=== PATIENT | female | born 1930 | race Caucasian/White ===

== ENCOUNTER 2016-08-12 05:02 | Inpatient (IN) | payer OTHER, MEDICARE ==
[2016-08-12 06:01] LABS: BASOPHIL 0.4 % (0-2.0); EOSINOPHIL 1.3 % (0-4.5); MCH 30.5 pg (25.7-33.7); MCHC 32.9 g/dl (32.0-36.0); MEAN CELL VOLUME 92.7 fl (80-96); MEAN PLT VOLUME 9.7 fl (7.5-11.1); PLATELET COUNT 194 K/MM3 (134-434); RDW 14.4 % (11.6-15.6)
[2016-08-12 06:11] LABS: INR 1.28 (0.82-1.09); PROTHROMBIN TIME (PATIENT) 14.2 SEC (9.98-11.88)
[2016-08-12 06:25] LABS: ALBUMIN 3.8 g/dl (3.4-5.0); ANION GAP 8 (8-16); CALCIUM 9.8 mg/dL (8.5-10.1); CO2 33 mmol/L (21-32); CREATININE 0.9 mg/dL (0.55-1.02); GLUCOSE,RANDOM 155 mg/dL (74-106); SGOT/AST 66 U/L (15-37); SGPT/ALT 36 U/L (12-78)
[2016-08-12 06:29] LABS: ALK PHOS 75 U/L (45-117); BILIRUBIN,TOTAL 0.7 mg/dL (0.2-1.0); TOT PROT 7.1 g/dl (6.4-8.2); TROPONIN I < 0.02 ng/ml (0.00-0.05)
[2016-08-12] MEDS ORDERED: PANTOPRAZOLE SODIUM 100 ML IVPB ONE (07:41)
[2016-08-12] MEDS ORDERED: ONDANSETRON 4 MG/2 ML VIAL ONE (07:44)
[2016-08-12] MEDS ORDERED: PANTOPRAZOLE SODIUM 40 MG in SODIUM CHLORIDE 100 ML IVPB ONE (08:16)
[2016-08-12] MEDS ORDERED: ONDANSETRON 4 MG/2 ML VIAL IVPUSH ONE (08:18)
--- NOTE | 2016-08-12 08:21 | PDOC ---
History of Present Illness <Margarita Davis - Last Filed: 08/12/16 12:17> - General History Source: Patient Exam Limitations: No Limitations - History of Present Illness Initial Comments: 08/12/16 08:27 The patient is a 85 year old female, with a significant past medical history of ASthma, ASHD, CAD, bilateral PE (on Eliquis) Diabetes, Colitis, Diverticulitis, HTN, HLD who presents to the emergency department with epigastric pain radiating to the back and lower abdomen since 8 pm last night. The patient states her epigastric pain is associated with nausea, vomiting, diaphoresis. The patient had cold sweats and 3 episodes of vomiting in the ED (nonbloody, nonbilious). Her last meal was at 8 PM last night. The patient denies any sick contacts or any recent travel. She denies headache or dizziness. She denies fever, chills, diarrhea or constipation. She denies dysuria, frequency, urgency or hematuria. Allergies: Advil Past surgical history: Appendectomy Social history: Former smoker, denies alcohol or drug use PCP: Dr. Dat Mart Sales Research Analyst: Dr. Jimenez <Radha Redding - Last Filed: 08/12/16 12:45> - General Chief Complaint: Chest Pain Stated Complaint: CHEST PAIN Past History - Past Medical History Anemia: No Asthma: Yes Cancer: No Cardiac Disorders: Yes (ASHD, CORONARY ATHEROSCLEROSIS, bilateral PE) CVA: No COPD: No CHF: No Dementia: No Diabetes: Yes GI Disorders: Yes (cololitis,diverticulitis,) Disorders: No HTN: Yes Hypercholesterolemia: Yes Liver Disease: No Seizures: No Thyroid Disease: No - Surgical History Abdominal Surgery: Yes Appendectomy: Yes Cardiac Surgery: No Cholecystectomy: No Lung Surgery: No Neurologic Surgery: No Orthopedic Surgery: Yes (R KNEE MENISCUS REPAIR, CORTISONE INJECTION IN L KNEE JUL 2014) - Reproductive History (#): 2 Para: 2 Cervical CA: No Dysfunctional Uterine Bleeding: No Ectopic : No Endometrial CA: No Endometriosis: No Ovarian CA: No PID: No Polycystic Ovaries: No Therapeutic (s) & number: No Tubal Ligation: No Uterine Fibroids: No Oophorectomy: No - Immunization History Immunization Up to Date: No - Psycho/Social/Smoking Cessation Hx Anxiety: No Suicidal Ideation: No Smoking Status: Yes Smoking History: Never smoked Years of Tobacco Use: 30 Have you smoked in the past 12 months: No Number of Cigarettes Smoked Daily: 0 If you are a former smoker, when did you quit?: 1998 Cigars Per Day: 0 Information on smoking cessation initiated: No Hx Alcohol Use: No Drug/Substance Use Hx: No Substance Use Type: None Hx Substance Use Treatment: No <Margarita Davis - Last Filed: 08/12/16 12:17> <Radha Redding - Last Filed: 08/12/16 12:45> - Past Medical History Allergies/Adverse Reactions: Allergies Allergy/AdvReac Type Severity Reaction Status Date / Time ibuprofen [From Advil] Allergy Mild Hives Verified 08/12/16 05:12 Home Medications: Ambulatory Orders Metoprolol Succinate [Toprol XL -] 25 mg PO DAILY #30 tab.sr.24h 01/26/16 Apixaban [Eliquis -] 5 mg PO Q12H 02/17/16 Ascorbic Acid [Vitamin C -] 1,000 mg PO DAILY 02/17/16 Cholecalciferol (Vitamin D3) [Vitamin D] 1,000 unit PO DAILY 02/17/16 Magnesium Chloride [Slow-Mag -] 64 mg PO DAILY 02/17/16 Multivitamin with Minerals [Icaps Plus] 1 each PO DAILY 02/17/16 Review of Systems - Review of Systems Able to Perform ROS?: Yes Comments:: 08/12/16 08:27 Constitutional: Pt denies Fever, Chills, weakness, HEENT: Denies vision changes, sore throat RESPIRATORY: Denies cough, sob, hemoptysis CARDIAC: + chest pain. Denies palpitations, light headedness, leg swelling ABD/GI: + abd pain, nausea, vomiting. Denies blood per rectum, melena, diarrhea : Denies dysuria, frequency, discharge MUSCULOSKELETAL - Denies back pain, joint swelling SKIN - Denies bruising, erythema, rash NEUROLOGICAL: Denies headache, numbness, focal weakness, tingling, ataxia, weakness HEMATOLOGIC: Denies anemia, easy bruising, easy bleeding <Radha Redding - Last Filed: 08/12/16 12:45> *Physical Exam - Vital Signs Last Vital Signs Temp Pulse Resp BP Pulse Ox 97.9 F 70 18 157/69 98 08/12/16 05:05 08/12/16 05:05 08/12/16 05:05 08/12/16 05:05 08/12/16 05:05 <Margarita Davis - Last Filed: 08/12/16 12:17> - Vital Signs Last Vital Signs Temp Pulse Resp BP Pulse Ox 97.9 F 70 18 157/69 98 08/12/16 05:05 08/12/16 05:05 08/12/16 05:05 08/12/16 05:05 08/12/16 05:05 - Physical Exam Comments: 08/12/16 08:27 GENERAL: The patient is awake, alert, and fully oriented, Nontoxic - in mild distress. HEAD: Normocephalic, atraumatic. EYES: Extraocular movements intact, sclera anicteric, conjunctiva clear. ENT: Normal voice, + dry mucous membranes. NECK: Normal range of motion, supple without lymphadenopathy, JVD, or masses. LUNGS: Breath sounds equal, clear to auscultation bilaterally. No wheezes, no crackles, no rales. HEART: Regular rate and rhythm, normal S1 and S2 without murmur, rub or gallop. ABDOMEN: +Distended + hyperactive bowel sounds. No guarding, no rebound. No masses. EXTREMITIES: Normal range of motion, no edema. No clubbing or cyanosis. No cords , erythema, or tenderness. NEUROLOGICAL: Fully Oriented, Alert, Normal Mood/Affect, Motor Strength 5/5. No facial asymmetry, Normal speech. SKIN: Warm, Dry, normal turgor, no rashes or lesions noted. <Radha Redding - Last Filed: 08/12/16 12:45> Heart Score/ECG Review - [place] Comment: 08/12/16 12:[address] Ryan Brink. rate 62 bpm RI Interval 184 ms QRS Duration 96 ms QT/QTc 422/428 ms P-R-T axes 13 -48 40 NSR L axis deviation Inferior infarct Abnormal ECG <Radha Redding - Last Filed: 08/12/16 12:45> ED Treatment Course - LABORATORY CBC & Chemistry Diagram: 08/12/16 05:27 08/12/16 05:27 - ADDITIONAL ORDERS Additional order review: Laboratory Results 08/12/16 08/12/16 05:27 05:27 INR 1.28 H Sodium 142 Potassium 3.9 D Chloride 101 Carbon Dioxide 33 H Anion Gap 8 BUN 22 H D Creatinine 0.9 D Creat Clearance w eGFR 59.65 Random Glucose 155 H Calcium 9.8 Total Bilirubin 0.7 D AST 66 H D ALT 36 D Alkaline Phosphatase 75 D Creatine Kinase 39 Troponin I < 0.02 Total Protein 7.1 Albumin 3.8 08/12/16 05:27 RBC 4.62 MCV 92.7 MCHC 32.9 RDW 14.4 MPV 9.7 Neutrophils % 55.0 Lymphocytes % 35.1 D Monocytes % 8.2 Eosinophils % 1.3 Basophils % 0.4 - RADIOLOGY Radiology Studies Ordered: Category Date Time Status ABDOMEN [id number] [RAD] Stat Radiology 08/12/16 08:15 Ordered ABDOMEN US [US] Stat Ultrasound 08/12/16 08:14 Ordered - Medications Given in the ED: ED Medications Discontinued Medications Generic Name Dose Route Start Last Admin Trade Name Freq PRN Reason Stop Dose Admin Ondansetron HCl 4 mg 08/12/16 08:18 08/12/16 08:21 Zofran Injection IVPUSH 08/12/16 08:19 4 mg ONCE ONE Administration <Margarita Davis - Last Filed: 08/12/16 12:17> - LABORATORY CBC & Chemistry Diagram: 08/12/16 05:27 08/12/16 05:27 - ADDITIONAL ORDERS Additional order review: Laboratory Results 08/12/16 08/12/16 05:27 05:27 INR 1.28 H Sodium 142 Potassium 3.9 D Chloride 101 Carbon Dioxide 33 H Anion Gap 8 BUN 22 H D Creatinine 0.9 D Creat Clearance w eGFR 59.65 Random Glucose 155 H Calcium 9.8 Total Bilirubin 0.7 D AST 66 H D ALT 36 D Alkaline Phosphatase 75 D Creatine Kinase 39 Troponin I < 0.02 Total Protein 7.1 Albumin 3.8 08/12/16 05:27 RBC 4.62 MCV 92.7 MCHC 32.9 RDW 14.4 MPV 9.7 Neutrophils % 55.0 Lymphocytes % 35.1 D Monocytes % 8.2 Eosinophils % 1.3 Basophils % 0.4 - Medications Given in the ED: ED Medications Discontinued Medications Generic Name Dose Route Start Last Admin Trade Name Freq PRN Reason Stop Dose Admin Ondansetron HCl 4 mg 08/12/16 08:18 08/12/16 08:21 Zofran Injection IVPUSH 08/12/16 08:19 4 mg ONCE ONE Administration <Radha Redding - Last Filed: 08/12/16 12:45> Medical Decision Making - Medical Decision Making 08/12/16 12:18 I, Dr. Margarita Davis, attest that the scribes documentation that appears above has been prepared under my direction and personally reviewed by me. I confirmed that the note above accurately reflects all work, treatment, procedures, and medical decision-making performed by me. Pt seen and examined at bedside with epigastric discomfort and pain radiating to her back, pt with 3 episodes of vomiting, sonogram done showing acute cholecystitis and thickened gall bladder wall. Pt with elevated lipase, pt with pancreatitis due to gall stones. Case discussed with Pt's PCP Dr Mart and covering physician will admit to hospital. Pt agrees with the admission to hospital. <Margarita Davis - Last Filed: 08/12/16 12:17> *DC/Admit/Observation/Transfer - Discharge Dispostion Admit: Yes <Margarita Davis - Last Filed: 08/12/16 12:17> - Attestations Scribe Attestion: 08/12/16 08:28 Documentation prepared by Radha Redding, acting as medical technologist for Margarita Davis MD <Radha Redding - Last Filed: 08/12/16 12:45> Diagnosis at time of Disposition: Acute gallstone pancreatitis - Discharge Dispostion Condition at time of disposition: Stable - Referrals
[2016-08-12 09:03] LABS: URINE APPEARANCE CLEAR; URINE BILIRUBIN NEGATIVE (NEGATIVE); URINE BLOOD NEGATIVE (NEGATIVE); URINE COLOR LTYELLOW; URINE GLUCOSE (UA) NEGATIVE (NEGATIVE); URINE KETONE NEGATIVE (NEGATIVE); URINE NITRITE NEGATIVE (NEGATIVE); URINE PROTEIN NEGATIVE (NEGATIVE); URINE UROBILINOGEN NEGATIVE E.U./dl (0.2-1.0)
[2016-08-12 09:06] LABS: AMYLASE 1159 U/L (25-115)
[2016-08-12 09:07] LABS: URINE LEUK ESTERASE TRACE (NEGATIVE)
[2016-08-12 09:10] LABS: URINE BACTERIA FEW /hpf (NONE SEEN); URINE MUCUS RARE; URINE RBC 1 /hpf (0-3); URINE WBC 4 /hpf (3-5)
[2016-08-12] MEDS ORDERED: LEVOFLOXACIN 500 MG IVPB 100 ML IVPB ONE ×2 (09:51→10:35)
[2016-08-12] MEDS ORDERED: SODIUM CHLORIDE 0.45% 1,000 ML IV SCH ×2 (11:15→17:39)
--- NOTE | 2016-08-12 11:25 | HP ---
Admitting History and Physical - Primary Care Physician PCP: Durga Mart - Admission Chief Complaint: Abdominal Pain History of Present Illness: 85 year old female noted severe mid-epigastric discomfort early this AM and came to ER where she had several episodes of vomiting. Work-up revealed an elevated serum Lipase level of 22,758 and ultrasound revealed finding c/w acute calculous cholecystitis. Denies new chest discomfort of ROBERTS. Admitted for evaluation and Rx of gallstone related pancreatitis. Patient has been on NOAC ( Eliquis) therapy for recent pulmonary embolism. 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 No: GI Bleed Hepatobiliary: Yes: Cholecystitis (see above) Musculoskeletal: Yes: Chronic low back pain, Osteoarthritis Endocrine: Yes: Diabetes Mellitus - Past Surgical History Past Surgical History: Yes: Appendectomy, Breast Biopsy (right benign) Additional Past Surgical History: Knee arthroscopy - Smoking History Smoking history: Never smoked Have you smoked in the past 12 months: No Aproximately how many cigarettes per day: 0 If you are a former smoker, when did you quit?: 1998 - Alcohol/Substance Use Hx Alcohol Use: No History of Substance Use: reports: None - Social History Usual Living Arrangement: Yes: Alone ADL: Independent History of Recent Travel: No Home Medications - Allergies Allergies/Adverse Reactions: Allergies Allergy/AdvReac Type Severity Reaction Status Date / Time ibuprofen [From Advil] Allergy Mild Hives Verified 08/12/16 05:12 - Home Medications Home Medications: Ambulatory Orders Metoprolol Succinate [Toprol XL -] 25 mg PO DAILY #30 tab.sr.24h 01/26/16 Apixaban [Eliquis -] 5 mg PO Q12H 02/17/16 Ascorbic Acid [Vitamin C -] 1,000 mg PO DAILY 02/17/16 Cholecalciferol (Vitamin D3) [Vitamin D] 1,000 unit PO DAILY 02/17/16 Magnesium Chloride [Slow-Mag -] 64 mg PO DAILY 02/17/16 Multivitamin with Minerals [Icaps Plus] 1 each PO DAILY 02/17/16 Family Disease History - Family Disease History Family Disease History: Diabetes: Mother, Heart Disease: Father Review of Systems - Review of Systems Constitutional: denies: Chills, Diaphoresis Eyes: reports: No Symptoms Neck: reports: No Symptoms Cardiovascular: reports: No Symptoms Respiratory: reports: Other (h/o PE) Gastrointestinal: reports: Abdominal Pain, Vomiting Genitourinary: reports: No Symptoms Breasts: reports: No Symptoms Reported Musculoskeletal: reports: Back Pain (chronic stable) Neurological: reports: No Symptoms Physical Examination Vital Signs: Vital Signs Temperature 97.9 F 08/12/16 05:05 Pulse Rate 64 08/12/16 08:36 Respiratory Rate 20 08/12/16 08:36 Blood Pressure 157/69 08/12/16 05:05 O2 Sat by Pulse Oximetry (%) 100 08/12/16 08:36 Constitutional: Yes: Anxious, Moderate Distress Eyes: Yes: Conjunctiva Clear. No: Sclera Icterus HENT: Yes: WNL Neck: Yes: Supple Cardiovascular: Yes: Regular Rate and Rhythm Respiratory: Yes: CTA Bilaterally. No: Rhonchi, Wheezes Gastrointestinal: Yes: Normal Bowel Sounds, Soft, Tenderness (mild tenderness left sided of abdomen) ...Rectal Exam: Yes: Deferred Edema: No Neurological: Yes: Alert, Oriented Imaging - Results Chest X-ray: Report Reviewed Ultrasound: Report Reviewed Problem List - Problems (1) Acute gallstone pancreatitis Assessment/Plan: Keep npo for now until seen by GI and Surgeon Empiric antibiotics given Invasive procedures (ERCP and Cholecystectomy) to be deferred and delayed due to NOAC use Discuss iv order with GI Code(s): K85.1 - BILIARY ACUTE PANCREATITIS * DO NOT USE * (2) Diabetes Assessment/Plan: Keep npo Cover BGMs Code(s): E11.9 - TYPE 2 DIABETES MELLITUS WITHOUT COMPLICATIONS (3) HTN (hypertension) Assessment/Plan: Stable Metoprolol discontinued as outpatient Code(s): I10 - ESSENTIAL (PRIMARY) HYPERTENSION (4) Pulmonary embolism, bilateral Assessment/Plan: Stable NOAC therapy to be held pending GI and Surgical opinions Code(s): I26.99 - OTHER PULMONARY EMBOLISM WITHOUT ACUTE COR PULMONALE (5) Colitis Assessment/Plan: Chronic stable Code(s): K52.9 - NONINFECTIVE GASTROENTERITIS AND COLITIS, UNSPECIFIED (6) Osteoarthritis Assessment/Plan: Chronic low back pain Currently stable Code(s): M19.90 - UNSPECIFIED OSTEOARTHRITIS, UNSPECIFIED SITE (7) S/P IVC filter Assessment/Plan: Will this interfere with possible MRCP? Assessment/Plan Plan as outlined above Will ask Shingle Weaver to see patient regarding timing of interventions while on NOAC therapy, which will be held. ?Role of bridging therapy
--- NOTE | 2016-08-12 11:54 | CONSULT ---
- Consultation REQUESTING PROVIDER: Dayana Mart MD CONSULT REQUEST: I have been asked to evaluate and manage this patient for c/ o epigastric pain found to be due to gallstone pancreatitis. PCP:Durga Mart HISTORY OF PRESENT ILLNESS:# hours of epigastric sharp abdominal pain w/ radiation to the back w/nausea and then vomiting; she came to the ER for evaluation; she never had this before. PMHx: reviewed PSHx: reviewed Home Medications Medication Instructions Recorded Metoprolol Succinate [Toprol XL -] 25 mg PO DAILY #30 tab.sr.24h 01/26/16 Apixaban [Eliquis -] 5 mg PO Q12H 02/17/16 Ascorbic Acid [Vitamin C -] 1,000 mg PO DAILY 02/17/16 Cholecalciferol (Vitamin D3) 1,000 unit PO DAILY 02/17/16 [Vitamin D] Magnesium Chloride [Slow-Mag -] 64 mg PO DAILY 02/17/16 Multivitamin with Minerals [Icaps 1 each PO DAILY 02/17/16 Plus] Allergies Allergy/AdvReac Type Severity Reaction Status Date / Time ibuprofen [From Advil] Allergy Mild Hives Verified 08/12/16 05:12 REVIEW OF SYSTEMS: as above only; she had a PE 12/31 PHYSICAL EXAM: GENERAL: Awake, alert, and fully oriented, in no acute distress. HEAD: Normal with no signs of trauma. EYES: PERRL, sclera anicteric, conjunctiva clear. NECK: Normal ROM, supple without lymphadenopathy, JVD, or masses. ABDOMEN: Soft, nontender, not distended, normoactive bowel sounds, slight epigastric guarding, no rebound, no masses. No organomegaly. MUSCULOSKELETAL: Normal ROM at all joints. No bony deformities or tenderness. No CVA tenderness. UPPER EXTREMITIES: 2+ pulses, warm, well-perfused. No cyanosis. Cap refill <2 seconds. No peripheral edema. LOWER EXTREMITIES: 2+ pulses, warm, well-perfused. No calf tenderness. No peripheral edema. NEUROLOGICAL: Normal speech, gait not observed. PSYCH: Cooperative. Good eye contact. Appropriate mood and affect. SKIN: Warm, dry, normal turgor, no rashes or lesions noted. Vital Signs Temperature 97.9 F 08/12/16 05:05 Pulse Rate 64 08/12/16 08:36 Respiratory Rate 20 08/12/16 08:36 Blood Pressure 157/69 08/12/16 05:05 O2 Sat by Pulse Oximetry (%) 100 08/12/16 08:36 Lab Results WBC 9.0 K/mm3 (4.0-10.0) D 08/12/16 05:27 RBC 4.62 M/mm3 (3.60-5.2) 08/12/16 05:27 Hgb 14.1 GM/dL (10.7-15.3) 08/12/16 05:27 Hct 42.9 % (32.4-45.2) 08/12/16 05:27 MCV 92.7 fl (80-96) 08/12/16 05:27 MCHC 32.9 g/dl (32.0-36.0) 08/12/16 05:27 RDW 14.4 % (11.6-15.6) 08/12/16 05:27 Plt Count 194 K/MM3 (134-434) 08/12/16 05:27 Sodium 142 mmol/L (136-145) 08/12/16 05:27 Potassium 3.9 mmol/L (3.5-5.1) D 08/12/16 05:27 Chloride 101 mmol/L (98-107) 08/12/16 05:27 Carbon Dioxide 33 mmol/L (21-32) H 08/12/16 05:27 Anion Gap 8 (8-16) 08/12/16 05:27 BUN 22 mg/dL (7-18) H D 08/12/16 05:27 Creatinine 0.9 mg/dL (0.55-1.02) D 08/12/16 05:27 Random Glucose 155 mg/dL (74-106) H 08/12/16 05:27 Calcium 9.8 mg/dL (8.5-10.1) 08/12/16 05:27 INR 1.28 (0.82-1.09) H 08/12/16 05:27 US reviewed; LFT's wnl; amylase/lipase elevated IMP: gallstone pancreatitis; cholelithiasis PLAN: Suggest NPO/IVF/trend amylase/lipase; will f/u; will advise lap christelle once amylase/lipase normalize; will need to address anticoagulation status if surgery id done. Finesse Holguin MD FACS Visit type - Case Type Case Type: ED Admission - Emergency Emergency Visit: Yes ED Registration Date: 08/12/16 Care time: The patient presented to the Emergency Department on the above date and was hospitalized for further evaluation of their emergent condition. - New patient This patient is new to me today: Yes Date on this admission: 08/12/16 - Critical Care Critical Care patient: No
[2016-08-12 12:57] VITALS: BMI 32.5
[2016-08-12] MEDS ORDERED: morphine CARPU-JECT 2 MG/1 ML DISP.SYRIN IVPUSH PRN (15:19)
[2016-08-12] MEDS: INSULIN SLIDING SCALE (NOVOLOG) 1 VIAL SQ SCH (16:29)
[2016-08-12] MEDS ORDERED: INSULIN SLIDING SCALE (NOVOLOG) 1 VIAL SQ SCH (16:30)
[2016-08-12] MEDS ORDERED: ACETAMINOPHEN 325 MG TABLET (FP) PO PRN (16:40)
--- NOTE | 2016-08-12 17:32 | CON.GI ---
Consult Consult Specialty:: GASTROENTEROLOGY Reason for Consultation:: GALLSTONE PANCREATITIS - History of Present Illness Chief Complaint: ABDOMINAL PAIN History of Present Illness: 86 YEAR OLD FEMALE WITH ASHD, CAD ON ELIQUIS FOR BILATERAL DVT PRESENT TO THE ED WITH INCREASED UPPER ABDOMINAL PAIN ASSOCIATED WITH NAUSEA AND VOMITING. HER LFT'S WERE FOUND TO BE OK EXCEPT FOR A SLIGHTLY ELEVATED AST BUT A LIPASE OVER 20, 000. SHE HAS NOT KNOWN TO HAVE GALLSTONES, SHE DOES NOT DRINK ALCOHOL, SHE HAS NEVER HAD THIS TYPE OF PAIN BEFORE. 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 No: GI Bleed Hepatobiliary: Yes: Cholecystitis (see above) ...: No Musculoskeletal: Yes: Chronic low back pain, Osteoarthritis Endocrine: Yes: Diabetes Mellitus - Past Surgical History Past Surgical History: Yes: Appendectomy, Breast Biopsy (right benign) - Alcohol/Substance Use Hx Alcohol Use: No History of Substance Use: reports: None - Smoking History Smoking history: Never smoked Have you smoked in the past 12 months: No Aproximately how many cigarettes per day: 0 If you are a former smoker, when did you quit?: 1998 - Social History ADL: Independent History of Recent Travel: No Home Medications - Allergies Allergies/Adverse Reactions: Allergies Allergy/AdvReac Type Severity Reaction Status Date / Time ibuprofen [From Advil] Allergy Mild Hives Verified 08/12/16 05:12 - Home Medications Home Medications: Ambulatory Orders Metoprolol Succinate [Toprol XL -] 25 mg PO DAILY #30 tab.sr.24h 01/26/16 Apixaban [Eliquis -] 5 mg PO Q12H 02/17/16 Ascorbic Acid [Vitamin C -] 1,000 mg PO DAILY 02/17/16 Cholecalciferol (Vitamin D3) [Vitamin D] 1,000 unit PO DAILY 02/17/16 Magnesium Chloride [Slow-Mag -] 64 mg PO DAILY 02/17/16 Multivitamin with Minerals [Icaps Plus] 1 each PO DAILY 02/17/16 Family Disease History - Family Disease History Family Disease History: Diabetes: Mother, Heart Disease: Father Review of Systems - Review of Systems Constitutional: reports: Chills Eyes: reports: No Symptoms HENT: reports: No Symptoms Neck: reports: No Symptoms Cardiovascular: reports: No Symptoms Respiratory: reports: No Symptoms Gastrointestinal: reports: Abdominal Pain, Nausea, Vomiting Genitourinary: reports: No Symptoms Breasts: reports: No Symptoms Reported Musculoskeletal: reports: No Symptoms Integumentary: reports: No Symptoms Neurological: reports: No Symptoms Endocrine: reports: No Symptoms Hematology/Lymphatic: reports: No Symptoms Psychiatric: reports: No Symptoms Physical Exam-GI Vital Signs: Vital Signs Temperature 98.9 F 08/12/16 17:10 Pulse Rate 72 08/12/16 17:10 Respiratory Rate 18 08/12/16 17:10 Blood Pressure 96/50 08/12/16 17:10 O2 Sat by Pulse Oximetry (%) 95 08/12/16 12:39 Constitutional: Yes: Well Nourished, Mild Distress Eyes: Yes: Conjunctiva Clear HENT: Yes: Normocephalic Neck: Yes: Supple, Trachea Midline Respiratory: Yes: Regular Gastrointestinal Inspection: Yes: WNL ...Auscultate: Yes: Normoactive Bowel Sounds ...Palpate: Yes: Tenderness, Epigastium Genitourinary: Yes: WNL Musculoskeletal: Yes: WNL Extremities: Yes: WNL Neurological: Yes: WNL Labs: INR, PTT INR 1.28 (0.82-1.09) H 08/12/16 05:27 Laboratory Tests 08/12/16 08/12/16 08/12/16 05:27 05:27 05:27 WBC 9.0 D RBC 4.62 Hgb 14.1 Hct 42.9 MCV 92.7 MCHC 32.9 RDW 14.4 Plt Count 194 MPV 9.7 Neutrophils % 55.0 Lymphocytes % 35.1 D Monocytes % 8.2 Eosinophils % 1.3 Basophils % 0.4 INR 1.28 H Sodium 142 Potassium 3.9 D Chloride 101 Carbon Dioxide 33 H Anion Gap 8 BUN 22 H D Creatinine 0.9 D Creat Clearance w eGFR 59.65 POC Glucometer Random Glucose 155 H Calcium 9.8 Total Bilirubin 0.7 D ALT 36 D Alkaline Phosphatase 75 D Creatine Kinase 39 Troponin I < 0.02 Total Protein 7.1 Albumin 3.8 Total Amylase 1159 H Lipase 20215 H 08/12/16 16:27 WBC RBC Hgb Hct MCV MCHC RDW Plt Count MPV Neutrophils % Lymphocytes % Monocytes % Eosinophils % Basophils % INR Sodium Potassium Chloride Carbon Dioxide Anion Gap BUN Creatinine Creat Clearance w eGFR POC Glucometer 124 Random Glucose Calcium Total Bilirubin ALT Alkaline Phosphatase Creatine Kinase Troponin I Total Protein Albumin Total Amylase Lipase Imaging - Results Ultrasound: Report Reviewed Assessment/Plan GALLSTONE PANCREATITIS INCREASE IV FLUID CT SCAN OF ABDOMEN IN AM PO CONTRAST ONLY FOLLOW LFT'S, LIPASE, ANALGESIA EVENTUAL SURGERY SURGICAL CONSULT
[2016-08-12] MEDS: SODIUM CHLORIDE 0.45% 1,000 ML IV SCH (18:00)
--- NOTE | 2016-08-12 20:03 | CONSULT ---
Consult - text type - Consultation Consultation Note: 85 year old female noted severe mid-epigastric discomfort early this AM and came to ER where she had several episodes of vomiting. Work-up revealed an elevated serum Lipase level of 22,758 and ultrasound revealed finding c/w acute calculous cholecystitis. Denies new chest discomfort of ROBERTS. Admitted for evaluation and Rx of gallstone related pancreatitis. Patient has been on NOAC ( Eliquis) therapy for recent pulmonary embolism. - Past Medical History Cardiovascular: Yes: CAD (Risk factors had cath 2003), Deep Vein Thrombosis (h/o ), HTN, Hyperlipdemia Pulmonary: Yes: COPD, Other (former smoker) Gastrointestinal: Yes: Other (colitis abdominal pain as above). No: GI Bleed Hepatobiliary: Yes: Cholecystitis (see above) Musculoskeletal: Yes: Chronic low back pain, Osteoarthritis Endocrine: Yes: Diabetes Mellitus - Past Surgical History Past Surgical History: Yes: Appendectomy, Breast Biopsy (right benign) - Smoking History Smoking history: Never smoked - Social History ADL: Independent Home Medications - Allergies Allergies/Adverse Reactions: Allergies Allergy/AdvReac Type Severity Reaction Status Date / Time ibuprofen [From Advil] Allergy Mild Hives Verified 08/12/16 05:12 - Home Medications Home Medications: Ambulatory Orders Metoprolol Succinate [Toprol XL -] 25 mg PO DAILY #30 tab.sr.24h 01/26/16 Apixaban [Eliquis -] 5 mg PO Q12H 02/17/16 Ascorbic Acid [Vitamin C -] 1,000 mg PO DAILY 02/17/16 Cholecalciferol (Vitamin D3) [Vitamin D] 1,000 unit PO DAILY 02/17/16 Magnesium Chloride [Slow-Mag -] 64 mg PO DAILY 02/17/16 Multivitamin with Minerals [Icaps Plus] 1 each PO DAILY 02/17/16 Current Medications Sodium Chloride (1/2 Normal Saline) 1,000 mls @ 85 mls/hr IV ASDIR SHAYNA Last Admin: 08/12/16 18:00 Dose: 85 mls/hr Insulin Aspart (Novolog Vial Sliding Scale -) 1 vial SQ BIDAC SHAYNA PRN Reason: Protocol Stop: 08/15/16 11:18 Last Admin: 08/12/16 16:29 Dose: Not Given Morphine Sulfate (Morphine Injection -) 1 mg IVPUSH Q4H PRN PRN Reason: PAIN Family Disease History - Family Disease History Family Disease History: Diabetes: Mother, Heart Disease: Father Physical Examination Vital Signs: Vital Signs Temperature 97.9 F 08/12/16 05:05 Pulse Rate 64 08/12/16 08:36 Respiratory Rate 20 08/12/16 08:36 Blood Pressure 157/69 08/12/16 05:05 O2 Sat by Pulse Oximetry (%) 100 08/12/16 08:36 Constitutional: Yes: Anxious, Moderate Distress Eyes: Yes: Conjunctiva Clear. No: Sclera Icterus HENT: Yes: WNL Neck: Yes: Supple Cardiovascular: Yes: Regular Rate and Rhythm Respiratory: Yes: CTA Bilaterally. No: Rhonchi, Wheezes Gastrointestinal: Yes: Normal Bowel Sounds, Soft, Tenderness (mild tenderness left sided of abdomen) Neurological: Yes: Alert, Oriented Problem List (1) Acute gallstone pancreatitis (2) Diabetes (3) HTN (hypertension) (4) Pulmonary embolism, bilateral (5) Colitis (6) Osteoarthritis (7) S/P IVC filter 85 y/o female with htn, hld, DM, IBS, COPD , RLE DVT/ extensive b/l PE -- comes in with abdominal pain- ? gall stone pancreatitis Unprovoked DVT/PE-6 months ago --s/p thrombolysis/ ivc filter placement On eliquis 5mg bid last dose of eliquis 08/11 9pm Eliquis generally held 48hrs. prior to procedures with moderate/severe risk of bleeding No h/o use of any other NSAIDS will consider heparin drip without bolus as bridging if held for > 48hrs,
[2016-08-12] MEDS ORDERED: INSULIN (NOVOLOG) ASPART 100 UNITS/ML 10ML VIAL ONE (20:24)
--- NOTE | 2016-08-12 21:03 | EKG ---
Test Reason : Blood Pressure : / mmHG Vent. 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
[2016-08-13] MEDS: INSULIN SLIDING SCALE (NOVOLOG) 1 VIAL SQ SCH ×2 (06:17→16:29)
[2016-08-13] MEDS ORDERED: PT OWN MED DRAWER 7, Y5N ONE (06:52)
[2016-08-13 08:54] LABS: BASOPHIL 0.3 % (0-2.0); EOSINOPHIL 0.1 % (0-4.5); MCH 31.3 pg (25.7-33.7); MCHC 33.6 g/dl (32.0-36.0); MEAN PLT VOLUME 9.2 fl (7.5-11.1); NEUTROPHILS 65.1 % (42.8-82.8); PLATELET COUNT 191 K/MM3 (134-434); RDW 14.8 % (11.6-15.6); WHITE BLOOD COUNT 5.7 K/mm3 (4.0-10.0)
[2016-08-13 09:08] LABS: INR 1.51 (0.82-1.09); PROTHROMBIN TIME (PATIENT) 16.7 SEC (9.98-11.88)
[2016-08-13 09:10] LABS: ALK PHOS 59 U/L (45-117); AMYLASE 378 U/L (25-115); ANION GAP 8 (8-16); CALCIUM 8.5 mg/dL (8.5-10.1); CO2 30 mmol/L (21-32); CREATININE 0.6 mg/dL (0.55-1.02); GLUCOSE,RANDOM 108 mg/dL (74-106); MAGNESIUM 1.9 mg/dL (1.8-2.4); SGOT/AST 26 U/L (15-37); SGPT/ALT 28 U/L (12-78); TOT PROT 5.8 g/dl (6.4-8.2)
--- NOTE | 2016-08-13 09:48 | PN ---
[id number] see admission note. Awakened with severe epigastric pain and vomiting early yesterday morning. In ER, lipase level >20K, with Ultrasound findings of calculous cholecystitis without evidence of biliary ductile dilatation, and only minimal transaminitis. Seen by GI and Surgery as well as Photoengraving Etcher Apprentice (due to issue of Eliquis therapy for previous Pulmonary emboli and unprovoked DVT.) Currently, supine in bed, awake alert and appropriate, with persistence of abdominal soreness, but without severe pain or vomiting. Elevation of INR noted Vitamin K ordered. Marked decline in Lipase noted - Current Medication List Current Medications: Active Medications Sodium Chloride (1/2 Normal Saline) 1,000 mls @ 85 mls/hr IV ASDIR SHAYNA Last Admin: 08/12/16 18:00 Dose: 85 mls/hr Insulin Aspart (Novolog Vial Sliding Scale -) 1 vial SQ BIDAC SHAYNA PRN Reason: Protocol Stop: 08/15/16 11:18 Last Admin: 08/13/16 06:17 Dose: Not Given Morphine Sulfate (Morphine Injection -) 1 mg IVPUSH Q4H PRN PRN Reason: PAIN - Objective Vital Signs: Vital Signs Temperature 98.2 F 08/13/16 05:00 Pulse Rate 73 08/13/16 05:00 Respiratory Rate 18 08/13/16 05:00 Blood Pressure 131/70 08/13/16 05:00 O2 Sat by Pulse Oximetry (%) 90 L 08/12/16 21:00 Constitutional: Yes: Mild Distress Eyes: No: Sclera Icterus HENT: Yes: Other (dry mucous membranes) Neck: Yes: Supple Cardiovascular: Yes: Regular Rate and Rhythm Respiratory: Yes: CTA Bilaterally Gastrointestinal: Yes: Normal Bowel Sounds, Soft, Tenderness (mild diffuse w/o guarding or rebound) ...Rectal Exam: Yes: Deferred Edema: No Neurological: Yes: Alert, Oriented Labs: CBC, BMP 08/13/16 07:15 08/13/16 07:15 INR, PTT INR 1.51 (0.82-1.09) H 08/13/16 07:15 Fibrinogen 480.0 mg/dL (238-498) 08/13/16 07:15 Problem List - Problems (1) Acute gallstone pancreatitis Assessment/Plan: Keep npo for now. Has been seen by GI and Surgeon. Add ice chips for comfort if OK with GI and Surgeon. Empiric antibiotics ordered. Invasive procedures ( ERCP and Cholecystectomy) to be deferred and delayed due to NOAC use. Continue iv fluids. Recheck labs Code(s): K85.1 - BILIARY ACUTE PANCREATITIS * DO NOT USE * (2) Diabetes Assessment/Plan: Keep npo Cover BGMs Previously on metformin bid Code(s): E11.9 - TYPE 2 DIABETES MELLITUS WITHOUT COMPLICATIONS (3) HTN (hypertension) Assessment/Plan: Stable Metoprolol discontinued as outpatient Code(s): I10 - ESSENTIAL (PRIMARY) HYPERTENSION (4) Pulmonary embolism, bilateral Assessment/Plan: Stable NOAC therapy to be held pending GI and Surgical opinions To start iv Heparin as per discussion with Hematology Code(s): I26.99 - OTHER PULMONARY EMBOLISM WITHOUT ACUTE COR PULMONALE (5) Colitis Assessment/Plan: Chronic stable Code(s): K52.9 - NONINFECTIVE GASTROENTERITIS AND COLITIS, UNSPECIFIED (6) Osteoarthritis Assessment/Plan: Chronic low back pain Currently stable Code(s): M19.90 - UNSPECIFIED OSTEOARTHRITIS, UNSPECIFIED SITE (7) S/P IVC filter Assessment/Plan: Will this interfere with possible MRCP? Assessment/Plan Plan as outlined above Appreciate data power consultant input Await results of further testing Role of bridging therapy with iv Heparin discussed this AM with Dr Man She will order this later today based on further findings
[2016-08-13] MEDS ORDERED: METOPROLOL SUCCINATE 25 MG TAB.SR.24H (FP) PO SCH (10:00)
[2016-08-13] MEDS: LEVOFLOXACIN 500 MG IVPB 100 ML IVPB SCH (11:40)
[2016-08-13] MEDS: PHYTONADIONE 10 MG/1 ML AMP SQ SCH (11:40)
--- NOTE | 2016-08-13 11:53 | PN ---
Progress Note (short form) - Note Progress Note: Atending Surgeon Seen in f/u; pain is resolved ; only some soreness VSS AF Abdomen-soft/flat/nontender Amylase/lipase decreased IMP: Resolving gallstone pancreatitis PLAN: Advise lap christelle once coagulation management status resolved Finesse Holguin MD FACS
--- NOTE | 2016-08-13 16:45 | PN ---
GI Progress Note Subjective: GASTROENTEROLOGY PAIN MUCH BETTER LIPASE IMPROVING CT SCAN JUST DONE - Objective Vital Signs: Vital Signs Temperature 98.6 F 08/13/16 16:03 Pulse Rate 80 08/13/16 16:03 Respiratory Rate 18 08/13/16 16:03 Blood Pressure 116/54 08/13/16 16:03 O2 Sat by Pulse Oximetry (%) 93 L 08/13/16 11:14 Constitutional: No Distress Eyes: Yes: Conjunctiva Clear HENT: Yes: Normocephalic Cardiovascular: Yes: WNL Respiratory: Yes: WNL Gastrointestinal Inspection: Yes: Distention ...Auscultate: Yes: Normoactive Bowel Sounds ...Palpate: Yes: Soft Extremities: Yes: WNL Labs: CBC, BMP 08/13/16 07:15 08/13/16 07:15 INR, PTT INR 1.51 (0.82-1.09) H 08/13/16 07:15 Fibrinogen 480.0 mg/dL (238-498) 08/13/16 07:15 Laboratory Tests 08/12/16 08/13/16 08/13/16 05:27 07:15 07:15 WBC 5.7 D RBC 5.06 Hgb 15.8 H D Hct 47.1 H MCV 93.0 MCHC 33.6 RDW 14.8 Plt Count 191 MPV 9.2 Neutrophils % 65.1 Lymphocytes % 23.8 D Monocytes % 10.7 H Eosinophils % 0.1 D Basophils % 0.3 INR Sodium 142 Potassium 4.0 Chloride 104 Carbon Dioxide 30 Anion Gap 8 BUN 24 H Creatinine 0.6 D Creat Clearance w eGFR > 60 Random Glucose 108 H D Calcium 8.5 Magnesium 1.9 Total Bilirubin 1.0 D AST 26 D ALT 28 D Alkaline Phosphatase 59 D Total Protein 5.8 L Albumin 3.0 L D Total Amylase 1159 H 378 H D Lipase 60970 H 1437 H 08/13/16 07:15 WBC RBC Hgb Hct MCV MCHC RDW Plt Count MPV Neutrophils % Lymphocytes % Monocytes % Eosinophils % Basophils % INR 1.51 H Sodium Potassium Chloride Carbon Dioxide Anion Gap BUN Creatinine Creat Clearance w eGFR Random Glucose Calcium Magnesium Total Bilirubin AST ALT Alkaline Phosphatase Total Protein Albumin Total Amylase Lipase Assessment/Plan GALLSTONE PANCREATITIS IMPROVING AWAIT RESULTS OF CT SCAN FOLLOW LIPASE
[2016-08-13] MEDS ORDERED: HEPARIN NA (PORCINE) 5,000 UNITS/ML 1ML VIAL IVPUSH PRN ×2 (17:07)
--- NOTE | 2016-08-13 17:11 | PN ---
Progress Note (short form) - Note Progress Note: PAtient seen and examined No shortness of breath. No leg pain/swelling still with abdominal pain Last Vital Signs Temp Pulse Resp BP Pulse Ox 98.6 F 80 18 116/54 93 L 08/13/16 16:03 08/13/16 16:03 08/13/16 16:03 08/13/16 16:03 08/13/16 11:14 HEENT: JUN, EOM Intact Cor: RSR, No murmurs, No gallops Lungs: Clear to P&A Abd: Soft, Normal bowel sounds, mild tenderness RUQ Ext:No significant edema Abnormal Lab Results 08/13/16 08/13/16 08/13/16 07:15 07:15 07:15 Hgb 15.8 H D Hct 47.1 H Monocytes % 10.7 H INR 1.51 H BUN 24 H Random Glucose 108 H D Total Protein 5.8 L Albumin 3.0 L D Total Amylase 378 H D Lipase 1437 H Current Medications Acetaminophen (Tylenol -) 650 mg PO Q4H PRN PRN Reason: FEVER OR PAIN Heparin Sodium (Porcine) (Heparin -) 1,000 unit IVPUSH PRN PRN PRN Reason: Heparin Heparin Sodium (Porcine) (Heparin -) 5,000 unit IVPUSH PRN PRN PRN Reason: Heparin Sodium Chloride (1/2 Normal Saline) 1,000 mls @ 85 mls/hr IV ASDIR [facility] Last Admin: 08/12/16 18:00 Dose: 85 mls/hr Levofloxacin (Levaquin 500 Mg Premixed Ivpb -) 100 mls @ 100 mls/hr IVPB DAILY [facility] Last Admin: 08/13/16 11:40 Dose: 100 mls/hr Heparin Sodium/Dextrose (Heparin Infusion -) 500 mls @ 20 mls/hr IVPB TITR SHAYNA ; 1,000 UNITS/HR PRN Reason: Protocol Insulin Aspart (Novolog Vial Sliding Scale -) 1 vial SQ BIDAC [facility] PRN Reason: Protocol Stop: 08/15/16 11:18 Last Admin: 08/13/16 16:29 Dose: Not Given Morphine Sulfate (Morphine Injection -) 1 mg IVPUSH Q4H PRN PRN Reason: PAIN Phytonadione (Aqua Mephyton Injection -) 5 mg SQ DAILY [facility] Stop: 08/15/16 10:01 Last Admin: 08/13/16 11:40 Dose: 5 mg A/P 85 y/o female with htn, hld, DM, IBS, COPD , RLE DVT/ extensive b/l PE -- comes in with abdominal pain- ? gall stone pancreatitis Unprovoked DVT/PE-6 months ago --s/p thrombolysis/ ivc filter placement On eliquis 5mg bid last dose of eliquis 08/11 9pm Eliquis generally held 48hrs. prior to procedures with moderate/severe risk of bleeding No h/o use of any other NSAIDS will consider heparin drip without bolus as bridging , once CT results available. r/o hemorrhagic pancreatitis discussed with GI team/primary team Left message with surgery team
[2016-08-13] MEDS ORDERED: HEPARIN INFUSION - 500 ML IVPB SCH (17:15)
[2016-08-13] MEDS ORDERED: INSULIN (NOVOLOG) ASPART 100 UNITS/ML 10ML VIAL ONE (20:42)
[2016-08-13] MEDS ORDERED: ENOXAPARIN NA (PORCINE) 40 MG/0.4 ML DISP.SYRIN SQ SCH (21:30)
[2016-08-13] MEDS: SODIUM CHLORIDE 0.45% 1,000 ML IV SCH (22:22)
[2016-08-13] MEDS: HEPARIN NA (PORCINE) 5,000 UNITS/ML 1ML VIAL SQ SCH (22:23)
[2016-08-14] MEDS: INSULIN SLIDING SCALE (NOVOLOG) 1 VIAL SQ SCH ×2 (06:00→16:57)
[2016-08-14 09:09] LABS: BASOPHIL 0.3 % (0-2.0); MCHC 33.4 g/dl (32.0-36.0); MEAN CELL VOLUME 92.7 fl (80-96); MEAN PLT VOLUME 9.2 fl (7.5-11.1); NEUTROPHILS 71.4 % (42.8-82.8); PLATELET COUNT 169 K/MM3 (134-434); RDW 14.4 % (11.6-15.6)
--- NOTE | 2016-08-14 09:15 | PN ---
Progress Note, Physician Chief Complaint: Abdominal Pain Vomiting History of Present Illness: Please see admission note. 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 In ER, lipase level >20K, with Ultrasound findings of calculous cholecystitis without evidence of biliary ductile dilatation, and only minimal transaminitis. Seen by GI and Surgery as well as Inter Com Installer (due to issue of Eliquis therapy for previous Pulmonary emboli and unprovoked DVT.) Currently, supine in bed, awake alert and appropriate, with persistence of abdominal soreness, but without severe pain or vomiting. Elevation of INR noted Vitamin K ordered. Marked decline in Lipase noted yesterday. Labs and Abdominal CT report pending. Still feels weak. - Current Medication List Current Medications: Active Medications Acetaminophen (Tylenol -) 650 mg PO Q4H PRN PRN Reason: FEVER OR PAIN Heparin Sodium (Porcine) (Heparin -) 5,000 unit SQ BID [facility] Last Admin: 08/13/16 22:23 Dose: 5,000 unit Sodium Chloride (1/2 Normal Saline) 1,000 mls @ 85 mls/hr IV ASDIR [facility] Last Admin: 08/13/16 22:22 Dose: 85 mls/hr Levofloxacin (Levaquin 500 Mg Premixed Ivpb -) 100 mls @ 100 mls/hr IVPB DAILY [facility] Last Admin: 08/13/16 11:40 Dose: 100 mls/hr Insulin Aspart (Novolog Vial Sliding Scale -) 1 vial SQ BIDAC [facility] PRN Reason: Protocol Stop: 08/15/16 11:18 Last Admin: 08/14/16 06:00 Dose: Not Given Morphine Sulfate (Morphine Injection -) 1 mg IVPUSH Q4H PRN PRN Reason: PAIN Phytonadione (Aqua Mephyton Injection -) 5 mg SQ DAILY [facility] Stop: 08/15/16 10:01 Last Admin: 08/13/16 11:40 Dose: 5 mg - Objective Vital Signs: Vital Signs Temperature 97.9 F 08/13/16 21:00 Pulse Rate 80 08/13/16 21:00 Respiratory Rate 18 08/13/16 21:00 Blood Pressure 103/53 08/13/16 21:00 O2 Sat by Pulse Oximetry (%) 90 L 08/13/16 21:00 Constitutional: Yes: Moderate Distress Eyes: No: Sclera Icterus Cardiovascular: Yes: Regular Rate and Rhythm Respiratory: Yes: CTA Bilaterally, On Nasal O2 Gastrointestinal: Yes: Soft, Hypoactive Bowel Sounds, Tenderness (mild w/o guarding or rebound) Edema: No Neurological: Yes: Alert, Oriented Labs: INR, PTT INR 1.51 (0.82-1.09) H 08/13/16 07:15 Fibrinogen 480.0 mg/dL (238-498) 08/13/16 07:15 - ....Imaging Cat Scan: Pending Problem List - Problems (1) Acute gallstone pancreatitis Assessment/Plan: Keep npo for now. Has been seen by GI and Surgeon. Add ice chips for comfort if OK with GI and Surgeon. Empiric antibiotics ordered. Invasive procedures ( ERCP and Cholecystectomy) to be deferred and delayed due to NOAC use. Continue iv fluids. Recheck labs Await CT report Code(s): K85.1 - BILIARY ACUTE PANCREATITIS * DO NOT USE * (2) Diabetes Assessment/Plan: Keep npo Cover BGMs Previously on metformin bid Code(s): E11.9 - TYPE 2 DIABETES MELLITUS WITHOUT COMPLICATIONS (3) HTN (hypertension) Assessment/Plan: Stable Metoprolol discontinued as outpatient Code(s): I10 - ESSENTIAL (PRIMARY) HYPERTENSION (4) Pulmonary embolism, bilateral Assessment/Plan: Stable NOAC therapy to be held pending GI and Surgical opinions To start iv Heparin as per discussion with Hematology Code(s): I26.99 - OTHER PULMONARY EMBOLISM WITHOUT ACUTE COR PULMONALE (5) Colitis Assessment/Plan: Chronic stable Code(s): K52.9 - NONINFECTIVE GASTROENTERITIS AND COLITIS, UNSPECIFIED (6) Osteoarthritis Assessment/Plan: Chronic low back pain Currently stable Code(s): M19.90 - UNSPECIFIED OSTEOARTHRITIS, UNSPECIFIED SITE (7) S/P IVC filter Assessment/Plan: Will this interfere with possible MRCP? Assessment/Plan Plan as outlined above Appreciate webmethods consultant input Await results of further testing Role of bridging therapy with iv Heparin discussed t with Dr Man Await further GI and surgical input Await CT report
[2016-08-14 09:30] LABS: INR 1.62 (0.82-1.09)
[2016-08-14 09:31] LABS: AMYLASE 191 U/L (25-115)
[2016-08-14 09:36] LABS: ALBUMIN 2.6 g/dl (3.4-5.0); BILIRUBIN,DIRECT 0.4 mg/dL (0.0-0.2); BILIRUBIN,TOTAL 1.1 mg/dL (0.2-1.0); CALCIUM 8.5 mg/dL (8.5-10.1); CREATININE 0.6 mg/dL (0.55-1.02); TOT PROT 5.4 g/dl (6.4-8.2)
[2016-08-14] MEDS: SODIUM CHLORIDE 0.45% 1,000 ML IV SCH ×2 (09:42→22:37)
[2016-08-14] MEDS: HEPARIN NA (PORCINE) 5,000 UNITS/ML 1ML VIAL SQ SCH (09:43)
[2016-08-14] MEDS: PHYTONADIONE 10 MG/1 ML AMP SQ SCH (09:43)
[2016-08-14] MEDS: LEVOFLOXACIN 500 MG IVPB 100 ML IVPB SCH (09:43)
--- NOTE | 2016-08-14 14:04 | PN ---
Progress Note (short form) - Note Progress Note: Attending Surgeon Staes her legs are burning and stomach bothers her; had BM and passing flatus VSS AF abdomen-soft/flat nontender amyklase and lipase continue to decline; CT scan a/p reviewed showing acute pancreatitis w/fluid IMP: resolving gallstone pancreatitis PLAN: Continue present tx.; consider lap christelle once amylse/lipase mormalize and ? CT improves; findings are significant even though labs are improved. Finesse Holguin MD FACS
[2016-08-14] MEDS ORDERED: ENOXAPARIN NA (PORCINE) 40 MG/0.4 ML DISP.SYRIN SQ ONE (15:30)
[2016-08-14] MEDS: ACETAMINOPHEN 325 MG TABLET (FP) PO PRN ×2 (15:48→22:34)
--- NOTE | 2016-08-14 18:29 | PN ---
GI Progress Note Subjective: Sitting up in chair, no acute events abdominal pain improved - Objective Vital Signs: Vital Signs Temperature 98.1 F 08/14/16 14:17 Pulse Rate 73 08/14/16 14:17 Respiratory Rate 18 08/14/16 09:00 Blood Pressure 119/49 08/14/16 14:17 O2 Sat by Pulse Oximetry (%) 94 L 08/14/16 09:00 Constitutional: Calm Cardiovascular: Yes: Regular Rate and Rhythm Respiratory: Yes: CTA Bilaterally Gastrointestinal Inspection: No: Distention ...Auscultate: Yes: Normoactive Bowel Sounds ...Palpate: No: Tenderness Edema: Yes (trace LE edema) Neurological: Yes: Alert, Oriented Labs: CBC, BMP 08/14/16 08:47 08/14/16 08:47 INR, PTT INR 1.62 (0.82-1.09) H 08/14/16 08:47 Fibrinogen 480.0 mg/dL (238-498) 08/13/16 07:15 Laboratory Tests 08/13/16 08/14/16 07:15 08:47 Total Amylase 378 H D 191 H D Lipase 1437 H 500 H Hepatic Panel Total Bilirubin 1.1 mg/dL (0.2-1.0) H 08/14/16 08:47 Direct Bilirubin 0.4 mg/dL (0.0-0.2) H 08/14/16 08:47 AST 23 U/L (15-37) 08/14/16 08:47 ALT 18 U/L (12-78) D 08/14/16 08:47 Alkaline Phosphatase 55 U/L (45-117) 08/14/16 08:47 Albumin 2.6 g/dl (3.4-5.0) L 08/14/16 08:47 Assessment/Plan Gallstone pancreatitis with ? concomitant cholecystitis: Clinically much improved from initial presentation with normalized LFTs Amylase.lipase trending down For lap christelle. Timing per surgery
--- NOTE | 2016-08-14 22:24 | PN ---
Progress Note (short form) - Note Progress Note: PAtient seen and examined No shortness of breath. No leg pain/swelling abdominal pain improved AFVSS HEENT: JUN, EOM Intact Cor: RSR, No murmurs, No gallops Lungs: Clear to P&A Abd: Soft, Normal bowel sounds, mild tenderness RUQ Ext:No significant edema labs/meds reviewed A/P 85 y/o female with htn, hld, DM, IBS, COPD , RLE DVT/ extensive b/l PE -- comes in with abdominal pain- ? gall stone pancreatitis Unprovoked DVT/PE-6 months ago --s/p thrombolysis/ ivc filter placement On eliquis 5mg bid last dose of eliquis 08/11 9pm Eliquis generally held 48hrs. prior to procedures with moderate/severe risk of bleeding No h/o use of any other NSAIDS discussed with Dr. schwartz ----given significant inflammatory findings on CT, will hold off on therapeutic a/c until cleared by gi on lovenox for dvt prophylaxis check duplex lower ext.
[2016-08-15] MEDS: INSULIN SLIDING SCALE (NOVOLOG) 1 VIAL SQ SCH (06:06)
[2016-08-15 07:56] LABS: BASOPHIL 0.3 % (0-2.0); EOSINOPHIL 0.3 % (0-4.5); MCHC 33.6 g/dl (32.0-36.0); MEAN CELL VOLUME 92.2 fl (80-96); MEAN PLT VOLUME 9.2 fl (7.5-11.1); NEUTROPHILS 69.4 % (42.8-82.8); PLATELET COUNT 167 K/MM3 (134-434); WHITE BLOOD COUNT 7.6 K/mm3 (4.0-10.0)
[2016-08-15 08:17] LABS: ALBUMIN 2.3 g/dl (3.4-5.0); BILIRUBIN,DIRECT 0.4 mg/dL (0.0-0.2); BILIRUBIN,TOTAL 0.9 mg/dL (0.2-1.0); CALCIUM 8.4 mg/dL (8.5-10.1); CREATININE 0.5 mg/dL (0.55-1.02)
--- NOTE | 2016-08-15 09:08 | PN ---
Progress Note, Physician Chief Complaint: Abdominal Pain Vomiting History of Present Illness: Please see admission note. 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 In ER, lipase level >20K, with Ultrasound findings of calculous cholecystitis without evidence of biliary ductile dilatation, and only minimal transaminitis. Seen by GI and Surgery as well as Sheetmetal Trades Worker (due to issue of Eliquis therapy for previous Pulmonary emboli and unprovoked DVT.) CT report confirmed severe pancreatic inflammation. Currently, supine in bed, awake, alert and appropriate, with persistence of abdominal soreness, but without severe pain or vomiting. Elevation of INR persists, despite Vitamin K supplementation. Marked decline in Lipase (22,758>>1437>>500>>153) and Amylase (1159>>378>>191>>89) noted. Still feels weak. Diffuse arm discomfort persists c/w previous chronic complaint. - Current Medication List Current Medications: Active Medications Acetaminophen (Tylenol -) 650 mg PO Q4H PRN PRN Reason: FEVER OR PAIN Last Admin: 08/14/16 15:48 Dose: 650 mg Sodium Chloride (1/2 Normal Saline) 1,000 mls @ 85 mls/hr IV ASDIR [facility] Last Admin: 08/14/16 22:37 Dose: 85 mls/hr Levofloxacin (Levaquin 500 Mg Premixed Ivpb -) 100 mls @ 100 mls/hr IVPB DAILY [facility] Last Admin: 08/14/16 09:43 Dose: 100 mls/hr Insulin Aspart (Novolog Vial Sliding Scale -) 1 vial SQ BIDAC [facility] PRN Reason: Protocol Stop: 08/15/16 11:18 Last Admin: 08/15/16 06:06 Dose: Not Given Morphine Sulfate (Morphine Injection -) 1 mg IVPUSH Q4H PRN PRN Reason: PAIN Phytonadione (Aqua Mephyton Injection -) 5 mg SQ DAILY [facility] Stop: 08/15/16 10:01 Last Admin: 08/14/16 09:43 Dose: 5 mg - Objective Vital Signs: Vital Signs Temperature 97.5 F L 08/15/16 06:12 Pulse Rate 76 08/15/16 06:12 Respiratory Rate 20 08/15/16 06:12 Blood Pressure 100/66 08/15/16 06:12 O2 Sat by Pulse Oximetry (%) 94 L 08/14/16 21:00 Constitutional: Yes: Anxious, Mild Distress Eyes: No: Sclera Icterus Cardiovascular: Yes: Regular Rate and Rhythm Respiratory: Yes: CTA Bilaterally, On Nasal O2 Gastrointestinal: Yes: Normal Bowel Sounds, Soft, Tenderness (mild no guarding or rebound) Edema: No Neurological: Yes: Alert, Oriented Labs: CBC, BMP 08/15/16 07:00 08/15/16 07:00 INR, PTT INR 1.62 (0.82-1.09) H 08/14/16 08:47 Fibrinogen 480.0 mg/dL (238-498) 08/13/16 07:15 Problem List - Problems (1) Acute gallstone pancreatitis Assessment/Plan: Keep npo for now. Has been seen by GI and Surgeon. Add ice chips for comfort if OK with GI and Surgeon. Empiric antibiotics ordered. Invasive procedures ( ERCP and Cholecystectomy) to be deferred and delayed due to NOAC use. Continue iv fluids. Recheck labs Marked decline in Lipase and Amylase noted as above To discuss elective laparoscopic cholecystectomy with Surgeon, GI, Sheetmetal Trades Worker and Cardiologic consultants Code(s): K85.1 - BILIARY ACUTE PANCREATITIS * DO NOT USE * (2) Diabetes Assessment/Plan: Keep npo Cover BGMs Previously on metformin bid Code(s): E11.9 - TYPE 2 DIABETES MELLITUS WITHOUT COMPLICATIONS (3) HTN (hypertension) Assessment/Plan: Stable Metoprolol discontinued as outpatient Code(s): I10 - ESSENTIAL (PRIMARY) HYPERTENSION (4) Pulmonary embolism, bilateral Assessment/Plan: Stable NOAC therapy to be held pending GI and Surgical opinions To start iv Heparin as per discussion with Hematology Code(s): I26.99 - OTHER PULMONARY EMBOLISM WITHOUT ACUTE COR PULMONALE (5) Colitis Assessment/Plan: Chronic stable Code(s): K52.9 - NONINFECTIVE GASTROENTERITIS AND COLITIS, UNSPECIFIED (6) Osteoarthritis Assessment/Plan: Chronic low back pain Currently stable Chronic bilateral arm pain persists Has been evaluated in the past for Polymyalgia Rheumatica but has not had elevated ESRs Code(s): M19.90 - UNSPECIFIED OSTEOARTHRITIS, UNSPECIFIED SITE (7) S/P IVC filter Assessment/Plan: Will this interfere with possible MRCP?
[2016-08-15] MEDS: SODIUM CHLORIDE 0.45% 1,000 ML IV SCH (10:21)
[2016-08-15] MEDS ORDERED: ENOXAPARIN NA (PORCINE) 40 MG/0.4 ML DISP.SYRIN SQ SCH (10:30)
[2016-08-15] MEDS: LEVOFLOXACIN 500 MG IVPB 100 ML IVPB SCH (10:51)
[2016-08-15] MEDS: PHYTONADIONE 10 MG/1 ML AMP SQ SCH (10:51)
--- NOTE | 2016-08-15 13:49 | CON.CARD ---
Cardiology Consult (text) - Consultation Consultation Note: CC: pre-op clearance 85 year old female with htn, niddm, COPD, ibs, chronic lbp, PE's here with gallstone pancreatitis with plan for lap christelle. No h/o CVA/TIA, no CAD, DM, CKD, chf can't walk up a flight of stairs. Mild stable farah. Abdominal discomfort controlled. NPO. no orthopnea, pnd, LE edema, cp, sob, palps, dizziness, bleeding, transient neurologic symptoms. No f/c/s, h/a, rashes, weight change, visual changes. Past Medical History: per hpi Social hx: Former smoker, no significant alcohol use, no illicits. fam hx: father with CAD. No h/o clots/PE, autoimmune disease, miscarriages ROS: Per hpi Ambulatory Orders Metoprolol Succinate [Toprol XL -] 25 mg PO DAILY #30 tab.sr.24h 01/26/16 Apixaban [Eliquis -] 5 mg PO Q12H 02/17/16 Ascorbic Acid [Vitamin C -] 1,000 mg PO DAILY 02/17/16 Cholecalciferol (Vitamin D3) [Vitamin D] 1,000 unit PO DAILY 02/17/16 Magnesium Chloride [Slow-Mag -] 64 mg PO DAILY 02/17/16 Multivitamin with Minerals [Icaps Plus] 1 each PO DAILY 02/17/16 Current Medications Acetaminophen (Tylenol -) 650 mg PO Q4H PRN PRN Reason: FEVER OR PAIN Last Admin: 08/14/16 15:48 Dose: 650 mg Enoxaparin Sodium (Lovenox -) 40 mg SQ DAILY [facility] Last Admin: 08/15/16 11:52 Dose: 40 mg Sodium Chloride (1/2 Normal Saline) 1,000 mls @ 85 mls/hr IV ASDIR [facility] Last Admin: 08/15/16 10:21 Dose: 85 mls/hr Levofloxacin (Levaquin 500 Mg Premixed Ivpb -) 100 mls @ 100 mls/hr IVPB DAILY [facility] Last Admin: 08/15/16 10:51 Dose: 100 mls/hr Morphine Sulfate (Morphine Injection -) 1 mg IVPUSH Q4H PRN PRN Reason: PAIN Vital Signs - 24 hr 08/14/16 08/14/16 08/14/16 14:17 21:00 22:55 Temperature 98.1 F 98.5 F Pulse Rate 73 71 Respiratory 20 20 Rate Blood Pressure 119/49 116/54 O2 Sat by Pulse 94 L Oximetry (%) 08/15/16 08/15/16 08/15/16 06:12 09:00 09:37 Temperature 97.5 F L Pulse Rate 76 70 Respiratory 20 18 Rate Blood Pressure 100/66 121/65 O2 Sat by Pulse 92 L Oximetry (%) 08/15/16 10:00 Temperature 97.9 F Pulse Rate 67 Respiratory 18 Rate Blood Pressure 126/55 O2 Sat by Pulse Oximetry (%) Intake & Output 08/13/16 08/14/16 08/15/16 08/16/16 07:59 07:59 07:59 07:59 Intake Total 850 2670 2170 1000 Balance 850 2670 2170 1000 Weight 175 lb 3.2 oz 176 lb 5 oz NAD, calm JVD flat neck supple crackles at left base RRR nl s1 s2. 2/6 murmur at lsb and apex. non-displaced pmi + bs soft nt nd ext without trace edema. no cyanosis or clubbing + dp/pt aaox3 no jaundice, diaphoresis CBC, BMP 08/15/16 07:00 08/15/16 07:00 Laboratory Tests 08/12/16 08/15/16 05:27 07:00 Total Bilirubin 0.9 Direct Bilirubin 0.4 H AST 26 ALT 18 Alkaline Phosphatase 49 Troponin I < 0.02 Albumin 2.3 L EKG: NSR, LAD. possible inferior q waves. no acute ischemic changes. Lung portion of abd CT shows bibasilar atelectasis and small effusions. stress test 04/2016: occ pvc's, no ischemic ekg changes. artifact. no ischemia , EF 71%. 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 Echo 03/03 (): nl LVEF; mod-sev RV dilation and hypokinesis; valves unremarkable; RVSP 40-50. 85 year old female with htn, niddm, COPD, ibs, chronic lbp, PE's here with gallstone pancreatitis with plan for lap christelle. Pre-operative clearance - recent negative stress test. Recent echo shows normalization of RV function. Patient with RCRI of 0 but with advanced age and poor functional status. Has low-intermediate risk of adonis-operative CV complications. Patient counseled on risk. No active cardiac issues at this time, no need for further cardiac imaging prior to surgery. However, since patient on IVF and O2 sat slowly trending down, would reduce IVF rate and repeat PA/LAT cxr in am to make sure she is not developing pulmonary edema. If that is the case, estimated adonis- operative CV risk is more likely intermediate. Limit IVF adonis-operatively when possible. Incentive spirometry. - I/o, daily standing weights to monitor volume status adonis-operatively. Extensive PEs, dvt with resulting RV strain/systolic dysfunction s/p IVC filter placment. : - On eliquis as outpatient, lovenox here. - RV function normalized. COPD - per pmd/pulm HTN - controlled off meds
--- NOTE | 2016-08-15 16:41 | PN ---
Progress Note (short form) - Note Progress Note: Attending Surgeon Seen in f/u Minimal if any abdominal c/o. VSS AF abdomen soft/flat/nontender amylase/lipase wnl IMP: resolving gallstone pancreatitis PLAN: Lap christelle Sunday pending recommendations of Cardiology and Hematology Trial of clear liquids. Finesse Holguin MD FACS
--- NOTE | 2016-08-15 18:18 | PN ---
GI Progress Note Subjective: No acute events No abdominal pain - Objective Vital Signs: Vital Signs Temperature 98.9 F 08/15/16 14:22 Pulse Rate 75 08/15/16 14:22 Respiratory Rate 18 08/15/16 10:00 Blood Pressure 128/72 08/15/16 14:22 O2 Sat by Pulse Oximetry (%) 92 L 08/15/16 09:00 Constitutional: Calm Eyes: No: Sclera Icterus Cardiovascular: Yes: Regular Rate and Rhythm Respiratory: Yes: Diminished (at bases b/l) Gastrointestinal Inspection: No: Distention ...Auscultate: Yes: Normoactive Bowel Sounds ...Palpate: No: Tenderness Neurological: Yes: Alert, Oriented Labs: CBC, BMP 08/15/16 07:00 08/15/16 07:00 INR, PTT INR 1.62 (0.82-1.09) H 08/14/16 08:47 Fibrinogen 480.0 mg/dL (238-498) 08/13/16 07:15 Hepatic Panel Total Bilirubin 0.9 mg/dL (0.2-1.0) 08/15/16 07:00 Direct Bilirubin 0.4 mg/dL (0.0-0.2) H 08/15/16 07:00 AST 26 U/L (15-37) 08/15/16 07:00 ALT 18 U/L (12-78) 08/15/16 07:00 Alkaline Phosphatase 49 U/L (45-117) 08/15/16 07:00 Albumin 2.3 g/dl (3.4-5.0) L 08/15/16 07:00 Laboratory Tests 08/15/16 07:00 Total Amylase 89 D Lipase 153 Assessment/Plan Gallstone pancreatitis with concomitant calculous cholecystitis: Clinically much improved. ALP / Bili remains normal - Advancing to clear liquids - Hematology expressed concern re: Full A/C in setting of acute pancreatitis. Ms. Farr had extensive b/l PE in the past and will need continued A/C. Continue Lovenox for now and can reimage pancreas to assess for sequela such as fluid collections. Clinically not acting as if she has necrosis. If improvement and she needs A/C then would resume full A/C
[2016-08-16 07:47] LABS: BASOPHIL 0.2 % (0-2.0); EOSINOPHIL 0.6 % (0-4.5); MCH 30.4 pg (25.7-33.7); MCHC 32.7 g/dl (32.0-36.0); MEAN CELL VOLUME 93.1 fl (80-96); MEAN PLT VOLUME 9.1 fl (7.5-11.1); NEUTROPHILS 66.9 % (42.8-82.8); PLATELET COUNT 191 K/MM3 (134-434); RDW 13.9 % (11.6-15.6); WHITE BLOOD COUNT 8.9 K/mm3 (4.0-10.0)
[2016-08-16 08:04] LABS: INR 1.26 (0.82-1.09); PROTHROMBIN TIME (PATIENT) 13.9 SEC (9.98-11.88)
[2016-08-16 08:31] LABS: ALBUMIN 2.4 g/dl (3.4-5.0); BILIRUBIN,DIRECT 0.5 mg/dL (0.0-0.2); BILIRUBIN,TOTAL 1.2 mg/dL (0.2-1.0); CALCIUM 8.7 mg/dL (8.5-10.1); CREATININE 0.4 mg/dL (0.55-1.02); TOT PROT 5.4 g/dl (6.4-8.2)
--- NOTE | 2016-08-16 08:50 | PN ---
Progress Note, Physician Chief Complaint: Abdominal Pain Vomiting History of Present Illness: Please see admission note. 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 In ER, lipase level >20K, with Ultrasound findings of calculous cholecystitis without evidence of biliary ductile dilatation, and only minimal transaminitis. Seen by GI and Surgery as well as Target Developer (due to issue of Eliquis therapy for previous Pulmonary emboli and unprovoked DVT.) CT report confirmed severe pancreatic inflammation. Currently, sitting up in bed, awake, alert and appropriate, with persistence of abdominal discomfort and diarrhea post oral contrast for today's CT. Elevation of INR improved. Marked decline in Lipase (22,758>>1437>>500>> 153>>107) and Amylase (1159>>378>>191>>89>>59) noted. Still feels weak. Diffuse arm discomfort persists c/w previous chronic complaint. For CT and CXR today. For elective laparoscopic cholecystectomy Sunday08/18/16 - Current Medication List Current Medications: Active Medications Acetaminophen (Tylenol -) 650 mg PO Q4H PRN PRN Reason: FEVER OR PAIN Last Admin: 08/14/16 15:48 Dose: 650 mg Enoxaparin Sodium (Lovenox -) 40 mg SQ DAILY [facility] Last Admin: 08/15/16 11:52 Dose: 40 mg Levofloxacin (Levaquin 500 Mg Premixed Ivpb -) 100 mls @ 100 mls/hr IVPB DAILY [facility] Last Admin: 08/15/16 10:51 Dose: 100 mls/hr Sodium Chloride (1/2 Normal Saline) 1,000 mls @ 50 mls/hr IV ASDIR [facility] - Objective Vital Signs: Vital Signs Temperature 99.0 F 08/16/16 05:58 Pulse Rate 78 08/16/16 05:58 Respiratory Rate 21 08/16/16 05:58 Blood Pressure 125/64 08/16/16 05:58 O2 Sat by Pulse Oximetry (%) 92 L 08/15/16 21:16 Constitutional: Yes: Anxious, Mild Distress Eyes: No: Sclera Icterus Neck: Yes: Supple Cardiovascular: Yes: Regular Rate and Rhythm Respiratory: Yes: CTA Bilaterally Gastrointestinal: Yes: Hyperactive Bowel Sounds. No: Palpable Mass, Tenderness Edema: No Neurological: Yes: Alert, Oriented Labs: CBC, BMP 08/16/16 06:50 08/16/16 06:50 INR, PTT INR 1.26 (0.82-1.09) H 08/16/16 06:50 Fibrinogen 480.0 mg/dL (238-498) 08/13/16 07:15 Problem List - Problems (1) Acute gallstone pancreatitis Assessment/Plan: For repeat CT of abdomen. Scheduled for Lap Cholecystectomy for Sunday08/18/16 Labs show marked improvement in Amylase and Lipase Code(s): K85.1 - BILIARY ACUTE PANCREATITIS * DO NOT USE * (2) Diabetes Assessment/Plan: On clear liqids Cover BGMs as needed Previously on metformin bid Code(s): E11.9 - TYPE 2 DIABETES MELLITUS WITHOUT COMPLICATIONS (3) HTN (hypertension) Assessment/Plan: Stable Metoprolol discontinued as outpatient Code(s): I10 - ESSENTIAL (PRIMARY) HYPERTENSION (4) Pulmonary embolism, bilateral Assessment/Plan: Stable NOAC and Lovenox therapy to be held prior to Surgery Continue discussion with Hematology Code(s): I26.99 - OTHER PULMONARY EMBOLISM WITHOUT ACUTE COR PULMONALE (5) Colitis Assessment/Plan: Chronic stable Code(s): K52.9 - NONINFECTIVE GASTROENTERITIS AND COLITIS, UNSPECIFIED (6) Osteoarthritis Assessment/Plan: Chronic low back pain Currently stable Chronic bilateral arm pain persists Has been evaluated in the past for Polymyalgia Rheumatica but has not had elevated ESRs Code(s): M19.90 - UNSPECIFIED OSTEOARTHRITIS, UNSPECIFIED SITE (7) S/P IVC filter Assessment/Plan: Stable
[2016-08-16] MEDS ORDERED: ENOXAPARIN NA (PORCINE) 40 MG/0.4 ML DISP.SYRIN SQ SCH (10:00)
[2016-08-16] MEDS: LEVOFLOXACIN 500 MG IVPB 100 ML IVPB SCH (11:29)
--- NOTE | 2016-08-16 13:32 | PN ---
Progress Note (short form) - Note Progress Note: Evaluated patient after IV infiltrated during contrast administration. LUE shows edema but no erythema. Not painful. Warm compress, continue to monitor.
[2016-08-16] MEDS ORDERED: MAG HYDROX/AL HYDROX/SIMETH 355 ML ORAL.SUSP PO ONE (14:29)
[2016-08-16] MEDS ORDERED: MAG HYDROX/AL HYDROX/SIMETH 30 ML UNIT-DOSE CUP PO ONE (14:29)
--- NOTE | 2016-08-16 16:52 | PN ---
Progress Note (short form) - Note Progress Note: CC: pre-op clearance S: no cp, palps, dizziness, mild sob. no orthopnea. No abdominal pain. had a half a cup of tea and some jello. Current Medications Acetaminophen (Tylenol -) 650 mg PO Q4H PRN PRN Reason: FEVER OR PAIN Last Admin: 08/14/16 15:48 Dose: 650 mg Enoxaparin Sodium (Lovenox -) 40 mg SQ DAILY [facility] Last Admin: 08/16/16 11:28 Dose: 40 mg Levofloxacin (Levaquin 500 Mg Premixed Ivpb -) 100 mls @ 100 mls/hr IVPB DAILY [facility] Last Admin: 08/16/16 11:29 Dose: 100 mls/hr Sodium Chloride (1/2 Normal Saline) 1,000 mls @ 50 mls/hr IV ASDIR [facility] Ranitidine HCl (Zantac -) 150 mg PO DAILY [facility] Vital Signs - 24 hr 08/15/16 08/15/16 08/15/16 19:47 20:38 21:16 Temperature 97.6 F 98.6 F Pulse Rate 86 76 Respiratory 20 18 Rate Blood Pressure 130/80 137/67 O2 Sat by Pulse 92 L Oximetry (%) 08/16/16 08/16/16 08/16/16 05:58 09:00 10:00 Temperature 99.0 F 100.6 F H Pulse Rate 78 73 Respiratory 21 20 Rate Blood Pressure 125/64 125/65 O2 Sat by Pulse 95 Oximetry (%) 08/16/16 14:39 Temperature 99.4 F Pulse Rate 72 Respiratory Rate Blood Pressure 133/66 O2 Sat by Pulse Oximetry (%) Intake & Output 08/14/16 08/15/16 08/16/16 08/17/16 07:59 07:59 07:59 07:59 Intake Total 2670 2170 3020 700 Output Total 2 Balance 2670 2170 3020 698 Weight 176 lb 5 oz 173 lb 6 oz NAD, calm JVD flat neck supple bibasilar dullness, nl effort RRR nl s1 s2. 2/6 murmur at lsb and apex. non-displaced pmi + bs soft nt nd ext with trace edema. No cyanosis or clubbing + dp/pt aaox3 no jaundice, diaphoresis CBC, BMP 08/16/16 06:50 08/16/16 06:50 Laboratory Tests 08/16/16 08/16/16 06:50 06:50 INR 1.26 H Total Bilirubin 1.2 H D Direct Bilirubin 0.5 H D AST 37 D ALT 23 D Alkaline Phosphatase 54 Albumin 2.4 L EKG: NSR, LAD. possible inferior q waves. no acute ischemic changes. images and report reviewed Lung portion of abd CT shows bibasilar atelectasis and small effusions. Repeat abdominal CT 08/16: images and report reviewed. Shows mild increase in pleural effusions, atelectasis and ascites. cxr 08/16 images and report reviewed: pulmonary vascular congestion. stress test 04/2016: occ pvc's, no ischemic ekg changes. artifact. no ischemia , EF 71%. 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 Echo 03/03 (): nl LVEF; mod-sev RV dilation and hypokinesis; valves unremarkable; RVSP 40-50. 85 year old female with htn, niddm, COPD, ibs, chronic lbp, PE's here with gallstone pancreatitis with plan for lap christelle. Pre-operative clearance - recent negative stress test. Recent echo shows normalization of RV function. Abdominal CT here shows worsening of pleural effusions and CXR c/w increased pulmonary congestion. Would adjust risk --> RCRI of 1 as well as advanced age and poor functional status. Has intermediate risk of adonis-operative CV complications. Patient counseled on risk. No further cardiac imaging prior to surgery. Pulmonary edema likely with contribution from pancretitis, low albumin and ongoing IVF. Given minimal po intake and underlying clinical status would not diurese. IVF rate decreased yesterday. Limit IVF when possible. - I/o, daily standing weights to monitor volume status adonis-operatively. Close monitoring of oxygen saturation. History of extensive PEs, dvt with resulting RV strain/systolic dysfunction s/p IVC filter placment. : - On eliquis as outpatient, lovenox here (not therapeutic dose per hematology/GI ). - RV function normalized on most recent echo. COPD - per pmd/pulm HTN - controlled off meds
[2016-08-16] MEDS: SODIUM CHLORIDE 0.45% 1,000 ML IV SCH (17:37)
--- NOTE | 2016-08-16 19:59 | PN ---
GI Progress Note Subjective: No abdominal pain - Objective Vital Signs: Vital Signs Temperature 99.4 F 08/16/16 14:39 Pulse Rate 72 08/16/16 14:39 Respiratory Rate 20 08/16/16 09:00 Blood Pressure 133/66 08/16/16 14:39 O2 Sat by Pulse Oximetry (%) 95 08/16/16 10:00 Constitutional: Calm Eyes: No: Sclera Icterus Cardiovascular: Yes: Regular Rate and Rhythm Respiratory: Yes: Diminished (at bases), Rhonchi (at bases) Gastrointestinal Inspection: No: Distention ...Auscultate: Yes: Normoactive Bowel Sounds ...Palpate: No: Tenderness Neurological: Yes: Alert, Oriented Labs: CBC, BMP 08/16/16 06:50 08/16/16 06:50 INR, PTT INR 1.26 (0.82-1.09) H 08/16/16 06:50 Fibrinogen 480.0 mg/dL (238-498) 08/13/16 07:15 - ....Imaging Cat Scan: Report Reviewed (atelectasis, pleural effusions, ? early pseudocyst in lesser sac), Image Reviewed Assessment/Plan Acute pancreatitis: Clinically much improved without abdominal pain and while gallstone pancreatitis still likely, LFT's never really amado. Will check fasting triglycerides Tolerating clear liquids Surgery following
--- NOTE | 2016-08-16 22:23 | PN ---
Progress Note (short form) - Note Progress Note: PAtient seen and examined No shortness of breath. No leg pain/swelling abdominal pain improved chilly/weak AFVSS HEENT: JUN, EOM Intact Cor: RSR, No murmurs, No gallops Lungs: Clear to P&A Abd: Soft, Normal bowel sounds, mild tenderness RUQ Ext:No significant edema labs/meds reviewed A/P 85 y/o female with htn, hld, DM, IBS, COPD , RLE DVT/ extensive b/l PE -- comes in with abdominal pain- ? gall stone pancreatitis Unprovoked DVT/PE-6 months ago --s/p thrombolysis/ ivc filter placement On eliquis 5mg bid last dose of eliquis 08/11 9pm Eliquis generally held 48hrs. prior to procedures with moderate/severe risk of bleeding No h/o use of any other NSAIDS h/o ivc filter duplex negative discussed with gi team difficult situation, patient high risk for bleeding/clotting complications. will monitor on intermediate dose lovenox
[2016-08-17 08:01] LABS: BASOPHIL 0.3 % (0-2.0); EOSINOPHIL 0.8 % (0-4.5); MCH 30.7 pg (25.7-33.7); MCHC 33.4 g/dl (32.0-36.0); MEAN CELL VOLUME 91.9 fl (80-96); MEAN PLT VOLUME 9.2 fl (7.5-11.1); NEUTROPHILS 70.1 % (42.8-82.8); PLATELET COUNT 203 K/MM3 (134-434); RDW 13.9 % (11.6-15.6); WHITE BLOOD COUNT 9.4 K/mm3 (4.0-10.0)
[2016-08-17 08:31] LABS: ALBUMIN 2.3 g/dl (3.4-5.0); BILIRUBIN,DIRECT 0.3 mg/dL (0.0-0.2); CALCIUM 8.1 mg/dL (8.5-10.1); CREATININE 0.4 mg/dL (0.55-1.02)
[2016-08-17 08:34] LABS: BILIRUBIN,TOTAL 0.7 mg/dL (0.2-1.0); TOT PROT 5.2 g/dl (6.4-8.2)
--- NOTE | 2016-08-17 09:04 | PN ---
Progress Note, Physician Chief Complaint: Abdominal Pain Vomiting History of Present Illness: Please see admission note. 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 In ER, lipase level >20K, with Ultrasound findings of calculous cholecystitis without evidence of biliary ductile dilatation, and only minimal transaminitis. 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 Currently, sitting up in bed, awake, alert and appropriate, with less overall abdominal discomfort. CT report of 08/16/16 describes persistence of adonis-pancreatic inflammation and ascitic fluid with B/L pleural effusions. CXR reveals findings c/w pulmonary vascular congestion. Patient is using nasal O2 but describes no increased dyspnea, cough or orthopnea. Cardiology note appreciated in regard to fluid volume management and surgical risk. Marked decline in Lipase (22,758>>1437>>500>>153>>107) and Amylase (1159>>378>>191>>89> >59) documented. Still feels weak. Episode of 08/16/16 dye extravasation LUE noted. Currently no evidence of local induration and no residual pain. Diffuse arm discomfort persists c/w previous chronic complaint. For elective laparoscopic cholecystectomy Sunday08/18/16 if deemed appropriate by Dr Holguin. - Current Medication List Current Medications: Active Medications Acetaminophen (Tylenol -) 650 mg PO Q4H PRN PRN Reason: FEVER OR PAIN Last Admin: 08/14/16 15:48 Dose: 650 mg Enoxaparin Sodium (Lovenox -) 80 mg SQ DAILY [facility] Levofloxacin (Levaquin 500 Mg Premixed Ivpb -) 100 mls @ 100 mls/hr IVPB DAILY [facility] Last Admin: 08/16/16 11:29 Dose: 100 mls/hr Sodium Chloride (1/2 Normal Saline) 1,000 mls @ 50 mls/hr IV ASDIR [facility] Last Admin: 08/16/16 17:37 Dose: 50 mls/hr Ranitidine HCl (Zantac -) 150 mg PO DAILY [facility] - Objective Vital Signs: Vital Signs Temperature 99.8 F H 08/17/16 05:51 Pulse Rate 70 08/17/16 05:51 Respiratory Rate 20 08/17/16 05:51 Blood Pressure 103/56 08/17/16 05:51 O2 Sat by Pulse Oximetry (%) 95 08/16/16 21:00 Constitutional: Yes: Anxious, Mild Distress Eyes: No: Sclera Icterus Neck: Yes: Supple Cardiovascular: Yes: Regular Rate and Rhythm Respiratory: Yes: CTA Bilaterally. No: Rhonchi, Wheezes Gastrointestinal: Yes: Normal Bowel Sounds, Soft. No: Tenderness, Rebound Edema: No Neurological: Yes: Alert, Oriented Labs: CBC, BMP 08/17/16 06:30 08/17/16 06:30 INR, PTT INR 1.26 (0.82-1.09) H 08/16/16 06:50 Fibrinogen 480.0 mg/dL (238-498) 08/13/16 07:15 - ....Imaging Chest X-ray: Image Reviewed Cat Scan: Report Reviewed Problem List - Problems (1) Acute gallstone pancreatitis Assessment/Plan: Repeat CT of abdomen report reviewed.. Scheduled for Lap Cholecystectomy Sunday08/18/16. Labs show marked improvement in Amylase and Lipase Code(s): K85.1 - BILIARY ACUTE PANCREATITIS * DO NOT USE * (2) Diabetes Assessment/Plan: On clear liqids Cover BGMs as needed Previously on metformin bid Code(s): E11.9 - TYPE 2 DIABETES MELLITUS WITHOUT COMPLICATIONS (3) HTN (hypertension) Assessment/Plan: Stable Metoprolol discontinued as outpatient Code(s): I10 - ESSENTIAL (PRIMARY) HYPERTENSION (4) Pulmonary embolism, bilateral Assessment/Plan: Stable NOAC and Lovenox therapy to be held prior to Surgery Continue discussion with Hematology Code(s): I26.99 - OTHER PULMONARY EMBOLISM WITHOUT ACUTE COR PULMONALE (5) Colitis Assessment/Plan: Chronic stable Code(s): K52.9 - NONINFECTIVE GASTROENTERITIS AND COLITIS, UNSPECIFIED (6) Osteoarthritis Assessment/Plan: Chronic low back pain Currently stable Chronic bilateral arm pain persists Has been evaluated in the past for Polymyalgia Rheumatica but has not had elevated ESRs Code(s): M19.90 - UNSPECIFIED OSTEOARTHRITIS, UNSPECIFIED SITE (7) S/P IVC filter Assessment/Plan: Stable Assessment/Plan Plan as outlined above Appreciate commercial sales consultant input Possible surgical procedure in AM 08/18/16
[2016-08-17] MEDS: RANITIDINE HCL 150 MG TABLET (FP) PO SCH (09:48)
[2016-08-17] MEDS: LEVOFLOXACIN 500 MG IVPB 100 ML IVPB SCH (09:49)
[2016-08-17] MEDS: ENOXAPARIN NA (PORCINE) 80 MG/0.8 ML DISP.SYRIN SQ SCH (10:21)
--- NOTE | 2016-08-17 11:26 | PN ---
Progress Note (short form) - Note Progress Note: Surgery-Dr. Holguin Patient seen and examined. Patient states her pain is improved and controlled. She has been tolerating a clear liquid diet without nausea or vomiting, although she states she has not had much of the liquids because they are not appetizing. Denies fever/chills. Last Vital Signs Temp Pulse Resp BP Pulse Ox 98 F 67 20 124/62 95 08/17/16 09:00 08/17/16 09:00 08/17/16 09:00 08/17/16 09:00 08/16/16 21:00 CBC, BMP 08/17/16 06:30 08/17/16 06:30 Hepatic Panel Total Bilirubin 0.7 mg/dL (0.2-1.0) D 08/17/16 06:30 Direct Bilirubin 0.3 mg/dL (0.0-0.2) H D 08/17/16 06:30 AST 36 U/L (15-37) 08/17/16 06:30 ALT 27 U/L (12-78) 08/17/16 06:30 Alkaline Phosphatase 61 U/L (45-117) 08/17/16 06:30 Albumin 2.3 g/dl (3.4-5.0) L 08/17/16 06:30 Lipase-87 Total amylase-42 Exam: Gen: NAD, sitting in chair Abd: soft, nondistended, nontender Repeat abd CT 08/16/16- slightly increased peripancreatic inflammatory changes and fluid with possible developing pseudocyst Problem List - Problems (1) Acute gallstone pancreatitis Assessment/Plan: Repeat abd CT showing possible developing pseudocyst Discussed with Dr. Holguin Will hold off on lap christelle Will consider repeat CT Sunday Code(s): K85.1 - BILIARY ACUTE PANCREATITIS * DO NOT USE *
[2016-08-17] MEDS: SODIUM CHLORIDE 0.45% 1,000 ML IV SCH (14:55)
--- NOTE | 2016-08-17 15:26 | PN ---
Progress Note (short form) - Note Progress Note: S: no cp, palps, dizziness, sob. no orthopnea. No abdominal pain. o: Vital Signs Period Temp Pulse Resp BP Sys/[place] Pulse Ox Last 24 Hr 97.4 F-99.8 F 67-77 20-20 103-132/56-81 94-95 NAD, calm JVD flat neck supple bibasilar dullness, nl effort RRR nl s1 s2. 2/6 murmur at lsb and apex. + bs soft nt nd ext with trace edema. No cyanosis or clubbing aaox3 no jaundice, diaphoresis Current Medications Generic Name Dose Route Start Last Admin Trade Name Freq PRN Reason Stop Dose Admin Acetaminophen 650 mg 08/13/16 10:19 08/14/16 15:48 Tylenol - PO 650 mg Q4H PRN Administration FEVER OR PAIN Enoxaparin Sodium 80 mg 08/17/16 10:00 08/17/16 10:21 Lovenox - SQ 80 mg DAILY SH[facility] Administration Levofloxacin 100 mls @ 100 mls/hr 08/13/16 10:00 08/17/16 09:49 Levaquin 500 Mg Premixed Ivpb - IVPB 100 mls/hr DAILY [facility] Administration Sodium Chloride 1,000 mls @ 50 mls/hr 08/15/16 20:18 08/17/16 14:55 1/2 Normal Saline IV 50 mls/hr ASDIR [facility] Administration Ranitidine HCl 150 mg 08/17/16 10:00 08/17/16 09:48 Zantac - PO 150 mg DAILY [facility] Administration CBC, BMP 08/17/16 06:30 08/17/16 06:30 EKG: NSR, LAD. possible inferior q waves. no acute ischemic changes. images and report reviewed Lung portion of abd CT shows bibasilar atelectasis and small effusions. Repeat abdominal CT 08/16: images and report reviewed. Shows mild increase in pleural effusions, atelectasis and ascites. cxr 08/16 images and report reviewed: pulmonary vascular congestion. stress test 04/2016: occ pvc's, no ischemic ekg changes. artifact. no ischemia , EF 71%. 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 Echo 03/03 (): nl LVEF; mod-sev RV dilation and hypokinesis; valves unremarkable; RVSP 40-50. a/p: 85 year old female with htn, niddm, COPD, ibs, chronic lbp, PE's here with gallstone pancreatitis with plan for lap christelle. Pre-operative clearance - Pt has no unstable cardiac issues at present. Recent negative stress test. Recent echo shows normal lv/rv. No further cardiac testing needed at this time. Pt has intermediate risk of adonis-operative CV complications. - I/o, daily standing weights to monitor volume status adonis-operatively. Close monitoring of oxygen saturation. History of extensive PEs, dvt with resulting RV strain/systolic dysfunction s/p IVC filter placment. : - On eliquis as outpatient, lovenox here (not therapeutic dose per hematology/GI ). - RV function normalized on most recent echo. COPD - per pmd/pulm HTN - controlled off meds
[2016-08-17] MEDS: ACETAMINOPHEN 325 MG TABLET (FP) PO PRN ×2 (18:10→23:45)
--- NOTE | 2016-08-17 19:15 | PN ---
Progress Note (short form) - Note Progress Note: PAtient seen and examined No shortness of breath. No leg pain/swelling abdominal pain improved chilly/weak Last Vital Signs Temp Pulse Resp BP Pulse Ox 98.9 F 71 18 127/65 94 L 08/17/16 17:00 08/17/16 17:00 08/17/16 17:00 08/17/16 17:00 08/17/16 09:00 HEENT: JUN, EOM Intact Cor: RSR, No murmurs, No gallops Lungs: Clear to P&A Abd: Soft, Normal bowel sounds, mild tenderness RUQ Ext:No significant edema Abnormal Lab Results 08/17/16 08/17/16 06:30 06:30 Monocytes % 15.5 H Creatinine 0.4 L Calcium 8.1 L Direct Bilirubin 0.3 H D Total Protein 5.2 L Albumin 2.3 L \ A/P 85 y/o female with htn, hld, DM, IBS, COPD , RLE DVT/ extensive b/l PE -- comes in with abdominal pain- ? gall stone pancreatitis Unprovoked DVT/PE-6 months ago --s/p thrombolysis/ ivc filter placement On eliquis 5mg bid last dose of eliquis 08/11 9pm Eliquis generally held 48hrs. prior to procedures with moderate/severe risk of bleeding No h/o use of any other NSAIDS h/o ivc filter duplex negative discussed with gi team difficult situation, patient high risk for bleeding/clotting complications. will monitor on intermediate dose lovenox-- 80mg SC daily will need to hold 24 hr. prior to surgery
[2016-08-18 07:55] LABS: MCHC 33.7 g/dl (32.0-36.0); MEAN CELL VOLUME 91.7 fl (80-96); MEAN PLT VOLUME 8.4 fl (7.5-11.1); PLATELET COUNT 223 K/MM3 (134-434)
--- NOTE | 2016-08-18 09:01 | PN ---
Progress Note, Physician Chief Complaint: Abdominal Pain Vomiting History of Present Illness: Please see admission note. 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 In ER, lipase level >20K, with Ultrasound findings of calculous cholecystitis without evidence of biliary ductile dilatation, and only minimal transaminitis. Seen by GI and Surgery as well as Infrastructure Tech (due to issue of Eliquis therapy for previous Pulmonary emboli and unprovoked DVT.) Initial CT report confirmed severe pancreatic inflammation. Currently, sitting up in bed, awake, alert and appropriate, with less overall abdominal discomfort. CT report of 08/16/16 describes persistence of adonis-pancreatic inflammation, with possible developing pseudocyst, and ascitic fluid with B/L pleural effusions. CXR reveals findings c/w pulmonary vascular congestion. Patient is using nasal O2 but describes no increased dyspnea, cough or orthopnea. Cardiology note appreciated in regard to fluid volume management and surgical risk. Marked decline in Lipase (22,[id number]>> 500>>153>>107>>87) and Amylase (1159>>378>>191>>89>>59>>42) documented. Still feels weak. Episode of 08/16/16 dye extravasation LUE noted. Currently no evidence of local induration and no residual pain. Diffuse arm discomfort persists c/w previous chronic complaint. Low back pain has recurred as well. Elective laparoscopic cholecystectomy has been postponed due to persistence of CT changes as described above To repeat CT early next week and decide on surgery after reviewing the data. Continue current anticoagulation as per Dr Man. Advance diet as per GI and Surgery. - Current Medication List Current Medications: Active Medications Acetaminophen (Tylenol -) 650 mg PO Q4H PRN PRN Reason: FEVER OR PAIN Last Admin: 08/17/16 23:45 Dose: 650 mg Enoxaparin Sodium (Lovenox -) 80 mg SQ DAILY [facility] Last Admin: 08/17/16 10:21 Dose: 80 mg Levofloxacin (Levaquin 500 Mg Premixed Ivpb -) 100 mls @ 100 mls/hr IVPB DAILY [facility] Last Admin: 08/17/16 09:49 Dose: 100 mls/hr Sodium Chloride (1/2 Normal Saline) 1,000 mls @ 50 mls/hr IV ASDIR [facility] Last Admin: 08/17/16 14:55 Dose: 50 mls/hr Ranitidine HCl (Zantac -) 150 mg PO DAILY [facility] Last Admin: 08/17/16 09:48 Dose: 150 mg - Objective Vital Signs: Vital Signs Temperature 98.2 F 08/18/16 06:00 Pulse Rate 66 08/18/16 06:00 Respiratory Rate 18 08/18/16 06:00 Blood Pressure 111/75 08/18/16 06:00 O2 Sat by Pulse Oximetry (%) 94 L 08/17/16 21:00 Constitutional: Yes: Anxious, Mild Distress Eyes: No: Sclera Icterus Cardiovascular: Yes: Regular Rate and Rhythm Respiratory: Yes: CTA Bilaterally. No: Rales, Rhonchi, Wheezes Gastrointestinal: Yes: Normal Bowel Sounds, Soft, Other (no guarding or rebound tenderness) Edema: No Neurological: Yes: Alert, Oriented Labs: CBC, BMP 08/18/16 06:30 08/17/16 06:30 INR, PTT INR 1.26 (0.82-1.09) H 08/16/16 06:50 Fibrinogen 480.0 mg/dL (238-498) 08/13/16 07:15 Problem List - Problems (1) Acute gallstone pancreatitis Assessment/Plan: Repeat CT of abdomen report reviewed. Lap Cholecystectomy postponed based on CT findings. Possible developing pseudocyst formation. To reassess next week with repeat CT. Clinically improved. Labs show marked improvement in Amylase and Lipase Code(s): K85.1 - BILIARY ACUTE PANCREATITIS * DO NOT USE * (2) Diabetes Assessment/Plan: On clear liqids Cover BGMs as needed Previously on metformin bid Code(s): E11.9 - TYPE 2 DIABETES MELLITUS WITHOUT COMPLICATIONS (3) HTN (hypertension) Assessment/Plan: Stable Metoprolol discontinued as outpatient Code(s): I10 - ESSENTIAL (PRIMARY) HYPERTENSION (4) Pulmonary embolism, bilateral Assessment/Plan: Stable Off NOAC Currently on Lovenox as per Dr Man to be held prior to Surgery Continue discussion with Hematology Code(s): I26.99 - OTHER PULMONARY EMBOLISM WITHOUT ACUTE COR PULMONALE (5) Osteoarthritis Assessment/Plan: Chronic low back pain Currently stable Chronic bilateral arm pain persists Has been evaluated in the past for Polymyalgia Rheumatica but has not had elevated ESRs Code(s): M19.90 - UNSPECIFIED OSTEOARTHRITIS, UNSPECIFIED SITE (6) COPD (chronic obstructive pulmonary disease) Assessment/Plan: Chronic stable On O2 Code(s): J44.9 - CHRONIC OBSTRUCTIVE PULMONARY DISEASE, UNSPECIFIED (7) Volume overload Assessment/Plan: Some ascites on CT and evidence of pulmonary vascular congestion on CXR c/w mild total body Na overload. Cardiology note appreciated, in regard to holding diuretic therapy at present. Follow carefully. Patient appears clinically stable. Low serum albumen of note, likely a contributing factor to "third- spacing" of fluid Code(s): E87.70 - FLUID OVERLOAD, UNSPECIFIED (8) S/P IVC filter Assessment/Plan: Stable (9) Colitis Assessment/Plan: Chronic stable Code(s): K52.9 - NONINFECTIVE GASTROENTERITIS AND COLITIS, UNSPECIFIED Assessment/Plan Plan as outlined above. Repeat CT of abdomen 08/21/16 and decide on timing of surgical intervention based on those findings
[2016-08-18] MEDS ORDERED: PT OWN MED DRAWER 7, Y5N ONE (10:03)
[2016-08-18] MEDS: RANITIDINE HCL 150 MG TABLET (FP) PO SCH (10:06)
[2016-08-18] MEDS: ENOXAPARIN NA (PORCINE) 80 MG/0.8 ML DISP.SYRIN SQ SCH (10:06)
[2016-08-18] MEDS: LEVOFLOXACIN 500 MG IVPB 100 ML IVPB SCH (10:06)
[2016-08-18] MEDS: SODIUM CHLORIDE 0.45% 1,000 ML IV SCH (10:51)
--- NOTE | 2016-08-18 14:49 | PN ---
Progress Note (short form) - Note Progress Note: Patient seen and examined Minimal diarrhea Still with abdominal distension Abdominal pain improved No chest pains or SOB Last Vital Signs Temp Pulse Resp BP Pulse Ox 98.2 F 66 18 111/75 94 L 08/18/16 06:00 08/18/16 06:00 08/18/16 06:00 08/18/16 06:00 08/17/16 21:00 HEENT: JUN, EOM Intact Oropharynx: No thrush, No mucositis Cor: RSR, No murmurs, No gallops Lungs:diminished breath sounds bilaterally Abd: Soft, Normal bowel sounds, distended Ext:No significant edema Skin: No rashes, Integument intact Impression Cholecystitis Pancreatitis- improving enzymes Unprovoked DVT in past s/p IVC filter and Eliquis --changed to Lovenox. Difficult problem of bleeding vs clotting in this setting such that modified dose of a/c with lovenox prescribed. Would maintain until planned surgical procedure and discontinue after AM dose 24 hours prior. CBC, BMP 08/18/16 06:30 08/17/16 06:30
--- NOTE | 2016-08-18 16:17 | PN ---
GI Progress Note Subjective: GI NOte: CT suggests a pseudocyst and significant residual inflammation that precludes a cholecystectomy at this time. She is pain free but not hungry. NO vomiting recently. - Objective Vital Signs: Vital Signs Temperature 97.5 F L 08/18/16 14:00 Pulse Rate 59 L 08/18/16 14:00 Respiratory Rate 20 08/18/16 09:00 Blood Pressure 117/42 08/18/16 14:00 O2 Sat by Pulse Oximetry (%) 94 L 08/17/16 21:00 Constitutional: Calm Gastrointestinal Inspection: Yes: Distention ...Auscultate: Yes: Normoactive Bowel Sounds ...Palpate: Yes: Soft, Other (nontender) ...Percussion: Yes: Tympanitic Labs: CBC, BMP 08/18/16 06:30 08/17/16 06:30 INR, PTT INR 1.26 (0.82-1.09) H 08/16/16 06:50 Fibrinogen 480.0 mg/dL (238-498) 08/13/16 07:15 Laboratory Tests 08/17/16 08/18/16 06:30 06:30 Hgb 12.4 Total Bilirubin 0.7 D Direct Bilirubin 0.3 H D AST 36 ALT 27 Alkaline Phosphatase 61 Total Amylase 42 D Lipase 87 Assessment/Plan Persistent pancreatitis with possible pseudocyst but LFTs have normalized. Will start trial of soft diet. Agree with deferring surgery
[2016-08-18] MEDS: ACETAMINOPHEN 325 MG TABLET (FP) PO PRN (20:39)
[2016-08-19] MEDS: ACETAMINOPHEN 325 MG TABLET (FP) PO PRN ×3 (06:25→22:20)
[2016-08-19] MEDS: SODIUM CHLORIDE 0.45% 1,000 ML IV SCH (06:30)
[2016-08-19 09:30] LABS: BASOPHIL 0.4 % (0-2.0); EOSINOPHIL 1.2 % (0-4.5); MCH 30.7 pg (25.7-33.7); MCHC 33.5 g/dl (32.0-36.0); MEAN CELL VOLUME 91.7 fl (80-96); MEAN PLT VOLUME 8.8 fl (7.5-11.1); NEUTROPHILS 68.1 % (42.8-82.8); PLATELET COUNT 249 K/MM3 (134-434); RDW 13.9 % (11.6-15.6); WHITE BLOOD COUNT 8.9 K/mm3 (4.0-10.0)
[2016-08-19] MEDS ORDERED: PT OWN MED DRAWER 7, Y5N ONE (09:32)
[2016-08-19] MEDS: ENOXAPARIN NA (PORCINE) 80 MG/0.8 ML DISP.SYRIN SQ SCH (09:33)
[2016-08-19] MEDS: RANITIDINE HCL 150 MG TABLET (FP) PO SCH (09:33)
[2016-08-19 09:44] LABS: ALBUMIN 2.2 g/dl (3.4-5.0); BILIRUBIN,DIRECT 0.2 mg/dL (0.0-0.2); BILIRUBIN,TOTAL 0.3 mg/dL (0.2-1.0); CALCIUM 8.4 mg/dL (8.5-10.1); CREATININE 0.4 mg/dL (0.55-1.02)
--- NOTE | 2016-08-19 11:33 | PN ---
Progress Note (short form) - Note Progress Note: HEMATOLOGY PROGRESS NOTE : Progress Note (short form) - Note Progress Note: Patient seen and examined Doing well Her only complaint is a bloated abdomen Vital Signs Period Temp Pulse Resp BP Sys/Dorado Pulse Ox Last 24 Hr 97.3 F-98.0 F 59-68 20-20 117-134/42-68 95 HEENT: JUN, EOM Intact Cor: RSR, No murmurs, No gallops Lungs: Clear to P&A Abd: Soft, distended, Normal bowel sounds, no tenderness Ext:No significant edema CBC, BMP 08/19/16 07:50 08/19/16 07:50 A/P 85 y/o female with htn, hld, DM, IBS, COPD , RLE DVT/ extensive b/l PE -- comes in with abdominal pain- gall stone pancreatitis Unprovoked DVT/PE-6 months ago --s/p thrombolysis/ ivc filter placement She was on eliquis 5mg bid which has now been stopped during this admission h/o ivc filter duplex negative continue on intermediate dose lovenox-- 80mg SC daily will need to hold 24 hr. prior to surgery
--- NOTE | 2016-08-19 12:52 | PN ---
Progress Note (short form) - Note Progress Note: No abd pain Was able to eat today No fever No loose stools O/E Heart regular Lungs clear Abd soft non tender Ext no edema Laboratory Last Values WBC 8.9 K/mm3 (4.0-10.0) 08/19/16 07:50 RBC 3.87 M/mm3 (3.60-5.2) 08/19/16 07:50 Hgb 11.9 GM/dL (10.7-15.3) 08/19/16 07:50 Hct 35.5 % (32.4-45.2) 08/19/16 07:50 MCV 91.7 fl (80-96) 08/19/16 07:50 MCHC 33.5 g/dl (32.0-36.0) 08/19/16 07:50 RDW 13.9 % (11.6-15.6) 08/19/16 07:50 Plt Count 249 K/MM3 (134-434) 08/19/16 07:50 MPV 8.8 fl (7.5-11.1) 08/19/16 07:50 Neutrophils % 68.1 % (42.8-82.8) 08/19/16 07:50 Lymphocytes % 15.3 % (8-40) 08/19/16 07:50 Monocytes % 15.0 % (3.8-10.2) H 08/19/16 07:50 Eosinophils % 1.2 % (0-4.5) 08/19/16 07:50 Basophils % 0.4 % (0-2.0) 08/19/16 07:50 INR 1.26 (0.82-1.09) H 08/16/16 06:50 PTT (Actin FS) 31.0 SECONDS (26.9-34.4) 08/19/16 07:50 Fibrinogen 480.0 mg/dL (238-498) 08/13/16 07:15 D-Dimer 223 ng/ml (<200-235) 08/12/16 05:26 Sodium 143 mmol/L (136-145) 08/19/16 07:50 Potassium 3.6 mmol/L (3.5-5.1) 08/19/16 07:50 Chloride 102 mmol/L (98-107) 08/19/16 07:50 Carbon Dioxide 33 mmol/L (21-32) H 08/19/16 07:50 Anion Gap 8 (8-16) 08/19/16 07:50 BUN 6 mg/dL (7-18) L 08/19/16 07:50 Creatinine 0.4 mg/dL (0.55-1.02) L 08/19/16 07:50 Creat Clearance w eGFR > 60 (>60) 08/13/16 07:15 POC Glucometer 116 UNITS (()) 08/19/16 05:20 Random Glucose 126 mg/dL (74-106) H D 08/19/16 07:50 Calcium 8.4 mg/dL (8.5-10.1) L 08/19/16 07:50 Magnesium 1.9 mg/dL (1.8-2.4) 08/13/16 07:15 Total Bilirubin 0.3 mg/dL (0.2-1.0) D 08/19/16 07:50 Direct Bilirubin 0.2 mg/dL (0.0-0.2) D 08/19/16 07:50 AST 17 U/L (15-37) D 08/19/16 07:50 ALT 19 U/L (12-78) D 08/19/16 07:50 Alkaline Phosphatase 59 U/L (45-117) 08/19/16 07:50 Creatine Kinase 39 IU/L (26-192) 08/12/16 05:27 Troponin I < 0.02 ng/ml (0.00-0.05) 08/12/16 05:27 Total Protein 5.0 g/dl (6.4-8.2) L 08/19/16 07:50 Albumin 2.2 g/dl (3.4-5.0) L 08/19/16 07:50 Triglycerides 87 mg/dL (35-160) 08/17/16 06:30 Total Amylase 37 U/L (25-115) 08/19/16 07:50 Lipase 106 U/L (73-393) 08/19/16 07:50 Urine Color Ltyellow 08/12/16 08:26 Urine Appearance Clear 08/12/16 08:26 Urine pH 6.0 (5.0-8.0) 08/12/16 08:26 Ur Specific [place] 1.012 (1.001-1.035) 08/12/16 08:26 Urine Protein Negative (NEGATIVE) 08/12/16 08:26 Urine Glucose (UA) Negative (NEGATIVE) 08/12/16 08:26 Urine Ketones Negative (NEGATIVE) 08/12/16 08:26 Urine Blood Negative (NEGATIVE) 08/12/16 08:26 Urine Nitrite Negative (NEGATIVE) 08/12/16 08:26 Urine Bilirubin Negative (NEGATIVE) 08/12/16 08:26 Urine Urobilinogen Negative E.U./dl (0.2-1.0) 08/12/16 08:26 Ur Leukocyte Esterase Trace (NEGATIVE) H 08/12/16 08:26 Urine RBC 1 /hpf (0-3) 08/12/16 08:26 Urine WBC 4 /hpf (3-5) 08/12/16 08:26 Ur Epithelial Cells Rare /hpf (FEW) 08/12/16 08:26 Urine Bacteria Few /hpf (NONE SEEN) 08/12/16 08:26 Urine Mucus Rare 08/12/16 08:26 Stool Occult Blood Negative (NEGATIVE) 08/15/16 11:35 Vital Signs Period Temp Pulse Resp BP Sys/Dorado Pulse Ox Last 24 Hr 97.3 F-98.0 F 59-68 20-20 117-134/42-68 95 Current Medications Acetaminophen (Tylenol -) 650 mg PO Q4H PRN PRN Reason: FEVER OR PAIN Last Admin: 08/19/16 06:25 Dose: 650 mg Enoxaparin Sodium (Lovenox -) 80 mg SQ DAILY [facility] Last Admin: 08/19/16 09:33 Dose: 80 mg Sodium Chloride (1/2 Normal Saline) 1,000 mls @ 50 mls/hr IV ASDIR [facility] Last Admin: 08/19/16 06:30 Dose: 50 mls/hr Ranitidine HCl (Zantac -) 150 mg PO DAILY [facility] Last Admin: 08/19/16 09:33 Dose: 150 mg - Problems (1) Acute gallstone pancreatitis Assessment/Plan: repeat CT pending Awaiting cholecystectomy Code(s): K85.1 - BILIARY ACUTE PANCREATITIS * DO NOT USE * (2) Diabetes Assessment/Plan: Diet kylie been resumed and will f/u Code(s): E11.9 - TYPE 2 DIABETES MELLITUS WITHOUT COMPLICATIONS (3) HTN (hypertension) Assessment/Plan: controlled Code(s): I10 - ESSENTIAL (PRIMARY) HYPERTENSION (4) Pulmonary embolism, bilateral Assessment/Plan: on Levonox Code(s): I26.99 - OTHER PULMONARY EMBOLISM WITHOUT ACUTE COR PULMONALE (5) Osteoarthritis Assessment/Plan: cont present cares Code(s): M19.90 - UNSPECIFIED OSTEOARTHRITIS, UNSPECIFIED SITE (6) COPD (chronic obstructive pulmonary disease) Assessment/Plan: Chronic stable On O2 Code(s): J44.9 - CHRONIC OBSTRUCTIVE PULMONARY DISEASE, UNSPECIF
--- NOTE | 2016-08-19 13:54 | PN ---
GI Progress Note Subjective: GI NOte: Tolerating low fat diet. No vomiting. Had BM today. - Objective Vital Signs: Vital Signs Temperature 98.0 F 08/19/16 06:40 Pulse Rate 65 08/19/16 06:40 Respiratory Rate 20 08/19/16 06:40 Blood Pressure 134/67 08/19/16 06:40 O2 Sat by Pulse Oximetry (%) 95 08/18/16 21:00 Constitutional: Calm Gastrointestinal Inspection: Yes: Distention ...Auscultate: Yes: Normoactive Bowel Sounds ...Palpate: Yes: Soft, Other (nontender) ...Percussion: Yes: Tympanitic Labs: CBC, BMP 08/19/16 07:50 08/19/16 07:50 INR, PTT INR 1.26 (0.82-1.09) H 08/16/16 06:50 Fibrinogen 480.0 mg/dL (238-498) 08/13/16 07:15 Assessment/Plan Persistent pancreatitis with possible pseudocyst. Continue soft diet.
[2016-08-20] MEDS: ACETAMINOPHEN 325 MG TABLET (FP) PO PRN ×3 (06:36→22:32)
[2016-08-20] MEDS: RANITIDINE HCL 150 MG TABLET (FP) PO SCH (09:09)
[2016-08-20] MEDS: ENOXAPARIN NA (PORCINE) 80 MG/0.8 ML DISP.SYRIN SQ SCH (09:09)
--- NOTE | 2016-08-20 11:53 | PN ---
Progress Note (short form) - Note Progress Note: No pain and is able to tolerate food No fever or abd pain O/E Heart regular Lungs c;era Abd soft Ext samuel cabrera Laboratory Results - last 24 hr 08/20/16 05:40 POC Glucometer 123 Current Medications Acetaminophen (Tylenol -) 650 mg PO Q4H PRN PRN Reason: FEVER OR PAIN Last Admin: 08/20/16 06:36 Dose: 650 mg Enoxaparin Sodium (Lovenox -) 80 mg SQ DAILY [facility] Last Admin: 08/20/16 09:09 Dose: 80 mg Sodium Chloride (1/2 Normal Saline) 1,000 mls @ 50 mls/hr IV ASDIR [facility] Last Admin: 08/19/16 06:30 Dose: 50 mls/hr Ranitidine HCl (Zantac -) 150 mg PO DAILY [facility] Last Admin: 08/20/16 09:09 Dose: 150 mg Vital Signs Period Temp Pulse Resp BP Sys/Dorado Pulse Ox Last 24 Hr 97.6 F-98.2 F 59-63 20-20 121-150/50-75 96 - Problems (1) Acute gallstone pancreatitis Assessment/Plan: repeat CT pending Awaiting cholecystectomy. The Psuedo cyst may take months to develop and most of them are self limiting We should proceed with lap choley instead of repeating more CT scans and I discussed the same with the surgeon He would like to see one more CT to see the progression of the cyst which is to be done tomorrow. Code(s): K85.1 - BILIARY ACUTE PANCREATITIS * DO NOT USE * (2) Diabetes Assessment/Plan: Diet kylie been resumed and will f/u Code(s): E11.9 - TYPE 2 DIABETES MELLITUS WITHOUT COMPLICATIONS (3) HTN (hypertension) Assessment/Plan: controlled Code(s): I10 - ESSENTIAL (PRIMARY) HYPERTENSION (4) Pulmonary embolism, bilateral Assessment/Plan: on Levonox Code(s): I26.99 - OTHER PULMONARY EMBOLISM WITHOUT ACUTE COR PULMONALE (5) Osteoarthritis Assessment/Plan: cont present cares Code(s): M19.90 - UNSPECIFIED OSTEOARTHRITIS, UNSPECIFIED SITE (6) COPD (chronic obstructive pulmonary disease) Assessment/Plan: Chronic stable On O2 Code(s): J44.9 - CHRONIC OBSTRUCTIVE PULMONARY DISEASE, UNSPECIF
--- NOTE | 2016-08-20 12:59 | PN ---
Progress Note (short form) - Note Progress Note: HEMATOLOGY PROGRESS NOTE : Progress Note (short form) - Note Progress Note: Patient seen and examined Doing well Her only complaint is a bloated abdomen Vital Signs Period Temp Pulse Resp BP Sys/Dorado Pulse Ox Last 24 Hr 97.6 F-98.2 F 59-63 20-20 121-150/50-75 96 HEENT: JUN, EOM Intact Cor: RSR, No murmurs, No gallops Lungs: Clear to P&A Abd: Soft, distended, Normal bowel sounds, no tenderness Ext:No significant edema CBC, BMP 08/19/16 07:50 08/19/16 07:50 A/P 85 y/o female with htn, hld, DM, IBS, COPD , RLE DVT/ extensive b/l PE -- comes in with abdominal pain- gall stone pancreatitis Unprovoked DVT/PE-6 months ago --s/p thrombolysis/ ivc filter placement She was on eliquis 5mg bid which has now been stopped during this admission h/o ivc filter duplex negative continue on intermediate dose lovenox-- 80mg SC daily will need to hold 24 hr. prior to surgery (cholecystectomy)
--- NOTE | 2016-08-20 13:38 | PN ---
GI Progress Note Subjective: GI: Tolerating low fat diet. No pain or vomiting. - Objective Vital Signs: Vital Signs Temperature 98.2 F 08/20/16 10:00 Pulse Rate 61 08/20/16 10:00 Respiratory Rate 20 08/20/16 10:00 Blood Pressure 150/75 08/20/16 10:00 O2 Sat by Pulse Oximetry (%) 96 08/20/16 09:00 CBC,CMP WBC 8.9 K/mm3 (4.0-10.0) 08/19/16 07:50 RBC 3.87 M/mm3 (3.60-5.2) 08/19/16 07:50 Hgb 11.9 GM/dL (10.7-15.3) 08/19/16 07:50 Hct 35.5 % (32.4-45.2) 08/19/16 07:50 MCV 91.7 fl (80-96) 08/19/16 07:50 MCHC 33.5 g/dl (32.0-36.0) 08/19/16 07:50 RDW 13.9 % (11.6-15.6) 08/19/16 07:50 Plt Count 249 K/MM3 (134-434) 08/19/16 07:50 MPV 8.8 fl (7.5-11.1) 08/19/16 07:50 Neutrophils % 68.1 % (42.8-82.8) 08/19/16 07:50 Lymphocytes % 15.3 % (8-40) 08/19/16 07:50 Monocytes % 15.0 % (3.8-10.2) H 08/19/16 07:50 Eosinophils % 1.2 % (0-4.5) 08/19/16 07:50 Basophils % 0.4 % (0-2.0) 08/19/16 07:50 Sodium 143 mmol/L (136-145) 08/19/16 07:50 Potassium 3.6 mmol/L (3.5-5.1) 08/19/16 07:50 Chloride 102 mmol/L (98-107) 08/19/16 07:50 Carbon Dioxide 33 mmol/L (21-32) H 08/19/16 07:50 Anion Gap 8 (8-16) 08/19/16 07:50 BUN 6 mg/dL (7-18) L 08/19/16 07:50 Creatinine 0.4 mg/dL (0.55-1.02) L 08/19/16 07:50 Creat Clearance w eGFR > 60 (>60) 08/13/16 07:15 POC Glucometer 123 UNITS (()) 08/20/16 05:40 Random Glucose 126 mg/dL (74-106) H D 08/19/16 07:50 Calcium 8.4 mg/dL (8.5-10.1) L 08/19/16 07:50 Magnesium 1.9 mg/dL (1.8-2.4) 08/13/16 07:15 Total Bilirubin 0.3 mg/dL (0.2-1.0) D 08/19/16 07:50 Direct Bilirubin 0.2 mg/dL (0.0-0.2) D 08/19/16 07:50 AST 17 U/L (15-37) D 08/19/16 07:50 ALT 19 U/L (12-78) D 08/19/16 07:50 Alkaline Phosphatase 59 U/L (45-117) 08/19/16 07:50 Creatine Kinase 39 IU/L (26-192) 08/12/16 05:27 Troponin I < 0.02 ng/ml (0.00-0.05) 08/12/16 05:27 Total Protein 5.0 g/dl (6.4-8.2) L 08/19/16 07:50 Albumin 2.2 g/dl (3.4-5.0) L 08/19/16 07:50 Triglycerides 87 mg/dL (35-160) 08/17/16 06:30 Total Amylase 37 U/L (25-115) 08/19/16 07:50 Lipase 106 U/L (73-393) 08/19/16 07:50 Constitutional: Calm ...Auscultate: Yes: Normoactive Bowel Sounds ...Palpate: Yes: Soft, Other (nontender) Labs: CBC, BMP 08/19/16 07:50 08/19/16 07:50 INR, PTT INR 1.26 (0.82-1.09) H 08/16/16 06:50 Fibrinogen 480.0 mg/dL (238-498) 08/13/16 07:15 Assessment/Plan Resolving pancreatitis. Anticipating cholecystectomy
[2016-08-20] MEDS ORDERED: LEVOFLOXACIN 500 MG IVPB 100 ML IVPB ONE (13:42)
[2016-08-20] MEDS ORDERED: FUROSEMIDE 40 MG/4 ML INJECTABLE VIAL IVPUSH ONE (16:02)
--- NOTE | 2016-08-20 16:07 | PN ---
Progress Note (short form) - Note Progress Note: CC: pre-op clearance S: no cp, palps, dizziness, sob. no orthopnea. No abdominal pain. + le edema. eating normal amount. o: Current Medications Acetaminophen (Tylenol -) 650 mg PO Q4H PRN PRN Reason: FEVER OR PAIN Last Admin: 08/20/16 13:51 Dose: 650 mg Enoxaparin Sodium (Lovenox -) 80 mg SQ DAILY [facility] Last Admin: 08/20/16 09:09 Dose: 80 mg Vital Signs - 24 hr 08/19/16 08/19/16 08/20/16 20:52 21:00 06:00 Temperature 97.9 F 97.9 F Pulse Rate 63 59 L Respiratory 20 20 20 Rate Blood Pressure 140/68 123/50 O2 Sat by Pulse Oximetry (%) 08/20/16 08/20/16 08/20/16 09:00 10:00 14:08 Temperature 98.2 F 98.7 F Pulse Rate 61 63 Respiratory 20 Rate Blood Pressure 150/75 130/68 O2 Sat by Pulse 96 Oximetry (%) Intake & Output 08/18/16 08/19/16 08/20/16 08/21/16 07:59 07:59 07:59 07:59 Intake Total 2400 1200 1250 900 Balance 2400 1200 1250 900 Weight 176 lb 11.2 oz 176 lb 4.8 oz 181 lb 6.4 oz NAD, calm JVD flat neck supple bibasilar dullness, diffuse crackles, nl effort RRR nl s1 s2. 2/6 murmur at lsb and apex. + bs soft nt nd ext with trace edema. No cyanosis or clubbing aaox3 no jaundice, diaphoresis no CBC, BMP today 08/19/16 07:50 08/19/16 07:50 EKG: NSR, LAD. possible inferior q waves. no acute ischemic changes. images and report reviewed Lung portion of abd CT shows bibasilar atelectasis and small effusions. Repeat abdominal CT 08/16: images and report reviewed. Shows mild increase in pleural effusions, atelectasis and ascites. cxr 08/16 images and report reviewed: pulmonary vascular congestion. stress test 04/2016: occ pvc's, no ischemic ekg changes. artifact. no ischemia , EF 71%. 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 Echo 03/03 (): nl LVEF; mod-sev RV dilation and hypokinesis; valves unremarkable; RVSP 40-50. a/p: 85 year old female with htn, niddm, COPD, ibs, chronic lbp, PE's here with gallstone pancreatitis with plan for lap christelle. Pre-operative clearance - Pt has no unstable cardiac issues at present. Recent negative stress test. Recent echo shows normal lv/rv. No further cardiac testing needed at this time. Pt has intermediate risk of adonis-operative CV complications. - I/o, daily standing weights to monitor volume status adonis-operatively. Close monitoring of oxygen saturation. - 08/20, now off IVF and taking in normal PO. Would give lasix 40 mg IV x 1 and repeat CXR in am to assess for pulmonary congestion. History of extensive PEs, dvt with resulting RV strain/systolic dysfunction s/p IVC filter placment. : - On eliquis as outpatient, lovenox here (not therapeutic dose per hematology/GI ). - RV function normalized on most recent echo. COPD - per pmd/pulm HTN - Overall reasonable control for age off meds, con't to monitor.
[2016-08-21] MEDS: ACETAMINOPHEN 325 MG TABLET (FP) PO PRN ×2 (07:28→18:02)
[2016-08-21 08:06] LABS: CALCIUM 8.7 mg/dL (8.5-10.1); CREATININE 0.4 mg/dL (0.55-1.02)
[2016-08-21] MEDS ORDERED: PT OWN MED DRAWER 7, Y5N ONE (09:29)
[2016-08-21] MEDS: ENOXAPARIN NA (PORCINE) 80 MG/0.8 ML DISP.SYRIN SQ SCH (09:30)
--- NOTE | 2016-08-21 09:32 | PN ---
Progress Note, Physician Chief Complaint: Abdominal Pain Vomiting History of Present Illness: Please see admission note. Awakened with severe epigastric pain and vomiting medical psychotherapist on the day of admission. In ER, lipase level >20K, with Ultrasound findings of calculous cholecystitis without evidence of biliary ductile dilatation, and only minimal transaminitis. Seen by GI and Surgery as well as [employer] (due to issue of Eliquis therapy for previous Pulmonary emboli and unprovoked DVT.) Initial CT report confirmed severe pancreatic inflammation. Currently, sitting up in chair OOB, awake, alert and appropriate , with less overall abdominal discomfort, despite some persistence of bloating. CT report of 08/16/16 describes persistence of adonis-pancreatic inflammation, with possible developing pseudocyst, and ascitic fluid with B/L pleural effusions. CXR revealed findings c/w pulmonary vascular congestion. Patient is using nasal O2 but describes no increased dyspnea, cough or orthopnea. Cardiology note appreciated in regard to fluid volume management and surgical risk. Was given a singlr dose of iv furosemide 08/20/16 and a CXR has just been performed. Images and results pending. Marked decline in Lipase ([id number]> >500>>153>>107>>87) and Amylase (1159>>378>>191>>89>>59>>42) documented. Still feels weak. Low back pain has stablilized. Elective laparoscopic cholecystectomy has been postponed due to persistence of CT changes as described above To repeat CT as per surgical supervisor and decide on surgery after reviewing the data. Continue current anticoagulation as per Dr Man. Advance diet as per GI and Surgery. - Current Medication List Current Medications: Active Medications Acetaminophen (Tylenol -) 650 mg PO Q4H PRN PRN Reason: FEVER OR PAIN Last Admin: 08/21/16 07:28 Dose: 650 mg Enoxaparin Sodium (Lovenox -) 80 mg SQ DAILY SHAYNA Last Admin: 08/20/16 09:09 Dose: 80 mg - Objective Vital Signs: Vital Signs Temperature 98.4 F 08/21/16 06:00 Pulse Rate 61 08/21/16 06:00 Respiratory Rate 20 08/21/16 06:00 Blood Pressure 144/67 08/21/16 06:00 O2 Sat by Pulse Oximetry (%) 93 L 08/21/16 09:00 Constitutional: Yes: Anxious, Mild Distress Eyes: No: Sclera Icterus Cardiovascular: Yes: Regular Rate and Rhythm Respiratory: Yes: CTA Bilaterally. No: Rhonchi, Wheezes Gastrointestinal: Yes: Normal Bowel Sounds, Soft, Distention (mild). No: Palpable Mass, Tenderness, Rebound Edema: Yes (mild non-pitting edema ) Neurological: Yes: Alert, Oriented Labs: CBC, BMP 08/19/16 07:50 08/21/16 06:05 INR, PTT INR 1.26 (0.82-1.09) H 08/16/16 06:50 Fibrinogen 480.0 mg/dL (238-498) 08/13/16 07:15 - ....Imaging Chest X-ray: Pending Problem List - Problems (1) Acute gallstone pancreatitis Assessment/Plan: Repeat CT of abdomen report reviewed. Lap Cholecystectomy postponed based on CT findings. Possible developing pseudocyst formation. To repeat CT. Clinically improved. Labs show marked improvement in Amylase and Lipase Code(s): K85.1 - BILIARY ACUTE PANCREATITIS * DO NOT USE * (2) Diabetes Assessment/Plan: Follow BGMs Previously on Metformin 500 mg po BID Code(s): E11.9 - TYPE 2 DIABETES MELLITUS WITHOUT COMPLICATIONS (3) HTN (hypertension) Assessment/Plan: Stable Metoprolol discontinued as outpatient Code(s): I10 - ESSENTIAL (PRIMARY) HYPERTENSION (4) Pulmonary embolism, bilateral Assessment/Plan: Stable Off NOAC Currently on Lovenox as per Dr Man to be held prior to Surgery Continue discussion with Hematology Code(s): I26.99 - OTHER PULMONARY EMBOLISM WITHOUT ACUTE COR PULMONALE (5) Osteoarthritis Assessment/Plan: Chronic low back pain Currently stable Chronic bilateral arm pain persists Has been evaluated in the past for Polymyalgia Rheumatica but has not had elevated ESRs Code(s): M19.90 - UNSPECIFIED OSTEOARTHRITIS, UNSPECIFIED SITE (6) COPD (chronic obstructive pulmonary disease) Assessment/Plan: Chronic stable On O2 Code(s): J44.9 - CHRONIC OBSTRUCTIVE PULMONARY DISEASE, UNSPECIFIED (7) Volume overload Assessment/Plan: Some ascites on CT and evidence of pulmonary vascular congestion on CXR c/w mild total body Na overload. Cardiology note appreciated, in regard to holding diuretic therapy initially and dosing with furosemide 08/20/16. Check CXR from today. Follow carefully. Patient appears clinically stable. Low serum albumen of note, likely a contributing factor to "third-spacing" of fluid Code(s): E87.70 - FLUID OVERLOAD, UNSPECIFIED (8) S/P IVC filter Assessment/Plan: Stable (9) Colitis Assessment/Plan: Chronic stable Code(s): K52.9 - NONINFECTIVE GASTROENTERITIS AND COLITIS, UNSPECIFIED Assessment/Plan Plan as outlined above. Repeat CT of abdomen and decide on timing of surgical intervention based on those findings. Check CXR
--- NOTE | 2016-08-21 11:58 | PN ---
Progress Note, Physician - Current Medication List Current Medications: Active Medications Acetaminophen (Tylenol -) 650 mg PO Q4H PRN PRN Reason: FEVER OR PAIN Last Admin: 08/21/16 07:28 Dose: 650 mg Enoxaparin Sodium (Lovenox -) 80 mg SQ DAILY SHAYNA Last Admin: 08/21/16 09:30 Dose: 80 mg - Objective Vital Signs: Vital Signs Temperature 97.9 F 08/21/16 10:00 Pulse Rate 64 08/21/16 10:00 Respiratory Rate 18 08/21/16 10:00 Blood Pressure 136/67 08/21/16 10:00 O2 Sat by Pulse Oximetry (%) 93 L 08/21/16 09:00 Labs: CBC, BMP 08/19/16 07:50 08/21/16 06:05 INR, PTT INR 1.26 (0.82-1.09) H 08/16/16 06:50 Fibrinogen 480.0 mg/dL (238-498) 08/13/16 07:15 Assessment/Plan images and report reviewed Lung portion of abd CT shows bibasilar atelectasis and small effusions. Repeat abdominal CT 08/16: images and report reviewed. Shows mild increase in pleural effusions, atelectasis and ascites. cxr 08/16 images and report reviewed: pulmonary vascular congestion. stress test 04/2016: occ pvc's, no ischemic ekg changes. artifact. no ischemia , EF 71%. 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 Echo 03/03 (): nl LVEF; mod-sev RV dilation and hypokinesis; valves unremarkable; RVSP 40-50. a/p: 85 year old female with htn, niddm, COPD, ibs, chronic lbp, PE's here with gallstone pancreatitis with plan for lap christelle. Pre-operative clearance - Pt has no unstable cardiac issues at present. Recent negative stress test. Recent echo shows normal lv/rv. No further cardiac testing needed at this time. - small effusions, with no ongoing vascular congestion on today's CXR and no sob --well-compensated - Reviced CV Risk Index = 0, decr'd functional status?--overall low- intermediate risk of adonis-operative CV complications, may proceed without further testing pleural effusions/vascular congestion: - ? sec to IVF here, ? component of "sympathetic effusions" from subdiaphragmatic process - given lasix 40 mg IV x 1 on 08/20 - cxr today repeated, reviewed by me: no signs vascular congestion or effusion today, improved vs prior History of extensive PEs, dvt with resulting RV strain/systolic dysfunction s/p IVC filter placment. : - On eliquis as outpatient, lovenox here (not therapeutic dose per hematology/GI ). - RV function normalized on most recent echo. COPD - per pmd/pulm HTN - Overall reasonable control for age off meds, con't to monitor.
--- NOTE | 2016-08-21 15:03 | PN ---
Progress Note (short form) - Note Progress Note: Attending Surgeon Seen in f/u; no c/o; tolerating diet VSS AF abdomen-benign CT scan a/p from today reviewed; findings noted. IMP:gallstone pancreatitis w/complication of formation of pancreatic pseudocyst( s) PLAN:Suggest deferral of lap christelle at this time given worsening peripancreatic collections/evolving pseudocysts; would wait for resolution of CT findings or if they persist beyond 6 weeks time endoscopic drainage could be done followed by lap christelle.
--- NOTE | 2016-08-21 20:20 | PN ---
Progress Note (short form) - Note Progress Note: PAtient seen and examined No shortness of breath. No leg pain/swelling abdominal pain improved feels better AFVSS HEENT: JUN, EOM Intact Cor: RSR, No murmurs, No gallops Lungs: Clear to P&A Abd: Soft, Normal bowel sounds, mild tenderness RUQ Ext:No significant edema Labs reviewed \ A/P 85 y/o female with htn, hld, DM, IBS, COPD , RLE DVT/ extensive b/l PE -- comes in with abdominal pain- ? gall stone pancreatitis Unprovoked DVT/PE-6 months ago --s/p thrombolysis/ ivc filter placement On eliquis 5mg bid last dose of eliquis 08/11 9pm Eliquis generally held 48hrs. prior to procedures with moderate/severe risk of bleeding No h/o use of any other NSAIDS h/o ivc filter duplex negative discussed with gi team difficult situation, patient high risk for bleeding/clotting complications. will monitor on lovenox-- 120mg SC daily--1.5mg/kg/day ? switch to eliquis at d/c --2.5mg bid as patient had DVT/PE > 6months ago surgery in 6 weeks per surgical team
[2016-08-22] MEDS: ACETAMINOPHEN 325 MG TABLET (FP) PO PRN ×2 (01:40→06:11)
[2016-08-22 07:23] LABS: BASOPHIL 0.5 % (0-2.0); EOSINOPHIL 2.8 % (0-4.5); MCH 30.3 pg (25.7-33.7); MCHC 33.1 g/dl (32.0-36.0); MEAN CELL VOLUME 91.5 fl (80-96); MEAN PLT VOLUME 8.2 fl (7.5-11.1); NEUTROPHILS 67.5 % (42.8-82.8); PLATELET COUNT 311 K/MM3 (134-434); RDW 13.8 % (11.6-15.6); WHITE BLOOD COUNT 9.2 K/mm3 (4.0-10.0)
[2016-08-22 08:01] LABS: ALBUMIN 2.4 g/dl (3.4-5.0); BILIRUBIN,DIRECT 0.1 mg/dL (0.0-0.2); BILIRUBIN,TOTAL 0.2 mg/dL (0.2-1.0); CREATININE 0.4 mg/dL (0.55-1.02); TOT PROT 5.3 g/dl (6.4-8.2)
--- NOTE | 2016-08-22 09:02 | DS ---
Physical Examination Vital Signs: Vital Signs Temperature 97.6 F 08/22/16 06:00 Pulse Rate 63 08/22/16 06:00 Respiratory Rate 20 08/22/16 06:00 Blood Pressure 146/72 08/22/16 06:00 O2 Sat by Pulse Oximetry (%) 95 08/21/16 21:00 Constitutional: Yes: Calm Eyes: No: Sclera Icterus Cardiovascular: Yes: Regular Rate and Rhythm Respiratory: Yes: CTA Bilaterally Gastrointestinal: Yes: Normal Bowel Sounds, Soft. No: Tenderness, Rebound Edema: No Neurological: Yes: Alert, Oriented Labs: CBC, BMP 08/22/16 06:35 08/22/16 06:35 Discharge Summary Reason For Visit: ACUTE GALLSTONE PANCREATITIS Current Active Problems COPD (chronic obstructive pulmonary disease) (Chronic) S/P IVC filter (Chronic) Hospital Course: Please refer to daily notes Likely calculous cholecystitis with pancreatitis. Lipase initiallly >22,000 returning to normal Clinically improved, but CT scans reviewed persistence of adonis-pancreatic inflammation and possible pseudocyst formation. CT scan dose 08/21/16 revealed persistence of findings c/w pseudocyst formation and therefore the surgery is to be put on hold for several weeks. Will resume Eliquis at discharge Meds reviewed. Surgical follow-up as described. Condition: Stable - Instructions Diet, Activity, Other Instructions: Resume low fat, diabetic diet Watch Na+ Referrals: Durga Mart MD [Primary Care Provider] - Disposition: HOME - Home Medications Comprehensive Discharge Medication List: Ambulatory Orders Apixaban [Eliquis -] 5 mg PO Q12H 02/17/16 Ascorbic Acid [Vitamin C -] 1,000 mg PO DAILY 02/17/16 Cholecalciferol (Vitamin D3) [Vitamin D3] 1,000 unit PO DAILY 02/17/16 Magnesium Chloride [Slow-Mag -] 64 mg PO DAILY 02/17/16 Multivitamin with Minerals [Icaps Plus] 1 each PO DAILY 02/17/16 Acetaminophen [Tylenol .Regular Strength -] 650 mg PO Q4H PRN #0 tablet Metformin HCl 500 mg PO DAILY #30 tablet 08/22/16
[2016-08-22 09:17] VITALS: BP 112/58; PULSE 66; TEMP 98.2
[2016-08-22] MEDS ORDERED: ENOXAPARIN NA (PORCINE) 120 MG/0.8 ML DISP.SYRIN SQ SCH (10:00)
[2016-08-22] MEDS ORDERED: PT OWN MED DRAWER 7, Y5N ONE (10:23)
== END 2016-08-22 11:31 | disposition home or self-care (01) | DRG 439 ==
LOC: JER 05:02 → JERBED 09:59 → J5S 13:16 → J6S 08-14 06:13
PROVIDERS: ADMIT Specialist; ATTEND Specialist
DX: K85.10 Biliary acute pancreatitis without necrosis or infection (principal); K57.92 Diverticulitis of intestine, part unspecified, without perforation or abscess without bleeding; J98.11 Atelectasis; R18.8 Other ascites; K86.3 Pseudocyst of pancreas; I25.10 Atherosclerotic heart disease of native coronary artery without angina pectoris; E11.9 Type 2 diabetes mellitus without complications; J45.909 Unspecified asthma, uncomplicated; J44.9 Chronic obstructive pulmonary disease, unspecified; I10 Essential (primary) hypertension; M19.90 Unspecified osteoarthritis, unspecified site; K52.9 Noninfective gastroenteritis and colitis, unspecified; M54.5 Low back pain; E78.5 Hyperlipidemia, unspecified; Z86.711 Personal history of pulmonary embolism; Z87.891 Personal history of nicotine dependence; Z86.718 Personal history of other venous thrombosis and embolism
CPT/HCPCS: 36415; 71010-TC; 71020-TC; 74020-TC; 74150-TC; 74170-TC; 74178-TC; 76705-TC; 80048; 80053; 80076; 81003; 81015; 82150; 82272; 82550; 83690; 83735; 84478; 84484; 85025; 85027; 85379; 85384; 85610; 85730; 93005; 93010; 93970-TC; 94010; 99283-25; J1644; Q9967

== ENCOUNTER 2016-10-12 01:42 | Inpatient (IN) | payer OTHER, MEDICARE ==
[2016-10-12] MEDS ORDERED: ONDANSETRON 4 MG/2 ML VIAL ONE ×2 (02:07→02:22)
--- NOTE | 2016-10-12 02:13 | PDOC ---
History of Present Illness - General History Source: Patient Exam Limitations: No Limitations - History of Present Illness Initial Comments: 10/12/16 02:27 The patient is a 86 year old female with significant past medical history of CAD , bilateral PE (on Eliquis), hypertension, hyperlipidemia, diabetes, asthma/COPD , colitis, chronic low back pain and osteoarthritis who presents to the ED BIBA for epigastric pain, nausea and vomiting prior to arrival. Patient was recently admitted for acute pancreatitis and discharged on 08/22. States she was supposed to have a lap christelle done, however during her admission, patient had a repeat abdominal CT showing possible developing pseudocyst. Patient returns today after developed mid epigastric pain with discomfort, nausea, vomiting and diaphoresis. Denies diarrhea. The patient denies fever, chills, cough, SOB, chest pain, and palpitations. Allergies: ibuprofen Social History: No alcohol, tobacco, or drug use reported. Past Surgical History: Appendectomy, breast biopsy (right benign), knee arthroscopy PCP: Dr. Dat Mart Critical Care Nurse Specialist: Dr. Kaz Jimenez <Miriam Madrigal - Last Filed: 10/12/16 02:41> - General History Source: Patient, EMS <Ben Noble - Last Filed: 10/12/16 19:47> - General Chief Complaint: Chest Pain Stated Complaint: CHEST PRESSURE/VOMITING Time Seen by Provider: 10/12/16 02:13 Past History <Miriam Madrigal - Last Filed: 10/12/16 02:41> - Past Medical History Anemia: No Asthma: Yes Cancer: No Cardiac Disorders: Yes (ASHD, CORONARY ATHEROSCLEROSIS, bilateral PE) CVA: No COPD: No CHF: No Dementia: No Diabetes: Yes GI Disorders: Yes (cololitis,diverticulitis,) Disorders: No HTN: Yes Hypercholesterolemia: Yes Liver Disease: No Seizures: No Thyroid Disease: No - Surgical History Abdominal Surgery: Yes Appendectomy: Yes Cardiac Surgery: No Cholecystectomy: No Lung Surgery: No Neurologic Surgery: No Orthopedic Surgery: Yes (R KNEE MENISCUS REPAIR, CORTISONE INJECTION IN L KNEE JUL 2014) - Reproductive History (#): 2 Para: 2 Cervical CA: No Dysfunctional Uterine Bleeding: No Ectopic : No Endometrial CA: No Endometriosis: No Ovarian CA: No PID: No Polycystic Ovaries: No Therapeutic (s) & number: No Tubal Ligation: No Uterine Fibroids: No Oophorectomy: No - Immunization History Immunization Up to Date: No - Psycho/Social/Smoking Cessation Hx Anxiety: No Suicidal Ideation: No Smoking Status: Yes Smoking History: Never smoked Years of Tobacco Use: 30 Have you smoked in the past 12 months: No Number of Cigarettes Smoked Daily: 0 If you are a former smoker, when did you quit?: 1998 Cigars Per Day: 0 Information on smoking cessation initiated: No Hx Alcohol Use: No Drug/Substance Use Hx: No Substance Use Type: None Hx Substance Use Treatment: No <Ben oNble - Last Filed: 10/12/16 19:47> - Past Medical History Allergies/Adverse Reactions: Allergies Allergy/AdvReac Type Severity Reaction Status Date / Time ibuprofen [From Advil] Allergy Mild Hives Verified 10/12/16 01:57 Home Medications: Ambulatory Orders Apixaban [Eliquis -] 5 mg PO Q12H 02/17/16 Ascorbic Acid [Vitamin C -] 1,000 mg PO DAILY 02/17/16 Cholecalciferol (Vitamin D3) [Vitamin D3] 1,000 unit PO DAILY 02/17/16 Magnesium Chloride [Slow-Mag -] 64 mg PO DAILY 02/17/16 Multivitamin with Minerals [Icaps Plus] 1 each PO DAILY 02/17/16 Acetaminophen [Tylenol .Regular Strength -] 650 mg PO Q4H PRN #0 tablet Metformin HCl 500 mg PO DAILY #30 tablet 08/22/16 Review of Systems - Review of Systems Able to Perform ROS?: Yes Comments:: 10/12/16 02:27 CONSTITUTIONAL: +diaphoresis Absent: fever, chills, generalized weakness, malaise, loss of appetite HEENT: Absent: rhinorrhea, nasal congestion, throat pain, throat swelling, difficulty swallowing, mouth swelling, ear pain, eye pain, visual Changes CARDIOVASCULAR: Absent: chest pain, syncope, palpitations, irregular heart rate, lightheadedness , peripheral edema RESPIRATORY: Absent: cough, shortness of breath, dyspnea with exertion, orthopnea, wheezing, stridor, hemoptysis GASTROINTESTINAL: +epigastric pain, nausea, vomiting Absent: abdominal distension, diarrhea, constipation, melena, hematochezia GENITOURINARY: Absent: dysuria, frequency, urgency, hesitancy, hematuria, flank pain, genital pain MUSCULOSKELETAL: Absent: myalgia, arthralgia, joint swelling SKIN: Absent: rash, itching, pallor NEUROLOGIC: Absent: headache, focal weakness or paresthesias, dizziness, unsteady gait, seizure, mental status changes, bladder or bowel incontinence <Miriam Madrigal - Last Filed: 10/12/16 02:41> *Physical Exam - Vital Signs Last Vital Signs Temp Pulse Resp BP Pulse Ox 98.9 F 54 L 18 145/72 89 L 10/12/16 01:58 10/12/16 01:58 10/12/16 01:58 10/12/16 01:58 10/12/16 01:58 - Physical Exam Comments: 10/12/16 02:27 GENERAL: Well developed, well nourished. Awake and alert. Mild distress. HEENT: Normocephalic, atraumatic. PERRLA, EOMI. No conjunctival pallor. Sclera are non- icteric. Moist mucous membranes. Oropharynx is clear. NECK: Supple. Full ROM. No JVD. Carotid pulses 2+ and symmetric, without bruits. No thyromegaly. No lymphadenopathy. CARDIOVASCULAR: Bradycardia. Regular rhythm. Holosystolic murmur 3/6 at the left sternal border. No rubs or gallops. Distal pulses are 2+ and symmetric. PULMONARY: No evidence of respiratory distress. Decreased breath sounds. No conversational dyspnea. No retractions. Lungs clear to auscultation bilaterally. No wheezing, rales or rhonchi. ABDOMINAL: Soft. Epigastric tenderness. Non-distended. No rebound or guarding. No organomegaly. Normoactive bowel sounds. MUSCULOSKELETAL Normal range of motion at all joints. No bony deformities or tenderness. No CVA tenderness. EXTREMITIES: No cyanosis. No clubbing. No edema. No calf tenderness. SKIN: Warm and dry. Normal capillary refill. No rashes. No jaundice. NEUROLOGICAL: Alert, awake, appropriate. Cranial nerves 2-12 intact. Moving all extremities. No gross focal neurological deficits. <Miriam Madrigal - Last Filed: 10/12/16 02:41> - Vital Signs Last Vital Signs Temp Pulse Resp BP Pulse Ox 98.9 F 54 L 18 145/72 89 L 10/12/16 01:58 10/12/16 01:58 10/12/16 01:58 10/12/16 01:58 10/12/16 01:58 <Ben Noble - Last Filed: 10/12/16 19:47> Heart Score/ECG Review - ECG Impressions Comment:: 10/12/16 02:41 Sinus bradycardia @54bpm L axis deviation Anterior infarct, age undetermined Abnormal ECG <Mirima Madrigal - Last Filed: 10/12/16 02:41> ED Treatment Course - LABORATORY CBC & Chemistry Diagram: 10/12/16 02:35 <Miriam Madrigal - Last Filed: 10/12/16 02:41> - LABORATORY CBC & Chemistry Diagram: 10/12/16 05:40 10/12/16 05:40 <Ben Noble - Last Filed: 10/12/16 19:47> Medical Decision Making - Medical Decision Making 10/12/16 19:47 Dr. Noble: The scribe's documentation has been prepared under my direction and personally reviewed by me in its entirery. I confirm that the note above accurately reflects all work, treatment, procedures, and medical decision making performed by me. <Ben Noble - Last Filed: 10/12/16 19:47> *DC/Admit/Observation/Transfer - Attestations Scribe Attestion: 10/12/16 02:27 Documentation prepared by Miriam Madrigal, acting as electromedical service engineer for Ben Noble MD <Miriam Madrigal - Last Filed: 10/12/16 02:41> <Ben Noble - Last Filed: 10/12/16 19:47> Diagnosis at time of Disposition: Pancreatitis Qualifiers: Chronicity: acute Pancreatitis type: biliary Acute pancreatitis complication: no infection or necrosis Qualified Code(s): K85.10 - Biliary acute pancreatitis without necrosis or infection - Discharge Dispostion Condition at time of disposition: Stable
[2016-10-12] MEDS ORDERED: ONDANSETRON 4 MG/2 ML VIAL IVPUSH STA (02:19)
[2016-10-12] MEDS ORDERED: morphine CARPU-JECT 2 MG/1 ML DISP.SYRIN IVPUSH ONE (02:19)
[2016-10-12] MEDS ORDERED: morphine CARPU-JECT 2 MG/1 ML DISP.SYRIN ONE (03:01)
[2016-10-12] MEDS ORDERED: SODIUM CHLORIDE 1,000 ML IV SCH (03:15)
[2016-10-12 03:24] LABS: INR 1.13 (0.82-1.09); PROTHROMBIN TIME (PATIENT) 12.5 SEC (9.98-11.88)
[2016-10-12] MEDS ORDERED: SODIUM CHLORIDE 1,000 ML IV STA ×2 (03:54→06:05)
[2016-10-12 06:23] LABS: BASOPHIL 0.2 % (0-2.0); EOSINOPHIL 0.3 % (0-4.5); MCH 30.1 pg (25.7-33.7); MEAN PLT VOLUME 9.5 fl (7.5-11.1); NEUTROPHILS 78.8 % (42.8-82.8); PLATELET COUNT 188 K/MM3 (134-434); RDW 16.4 % (11.6-15.6)
[2016-10-12 07:04] LABS: ALBUMIN 3.7 g/dl (3.4-5.0); ANION GAP 14 (8-16); BILIRUBIN,TOTAL 0.5 mg/dL (0.2-1.0); CALCIUM 9.3 mg/dL (8.5-10.1); CO2 31 mmol/L (21-32); COCKROFT - GAULT 69.4195; CREATININE 0.7 mg/dL (0.55-1.02); GLUCOSE,RANDOM 173 mg/dL (74-106); MAGNESIUM 2.1 mg/dL (1.8-2.4); SGOT/AST 98 U/L (15-37); SGPT/ALT 77 U/L (12-78); TOT PROT 6.9 g/dl (6.4-8.2)
[2016-10-12 07:06] LABS: ALK PHOS 95 U/L (45-117); AMYLASE 671 U/L (25-115); TROPONIN I < 0.02 ng/ml (0.00-0.05)
[2016-10-12 07:10] LABS: INR 1.3 (0.82-1.09); PROTHROMBIN TIME (PATIENT) 14.4 SEC (9.98-11.88)
--- NOTE | 2016-10-12 07:39 | PDOC ---
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 Patient was recently admitted for acute pancreatitis and discharged on 08/22. States she was supposed to have a lap christelle done, however during her admission, patient had a repeat abdominal CT showing possible developing pseudocyst. Patient returns today after developed mid epigastric pain with discomfort, nausea, vomiting and diaphoresis. Denies diarrhea. Labwork reviewed Laboratory Results - last 24 hr 10/12/16 10/12/16 10/12/16 02:35 02:55 02:55 WBC Cancelled Corrected WBC (auto) Cancelled RBC Cancelled Hgb Cancelled Hct Cancelled MCV Cancelled MCHC Cancelled RDW Cancelled Plt Count Cancelled MPV Cancelled Add Manual Diff Cancelled Neutrophils % Cancelled Lymphocytes % Cancelled Monocytes % Cancelled Eosinophils % Cancelled Basophils % Cancelled Differential Comment Cancelled Smudge Cells Cancelled Platelet Estimate Cancelled Platelet Comment Cancelled Normal RBC Morphology Cancelled RBC Morphology Cancelled INR D-Dimer Cancelled Sodium Cancelled Potassium Cancelled Chloride Cancelled Carbon Dioxide Cancelled Anion Gap Cancelled BUN Cancelled Creatinine Cancelled Creat Clearance w eGFR Cancelled Random Glucose Cancelled Lactic Acid Calcium Cancelled Magnesium Total Bilirubin Cancelled AST Cancelled ALT Cancelled Alkaline Phosphatase Cancelled Creatine Kinase Cancelled Troponin I Cancelled B-Natriuretic Peptide Total Protein Cancelled Albumin Cancelled Total Amylase Lipase Cancelled 10/12/16 10/12/16 10/12/16 02:55 02:55 02:55 WBC Corrected WBC (auto) RBC Hgb Hct MCV MCHC RDW Plt Count MPV Add Manual Diff Neutrophils % Lymphocytes % Monocytes % Eosinophils % Basophils % Differential Comment Smudge Cells Platelet Estimate Platelet Comment Normal RBC Morphology RBC Morphology INR 1.13 D-Dimer Sodium Potassium Chloride Carbon Dioxide Anion Gap BUN Creatinine Creat Clearance w eGFR Random Glucose Lactic Acid 3.490 H* Calcium Magnesium Cancelled Total Bilirubin AST ALT Alkaline Phosphatase Creatine Kinase Troponin I B-Natriuretic Peptide Cancelled Total Protein Albumin Total Amylase Lipase 10/12/16 10/12/16 10/12/16 05:40 05:40 06:20 WBC 9.0 Corrected WBC (auto) RBC 4.92 D Hgb 14.8 D Hct 46.3 H D MCV 94.0 MCHC 32.0 RDW 16.4 H D Plt Count 188 D MPV 9.5 D Add Manual Diff Neutrophils % 78.8 Lymphocytes % 10.2 D Monocytes % 10.5 H Eosinophils % 0.3 D Basophils % 0.2 Differential Comment Smudge Cells Platelet Estimate Platelet Comment Normal RBC Morphology RBC Morphology INR 1.30 H D-Dimer Sodium 147 H Potassium 3.9 Chloride 102 Carbon Dioxide 31 Anion Gap 14 BUN 17 D Creatinine 0.7 D Creat Clearance w eGFR > 60 Random Glucose 173 H D Lactic Acid Calcium 9.3 Magnesium 2.1 Total Bilirubin 0.5 D AST 98 H D ALT 77 D Alkaline Phosphatase 95 D Creatine Kinase 36 Troponin I < 0.02 B-Natriuretic Peptide 147.56 Total Protein 6.9 D Albumin 3.7 D Total Amylase 671 H D Lipase 7630 H Lipase 7630, amylase 671, lactic acid 3.4, patient was hydrated will need to repeat lactic acid Ultrasound pending 10/12/16 08:55 Repeat lactic acid and LDH pending ultrasound pending Dr. Mart here to see patient-patient in ultrasound He asked that we page Dr. Gama for admission 10/12/16 09:54 Abdominal ultrasound Cholelithiasis with slightly prominent extrahepatic biliary tree There is no evidence of intrahepatic biliary duct dilatation No obvious obstruction is suggested The pancreas is normal in size There is a 6 mm cyst within the body of the pancreas Heterogeneous liver with multiple cysts 10/12/16 09:55 Lactic acid decreased to 3.2 with some hydration LDH 210 Can calculate José Manuel score Dr. Gama to see patient ED Treatment Course - LABORATORY CBC & Chemistry Diagram: 10/12/16 05:40 10/12/16 05:40 - ADDITIONAL ORDERS Additional order review: Laboratory Results 10/12/16 10/12/16 10/12/16 06:20 05:40 02:55 INR 1.30 H D-Dimer Sodium 147 H Potassium 3.9 Chloride 102 Carbon Dioxide 31 Anion Gap 14 BUN 17 D Creatinine 0.7 D Creat Clearance w eGFR > 60 Random Glucose 173 H D Lactic Acid 3.490 H* Calcium 9.3 Magnesium 2.1 Total Bilirubin 0.5 D AST 98 H D ALT 77 D Alkaline Phosphatase 95 D Creatine Kinase 36 Troponin I < 0.02 B-Natriuretic Peptide 147.56 Total Protein 6.9 D Albumin 3.7 D Total Amylase 671 H D Lipase 7630 H 10/12/16 10/12/16 10/12/16 02:55 02:55 02:55 INR 1.13 D-Dimer Sodium Cancelled Potassium Cancelled Chloride Cancelled Carbon Dioxide Cancelled Anion Gap Cancelled BUN Cancelled Creatinine Cancelled Creat Clearance w eGFR Cancelled Random Glucose Cancelled Lactic Acid Calcium Cancelled Magnesium Cancelled Total Bilirubin Cancelled AST Cancelled ALT Cancelled Alkaline Phosphatase Cancelled Creatine Kinase Cancelled Troponin I Cancelled B-Natriuretic Peptide Cancelled Total Protein Cancelled Albumin Cancelled Total Amylase Lipase Cancelled 10/12/16 02:55 INR D-Dimer Cancelled Sodium Potassium Chloride Carbon Dioxide Anion Gap BUN Creatinine Creat Clearance w eGFR Random Glucose Lactic Acid Calcium Magnesium Total Bilirubin AST ALT Alkaline Phosphatase Creatine Kinase Troponin I B-Natriuretic Peptide Total Protein Albumin Total Amylase Lipase 10/12/16 10/12/16 05:40 02:35 RBC 4.92 D Cancelled MCV 94.0 Cancelled MCHC 32.0 Cancelled RDW 16.4 H D Cancelled MPV 9.5 D Cancelled Neutrophils % 78.8 Cancelled Lymphocytes % 10.2 D Cancelled Monocytes % 10.5 H Cancelled Eosinophils % 0.3 D Cancelled Basophils % 0.2 Cancelled - RADIOLOGY Radiology Studies Ordered: Category Date Time Status ABDOMEN US -LIMITED [US] Stat Ultrasound 10/12/16 07:38 Ordered - Medications Given in the ED: ED Medications Discontinued Medications Generic Name Dose Route Start Last Admin Trade Name Freq PRN Reason Stop Dose Admin Sodium Chloride 1,000 mls @ 1,000 mls/hr 10/12/16 03:54 10/12/16 04:19 Normal Saline - IV 10/12/16 04:53 1,000 mls/hr ASDIR STA Administration Sodium Chloride 1,000 mls @ 1,000 mls/hr 10/12/16 06:05 10/12/16 06:26 Normal Saline - IV 10/12/16 07:04 1,000 mls/hr ASDIR STA Administration Morphine Sulfate 6 mg 10/12/16 02:19 10/12/16 02:59 Morphine Injection - IVPUSH 10/12/16 02:20 6 mg ONCE ONE Administration Ondansetron HCl 4 mg 10/12/16 02:19 10/12/16 02:59 Zofran Injection IVPUSH 10/12/16 02:20 4 mg ONCE STA Administration *DC/Admit/Observation/Transfer Diagnosis at time of Disposition: Pancreatitis Qualifiers: Chronicity: acute Pancreatitis type: biliary Acute pancreatitis complication: no infection or necrosis Qualified Code(s): K85.10 - Biliary acute pancreatitis without necrosis or infection - Discharge Dispostion Condition at time of disposition: Stable Admit: Yes - Referrals
[2016-10-12 07:55] LABS: URINE APPEARANCE CLEAR; URINE BILIRUBIN NEGATIVE (NEGATIVE); URINE BLOOD NEGATIVE (NEGATIVE); URINE COLOR LTYELLOW; URINE GLUCOSE (UA) NEGATIVE (NEGATIVE); URINE KETONE NEGATIVE (NEGATIVE); URINE NITRITE NEGATIVE (NEGATIVE); URINE PROTEIN NEGATIVE (NEGATIVE); URINE UROBILINOGEN NEGATIVE E.U./dl (0.2-1.0)
[2016-10-12 08:00] LABS: URINE LEUK ESTERASE 1+ (NEGATIVE)
[2016-10-12 08:01] LABS: URINE BACTERIA RARE /hpf (NONE SEEN); URINE MUCUS RARE; URINE WBC 3 /hpf (3-5)
[2016-10-12 12:04] VITALS: BMI 30.9
[2016-10-12] MEDS ORDERED: ONDANSETRON 4 MG/2 ML VIAL IVPB PRN (12:07)
[2016-10-12] MEDS ORDERED: morphine CARPU-JECT 2 MG/1 ML DISP.SYRIN IVPUSH PRN ×3 (12:07→23:42)
--- NOTE | 2016-10-12 12:17 | HP ---
Admitting History and Physical - Primary Care Physician PCP: Durga Mart - Admission Chief Complaint: I was having pain History of Present Illness: Ms Farr is a very pleasant 86 year old female who comes in after having acute onset abdominal pain. She says she has been doing well since she was discharged and has adhered to a low fat diet. Before going to bed she was feeling fine, however she woke up around 3 am with severe epigastric pain. She said it was sharp and 10/10. She was diaphoretic with it. She had nausea and vomiting, the vomit was bilious in nature without blood. She had an episode of lightheadedness with the pain but did not pass out. The pain did not radiate. She immediately called EMS and was brought in. She denies fevers, chills, chest pressure, shortness of breath, diarrhea, constipation, difficulty or pain on urination, or swelling. Currently her pain is better controlled. History Source: Patient Limitations to Obtaining History: No Limitations - Past Medical History Cardiovascular: Yes: CAD (Risk factors had cath 2003), Deep Vein Thrombosis (h/o ), HTN, Hyperlipdemia Pulmonary: Yes: COPD, Other (former smoker) Gastrointestinal: Yes: Other (colitis abdominal pain as above). No: GI Bleed Hepatobiliary: Yes: Cholecystitis (see above) Musculoskeletal: Yes: Chronic low back pain, Osteoarthritis Endocrine: Yes: Diabetes Mellitus - Past Surgical History Past Surgical History: Yes: Appendectomy, Breast Biopsy (right benign) - Advance Directives Advance Directives: Yes: Health Care Proxy - Smoking History Smoking history: Never smoked Have you smoked in the past 12 months: No Aproximately how many cigarettes per day: 0 If you are a former smoker, when did you quit?: 1998 - Alcohol/Substance Use Hx Alcohol Use: No History of Substance Use: reports: None - Social History ADL: Independent History of Recent Travel: No Home Medications - Allergies Allergies/Adverse Reactions: Allergies Allergy/AdvReac Type Severity Reaction Status Date / Time ibuprofen [From Advil] Allergy Mild Hives Verified 10/12/16 01:57 - Home Medications Home Medications: Ambulatory Orders Apixaban [Eliquis -] 5 mg PO Q12H 02/17/16 Ascorbic Acid [Vitamin C -] 1,000 mg PO DAILY 02/17/16 Cholecalciferol (Vitamin D3) [Vitamin D3] 1,000 unit PO DAILY 02/17/16 Magnesium Chloride [Slow-Mag -] 64 mg PO DAILY 02/17/16 Multivitamin with Minerals [Icaps Plus] 1 each PO DAILY 02/17/16 Acetaminophen [Tylenol .Regular Strength -] 650 mg PO Q4H PRN #0 tablet Metformin HCl 500 mg PO DAILY #30 tablet 08/22/16 Family Disease History - Family Disease History Family Disease History: Diabetes: Mother, Heart Disease: Father Review of Systems Findings/Remarks: Full review of systems obtained, as per HPI and otherwise negative. Physical Examination Vital Signs: Vital Signs Temperature 96.9 F L 10/12/16 11:47 Pulse Rate 62 10/12/16 11:47 Respiratory Rate 18 10/12/16 11:47 Blood Pressure 143/77 10/12/16 11:47 O2 Sat by Pulse Oximetry (%) 94 L 10/12/16 11:47 Constitutional: Yes: Well Nourished, No Distress, Calm Eyes: Yes: Conjunctiva Clear, EOM Intact HENT: Yes: Atraumatic, Normocephalic Cardiovascular: Yes: Regular Rate and Rhythm. No: Gallop, Murmur, Rub Respiratory: Yes: Regular, CTA Bilaterally. No: Rales, Rhonchi, Wheezes Gastrointestinal: Yes: Soft, Hypoactive Bowel Sounds, Tenderness (diffuse) Extremities: Yes: WNL Edema: No Labs: Laboratory Results - last 24 hr 10/12/16 10/12/16 10/12/16 02:35 02:55 02:55 WBC Cancelled Corrected WBC (auto) Cancelled RBC Cancelled Hgb Cancelled Hct Cancelled MCV Cancelled MCHC Cancelled RDW Cancelled Plt Count Cancelled MPV Cancelled Add Manual Diff Cancelled Neutrophils % Cancelled Lymphocytes % Cancelled Monocytes % Cancelled Eosinophils % Cancelled Basophils % Cancelled Differential Comment Cancelled Smudge Cells Cancelled Platelet Estimate Cancelled Platelet Comment Cancelled Normal RBC Morphology Cancelled RBC Morphology Cancelled INR D-Dimer Cancelled Sodium Cancelled Potassium Cancelled Chloride Cancelled Carbon Dioxide Cancelled Anion Gap Cancelled BUN Cancelled Creatinine Cancelled Creat Clearance w eGFR Cancelled Random Glucose Cancelled Lactic Acid Calcium Cancelled Magnesium Total Bilirubin Cancelled AST Cancelled ALT Cancelled Alkaline Phosphatase Cancelled LD Total Creatine Kinase Cancelled Troponin I Cancelled B-Natriuretic Peptide Total Protein Cancelled Albumin Cancelled Total Amylase Lipase Cancelled Urine Color Urine Appearance Urine pH Ur Specific [place] Urine Protein Urine Glucose (UA) Urine Ketones Urine Blood Urine Nitrite Urine Bilirubin Urine Urobilinogen Ur Leukocyte Esterase Urine RBC Urine WBC Ur Epithelial Cells Urine Bacteria Urine Mucus Blood Type Antibody Screen 10/12/16 10/12/16 10/12/16 02:55 02:55 02:55 WBC Corrected WBC (auto) RBC Hgb Hct MCV MCHC RDW Plt Count MPV Add Manual Diff Neutrophils % Lymphocytes % Monocytes % Eosinophils % Basophils % Differential Comment Smudge Cells Platelet Estimate Platelet Comment Normal RBC Morphology RBC Morphology INR 1.13 D-Dimer Sodium Potassium Chloride Carbon Dioxide Anion Gap BUN Creatinine Creat Clearance w eGFR Random Glucose Lactic Acid 3.490 H* Calcium Magnesium Cancelled Total Bilirubin AST ALT Alkaline Phosphatase LD Total Creatine Kinase Troponin I B-Natriuretic Peptide Cancelled Total Protein Albumin Total Amylase Lipase Urine Color Urine Appearance Urine pH Ur Specific [place] Urine Protein Urine Glucose (UA) Urine Ketones Urine Blood Urine Nitrite Urine Bilirubin Urine Urobilinogen Ur Leukocyte Esterase Urine RBC Urine WBC Ur Epithelial Cells Urine Bacteria Urine Mucus Blood Type Antibody Screen 10/12/16 10/12/16 10/12/16 05:40 05:40 06:20 WBC 9.0 Corrected WBC (auto) RBC 4.92 D Hgb 14.8 D Hct 46.3 H D MCV 94.0 MCHC 32.0 RDW 16.4 H D Plt Count 188 D MPV 9.5 D Add Manual Diff Neutrophils % 78.8 Lymphocytes % 10.2 D Monocytes % 10.5 H Eosinophils % 0.3 D Basophils % 0.2 Differential Comment Smudge Cells Platelet Estimate Platelet Comment Normal RBC Morphology RBC Morphology INR 1.30 H D-Dimer Sodium 147 H Potassium 3.9 Chloride 102 Carbon Dioxide 31 Anion Gap 14 BUN 17 D Creatinine 0.7 D Creat Clearance w eGFR > 60 Random Glucose 173 H D Lactic Acid Calcium 9.3 Magnesium 2.1 Total Bilirubin 0.5 D AST 98 H D ALT 77 D Alkaline Phosphatase 95 D LD Total Creatine Kinase 36 Troponin I < 0.02 B-Natriuretic Peptide 147.56 Total Protein 6.9 D Albumin 3.7 D Total Amylase 671 H D Lipase 7630 H Urine Color Urine Appearance Urine pH Ur Specific [place] Urine Protein Urine Glucose (UA) Urine Ketones Urine Blood Urine Nitrite Urine Bilirubin Urine Urobilinogen Ur Leukocyte Esterase Urine RBC Urine WBC Ur Epithelial Cells Urine Bacteria Urine Mucus Blood Type Antibody Screen 10/12/16 10/12/16 10/12/16 06:20 07:36 07:43 WBC Corrected WBC (auto) RBC Hgb Hct MCV MCHC RDW Plt Count MPV Add Manual Diff Neutrophils % Lymphocytes % Monocytes % Eosinophils % Basophils % Differential Comment Smudge Cells Platelet Estimate Platelet Comment Normal RBC Morphology RBC Morphology INR D-Dimer Sodium Potassium Chloride Carbon Dioxide Anion Gap BUN Creatinine Creat Clearance w eGFR Random Glucose Lactic Acid 3.221 H* Calcium Magnesium Total Bilirubin AST ALT Alkaline Phosphatase LD Total Creatine Kinase Troponin I B-Natriuretic Peptide Total Protein Albumin Total Amylase Lipase Urine Color Ltyellow Urine Appearance Clear Urine pH 7.0 Ur Specific [place] 1.016 Urine Protein Negative Urine Glucose (UA) Negative Urine Ketones Negative Urine Blood Negative Urine Nitrite Negative Urine Bilirubin Negative Urine Urobilinogen Negative Ur Leukocyte Esterase 1+ H Urine RBC None Urine WBC 3 Ur Epithelial Cells Rare Urine Bacteria Rare Urine Mucus Rare Blood Type A POSITIVE Antibody Screen Negative 10/12/16 07:44 WBC Corrected WBC (auto) RBC Hgb Hct MCV MCHC RDW Plt Count MPV Add Manual Diff Neutrophils % Lymphocytes % Monocytes % Eosinophils % Basophils % Differential Comment Smudge Cells Platelet Estimate Platelet Comment Normal RBC Morphology RBC Morphology INR D-Dimer Sodium Potassium Chloride Carbon Dioxide Anion Gap BUN Creatinine Creat Clearance w eGFR Random Glucose Lactic Acid Calcium Magnesium Total Bilirubin AST ALT Alkaline Phosphatase LD Total 210 Creatine Kinase Troponin I B-Natriuretic Peptide Total Protein Albumin Total Amylase Lipase Urine Color Urine Appearance Urine pH Ur Specific [place] Urine Protein Urine Glucose (UA) Urine Ketones Urine Blood Urine Nitrite Urine Bilirubin Urine Urobilinogen Ur Leukocyte Esterase Urine RBC Urine WBC Ur Epithelial Cells Urine Bacteria Urine Mucus Blood Type Antibody Screen Imaging - Results Cat Scan: Report Reviewed Ultrasound: Report Reviewed Problem List - Problems (1) Pancreatitis Assessment/Plan: -patient presents with second episode of pancreatitis -most likely biliary in nature -npo -LR for IVF -GI and general surgery consult -morphine for pain control Code(s): K85.90 - ACUTE PANCREATITIS WITHOUT NECROSIS OR INFECTION, UNSP Qualifiers: Chronicity: acute Pancreatitis type: biliary Acute pancreatitis complication: no infection or necrosis Qualified Code(s): K85.10 - Biliary acute pancreatitis without necrosis or infection (2) Cholelithiasis Assessment/Plan: -without evidence of infection or obstruction -? if cause of pancreatitis -npo and surgery consult Code(s): K80.20 - CALCULUS OF GALLBLADDER W/O CHOLECYSTITIS W/O OBSTRUCTION Qualifiers: Cholelithiasis location: gallbladder Cholecystitis presence: without cholecystitis Biliary obstruction: without biliary obstruction Qualified Code(s): K80.20 - Calculus of gallbladder without cholecystitis without obstruction (3) Diabetes Assessment/Plan: -hold metformin since npo -FSBS q6h while npo -SSI Code(s): E11.9 - TYPE 2 DIABETES MELLITUS WITHOUT COMPLICATIONS Qualifiers: Diabetes mellitus type: type 2 Diabetes mellitus complication status: without complication Diabetes mellitus senior living insulin use: without senior living use Qualified Code(s): E11.9 - Type 2 diabetes mellitus without complications (4) History of pulmonary embolus (PE) Assessment/Plan: -continue eliquis Code(s): Z86.711 - PERSONAL HISTORY OF PULMONARY EMBOLISM
--- NOTE | 2016-10-12 13:27 | EKG ---
Test Reason : Blood Pressure : / mmHG Vent. Rate : 054 BPM Atrial Rate : 054 BPM P-R Int : 146 ms QRS Dur : 090 ms QT Int : 462 ms P-R-T Axes : 008 -52 015 degrees QTc Int : 438 ms SINUS BRADYCARDIA LEFT AXIS DEVIATION ANTERIOR INFARCT , AGE UNDETERMINED ABNORMAL ECG WHEN COMPARED WITH ECG OF 12-AUG-2016 05:15, NO SIGNIFICANT CHANGE WAS FOUND Confirmed by NANCY CARDOZA MD ([id number]) on 10/12/2016 1:26:59 PM Referred By: Confirmed By:NANCY CARDOZA MD
--- NOTE | 2016-10-12 13:41 | CONSULT ---
<Yunior Escalera P - Last Filed: 10/12/16 13:59> - Consultation REQUESTING PROVIDER: Finesse Holguin MD CONSULT REQUEST: We have been asked to surgically evaluate this patient for abd pain, cholelithiasis, gs pancreatitis. PCP: Simone Gama MD History Source: Patient (no limitations to obtaining info) Advance Directives: Health Care Proxy HPI: Called to evaluate 86 yo female w/ PMHx noted below. Pt is well know to our service as we were consulted on her during her last visit to this hospital for the same problem. Her working diagnosis at that time was acute pancreatitis. States she has been doing well since she was discharged and has adhered to a low fat diet. However, around 3AM she was aoken with sever abd pain (points to epigastric region/same as last time). Rates the pain about 10/ 10. Had 1 episode of bilious vomiting. Became very diaphoretic. Denies any radiating pain to jaw, upper extremity or back. She thought she may have been having a heart attack so she called 911 --> BIBA to [facility] ED for further emergent evaluation. An abd U/S was performed while patient was in the ED --> cholelithiasis without evidence of an acute process. No cbd dilation. Mild extrahepatic billiary dilation is noted. Since admit to hospital, she states she is feeling much better. Currently, denies n/v/f/c, cough, CP, SOB PMHx: CAD (cath '04), DVT, HTN, Hyperlipdemia, Colitis, Pancreatitis, Cholecystitis, Chronic low back pain, OA, DM PSHx: Appendectomy, Breast Biopsy (right benign) Home Medications Apixaban [Eliquis -] 5 mg PO Q12H Ascorbic Acid [Vitamin C -] 1,000 mg PO DAILY Cholecalciferol (Vitamin D3) [Vitamin D3] 1,000 unit PO DAILY Magnesium Chloride [Slow-Mag -] 64 mg PO DAILY Multivitamin with Minerals [Icaps Plus] 1 each PO DAILY Acetaminophen [Tylenol .Regular Strength -] 650 mg PO Q4H PRN Metformin HCl 500 mg PO DAILY #30 tablet Allergies: Ibuprofen (mild hives) ROS: Unremarkable except for what's contained in the HPI. PE: GENERAL: Awake, alert, oriented, nad HEAD: NC. AT. EYES: PERRL, sclera anicteric, conjunctiva clear. NECK: Normal ROM, supple without lymphadenopathy, JVD, or masses. LUNGS: CTA b/l anteriorly HEART: RRR ABDOMEN: Softly distended (same as previous admission). Minimal epigastric tenderness. Normoactive bowel sounds. No guarding/rebound. Neg Hand sign MUSCULOSKELETAL: Neg. CVAT UE: 2+ pulses, warm, well-perfused. No cyanosis. Cap refill <2 seconds. No peripheral edema. LE: 2+ pulses, warm, well-perfused. No calf tenderness. No peripheral edema. NEUROLOGICAL: Normal speech, gait not observed. PSYCH: Cooperative. Good eye contact. Appropriate mood and affect. SKIN: Warm, dry, normal turgor, no rashes or lesions noted. Last Vital Signs Temp Pulse Resp BP Pulse Ox 96.9 F L 62 18 143/77 94 L 10/12/16 11:47 10/12/16 11:47 10/12/16 11:47 10/12/16 11:47 10/12/16 11:47 Blood Type Blood Type A POSITIVE 10/12/16 06:20 CBC, BMP 10/12/16 05:40 10/12/16 05:40 Hepatic Panel Total Bilirubin 0.5 mg/dL (0.2-1.0) D 10/12/16 05:40 AST 98 U/L (15-37) H D 10/12/16 05:40 ALT 77 U/L (12-78) D 10/12/16 05:40 Alkaline Phosphatase 95 U/L (45-117) D 10/12/16 05:40 Albumin 3.7 g/dl (3.4-5.0) D 10/12/16 05:40 Amylase / Lipase 10/12/16 05:40 Amylase 671 H D Lipase 7630 H INR, PTT INR 1.30 (0.82-1.09) H 10/12/16 06:20 Problem List - Problems (1) Pancreatitis Assessment/Plan: Readmitted with recurrent episode of pancreatitis (most likely related to small calculi ejected from gallbladder) NPO IVF GI/DVT ppx Trend Amylase/Lipase Tight glycemic control Pain management Recommend laparoscopic cholecystectomy on the hospital admission once her labs improve Medical optimization Cardio consult for impending surgical clearance Code(s): K85.90 - ACUTE PANCREATITIS WITHOUT NECROSIS OR INFECTION, UNSP Qualifiers: Chronicity: acute Pancreatitis type: biliary Acute pancreatitis complication: no infection or necrosis Qualified Code(s): K85.10 - Biliary acute pancreatitis without necrosis or infection Visit type - Case Type Case Type: ED Admission - Emergency Emergency Visit: Yes ED Registration Date: 10/12/16 Care time: The patient presented to the Emergency Department on the above date and was hospitalized for further evaluation of their emergent condition. - New patient This patient is new to me today: Yes Date on this admission: 10/12/16 <Finesse Holguin N - Last Filed: 10/12/16 18:06> - Consultation REQUESTING PROVIDER: CONSULT REQUEST: We have been asked to surgically evaluate this patient for ( specify). PCP:Simone Gama MD HISTORY OF PRESENT ILLNESS: PMHx: PSHx: Home Medications Medication Instructions Recorded Apixaban [Eliquis -] 5 mg PO Q12H 02/17/16 Ascorbic Acid [Vitamin C -] 1,000 mg PO DAILY 02/17/16 Cholecalciferol (Vitamin D3) 1,000 unit PO DAILY 02/17/16 [Vitamin D3] Magnesium Chloride [Slow-Mag -] 64 mg PO DAILY 02/17/16 Multivitamin with Minerals [Icaps 1 each PO DAILY 02/17/16 Plus] Acetaminophen [Tylenol .Regular 650 mg PO Q4H PRN #0 tablet 08/22/16 Strength -] Metformin HCl 500 mg PO DAILY #30 tablet 08/22/16 Allergies Allergy/AdvReac Type Severity Reaction Status Date / Time ibuprofen [From Advil] Allergy Mild Hives Verified 10/12/16 01:57 REVIEW OF SYSTEMS: CONSTITUTIONAL: Absent: fever, chills, diaphoresis, generalized weakness, malaise, loss of appetite, weight change CARDIOVASCULAR: Absent: chest pain, syncope, palpitations, irregular heart rate, lightheadedness , peripheral edema RESPIRATORY: Absent: cough, shortness of breath, dyspnea with exertion, wheezing, stridor, hemoptysis GASTROINTESTINAL: Absent: abdominal pain, abdominal distension, nausea, vomiting, diarrhea, constipation, melena, hematochezia GENITOURINARY: Absent: dysuria, frequency, urgency, hesitancy, hematuria, flank pain, genital pain MUSCULOSKELETAL: Absent: myalgia, arthralgia, joint swelling, back pain, neck pain SKIN: Absent: rash, itching, pallor HEMATOLOGIC/IMMUNOLOGIC: Absent: easy bleeding, easy bruising, lymphadenopathy NEUROLOGIC: Absent: headache, focal weakness, paresthesias, dizziness, unsteady gait, seizure, mental status changes, bladder or bowel incontinence PSYCHIATRIC: Absent: anxiety, depression, suicidal or homicidal ideation, hallucinations. PHYSICAL EXAM: GENERAL: Awake, alert, and fully oriented, in no acute distress. HEAD: Normal with no signs of trauma. EYES: PERRL, sclera anicteric, conjunctiva clear. NECK: Normal ROM, supple without lymphadenopathy, JVD, or masses. LUNGS: Clear to auscultation bilat anteriorly. No wheezes, and no crackles. No accessory muscle use. HEART: Regular rate and rhythm. No murmurs ABDOMEN: Soft, nontender, not distended, normoactive bowel sounds, no guarding, no rebound, no masses. No organomegaly. MUSCULOSKELETAL: Normal ROM at all joints. No bony deformities or tenderness. No CVA tenderness. UPPER EXTREMITIES: 2+ pulses, warm, well-perfused. No cyanosis. Cap refill <2 seconds. No peripheral edema. LOWER EXTREMITIES: 2+ pulses, warm, well-perfused. No calf tenderness. No peripheral edema. NEUROLOGICAL: Normal speech, gait not observed. PSYCH: Cooperative. Good eye contact. Appropriate mood and affect. SKIN: Warm, dry, normal turgor, no rashes or lesions noted. Vital Signs Temperature 97.9 F 10/12/16 15:33 Pulse Rate 60 10/12/16 15:33 Respiratory Rate 18 10/12/16 15:33 Blood Pressure 151/59 10/12/16 15:33 O2 Sat by Pulse Oximetry (%) 94 L 10/12/16 11:47 Lab Results WBC 9.0 K/mm3 (4.0-10.0) 10/12/16 05:40 RBC 4.92 M/mm3 (3.60-5.2) D 10/12/16 05:40 Hgb 14.8 GM/dL (10.7-15.3) D 10/12/16 05:40 Hct 46.3 % (32.4-45.2) H D 10/12/16 05:40 MCV 94.0 fl (80-96) 10/12/16 05:40 MCHC 32.0 g/dl (32.0-36.0) 10/12/16 05:40 RDW 16.4 % (11.6-15.6) H D 10/12/16 05:40 Plt Count 188 K/MM3 (134-434) D 10/12/16 05:40 Sodium 147 mmol/L (136-145) H 10/12/16 05:40 Potassium 3.9 mmol/L (3.5-5.1) 10/12/16 05:40 Chloride 102 mmol/L (98-107) 10/12/16 05:40 Carbon Dioxide 31 mmol/L (21-32) 10/12/16 05:40 Anion Gap 14 (8-16) 10/12/16 05:40 BUN 17 mg/dL (7-18) D 10/12/16 05:40 Creatinine 0.7 mg/dL (0.55-1.02) D 10/12/16 05:40 Random Glucose 173 mg/dL (74-106) H D 10/12/16 05:40 Calcium 9.3 mg/dL (8.5-10.1) 10/12/16 05:40 Blood Type A POSITIVE 10/12/16 06:20 Antibody Screen Negative 10/12/16 06:20 INR 1.30 (0.82-1.09) H 10/12/16 06:20 Attending Surgeon Patient seen and evaluated; concur w/ a/p as outlined above. Finesse Holguin MD FACS
[2016-10-12] MEDS: APIXABAN 5 MG TABLET PO SCH (14:40)
[2016-10-12] MEDS: LACTATED RINGERS SOLUTION 1,000 ML IV SCH (14:43)
--- NOTE | 2016-10-12 16:45 | CON.GI ---
Consult Consult Specialty:: GI Referred by:: Dr. Simone Gama Reason for Consultation:: Pancreatitis - History of Present Illness Chief Complaint: I had abdominal pain History of Present Illness: 86F admitted for evaluation of epigastric abdominal pain, nausea, vomiting that started around midnight last night. She had a recent history of pancreatitis, suspected gallstone in origin, was treated conservatively, developed peripancretic fluid collections was followed by surgery and improved clinically. She had a follow-up CT scan 09/22/16 that revealed improvement of the pancreatitis and revealed the fluid collections to be present but smaller. Prior to last night she felt well. On this admission she was noted to have elevated amylase/lipase and US that revealed a mildly dilated biliary tract with CBD of 7mm. She was given 1 L of NS in the ER and is being maintained on 100cc NS/hr. - History Source History Provided By: Patient, Medical Record - Past Medical History Cardio/Vascular: Yes: CAD (Risk factors had cath 2003), Deep Vein Thrombosis (h/ o), HTN, Hyperlipdemia Pulmonary: Yes: COPD, Other (former smoker) Gastrointestinal: Yes: Other (colitis abdominal pain as above). No: GI Bleed Hepatobiliary: Yes: Cholecystitis (see above) Musculoskeletal: Yes: Chronic low back pain, Osteoarthritis Endocrine: Yes: Diabetes Mellitus - Past Surgical History Past Surgical History: Yes: Appendectomy, Breast Biopsy (right benign), C- Section (x2), Tonsillectomy Additional Surgical History: carpal tunnel syndrome - Alcohol/Substance Use Hx Alcohol Use: No History of Substance Use: reports: None - Smoking History Smoking history: Former smoker Have you smoked in the past 12 months: No Aproximately how many cigarettes per day: 0 If you are a former smoker, when did you quit?: 1998 - Social History ADL: Independent 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 Place of : [facility] History of Recent Travel: No Home Medications - Allergies Allergies/Adverse Reactions: Allergies Allergy/AdvReac Type Severity Reaction Status Date / Time ibuprofen [From Advil] Allergy Mild Hives Verified 10/12/16 01:57 - Home Medications Home Medications: Ambulatory Orders Apixaban [Eliquis -] 5 mg PO Q12H 02/17/16 Ascorbic Acid [Vitamin C -] 1,000 mg PO DAILY 02/17/16 Cholecalciferol (Vitamin D3) [Vitamin D3] 1,000 unit PO DAILY 02/17/16 Magnesium Chloride [Slow-Mag -] 64 mg PO DAILY 02/17/16 Multivitamin with Minerals [Icaps Plus] 1 each PO DAILY 02/17/16 Acetaminophen [Tylenol .Regular Strength -] 650 mg PO Q4H PRN #0 tablet Metformin HCl 500 mg PO DAILY #30 tablet 08/22/16 Family Disease History - Family Disease History Family Disease History: Diabetes: Mother ( 84: CVA), Heart Disease: Father ( 75: CAD), Other: Father, Mother, Brother (2 brothers: , unclear causes of ) Other Family History: 4 healthy children. No history of colorectal cancer or other GI malignancy Review of Systems - Review of Systems Constitutional: denies: Diaphoresis Physical Exam-GI Vital Signs: Vital Signs Temperature 97.9 F 10/12/16 15:33 Pulse Rate 60 10/12/16 15:33 Respiratory Rate 18 10/12/16 15:33 Blood Pressure 151/59 10/12/16 15:33 O2 Sat by Pulse Oximetry (%) 94 L 10/12/16 11:47 Constitutional: Yes: Calm Eyes: No: Sclera Icterus Cardiovascular: Yes: Regular Rate and Rhythm Respiratory: Yes: CTA Bilaterally, Other (some fine inspiratory crackles at bases b/l) Gastrointestinal Inspection: No: Distention ...Auscultate: Yes: Normoactive Bowel Sounds ...Palpate: Yes: Tenderness (epigastrium) ...Percussion: No: Tympanitic Edema: No Neurological: Yes: Alert, Oriented Labs: INR, PTT INR 1.30 (0.82-1.09) H 10/12/16 06:20 Hepatic Panel Total Bilirubin 0.5 mg/dL (0.2-1.0) D 10/12/16 05:40 AST 98 U/L (15-37) H D 10/12/16 05:40 ALT 77 U/L (12-78) D 10/12/16 05:40 Alkaline Phosphatase 95 U/L (45-117) D 10/12/16 05:40 Albumin 3.7 g/dl (3.4-5.0) D 10/12/16 05:40 CBC, BMP 10/12/16 05:40 10/12/16 05:40 Problem List - Problems (1) Pancreatitis Assessment/Plan: Recurrent pancreatitis, suspected to be secondry to gallstones Was complicated by early pancreatic fluid collections Advise the following: - IV hydration. Increased fluids to 150cc/hr - NPO - Ordered MRI of abdomen with contrast / with MRCP - Daily labs - Monitor clinically - Surgery following Code(s): K85.90 - ACUTE PANCREATITIS WITHOUT NECROSIS OR INFECTION, UNSP Qualifiers: Chronicity: acute Pancreatitis type: biliary Acute pancreatitis complication: no infection or necrosis Qualified Code(s): K85.10 - Biliary acute pancreatitis without necrosis or infection
[2016-10-12] MEDS: INSULIN SLIDING SCALE (NOVOLOG) 1 VIAL SQ SCH (18:29)
[2016-10-13] MEDS: INSULIN SLIDING SCALE (NOVOLOG) 1 VIAL SQ SCH ×5 (00:08→21:34)
[2016-10-13] MEDS: APIXABAN 5 MG TABLET PO SCH ×3 (00:14→21:27)
--- NOTE | 2016-10-13 02:02 | HOSP ---
Subjective - Review of Symptoms General: No: Fatigue HEENT: No: Head Aches, Sinus Congestion Pulmonary: No: Dyspnea, Cough, Pleuritic Chest Pain Cardiovascular: No: Chest Pain, Palpitations, Edema Gastrointestinal: No: Vomiting Musculoskeletal: Yes: No Symptoms Neurological: No: Weakness Physical Examination Vital Signs: Vital Signs Temperature 98.8 F 10/12/16 17:00 Pulse Rate 73 10/12/16 17:00 Respiratory Rate 18 10/12/16 17:00 Blood Pressure 115/50 10/12/16 17:00 O2 Sat by Pulse Oximetry (%) 94 L 10/12/16 11:47 Constitutional: Yes: No Distress, Calm Eyes: Yes: Conjunctiva Clear, EOM Intact Neck: Yes: Supple, Trachea Midline Cardiovascular: Yes: Regular Rate and Rhythm Respiratory: Yes: Regular, CTA Bilaterally, Other (100% nonrebreather) Gastrointestinal: Yes: Soft Edema: No Peripheral Pulses WNL: Yes Neurological: Yes: Alert, Oriented ...Motor Strength: WNL Psychiatric: Yes: Alert, Oriented Hospitalist Encounter Assessment: Patient was found to have low pulse ox on room air, primary called - patient placed on non-rebreather, hospitalist called for further evaluation. Patient examined sitting up comfortably in bed. Denies chest pain, palpitations, shortness of breath, cough, lightheadedness, dizziness, hx of asthma/copd, home oxygen, fever, inhaler use. Lung exam: clear to auscultation in b/l lungs, no wheezing or crackles appreciated. Ext: no warm, clubbing Skin: warm, wnl capillar refill. vitals: 96/51, HR 74 96% on 100% nonrebreather on room air pulse ox decreased to 88%, on 50%venti mask pulse ox at 90%, non- rebreather placed back on and saturation improved to 96%. Respiratory rate did not increase, no cyanosis around lips or extremities noted when pulse ox showed desaturaiton. Patient did not complain, said she "felt fine " Outcome: ABG ordered for further assessment. Patient maintained on venti-mask overnight, sleeping comfortably. Recommendations/Interventions: Primary team to re-assess in the morning. Visit type - Emergency Visit Emergency Visit: No - New Patient This patient is new to me today: Yes Date on this admission: 10/13/16 - Critical Care Critical Care patient: No
[2016-10-13 03:12] LABS: ARTERIAL BLD GAS O2 SATURATION 99.2 % (90-98.9); ARTERIAL BLOOD GAS BASE EXCESS 4.7 meq/l (-2-2); ARTERIAL BLOOD GAS HCO3 30.1 meq/L (22-26)
[2016-10-13] MEDS: LACTATED RINGERS SOLUTION 1,000 ML IV SCH ×2 (03:13→17:17)
[2016-10-13 03:15] LABS: ALLENS TEST POSITIVE; ART PUNCT SITE RIGHT RADIAL; LPM/O2% 100%; PT. ON O2? YES
[2016-10-13 03:16] LABS: TYPE OF O2 NRB MASK
[2016-10-13 08:00] LABS: BASOPHIL 0.7 % (0-2.0); EOSINOPHIL 1.7 % (0-4.5); MCH 31.2 pg (25.7-33.7); MEAN CELL VOLUME 94.5 fl (80-96); NEUTROPHILS 54.1 % (42.8-82.8); PLATELET COUNT 144 K/MM3 (134-434); RDW 16.8 % (11.6-15.6); WHITE BLOOD COUNT 6.9 K/mm3 (4.0-10.0)
[2016-10-13 08:30] LABS: ANION GAP 8 (8-16); CO2 33 mmol/L (21-32)
[2016-10-13 08:38] LABS: ALK PHOS 68 U/L (45-117); AMYLASE 290 U/L (25-115); BILIRUBIN,TOTAL 0.8 mg/dL (0.2-1.0); CALCIUM 8.8 mg/dL (8.5-10.1); CREATININE 0.6 mg/dL (0.55-1.02); GLUCOSE,RANDOM 99 mg/dL (74-106); PHOSPHOROUS 3.7 mg/dL (2.5-4.9); SGOT/AST 33 U/L (15-37); SGPT/ALT 43 U/L (12-78); TOT PROT 5.6 g/dl (6.4-8.2)
--- NOTE | 2016-10-13 10:14 | PN ---
Progress Note (short form) - Note Progress Note: Attending Surgeon Feels better; minimal abdominal pain VSS AF abdo-soft/non tender amylase/lipase downtrending MRCP results pending IMP: resolving recurrent GS pancreatitis PLAN: Continue present tx; will plan for lap christelle next week. Finesse Holguin MD FACS
[2016-10-13] MEDS ORDERED: PT OWN MED DRAWER 7, Y5N ONE ×2 (11:16→11:55)
--- NOTE | 2016-10-13 12:59 | PN ---
Progress Note, Physician Chief Complaint: Ms Farr says she is doing well. Is not short of breath. No chest pain or nausea/vomiting. Currently without abdominal pain. - Current Medication List Current Medications: Active Medications Apixaban (Eliquis -) 5 mg PO BID [facility] Last Admin: 10/13/16 11:28 Dose: 5 mg Lactated Ringer's (Lactated Ringers Solution) 1,000 mls @ 100 mls/hr IV ASDIR [facility] Last Admin: 10/13/16 03:13 Dose: 100 mls/hr Insulin Aspart (Novolog Vial Sliding Scale -) 0 vial SQ ACHS [facility] PRN Reason: Protocol Last Admin: 10/13/16 11:30 Dose: Not Given Morphine Sulfate (Morphine Injection -) 2 mg IVPUSH Q4H PRN PRN Reason: SEVERE PAIN Morphine Sulfate (Morphine Injection -) 1 mg IVPUSH Q4H PRN PRN Reason: MODERATE PAIN Ondansetron HCl (Zofran Injection) 4 mg IVPB Q6H PRN PRN Reason: NAUSEA - Objective Vital Signs: Vital Signs Temperature 98.6 F 10/13/16 10:00 Pulse Rate 57 L 10/13/16 10:00 Respiratory Rate 20 10/13/16 10:00 Blood Pressure 100/46 10/13/16 10:00 O2 Sat by Pulse Oximetry (%) 95 10/13/16 10:00 Constitutional: Yes: Well Nourished, No Distress, Calm Cardiovascular: Yes: Regular Rate and Rhythm. No: Gallop, Murmur, Rub Respiratory: Yes: Regular, On Nasal O2, Rhonchi. No: Rales, Wheezes Gastrointestinal: Yes: Normal Bowel Sounds, Soft. No: Distention, Tenderness Extremities: Yes: WNL Edema: Yes Edema: LUE: 1+ Labs: CBC, BMP 10/13/16 06:15 10/13/16 06:15 INR, PTT INR 1.30 (0.82-1.09) H 10/12/16 06:20 Problem List - Problems (1) Pancreatitis Code(s): K85.90 - ACUTE PANCREATITIS WITHOUT NECROSIS OR INFECTION, UNSP Qualifiers: Chronicity: acute Pancreatitis type: biliary Acute pancreatitis complication: no infection or necrosis Qualified Code(s): K85.10 - Biliary acute pancreatitis without necrosis or infection (2) Cholelithiasis Code(s): K80.20 - CALCULUS OF GALLBLADDER W/O CHOLECYSTITIS W/O OBSTRUCTION Qualifiers: Cholelithiasis location: gallbladder Cholecystitis presence: without cholecystitis Biliary obstruction: without biliary obstruction Qualified Code(s): K80.20 - Calculus of gallbladder without cholecystitis without obstruction (3) Diabetes Code(s): E11.9 - TYPE 2 DIABETES MELLITUS WITHOUT COMPLICATIONS Qualifiers: Diabetes mellitus type: type 2 Diabetes mellitus complication status: without complication Diabetes mellitus correction insulin use: without correction use Qualified Code(s): E11.9 - Type 2 diabetes mellitus without complications (4) History of pulmonary embolus (PE) Code(s): Z86.711 - PERSONAL HISTORY OF PULMONARY EMBOLISM (5) Acute respiratory failure with hypoxia Code(s): J96.01 - ACUTE RESPIRATORY FAILURE WITH HYPOXIA (6) COPD (chronic obstructive pulmonary disease) Code(s): J44.9 - CHRONIC OBSTRUCTIVE PULMONARY DISEASE, UNSPECIFIED (7) CHF exacerbation Code(s): I50.9 - HEART FAILURE, UNSPECIFIED Qualifiers: Congestive heart failure type: systolic Qualified Code(s): I50.23 - Acute on chronic systolic (congestive) heart failure Assessment/Plan (1) Pancreatitis Assessment/Plan: -patient appears improved today -lipase much improved -appreciate GI and surgery assistance -will hold IVF at this time until seen by cardiology, concern for fluid overload Code(s): K85.90 - ACUTE PANCREATITIS WITHOUT NECROSIS OR INFECTION, UNSP Qualifiers: Chronicity: acute Pancreatitis type: biliary Acute pancreatitis complication: no infection or necrosis Qualified Code(s): K85.10 - Biliary acute pancreatitis without necrosis or infection (2) Cholelithiasis Assessment/Plan: -continue npo -plan for surgery next week Code(s): K80.20 - CALCULUS OF GALLBLADDER W/O CHOLECYSTITIS W/O OBSTRUCTION Qualifiers: Cholelithiasis location: gallbladder Cholecystitis presence: without cholecystitis Biliary obstruction: without biliary obstruction Qualified Code(s): K80.20 - Calculus of gallbladder without cholecystitis without obstruction (3) Diabetes Assessment/Plan: -hold metformin since npo -FSBS q6h while npo -SSI Code(s): E11.9 - TYPE 2 DIABETES MELLITUS WITHOUT COMPLICATIONS Qualifiers: Diabetes mellitus type: type 2 Diabetes mellitus complication status: without complication 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 insulin use: without doughnut machine operator helper use Qualified Code(s): E11.9 - Type 2 diabetes mellitus without complications (4) History of pulmonary embolus (PE) Assessment/Plan: -continue eliquis Code(s): Z86.711 - PERSONAL HISTORY OF PULMONARY EMBOLISM (5) Acute respiratory failure with hypoxia -concern secondary to fluid overload -chest x-ray shows congestion -however do not want to give lasix considering with pancreatitis -continue oxygen support -cardiology and pulmonary consultation (6) CHF exacerbation -chest x-ray concerning for CHF exacerbation -cardiology consult (7) COPD -lower suspicion that hypoxia secondary to COPD exacerbation -however planning for surgery next week -consult pulmonary for evaluation and optimization
[2016-10-13 15:57] LABS: TROPONIN I 0.33 ng/ml (0.00-0.05)
--- NOTE | 2016-10-13 17:01 | CON.CARD ---
Cardiology Consult (text) - Consultation Consultation Note: CC: pre-op clearance 86 year old female with htn, niddm, COPD, ibs, chronic lbp, prior PE here with pancreatitis with plan for lap christelle. Patient with episode of desaturation this am. basilar view of lungs on today's abdominal CT show atelectasis but no significant effusion or pulmonary edema. Patient with underlying pulmonary disease/copd. Patient then with an episode of CP this afternoon. In patient's words, it was an episode of epigastric discomfort radiating to the back which was the same as she has been experiencing from her pancreatitis, no different just milder in intensity. Associated with nausea. occurred after drinking po contrast. Patient ambulating well at home. No stairs but walks around grocery store and can carry groceries from cart to her car. IVF now stopped. patient remains npo. + vomiting yesterday. No h/o CVA/TIA, no CAD, DM, CKD, chf no orthopnea, pnd, LE edema, cp, sob, palps, dizziness, bleeding, transient neurologic symptoms. No f/c/s, h/a, rashes, weight change, visual changes. Past Medical History: per hpi Social hx: Former smoker, no significant alcohol use, no illicits. fam hx: father with CAD. No h/o clots/PE, autoimmune disease, miscarriages ROS: Per hpi Ambulatory Orders Apixaban [Eliquis -] 5 mg PO Q12H 02/17/16 Ascorbic Acid [Vitamin C -] 1,000 mg PO DAILY 02/17/16 Cholecalciferol (Vitamin D3) [Vitamin D3] 1,000 unit PO DAILY 02/17/16 Magnesium Chloride [Slow-Mag -] 64 mg PO DAILY 02/17/16 Multivitamin with Minerals [Icaps Plus] 1 each PO DAILY 02/17/16 Acetaminophen [Tylenol .Regular Strength -] 650 mg PO Q4H PRN #0 tablet Metformin HCl 500 mg PO DAILY #30 tablet 08/22/16 Current Medications Apixaban (Eliquis -) 5 mg PO BID [facility] Last Admin: 10/13/16 11:28 Dose: 5 mg Insulin Aspart (Novolog Vial Sliding Scale -) 0 vial SQ ACHS SHAYNA PRN Reason: Protocol Last Admin: 10/13/16 11:30 Dose: Not Given Morphine Sulfate (Morphine Injection -) 2 mg IVPUSH Q4H PRN PRN Reason: SEVERE PAIN Morphine Sulfate (Morphine Injection -) 1 mg IVPUSH Q4H PRN PRN Reason: MODERATE PAIN Ondansetron HCl (Zofran Injection) 4 mg IVPB Q6H PRN PRN Reason: NAUSEA Vital Signs - 24 hr 10/12/16 10/12/16 10/13/16 17:00 22:00 06:00 Temperature 98.8 F 98.9 F 98.8 F Pulse Rate 73 82 61 Respiratory 18 18 20 Rate Blood Pressure 115/50 124/55 100/51 O2 Sat by Pulse 96 Oximetry (%) 10/13/16 10/13/16 10:00 14:53 Temperature 98.6 F 99.2 F Pulse Rate 57 L 60 Respiratory 20 20 Rate Blood Pressure 100/46 148/76 O2 Sat by Pulse 95 Oximetry (%) Intake & Output 10/11/16 10/12/16 10/13/16 10/14/16 07:59 07:59 07:59 07:59 Intake Total 1250 Balance 1250 Weight 165 lb 169 lb 4.8 oz NAD, calm JVD flat neck supple crackles at left base RRR nl s1 s2. 2/6 murmur at lsb and apex. non-displaced pmi + bs soft nt nd ext without trace edema. no cyanosis or clubbing + dp/pt aaox3 no jaundice, diaphoresis CBC, BMP 10/13/16 06:15 10/13/16 06:15 Laboratory Tests 10/12/16 10/12/16 10/13/16 05:40 06:20 00:23 INR 1.30 H ABG pH ABG pCO2 at Pt Temp ABG pO2 at Pt Temp Oxygen Flow Rate Lactic Acid 0.948 Magnesium Total Bilirubin AST ALT Alkaline Phosphatase Creatine Kinase Troponin I < 0.02 B-Natriuretic Peptide 147.56 Albumin Total Amylase 671 H D Lipase 7630 H 10/13/16 10/13/16 10/13/16 03:01 06:15 14:40 INR ABG pH 7.40 ABG pCO2 at Pt Temp 49.8 H D ABG pO2 at Pt Temp 127.0 H D Oxygen Flow Rate 100% Lactic Acid Magnesium 2.0 Total Bilirubin 0.8 D AST 33 D ALT 43 D Alkaline Phosphatase 68 D Creatine Kinase 32 Troponin I 0.33 H B-Natriuretic Peptide Albumin 3.0 L Total Amylase 290 H D Lipase 1277 H EKG 10/13: sr with pvc, lad. poor r wave progression. inferior q waves. no acute ischemic changes. similar to priors. EKG 10/12: sb, otherwise same as above. stress test 04/2016: occ pvc's, no ischemic ekg changes. artifact. no ischemia , EF 71%. 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 Echo 03/03 (): nl LVEF; mod-sev RV dilation and hypokinesis; valves unremarkable; RVSP 40-50. abd CT 10/13: patchy consolidation at bilateral bases, minimal effusion (by my review, likely atelectasis) 86 year old female with htn, niddm, COPD, ibs, chronic lbp, prior PE here with pancreatitis with plan for lap christelle. Pre-operative clearance - recent negative stress test 04/2016. Echo 04/2016 shows normalization of RV function. Patient with RCRI of 1-2 with advanced age and poor functional status. Has estimated intermediate risk of adonis-operative CV complications. Patient counseled on risk. - Patient currently appears euvolemic. Does not require further diuresis or further CV imaging prior to surgery. - Patient with intermediate troponin elevation this afternoon. Do not feel that epigastric discomfort today was cp/angina based on history. Identical sx' s to ongoing pancreatitis/abdominal discomfort. EKG without ischemic changes. CK wnl and MB not detected. Con't deneen, but will expect a flat trend. If flat trend, no further ischemic cardiac work up needed prior to surgery. Outpatient CAD evaluation at discretion of her outpatient field contact person. No need for statin (on AC), would not give empiric statin given current GI complaints. - Limit IVF adonis-operatively when possible. I/o, daily standing weights to monitor volume status adonis-operatively. Incentive spirometry. - patient will need eliquis held for 48 hrs prior to surgery. lovenox or heparin bridge per hematology. diastolic chf - unclear diagnosis. Patient with h/o development of small pleural effusions on last hospitalization for pancreatitis. Not on standing diuretics as outpatient - currently appears euvolemic. episode of hypoxia today 10/13 likely 2/2 atelectasis and underlying pulmonary disease no evidence of pulmonary edema on ct scan today. - can resume gentle IVF as needed with close monitoring of respiratory status and volume status. Extensive PEs, dvt with resulting RV strain/systolic dysfunction s/p IVC filter placment. : - On eliquis as outpatient - RV function normalized. - adonis-operative AC as above COPD - per pmd/pulm HTN - controlled off meds
--- NOTE | 2016-10-13 18:13 | PN ---
GI Progress Note Subjective: Desaturated last night, placed on NRB, hoever improved today Sitting up in chair Abdominal pain improved although she states having had an episode of "indigestion" earlier today - Objective Vital Signs: Vital Signs Temperature 99.2 F 10/13/16 14:53 Pulse Rate 60 10/13/16 14:53 Respiratory Rate 20 10/13/16 14:53 Blood Pressure 148/76 10/13/16 14:53 O2 Sat by Pulse Oximetry (%) 95 10/13/16 10:00 Constitutional: Calm Eyes: No: Sclera Icterus Cardiovascular: Yes: Regular Rate and Rhythm Gastrointestinal Inspection: Yes: Other (fine crackles at bases b/l) ...Auscultate: Yes: Normoactive Bowel Sounds ...Palpate: No: Tenderness Edema: Yes Edema: LLE: 1+, RLE: 1+ Neurological: Yes: Alert, Oriented Labs: CBC, BMP 10/13/16 06:15 10/13/16 06:15 INR, PTT INR 1.30 (0.82-1.09) H 10/12/16 06:20 Hepatic Panel Total Bilirubin 0.8 mg/dL (0.2-1.0) D 10/13/16 06:15 AST 33 U/L (15-37) D 10/13/16 06:15 ALT 43 U/L (12-78) D 10/13/16 06:15 Alkaline Phosphatase 68 U/L (45-117) D 10/13/16 06:15 Albumin 3.0 g/dl (3.4-5.0) L 10/13/16 06:15 - ....Imaging MRI: Report Reviewed (no dilated ducts, + hepatic cysts, distended GB w/ hyperemia and mild wall thickening, 2.7cm hypoenhancing area @ TOP. ? pseudocyst vs. area of necrosis) Problem List - Problems (1) Pancreatitis Assessment/Plan: MRI findings noted. Ms. Farr iproved clinically. The finding in the pancreatic tail needs observation. Looks well for a necrotizing pancreatitis picture. ? if the GB findings reflecting secondary inflammatory changes from pancreatitis. Will advance to clears for now Code(s): K85.90 - ACUTE PANCREATITIS WITHOUT NECROSIS OR INFECTION, UNSP Qualifiers: Chronicity: acute Pancreatitis type: biliary Acute pancreatitis complication: no infection or necrosis Qualified Code(s): K85.10 - Biliary acute pancreatitis without necrosis or infection
[2016-10-13 22:36] LABS: TROPONIN I 0.25 ng/ml (0.00-0.05)
[2016-10-14] MEDS: ACETAMINOPHEN 325 MG TABLET (FP) PO PRN (01:58)
[2016-10-14] MEDS: INSULIN SLIDING SCALE (NOVOLOG) 1 VIAL SQ SCH ×4 (06:01→23:38)
[2016-10-14 08:32] LABS: BASOPHIL 0.6 % (0-2.0); EOSINOPHIL 6.8 % (0-4.5); MCH 30.5 pg (25.7-33.7); MCHC 32.6 g/dl (32.0-36.0); MEAN CELL VOLUME 93.4 fl (80-96); MEAN PLT VOLUME 9.3 fl (7.5-11.1); NEUTROPHILS 49.6 % (42.8-82.8); PLATELET COUNT 128 K/MM3 (134-434); RDW 15.9 % (11.6-15.6); WHITE BLOOD COUNT 5.2 K/mm3 (4.0-10.0)
[2016-10-14 09:02] LABS: TROPONIN I 0.18 ng/ml (0.00-0.05)
[2016-10-14 09:03] LABS: CALCIUM 8.7 mg/dL (8.5-10.1)
[2016-10-14 09:05] LABS: COCKROFT - GAULT 99.722; CREATININE 0.5 mg/dL (0.55-1.02); PHOSPHOROUS 3.4 mg/dL (2.5-4.9)
[2016-10-14] MEDS ORDERED: PT OWN MED DRAWER 7, Y5N ONE (09:51)
[2016-10-14] MEDS: APIXABAN 5 MG TABLET PO SCH (09:59)
--- NOTE | 2016-10-14 10:27 | PN ---
Progress Note (short form) - Note Progress Note: s: no cp sob palps dizzy o: Vital Signs Period Temp Pulse Resp BP Sys/[place] Pulse Ox Last 24 Hr 98.3 F-99.2 F 48-60 16-20 97-148/47-76 92-94 NAD, calm JVD flat neck supple cta bl nl eff RRR nl s1 s2. 2/6 murmur at lsb and apex. + bs soft nt nd no le edema, no cyanosis or clubbing aaox3 no jaundice, diaphoresis Current Medications Generic Name Dose Route Start Last Admin Trade Name Freq PRN Reason Stop Dose Admin Acetaminophen 650 mg 10/14/16 00:40 10/14/16 01:58 Tylenol - PO 650 mg Q6H PRN Administration FEVER OR PAIN Enoxaparin Sodium 80 mg 10/14/16 10:45 Lovenox - SQ Q12H [facility] Insulin Aspart 0 vial 10/12/16 16:30 10/14/16 06:01 Novolog Vial Sliding Scale - SQ Not Given ACHS [facility] Protocol Morphine Sulfate 2 mg 10/12/16 23:41 Morphine Injection - IVPUSH Q4H PRN SEVERE PAIN Morphine Sulfate 1 mg 10/12/16 23:42 Morphine Injection - IVPUSH Q4H PRN MODERATE PAIN Ondansetron HCl 4 mg 10/12/16 12:07 Zofran Injection IVPB Q6H PRN NAUSEA CBC, BMP 10/14/16 06:48 10/14/16 06:48 EKG 10/13: sr with pvc, lad. poor r wave progression. inferior q waves. no acute ischemic changes. similar to priors. EKG 10/12: sb, otherwise same as above. stress test 04/2016: occ pvc's, no ischemic ekg changes. artifact. no ischemia , EF 71%. 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 Echo 03/03 (): nl LVEF; mod-sev RV dilation and hypokinesis; valves unremarkable; RVSP 40-50. abd CT 10/13: patchy consolidation at bilateral bases, minimal effusion (by my review, likely atelectasis) a/p: 86 year old female with htn, niddm, COPD, ibs, chronic lbp, prior PE here with pancreatitis with plan for lap christelle. Pre-operative clearance - recent negative stress test 04/2016. Echo 04/2016 shows normalization of RV function. Patient with RCRI of 1-2 with advanced age and poor functional status. Has estimated intermediate risk of adonis-operative CV complications. Patient counseled on risk. - Patient currently appears euvolemic. Does not require further diuresis or further CV imaging prior to surgery. - Patient with intermediate troponin elevation, flat trend, nl ckmb, not consistent with acs. - Limit IVF adonis-operatively when possible. I/o, daily standing weights to monitor volume status adonis-operatively. Incentive spirometry. - patient will need eliquis held for 48 hrs prior to surgery which is possibly early this week so will dc eliquis now and start lovenox. diastolic chf - unclear diagnosis. Patient with h/o development of small pleural effusions on last hospitalization for pancreatitis. Not on standing diuretics as outpatient - currently appears euvolemic. episode of hypoxia today 10/13 likely 2/2 atelectasis and underlying pulmonary disease no evidence of pulmonary edema on ct scan today. - can resume gentle IVF as needed with close monitoring of respiratory status and volume status. Extensive PEs, dvt with resulting RV strain/systolic dysfunction s/p IVC filter placment: - On eliquis as outpatient - RV function normalized. - adonis-operative AC as above COPD - per pmd/pulm HTN - controlled off meds
[2016-10-14] MEDS: ENOXAPARIN NA (PORCINE) 80 MG/0.8 ML DISP.SYRIN SQ SCH ×2 (11:15→23:37)
--- NOTE | 2016-10-14 11:21 | EKG ---
Test Reason : Blood Pressure : / mmHG Vent. Rate : 064 BPM Atrial Rate : 064 BPM P-R Int : 180 ms QRS Dur : 090 ms QT Int : 426 ms P-R-T Axes : 031 -45 -28 degrees QTc Int : 439 ms SINUS RHYTHM WITH OCCASIONAL PREMATURE VENTRICULAR COMPLEXES LEFT AXIS DEVIATION INFERIOR INFARCT , AGE UNDETERMINED ANTERIOR INFARCT (CITED ON OR BEFORE 30-NOV-2011) ABNORMAL ECG WHEN COMPARED WITH ECG OF 12-OCT-2016 01:53, PREMATURE VENTRICULAR COMPLEXES ARE NOW PRESENT T WAVE INVERSION MORE EVIDENT IN INFERIOR LEADS Confirmed by SONY SUTTON, NANCY ([id number]) on 10/14/2016 11:20:50 AM Referred By: Dottie DHALIWAL Confirmed By:NANCY CARDOZA MD
--- NOTE | 2016-10-14 11:43 | PN ---
Progress Note (short form) - Note Progress Note: Attending Surgeon No c/o; tolerating clear liquids VSS AF abdo-soft; non tender lipase/amylase nl MRCP reviewed IMP:recurrent resolving gallstone pancreatitis PLAN: Continue present tx.; plan on lap christelle early next week. Finesse Holguin MD FACS
--- NOTE | 2016-10-14 11:50 | CON.PULM ---
Consult Consult Specialty:: PULM/CCM Referred by:: ANICETO Reason for Consultation:: PE/DVT history - History of Present Illness Chief Complaint: abdominal pain History of Present Illness: 86 F, with listed medical history. Previous history of DVT and extensive bilateral PE diagnosed 12/2015 now maintained on Eliquis. Admitted due to acute onset of abdominal pain. She was previously admitted and was discharged on a low fat diet. Developed severe epigastric pain with nausea and bilious vomiting. She denies fevers, chills, chest pressure, or shortness of breath, diarrhea. - History Source History Provided By: Patient Limitations to Obtaining History: No Limitations - Past Medical History Cardio/Vascular: Yes: CAD (Risk factors had cath 2003), Deep Vein Thrombosis (h/ o), HTN, Hyperlipdemia Pulmonary: Yes: COPD, Pulmonary Embolus, Other (former smoker) Gastrointestinal: Yes: Other (colitis abdominal pain as above). No: GI Bleed Hepatobiliary: Yes: Cholecystitis (see above) Musculoskeletal: Yes: Chronic low back pain, Osteoarthritis Endocrine: Yes: Diabetes Mellitus - Past Surgical History Past Surgical History: Yes: Appendectomy, Breast Biopsy (right benign), C- Section (x2), Tonsillectomy Additional Surgical History: carpal tunnel syndrome - Alcohol/Substance Use Hx Alcohol Use: No History of Substance Use: reports: None - Smoking History Smoking history: Never smoked Have you smoked in the past 12 months: No Aproximately how many cigarettes per day: 0 If you are a former smoker, when did you quit?: 1998 - Social History ADL: Independent 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 History of Recent Travel: No Home Medications - Allergies Allergies/Adverse Reactions: Allergies Allergy/AdvReac Type Severity Reaction Status Date / Time ibuprofen [From Advil] Allergy Mild Hives Verified 10/12/16 01:57 - Home Medications Home Medications: Ambulatory Orders Apixaban [Eliquis -] 5 mg PO Q12H 02/17/16 Ascorbic Acid [Vitamin C -] 1,000 mg PO DAILY 02/17/16 Cholecalciferol (Vitamin D3) [Vitamin D3] 1,000 unit PO DAILY 02/17/16 Magnesium Chloride [Slow-Mag -] 64 mg PO DAILY 02/17/16 Multivitamin with Minerals [Icaps Plus] 1 each PO DAILY 02/17/16 Acetaminophen [Tylenol .Regular Strength -] 650 mg PO Q4H PRN #0 tablet Metformin HCl 500 mg PO DAILY #30 tablet 08/22/16 Family Disease History - Family Disease History Family Disease History: Diabetes: Mother ( 84: CVA), Heart Disease: Father ( 75: CAD), Other: Father, Mother, Brother (2 brothers: , unclear causes of ) Other Family History: 4 healthy children. No history of colorectal cancer or other GI malignancy Review of Systems - Review of Systems Constitutional: reports: Fever, Loss of Appetite. denies: Chills, Malaise, Night Sweats, Unintentional Wgt. Loss, Weakness Eyes: reports: No Symptoms HENT: reports: No Symptoms Neck: reports: No Symptoms Cardiovascular: denies: Chest Pain, Edema, Palpitations, Shortness of Breath Respiratory: denies: Cough, Hemoptysis, SOB, SOB on Exertion, Wheezing Gastrointestinal: reports: Abdominal Pain, Bloating, Nausea, Vomiting. denies: Constipation, Diarrhea, Melena, Rectal Bleeding, Vomiting Blood Genitourinary: reports: No Symptoms Breasts: reports: No Symptoms Reported Musculoskeletal: reports: No Symptoms Integumentary: reports: No Symptoms Neurological: reports: No Symptoms Endocrine: reports: No Symptoms Hematology/Lymphatic: reports: No Symptoms Psychiatric: reports: No Symptoms Physical Exam Vital Sings: Vital Signs Temperature 99.0 F 10/14/16 09:22 Pulse Rate 82 10/14/16 10:09 Respiratory Rate 18 10/14/16 09:22 Blood Pressure 97/49 10/14/16 09:22 O2 Sat by Pulse Oximetry (%) 94 L 10/14/16 10:09 Constitutional: Yes: No Distress, Calm Eyes: Yes: Conjunctiva Clear, EOM Intact HENT: Yes: Atraumatic, Normocephalic Neck: Yes: Supple, Trachea Midline Cardiovascular: Yes: Regular Rate and Rhythm Respiratory: Yes: Diminished, On Nasal O2. No: Accessory Muscle Use, Rales, Rhonchi, Stridor, Tachypnea, Wheezes ...Inspection: Yes: WNL ...Clubbing: No Gastrointestinal: Yes: WNL, Normal Bowel Sounds, Soft, Abdomen, Obese, Tenderness. No: Palpable Mass, Pulsatile Mass Musculoskeletal: Yes: WNL Extremities: Yes: WNL Edema: No Peripheral Pulses WNL: Yes Integumentary: Yes: WNL Neurological: Yes: WNL, Alert, Oriented ...Motor Strength: WNL Psychiatric: Yes: WNL, Alert, Oriented Labs: CBC, BMP 10/14/16 06:48 10/14/16 06:48 ABG Results ABG pH 7.40 (7.35-7.45) 10/13/16 03:01 ABG pCO2 at Pt Temp 49.8 mmHg (35-45) H D 10/13/16 03:01 ABG pO2 at Pt Temp 127.0 mmHg (68-100) H D 10/13/16 03:01 ABG HCO3 30.1 meq/L (22-26) H 10/13/16 03:01 ABG O2 Sat (Measured) 99.2 % (90-98.9) H 10/13/16 03:01 ABG O2 Content 18.1 % vol (15-22) 10/13/16 03:01 ABG Base Excess 4.7 meq/l (-2-2) H 10/13/16 03:01 Imaging - Results Chest X-ray: Report Reviewed, Image Reviewed Problem List - Problems (1) Cholelithiasis Code(s): K80.20 - CALCULUS OF GALLBLADDER W/O CHOLECYSTITIS W/O OBSTRUCTION Qualifiers: Cholelithiasis location: gallbladder Cholecystitis presence: without cholecystitis Biliary obstruction: without biliary obstruction Qualified Code(s): K80.20 - Calculus of gallbladder without cholecystitis without obstruction (2) History of pulmonary embolus (PE) Code(s): Z86.711 - PERSONAL HISTORY OF PULMONARY EMBOLISM (3) Pancreatitis Code(s): K85.90 - ACUTE PANCREATITIS WITHOUT NECROSIS OR INFECTION, UNSP Qualifiers: Chronicity: acute Pancreatitis type: biliary Acute pancreatitis complication: no infection or necrosis Qualified Code(s): K85.10 - Biliary acute pancreatitis without necrosis or infection (4) COPD (chronic obstructive pulmonary disease) Code(s): J44.9 - CHRONIC OBSTRUCTIVE PULMONARY DISEASE, UNSPECIFIED (5) Diabetes Code(s): E11.9 - TYPE 2 DIABETES MELLITUS WITHOUT COMPLICATIONS Qualifiers: Diabetes mellitus type: type 2 Diabetes mellitus complication status: without complication Diabetes mellitus longterm insulin use: without longterm 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 Assessment/Plan PLAN: Agree with bridge with Lovenox for 48 hours prior to surgery O2 as needed Patient may be at risk for sleep apnea -> should have formal evaluation after D/ C Pain control There is no Pulmonary contraindication for OR Will follow. Thank you. Dr Prado
--- NOTE | 2016-10-14 12:39 | PN ---
Progress Note, Physician Chief Complaint: No complaints History of Present Illness: 86 year old female who comes in after having acute onset abdominal pain, CAD ( Risk factors had cath 2003), Deep Vein Thrombosis , HTN, Hyperlipdemia, COPD, GI Bleed, Cholycystitis , Chronic low back pain, Osteoarthritis, Diabetes Mellitus, recently discahrge on 08/12 after treated for Gall stone Pancreatitis, now schedule for elective Cholycystetomy - Current Medication List Current Medications: Active Medications Acetaminophen (Tylenol -) 650 mg PO Q6H PRN PRN Reason: FEVER OR PAIN Last Admin: 10/14/16 01:58 Dose: 650 mg Enoxaparin Sodium (Lovenox -) 80 mg SQ Q12H SHAYNA Last Admin: 10/14/16 11:15 Dose: Not Given Insulin Aspart (Novolog Vial Sliding Scale -) 0 vial SQ ACHS SHAYNA PRN Reason: Protocol Last Admin: 10/14/16 12:10 Dose: Not Given Morphine Sulfate (Morphine Injection -) 2 mg IVPUSH Q4H PRN PRN Reason: SEVERE PAIN Morphine Sulfate (Morphine Injection -) 1 mg IVPUSH Q4H PRN PRN Reason: MODERATE PAIN Ondansetron HCl (Zofran Injection) 4 mg IVPB Q6H PRN PRN Reason: NAUSEA - Objective Vital Signs: Vital Signs Temperature 99.0 F 10/14/16 09:22 Pulse Rate 82 10/14/16 10:09 Respiratory Rate 18 10/14/16 09:22 Blood Pressure 97/49 10/14/16 09:22 O2 Sat by Pulse Oximetry (%) 94 L 10/14/16 10:09 Constitutional: Yes: Well Nourished, No Distress, Calm Eyes: Yes: WNL, Conjunctiva Clear, EOM Intact HENT: Yes: WNL, Atraumatic, Normocephalic Neck: Yes: WNL, Supple, Trachea Midline Cardiovascular: Yes: WNL, Regular Rate and Rhythm Respiratory: Yes: WNL, Regular, CTA Bilaterally Gastrointestinal: Yes: WNL, Normal Bowel Sounds, Soft ...Rectal Exam: Yes: Deferred Genitourinary: Yes: WNL, Anuria, Bladder Distention Breast(s): Yes: WNL Musculoskeletal: Yes: WNL. No: Back Pain, Joint Stiffness Extremities: Yes: WNL. No: Calf Tenderness Edema: No Peripheral Pulses WNL: Yes Integumentary: Yes: WNL Neurological: Yes: WNL, Alert, Oriented ...Motor Strength: WNL Psychiatric: Yes: WNL Labs: CBC, BMP 10/14/16 06:48 10/14/16 06:48 INR, PTT INR 1.30 (0.82-1.09) H 10/12/16 06:20 - ....Imaging Cat Scan: Report Reviewed (Ct chest no acute changes) Problem List - Problems (1) Pancreatitis Assessment/Plan: Recovering tolerating PO Code(s): K85.90 - ACUTE PANCREATITIS WITHOUT NECROSIS OR INFECTION, UNSP Qualifiers: Chronicity: acute Pancreatitis type: biliary Acute pancreatitis complication: no infection or necrosis Qualified Code(s): K85.10 - Biliary acute pancreatitis without necrosis or infection (2) Cholelithiasis Assessment/Plan: denies any pain will planned for elective Cholycystectomy during this hospitalization. Code(s): K80.20 - CALCULUS OF GALLBLADDER W/O CHOLECYSTITIS W/O OBSTRUCTION Qualifiers: Cholelithiasis location: gallbladder Cholecystitis presence: without cholecystitis Biliary obstruction: without biliary obstruction Qualified Code(s): K80.20 - Calculus of gallbladder without cholecystitis without obstruction (3) History of pulmonary embolus (PE) Assessment/Plan: On Life long AC recent CT chest -ve for PE OFF Coumadin on therapeutic Lovenox Code(s): Z86.711 - PERSONAL HISTORY OF PULMONARY EMBOLISM (4) T2DM (type 2 diabetes mellitus) Assessment/Plan: Off PO meds on correction dose insulin. Code(s): E11.9 - TYPE 2 DIABETES MELLITUS WITHOUT COMPLICATIONS (5) COPD (chronic obstructive pulmonary disease) Assessment/Plan: Stable no actibve issue Code(s): J44.9 - CHRONIC OBSTRUCTIVE PULMONARY DISEASE, UNSPECIFIED (6) Elevated troponin I level Assessment/Plan: Mild elevation trop I denies any chest pain can be due to demand ischemia will F /U cardiology input. Code(s): R74.8 - ABNORMAL LEVELS OF OTHER SERUM ENZYMES
--- NOTE | 2016-10-14 14:25 | PN ---
GI Progress Note Subjective: GI NOte: Tolerated liquids. Pain free and hungry for more. - Objective Vital Signs: Vital Signs Temperature 99.0 F 10/14/16 09:22 Pulse Rate 82 10/14/16 10:09 Respiratory Rate 18 10/14/16 09:22 Blood Pressure 97/49 10/14/16 09:22 O2 Sat by Pulse Oximetry (%) 94 L 10/14/16 10:09 Laboratory Tests 10/14/16 10/14/16 06:48 06:48 WBC 5.2 Total Amylase 188 H D Lipase 286 Constitutional: Calm Cardiovascular: Yes: Regular Rate and Rhythm Respiratory: Yes: CTA Bilaterally ...Auscultate: Yes: Normoactive Bowel Sounds ...Palpate: Yes: Soft, Other (nontender) Labs: CBC, BMP 10/14/16 06:48 10/14/16 06:48 INR, PTT INR 1.30 (0.82-1.09) H 10/12/16 06:20 Assessment/Plan Resolving biliary pancreatitis. Will advance diet. Anticipate lap choly next week.
[2016-10-14] MEDS ORDERED: INSULIN (NOVOLOG) ASPART 100 UNITS/ML 10ML VIAL ONE (22:50)
[2016-10-15] MEDS: ACETAMINOPHEN 325 MG TABLET (FP) PO PRN (06:19)
[2016-10-15] MEDS: INSULIN SLIDING SCALE (NOVOLOG) 1 VIAL SQ SCH ×4 (06:22→22:49)
[2016-10-15] MEDS ORDERED: PT OWN MED DRAWER 7, Y5N ONE (09:59)
[2016-10-15] MEDS: ENOXAPARIN NA (PORCINE) 80 MG/0.8 ML DISP.SYRIN SQ SCH ×2 (10:01→22:46)
--- NOTE | 2016-10-15 11:14 | PN ---
Progress Note (short form) - Note Progress Note: s: no cp sob palps dizzy o: Vital Signs Period Temp Pulse Resp BP Sys/[place] Pulse Ox Last 24 Hr 97.6 F-98.3 F 52-56 18-20 131-154/53-96 94 NAD, calm JVD flat neck supple cta bl nl eff RRR nl s1 s2. 2/6 murmur at lsb and apex. + bs soft nt nd no le edema, no cyanosis or clubbing aaox3 no jaundice, diaphoresis Current Medications Generic Name Dose Route Start Last Admin Trade Name Freq PRN Reason Stop Dose Admin Acetaminophen 650 mg 10/14/16 00:40 10/15/16 06:19 Tylenol - PO 650 mg Q6H PRN Administration FEVER OR PAIN Enoxaparin Sodium 80 mg 10/14/16 10:45 10/15/16 10:01 Lovenox - SQ 80 mg Q12H SHAYNA Administration Insulin Aspart 0 vial 10/12/16 16:30 10/15/16 06:22 Novolog Vial Sliding Scale - SQ Not Given ACHS SHAYNA Protocol Morphine Sulfate 2 mg 10/12/16 23:41 Morphine Injection - IVPUSH Q4H PRN SEVERE PAIN Morphine Sulfate 1 mg 10/12/16 23:42 Morphine Injection - IVPUSH Q4H PRN MODERATE PAIN Ondansetron HCl 4 mg 10/12/16 12:07 Zofran Injection IVPB Q6H PRN NAUSEA CBC, BMP 10/14/16 06:48 10/14/16 06:48 EKG 10/13: sr with pvc, lad. poor r wave progression. inferior q waves. no acute ischemic changes. similar to priors. EKG 10/12: sb, otherwise same as above. stress test 04/2016: occ pvc's, no ischemic ekg changes. artifact. no ischemia , EF 71%. 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 Echo 03/03 (): nl LVEF; mod-sev RV dilation and hypokinesis; valves unremarkable; RVSP 40-50. abd CT 10/13: patchy consolidation at bilateral bases, minimal effusion (by my review, likely atelectasis) a/p: 86 year old female with htn, niddm, COPD, ibs, chronic lbp, prior PE here with pancreatitis with plan for lap christelle. Pre-operative clearance - recent negative stress test 04/2016. Echo 04/2016 shows normalization of RV function. Patient with RCRI of 1-2 with advanced age and poor functional status. Has estimated intermediate risk of adonis-operative CV complications. Patient counseled on risk. - Patient currently appears euvolemic. Does not require further diuresis or further CV imaging prior to surgery. - Patient with intermediate troponin elevation, flat trend, nl ckmb, not consistent with acs. - Limit IVF adonis-operatively when possible. I/o, daily standing weights to monitor volume status adonis-operatively. Incentive spirometry. - cont lovenox for now, resume eliquis post op diastolic chf - unclear diagnosis. Patient with h/o development of small pleural effusions on last hospitalization for pancreatitis. Not on standing diuretics as outpatient - currently appears euvolemic. episode of hypoxia today 10/13 likely 2/2 atelectasis and underlying pulmonary disease no evidence of pulmonary edema on ct scan. Extensive PEs, dvt with resulting RV strain/systolic dysfunction s/p IVC filter placement: - On eliquis as outpatient - RV function normalized. - adonis-operative AC as above COPD - per pmd/pulm HTN - controlled off meds
--- NOTE | 2016-10-15 11:53 | PN ---
Progress Note, Physician Chief Complaint: No complaints History of Present Illness: 86 year old female who comes in after having acute onset abdominal pain, CAD ( Risk factors had cath 2003), Deep Vein Thrombosis , HTN, Hyperlipdemia, COPD, GI Bleed, Cholycystitis , Chronic low back pain, Osteoarthritis, Diabetes Mellitus, recently discahrge on 08/12 after treated for Gall stone Pancreatitis, now schedule for elective Cholycystetomy - Current Medication List Current Medications: Active Medications Acetaminophen (Tylenol -) 650 mg PO Q6H PRN PRN Reason: FEVER OR PAIN Last Admin: 10/15/16 06:19 Dose: 650 mg Enoxaparin Sodium (Lovenox -) 80 mg SQ Q12H SHAYNA Last Admin: 10/15/16 10:01 Dose: 80 mg Insulin Aspart (Novolog Vial Sliding Scale -) 0 vial SQ ACHS SHAYNA PRN Reason: Protocol Last Admin: 10/15/16 11:17 Dose: Not Given Morphine Sulfate (Morphine Injection -) 2 mg IVPUSH Q4H PRN PRN Reason: SEVERE PAIN Morphine Sulfate (Morphine Injection -) 1 mg IVPUSH Q4H PRN PRN Reason: MODERATE PAIN Ondansetron HCl (Zofran Injection) 4 mg IVPB Q6H PRN PRN Reason: NAUSEA - Objective Vital Signs: Vital Signs Temperature 97.6 F 10/15/16 02:00 Pulse Rate 56 L 10/15/16 02:00 Respiratory Rate 18 10/15/16 02:00 Blood Pressure 154/96 10/15/16 04:08 O2 Sat by Pulse Oximetry (%) 94 L 10/14/16 21:00 Labs: CBC, BMP 10/14/16 06:48 10/14/16 06:48 INR, PTT INR 1.30 (0.82-1.09) H 10/12/16 06:20 Problem List - Problems (1) Pancreatitis Assessment/Plan: Recovering tolerating PO Code(s): K85.90 - ACUTE PANCREATITIS WITHOUT NECROSIS OR INFECTION, UNSP Qualifiers: Chronicity: acute Pancreatitis type: biliary Acute pancreatitis complication: no infection or necrosis Qualified Code(s): K85.10 - Biliary acute pancreatitis without necrosis or infection (2) Cholelithiasis Assessment/Plan: denies any pain will planned for elective Cholycystectomy during this hospitalization. Code(s): K80.20 - CALCULUS OF GALLBLADDER W/O CHOLECYSTITIS W/O OBSTRUCTION Qualifiers: Cholelithiasis location: gallbladder Cholecystitis presence: without cholecystitis Biliary obstruction: without biliary obstruction Qualified Code(s): K80.20 - Calculus of gallbladder without cholecystitis without obstruction (3) History of pulmonary embolus (PE) Assessment/Plan: On Life long AC recent CT chest -ve for PE OFF Coumadin on therapeutic Lovenox Code(s): Z86.711 - PERSONAL HISTORY OF PULMONARY EMBOLISM (4) T2DM (type 2 diabetes mellitus) Assessment/Plan: Off PO meds on correction dose insulin. Code(s): E11.9 - TYPE 2 DIABETES MELLITUS WITHOUT COMPLICATIONS (5) COPD (chronic obstructive pulmonary disease) Assessment/Plan: Stable no actibve issue Code(s): J44.9 - CHRONIC OBSTRUCTIVE PULMONARY DISEASE, UNSPECIFIED
--- NOTE | 2016-10-15 12:49 | PN ---
Progress Note (short form) - Note Progress Note: OOB to chair. NAD on RA. Transition made from Eliquis to Lovenox (patient took her AM Eliquis yesterday) . She denies fevers, chills, chest pressure, shortness of breath, or diarrhea. Intake & Output 10/12/16 10/13/16 10/14/16 10/15/16 23:59 23:59 23:59 23:59 Intake Total 50 1200 930 Balance 50 1200 930 Weight 169 lb 4.8 oz Last Vital Signs Temp Pulse Resp BP Pulse Ox 98.3 F 56 L 18 110/52 94 L 10/15/16 09:00 10/15/16 09:00 10/15/16 09:00 10/15/16 09:00 10/14/16 21:00 Active Medications Acetaminophen (Tylenol -) 650 mg PO Q6H PRN PRN Reason: FEVER OR PAIN Last Admin: 10/15/16 06:19 Dose: 650 mg Enoxaparin Sodium (Lovenox -) 80 mg SQ Q12H SHAYNA Last Admin: 10/15/16 10:01 Dose: 80 mg Insulin Aspart (Novolog Vial Sliding Scale -) 0 vial SQ ACHS SHAYNA PRN Reason: Protocol Last Admin: 10/15/16 11:17 Dose: Not Given Morphine Sulfate (Morphine Injection -) 2 mg IVPUSH Q4H PRN PRN Reason: SEVERE PAIN Morphine Sulfate (Morphine Injection -) 1 mg IVPUSH Q4H PRN PRN Reason: MODERATE PAIN Ondansetron HCl (Zofran Injection) 4 mg IVPB Q6H PRN PRN Reason: NAUSEA Constitutional: Yes: No Distress, Calm Eyes: Yes: Conjunctiva Clear, EOM Intact HENT: Yes: Atraumatic, Normocephalic Neck: Yes: Supple, Trachea Midline Cardiovascular: Yes: Regular Rate and Rhythm Respiratory: Yes: Diminished, On Nasal O2. No: Accessory Muscle Use, Rales, Rhonchi, Stridor, Tachypnea, Wheezes ...Inspection: Yes: WNL ...Clubbing: No Gastrointestinal: Yes: WNL, Normal Bowel Sounds, Soft, Abdomen, Obese, Tenderness. No: Palpable Mass, Pulsatile Mass Musculoskeletal: Yes: WNL Extremities: Yes: WNL Edema: No Peripheral Pulses WNL: Yes Integumentary: Yes: WNL Neurological: Yes: WNL, Alert, Oriented ...Motor Strength: WNL Psychiatric: Yes: WNL, Alert, Oriented Labs: Laboratory Results - last 24 hr 10/14/16 10/14/16 10/15/16 17:03 23:35 06:20 POC Glucometer 93 103 111 10/15/16 11:16 POC Glucometer 172 Problem List - Problems (1) Cholelithiasis Code(s): K80.20 - CALCULUS OF GALLBLADDER W/O CHOLECYSTITIS W/O OBSTRUCTION Qualifiers: Cholelithiasis location: gallbladder Cholecystitis presence: without cholecystitis Biliary obstruction: without biliary obstruction Qualified Code(s): K80.20 - Calculus of gallbladder without cholecystitis without obstruction (2) History of pulmonary embolus (PE) Code(s): Z86.711 - PERSONAL HISTORY OF PULMONARY EMBOLISM (3) Pancreatitis Code(s): K85.90 - ACUTE PANCREATITIS WITHOUT NECROSIS OR INFECTION, UNSP Qualifiers: Chronicity: acute Pancreatitis type: biliary Acute pancreatitis complication: no infection or necrosis Qualified Code(s): K85.10 - Biliary acute pancreatitis without necrosis or infection (4) COPD (chronic obstructive pulmonary disease) Code(s): J44.9 - CHRONIC OBSTRUCTIVE PULMONARY DISEASE, UNSPECIFIED (5) Diabetes Code(s): E11.9 - TYPE 2 DIABETES MELLITUS WITHOUT COMPLICATIONS Qualifiers: Diabetes mellitus type: type 2 Diabetes mellitus complication status: without complication 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 Assessment/Plan Agree with bridge with Lovenox for 48 hours prior to surgery O2 as needed Patient may be at risk for sleep apnea -> should have formal evaluation after D/ C Pain control PO as tolerated There is no Pulmonary contraindication for [facility] Problem List - Problems (1) Cholelithiasis Code(s): K80.20 - CALCULUS OF GALLBLADDER W/O CHOLECYSTITIS W/O OBSTRUCTION Qualifiers: Cholelithiasis location: gallbladder Cholecystitis presence: without cholecystitis Biliary obstruction: without biliary obstruction Qualified Code(s): K80.20 - Calculus of gallbladder without cholecystitis without obstruction (2) History of pulmonary embolus (PE) Code(s): Z86.711 - PERSONAL HISTORY OF PULMONARY EMBOLISM (3) Pancreatitis Code(s): K85.90 - ACUTE PANCREATITIS WITHOUT NECROSIS OR INFECTION, UNSP Qualifiers: Chronicity: acute Pancreatitis type: biliary Acute pancreatitis complication: no infection or necrosis Qualified Code(s): K85.10 - Biliary acute pancreatitis without necrosis or infection (4) COPD (chronic obstructive pulmonary disease) Code(s): J44.9 - CHRONIC OBSTRUCTIVE PULMONARY DISEASE, UNSPECIFIED (5) Diabetes Code(s): E11.9 - TYPE 2 DIABETES MELLITUS WITHOUT COMPLICATIONS Qualifiers: Diabetes mellitus type: type 2 Diabetes mellitus complication status: without complication 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
--- NOTE | 2016-10-15 14:41 | PN ---
GI Progress Note Subjective: GI NOte: Tolerating low fat solid diet - Objective Vital Signs: Vital Signs Temperature 98.3 F 10/15/16 09:00 Pulse Rate 56 L 10/15/16 09:00 Respiratory Rate 18 10/15/16 09:00 Blood Pressure 110/52 10/15/16 09:00 O2 Sat by Pulse Oximetry (%) 92 L 10/15/16 09:00 Constitutional: Calm ...Auscultate: Yes: Normoactive Bowel Sounds ...Palpate: Yes: Soft, Other (nontender) Labs: CBC, BMP 10/14/16 06:48 10/14/16 06:48 INR, PTT INR 1.30 (0.82-1.09) H 10/12/16 06:20 Assessment/Plan Resolving biliary pancreatitis. Anticipate lap choly. Will repeat WBC and CRP tomorrow
[2016-10-16] MEDS: ACETAMINOPHEN 325 MG TABLET (FP) PO PRN ×2 (00:41→11:23)
[2016-10-16] MEDS: INSULIN SLIDING SCALE (NOVOLOG) 1 VIAL SQ SCH ×4 (06:20→22:49)
[2016-10-16 07:25] LABS: BASOPHIL 0.9 % (0-2.0); EOSINOPHIL 8.1 % (0-4.5); MCH 30.5 pg (25.7-33.7); MCHC 32.7 g/dl (32.0-36.0); MEAN CELL VOLUME 93.3 fl (80-96); MEAN PLT VOLUME 9.7 fl (7.5-11.1); NEUTROPHILS 38.8 % (42.8-82.8); PLATELET COUNT 157 K/MM3 (134-434); RDW 16.1 % (11.6-15.6); WHITE BLOOD COUNT 4.1 K/mm3 (4.0-10.0)
[2016-10-16 08:10] LABS: ALBUMIN 2.9 g/dl (3.4-5.0); ALK PHOS 57 U/L (45-117); ANION GAP 9 (8-16); BILIRUBIN,TOTAL 0.6 mg/dL (0.2-1.0); C-REACTIVE PROTEIN 5.1 MG/DL (0.00-0.3); CALCIUM 9.4 mg/dL (8.5-10.1); CO2 33 mmol/L (21-32); CREATININE 0.5 mg/dL (0.55-1.02); GLUCOSE,RANDOM 107 mg/dL (74-106); SGOT/AST 21 U/L (15-37); SGPT/ALT 30 U/L (12-78); TOT PROT 5.6 g/dl (6.4-8.2)
--- NOTE | 2016-10-16 09:00 | PN ---
Progress Note (short form) - Note Progress Note: Surgery- Dr. Holguin Patient seen and examined. Patient is feeling well, denies pain. She is tolerating her diet, voiding without issue and ambulating. Denies fever, chills , nausea, vomiting. Last Vital Signs Temp Pulse Resp BP Pulse Ox 98.3 F 51 L 18 118/68 94 L 10/16/16 06:00 10/16/16 06:00 10/16/16 06:00 10/16/16 06:00 10/15/16 21:00 CBC, BMP 10/16/16 06:15 10/16/16 06:15 Hepatic Panel Total Bilirubin 0.6 mg/dL (0.2-1.0) D 10/16/16 06:15 AST 21 U/L (15-37) D 10/16/16 06:15 ALT 30 U/L (12-78) D 10/16/16 06:15 Alkaline Phosphatase 57 U/L (45-117) 10/16/16 06:15 Albumin 2.9 g/dl (3.4-5.0) L 10/16/16 06:15 Lipase 210 Amylase 83 Exam: NAD abd nontender Problem List - Problems (1) Pancreatitis Assessment/Plan: Recurrent resolving gallstone pancreatitis Plan on lap christelle on Sunday10/18/16 Continue diet, npo after midnight tomorrow DVT prophylaxis Discussed with Dr. Holguin Code(s): K85.90 - ACUTE PANCREATITIS WITHOUT NECROSIS OR INFECTION, UNSP Qualifiers: Chronicity: acute Pancreatitis type: biliary Acute pancreatitis complication: no infection or necrosis Qualified Code(s): K85.10 - Biliary acute pancreatitis without necrosis or infection
[2016-10-16] MEDS: ENOXAPARIN NA (PORCINE) 80 MG/0.8 ML DISP.SYRIN SQ SCH ×2 (09:57→23:18)
--- NOTE | 2016-10-16 10:41 | PN ---
Progress Note, Physician Chief Complaint: biliary pancreatitis History of Present Illness: no cp no sob no leg swelling no palpitations - Current Medication List Current Medications: Active Medications Acetaminophen (Tylenol -) 650 mg PO Q6H PRN PRN Reason: FEVER OR PAIN Last Admin: 10/16/16 00:41 Dose: 650 mg Enoxaparin Sodium (Lovenox -) 80 mg SQ Q12H SHAYNA Last Admin: 10/16/16 09:57 Dose: 80 mg Insulin Aspart (Novolog Vial Sliding Scale -) 0 vial SQ ACHS SHAYNA PRN Reason: Protocol Last Admin: 10/16/16 06:20 Dose: Not Given Ondansetron HCl (Zofran Injection) 4 mg IVPB Q6H PRN PRN Reason: NAUSEA - Objective Vital Signs: Vital Signs Temperature 98.3 F 10/16/16 06:00 Pulse Rate 51 L 10/16/16 06:00 Respiratory Rate 18 10/16/16 06:00 Blood Pressure 118/68 10/16/16 06:00 O2 Sat by Pulse Oximetry (%) 94 L 10/15/16 21:00 Constitutional: Yes: Well Nourished, No Distress, Calm Cardiovascular: Yes: Regular Rate and Rhythm, S1, S2. No: Gallop, Murmur Respiratory: Yes: Regular, CTA Bilaterally. No: Accessory Muscle Use, Rales, Wheezes Extremities: No: Cold Edema: No Neurological: Yes: Alert, Oriented Psychiatric: No: Agitated Labs: CBC, BMP 10/16/16 06:15 10/16/16 06:15 INR, PTT INR 1.30 (0.82-1.09) H 10/12/16 06:20 Assessment/Plan MPI 04/2016: occ pvc's, no ischemic ekg changes. artifact. no ischemia, EF 71% . 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 Echo 03/03 (): nl LVEF; mod-sev RV dilation and hypokinesis; valves unremarkable; RVSP 40-50. abd CT 10/13: patchy consolidation at bilateral bases, minimal effusion (by my review, likely atelectasis) a/p: 86 year old female with htn, niddm, COPD, ibs, chronic lbp, prior PE here with pancreatitis with plan for lap christelle. recurrent biliary pancreatitis: -GI and surgery following, for lap christelle / Pre-operative clearance - recent negative stress test 04/2016. Echo 04/2016 shows normalization of RV function. Patient with RCRI of 1-2 with advanced age and poor functional status. Has estimated intermediate risk of adonis-operative CV complications. Patient counseled on risk. - Patient currently appears euvolemic. Does not require further diuresis or further CV imaging prior to surgery. - Patient with intermediate troponin elevation, flat trend, nl ckmb, not consistent with acs. - Limit IVF adonis-operatively when possible. I/o, daily standing weights to monitor volume status adonis-operatively. Incentive spirometry. - cont lovenox for now (bridging), resume eliquis post op as soon as safe per surgeon diastolic chf - unclear diagnosis. Patient with h/o development of small pleural effusions on last hospitalization for pancreatitis. Not on standing diuretics as outpatient - currently appears euvolemic. episode of hypoxia today 10/13 likely 2/2 atelectasis and underlying pulmonary disease no evidence of pulmonary edema on ct scan. Extensive PEs, dvt with resulting RV strain/systolic dysfunction s/p IVC filter placement: - On eliquis as outpatient - RV function normalized. - adonis-operative AC as above COPD - per pmd/pulm HTN - controlled off meds
--- NOTE | 2016-10-16 12:34 | PN ---
Progress Note, Physician Chief Complaint: Ms Farr states she is feeling well. No cp, sob, n/v, abdominal pain. - Current Medication List Current Medications: Active Medications Acetaminophen (Tylenol -) 650 mg PO Q6H PRN PRN Reason: FEVER OR PAIN Last Admin: 10/16/16 11:23 Dose: 650 mg Enoxaparin Sodium (Lovenox -) 80 mg SQ Q12H SHAYNA Last Admin: 10/16/16 09:57 Dose: 80 mg Insulin Aspart (Novolog Vial Sliding Scale -) 0 vial SQ ACHS SHAYNA PRN Reason: Protocol Last Admin: 10/16/16 11:21 Dose: Not Given Ondansetron HCl (Zofran Injection) 4 mg IVPB Q6H PRN PRN Reason: NAUSEA - Objective Vital Signs: Vital Signs Temperature 98.2 F 10/16/16 10:00 Pulse Rate 59 L 10/16/16 10:00 Respiratory Rate 18 10/16/16 10:00 Blood Pressure 124/66 10/16/16 10:00 O2 Sat by Pulse Oximetry (%) 94 L 10/15/16 21:00 Constitutional: Yes: Well Nourished, No Distress, Calm Cardiovascular: Yes: Regular Rate and Rhythm. No: Gallop, Murmur, Rub Respiratory: Yes: Regular, CTA Bilaterally, SOB on Exertion. No: Rales, Rhonchi , Wheezes Gastrointestinal: Yes: Normal Bowel Sounds, Soft. No: Distention, Tenderness Extremities: Yes: WNL Edema: No Labs: CBC, BMP 10/16/16 06:15 10/16/16 06:15 INR, PTT INR 1.30 (0.82-1.09) H 10/12/16 06:20 Problem List - Problems (1) Pancreatitis Code(s): K85.90 - ACUTE PANCREATITIS WITHOUT NECROSIS OR INFECTION, UNSP Qualifiers: Chronicity: acute Pancreatitis type: biliary Acute pancreatitis complication: no infection or necrosis Qualified Code(s): K85.10 - Biliary acute pancreatitis without necrosis or infection (2) Cholelithiasis Code(s): K80.20 - CALCULUS OF GALLBLADDER W/O CHOLECYSTITIS W/O OBSTRUCTION Qualifiers: Cholelithiasis location: gallbladder Cholecystitis presence: without cholecystitis Biliary obstruction: without biliary obstruction Qualified Code(s): K80.20 - Calculus of gallbladder without cholecystitis without obstruction (3) Diabetes Code(s): E11.9 - TYPE 2 DIABETES MELLITUS WITHOUT COMPLICATIONS Qualifiers: Diabetes mellitus type: type 2 Diabetes mellitus complication status: without complication Diabetes mellitus longterm insulin use: without longterm use Qualified Code(s): E11.9 - Type 2 diabetes mellitus without complications (4) History of pulmonary embolus (PE) Code(s): Z86.711 - PERSONAL HISTORY OF PULMONARY EMBOLISM (5) Acute respiratory failure with hypoxia Code(s): J96.01 - ACUTE RESPIRATORY FAILURE WITH HYPOXIA (6) COPD (chronic obstructive pulmonary disease) Code(s): J44.9 - CHRONIC OBSTRUCTIVE PULMONARY DISEASE, UNSPECIFIED (7) CHF exacerbation Code(s): I50.9 - HEART FAILURE, UNSPECIFIED Qualifiers: Congestive heart failure type: systolic Qualified Code(s): I50.23 - Acute on chronic systolic (congestive) heart failure Assessment/Plan (1) Pancreatitis Assessment/Plan: -appreciate GI and surgery assistance -pancreatitis resolved -planning for surgery on Sunday Code(s): K85.90 - ACUTE PANCREATITIS WITHOUT NECROSIS OR INFECTION, UNSP Qualifiers: Chronicity: acute Pancreatitis type: biliary Acute pancreatitis complication: no infection or necrosis Qualified Code(s): K85.10 - Biliary acute pancreatitis without necrosis or infection (2) Cholelithiasis Assessment/Plan: -surgery following -cleared by cardiology and pulmonary -plan for lap christelle Code(s): K80.20 - CALCULUS OF GALLBLADDER W/O CHOLECYSTITIS W/O OBSTRUCTION Qualifiers: Cholelithiasis location: gallbladder Cholecystitis presence: without cholecystitis Biliary obstruction: without biliary obstruction Qualified Code(s): K80.20 - Calculus of gallbladder without cholecystitis without obstruction (3) Diabetes Assessment/Plan: -continue SSI Code(s): E11.9 - TYPE 2 DIABETES MELLITUS WITHOUT COMPLICATIONS Qualifiers: Diabetes mellitus type: type 2 Diabetes mellitus complication status: without complication 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
--- NOTE | 2016-10-16 15:28 | PN ---
Progress Note, Physician History of Present Illness: PULMONARY ALERT,NAD,-SOB,-ABD PAIN - Current Medication List Current Medications: Active Medications Acetaminophen (Tylenol -) 650 mg PO Q6H PRN PRN Reason: FEVER OR PAIN Last Admin: 10/16/16 11:23 Dose: 650 mg Enoxaparin Sodium (Lovenox -) 80 mg SQ Q12H SHAYNA Last Admin: 10/16/16 09:57 Dose: 80 mg Insulin Aspart (Novolog Vial Sliding Scale -) 0 vial SQ ACHS SHAYNA PRN Reason: Protocol Last Admin: 10/16/16 11:21 Dose: Not Given Ondansetron HCl (Zofran Injection) 4 mg IVPB Q6H PRN PRN Reason: NAUSEA - Objective Vital Signs: Vital Signs Temperature 98.6 F 10/16/16 14:41 Pulse Rate 61 10/16/16 14:41 Respiratory Rate 18 10/16/16 14:41 Blood Pressure 133/67 10/16/16 14:41 O2 Sat by Pulse Oximetry (%) 94 L 10/15/16 21:00 Constitutional: Yes: Well Nourished, Calm Eyes: Yes: WNL HENT: Yes: WNL Neck: Yes: WNL Cardiovascular: Yes: Regular Rate and Rhythm, S1, S2 Respiratory: Yes: CTA Bilaterally Gastrointestinal: Yes: Normal Bowel Sounds, Soft Extremities: Yes: WNL Edema: No Labs: CBC, BMP 10/16/16 06:15 10/16/16 06:15 INR, PTT INR 1.30 (0.82-1.09) H 10/12/16 06:20 Assessment/Plan Problem List - Problems (1) Cholelithiasis Code(s): K80.20 - CALCULUS OF GALLBLADDER W/O CHOLECYSTITIS W/O OBSTRUCTION Qualifiers: Cholelithiasis location: gallbladder Cholecystitis presence: without cholecystitis Biliary obstruction: without biliary obstruction Qualified Code(s): K80.20 - Calculus of gallbladder without cholecystitis without obstruction (2) History of pulmonary embolus (PE) Code(s): Z86.711 - PERSONAL HISTORY OF PULMONARY EMBOLISM (3) Pancreatitis Code(s): K85.90 - ACUTE PANCREATITIS WITHOUT NECROSIS OR INFECTION, UNSP Qualifiers: Chronicity: acute Pancreatitis type: biliary Acute pancreatitis complication: no infection or necrosis Qualified Code(s): K85.10 - Biliary acute pancreatitis without necrosis or infection (4) COPD (chronic obstructive pulmonary disease) Code(s): J44.9 - CHRONIC OBSTRUCTIVE PULMONARY DISEASE, UNSPECIFIED (5) Diabetes Code(s): E11.9 - TYPE 2 DIABETES MELLITUS WITHOUT COMPLICATIONS Qualifiers: Diabetes mellitus type: type 2 Diabetes mellitus complication status: without complication Diabetes mellitus half-way insulin use: without half-way 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 Assessment/Plan bridge with Lovenox for 48 hours prior to surgery O2 as needed Pain control PO as tolerated Sleep studies outpatient Lap christelle om Sunday There is no Pulmonary contraindication for OR Dr Chou Problem List - Problems (1) Cholelithiasis Code(s): K80.20 - CALCULUS OF GALLBLADDER W/O CHOLECYSTITIS W/O OBSTRUCTION Qualifiers: Cholelithiasis location: gallbladder Cholecystitis presence: without cholecystitis Biliary obstruction: without biliary obstruction Qualified Code(s): K80.20 - Calculus of gallbladder without cholecystitis without obstruction (2) History of pulmonary embolus (PE) Code(s): Z86.711 - PERSONAL HISTORY OF PULMONARY EMBOLISM (3) Pancreatitis Code(s): K85.90 - ACUTE PANCREATITIS WITHOUT NECROSIS OR INFECTION, UNSP Qualifiers: Chronicity: acute Pancreatitis type: biliary Acute pancreatitis complication: no infection or necrosis Qualified Code(s): K85.10 - Biliary acute pancreatitis without necrosis or infection (4) COPD (chronic obstructive pulmonary disease) Code(s): J44.9 - CHRONIC OBSTRUCTIVE PULMONARY DISEASE, UNSPECIFIED (5) Diabetes Code(s): E11.9 - TYPE 2 DIABETES MELLITUS WITHOUT COMPLICATIONS Qualifiers: Diabetes mellitus type: type 2 Diabetes mellitus complication status: without complication Diabetes mellitus intermodal customer service insulin use: without intermodal customer service 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
[2016-10-17] MEDS: ACETAMINOPHEN 325 MG TABLET (FP) PO PRN ×3 (00:37→22:46)
[2016-10-17] MEDS: INSULIN SLIDING SCALE (NOVOLOG) 1 VIAL SQ SCH ×4 (06:09→21:36)
[2016-10-17 07:37] LABS: BASOPHIL 0.9 % (0-2.0); EOSINOPHIL 8.1 % (0-4.5); MCH 31.3 pg (25.7-33.7); MCHC 33.5 g/dl (32.0-36.0); MEAN CELL VOLUME 93.4 fl (80-96); MEAN PLT VOLUME 9.5 fl (7.5-11.1); NEUTROPHILS 38.1 % (42.8-82.8); PLATELET COUNT 176 K/MM3 (134-434); RDW 16.1 % (11.6-15.6); WHITE BLOOD COUNT 4.3 K/mm3 (4.0-10.0)
[2016-10-17] MEDS: ENOXAPARIN NA (PORCINE) 80 MG/0.8 ML DISP.SYRIN SQ SCH ×3 (08:00→21:36)
[2016-10-17 08:02] LABS: CALCIUM 9.7 mg/dL (8.5-10.1); COCKROFT - GAULT 83.096; CREATININE 0.6 mg/dL (0.55-1.02); MAGNESIUM 2.2 mg/dL (1.8-2.4); PHOSPHOROUS 3.6 mg/dL (2.5-4.9)
--- NOTE | 2016-10-17 11:51 | SPA.PREOP ---
- PRE-OP NOTE Dx: Gallstone pancreatitis (resolved) Planned Procedure: Lap cholecystectomy, possible open Surgeon: Finesse Holguin Consent: To be obtained by surgeon after risks, benefits and alternatives explained to patient. Last Vital Signs Temp Pulse Resp BP Pulse Ox 98.4 F 56 L 20 142/69 93 L 10/17/16 06:00 10/17/16 06:00 10/17/16 06:00 10/17/16 06:00 10/16/16 21:00 CBC, BMP 10/17/16 06:30 10/17/16 06:30 INR, PTT INR 1.30 (0.82-1.09) H 10/12/16 06:20 Hepatic Panel Total Bilirubin 0.6 mg/dL (0.2-1.0) D 10/16/16 06:15 AST 21 U/L (15-37) D 10/16/16 06:15 ALT 30 U/L (12-78) D 10/16/16 06:15 Alkaline Phosphatase 57 U/L (45-117) 10/16/16 06:15 Albumin 2.9 g/dl (3.4-5.0) L 10/16/16 06:15 Blood Type Blood Type A POSITIVE 10/12/16 06:20 - IMAGING Chest X-ray: Report Reviewed Cat Scan: Report Reviewed MRI: Report Reviewed (MRCP) Other: Report Reviewed (Ultrasound) <Yunior Escalera P - Last Filed: 10/17/16 11:51> - PRE-OP NOTE Dx: Planned Procedure: Surgeon: Consent: Obtained after surgeon explained all risks, benefits and alternatives. Opportunity for questions. Patient had none. Understood and signed without reservation. Last Vital Signs Temp Pulse Resp BP Pulse Ox 98.5 F 66 20 157/99 92 L 10/18/16 06:00 10/18/16 06:00 10/18/16 06:00 10/18/16 06:00 10/17/16 21:00 Lab Results WBC 4.3 K/mm3 (4.0-10.0) 10/17/16 06:30 RBC 4.18 M/mm3 (3.60-5.2) 10/17/16 06:30 Hgb 13.1 GM/dL (10.7-15.3) 10/17/16 06:30 Hct 39.1 % (32.4-45.2) 10/17/16 06:30 MCV 93.4 fl (80-96) 10/17/16 06:30 MCHC 33.5 g/dl (32.0-36.0) 10/17/16 06:30 RDW 16.1 % (11.6-15.6) H 10/17/16 06:30 Plt Count 176 K/MM3 (134-434) 10/17/16 06:30 Sodium 142 mmol/L (136-145) 10/17/16 06:30 Potassium 3.7 mmol/L (3.5-5.1) 10/17/16 06:30 Chloride 101 mmol/L (98-107) 10/17/16 06:30 Carbon Dioxide 32 mmol/L (21-32) 10/17/16 06:30 Anion Gap 9 (8-16) 10/17/16 06:30 BUN 15 mg/dL (7-18) D 10/17/16 06:30 Creatinine 0.6 mg/dL (0.55-1.02) 10/17/16 06:30 Random Glucose 118 mg/dL (74-106) H 10/17/16 06:30 Calcium 9.7 mg/dL (8.5-10.1) 10/17/16 06:30 Blood Type A POSITIVE 10/12/16 06:20 Antibody Screen Negative 10/12/16 06:20 INR 1.20 (0.82-1.09) H 10/18/16 06:15 Attending Surgeon Pre-Op For lap christelle possible open;r/b/t/a's d/w the patient; informed consent obtained. Finesse Holguin MD FACS - ASSESSMENT/PLAN 1. Make NPO after midnight except po meds 2. GI/DVT PPX 3. Medical optimization / clearance <Finesse Holguin N - Last Filed: 10/18/16 07:45> Problem List - Problems (1) Gallstone pancreatitis Assessment/Plan: 1. Make NPO after midnight except po meds 2. GI/DVT PPX 3. Medical optimization / clearance Code(s): K85.10 - BILIARY ACUTE PANCREATITIS WITHOUT NECROSIS OR INFECTION <Yunior Escalera P - Last Filed: 10/17/16 11:51> Visit type - Case Type Case Type: ED Admission <Yunior Escalera P - Last Filed: 10/17/16 11:51>
--- NOTE | 2016-10-17 12:31 | PN ---
Progress Note, Physician Chief Complaint: Ms Farr states she is feeling well. No cp, sob, n/v, abdominal pain. Tolerating diet well. - Current Medication List Current Medications: Active Medications Acetaminophen (Tylenol -) 650 mg PO Q6H PRN PRN Reason: FEVER OR PAIN Last Admin: 10/17/16 10:31 Dose: 650 mg Enoxaparin Sodium (Lovenox -) 80 mg SQ BID SHAYNA Last Admin: 10/17/16 10:31 Dose: 80 mg Insulin Aspart (Novolog Vial Sliding Scale -) 0 vial SQ ACHS SHAYNA PRN Reason: Protocol Last Admin: 10/17/16 12:05 Dose: Not Given Ondansetron HCl (Zofran Injection) 4 mg IVPB Q6H PRN PRN Reason: NAUSEA - Objective Vital Signs: Vital Signs Temperature 98.4 F 10/17/16 06:00 Pulse Rate 56 L 10/17/16 06:00 Respiratory Rate 20 10/17/16 06:00 Blood Pressure 142/69 10/17/16 06:00 O2 Sat by Pulse Oximetry (%) 93 L 10/16/16 21:00 Constitutional: Yes: Well Nourished, No Distress, Calm Cardiovascular: Yes: Regular Rate and Rhythm. No: Gallop, Murmur, Rub Respiratory: Yes: Regular, CTA Bilaterally. No: Rales, Rhonchi, Wheezes Gastrointestinal: Yes: Normal Bowel Sounds, Soft. No: Distention, Tenderness Extremities: Yes: WNL Edema: No Labs: CBC, BMP 10/17/16 06:30 10/17/16 06:30 INR, PTT INR 1.30 (0.82-1.09) H 10/12/16 06:20 Problem List - Problems (1) Pancreatitis Code(s): K85.90 - ACUTE PANCREATITIS WITHOUT NECROSIS OR INFECTION, UNSP Qualifiers: Chronicity: acute Pancreatitis type: biliary Acute pancreatitis complication: no infection or necrosis Qualified Code(s): K85.10 - Biliary acute pancreatitis without necrosis or infection (2) Cholelithiasis Code(s): K80.20 - CALCULUS OF GALLBLADDER W/O CHOLECYSTITIS W/O OBSTRUCTION Qualifiers: Cholelithiasis location: gallbladder Cholecystitis presence: without cholecystitis Biliary obstruction: without biliary obstruction Qualified Code(s): K80.20 - Calculus of gallbladder without cholecystitis without obstruction (3) Diabetes Code(s): E11.9 - TYPE 2 DIABETES MELLITUS WITHOUT COMPLICATIONS Qualifiers: Diabetes mellitus type: type 2 Diabetes mellitus complication status: without complication Diabetes mellitus supervisor winding department insulin use: without halfway use Qualified Code(s): E11.9 - Type 2 diabetes mellitus without complications (4) History of pulmonary embolus (PE) Code(s): Z86.711 - PERSONAL HISTORY OF PULMONARY EMBOLISM (5) Acute respiratory failure with hypoxia Code(s): J96.01 - ACUTE RESPIRATORY FAILURE WITH HYPOXIA (6) COPD (chronic obstructive pulmonary disease) Code(s): J44.9 - CHRONIC OBSTRUCTIVE PULMONARY DISEASE, UNSPECIFIED (7) CHF exacerbation Code(s): I50.9 - HEART FAILURE, UNSPECIFIED Qualifiers: Congestive heart failure type: systolic Qualified Code(s): I50.23 - Acute on chronic systolic (congestive) heart failure Assessment/Plan (1) Pancreatitis Assessment/Plan: -appreciate GI and surgery assistance -pancreatitis resolved -planning for surgery tomorrow Code(s): K85.90 - ACUTE PANCREATITIS WITHOUT NECROSIS OR INFECTION, UNSP Qualifiers: Chronicity: acute Pancreatitis type: biliary Acute pancreatitis complication: no infection or necrosis Qualified Code(s): K85.10 - Biliary acute pancreatitis without necrosis or infection (2) Cholelithiasis Assessment/Plan: -surgery following -cleared by cardiology and pulmonary -plan for lap christelle Code(s): K80.20 - CALCULUS OF GALLBLADDER W/O CHOLECYSTITIS W/O OBSTRUCTION Qualifiers: Cholelithiasis location: gallbladder Cholecystitis presence: without cholecystitis Biliary obstruction: without biliary obstruction Qualified Code(s): K80.20 - Calculus of gallbladder without cholecystitis without obstruction (3) Diabetes Assessment/Plan: -continue SSI Code(s): E11.9 - TYPE 2 DIABETES MELLITUS WITHOUT COMPLICATIONS Qualifiers: Diabetes mellitus type: type 2 Diabetes mellitus complication status: without complication Diabetes mellitus supervisor winding department insulin use: without supervisor winding department use Qualified Code(s): E11.9 - Type 2 diabetes mellitus without complications (4) History of pulmonary embolus (PE) Assessment/Plan: -on lovenox -will need to be restarted back on anticoagulation after surgery Code(s): Z86.711 - PERSONAL HISTORY OF PULMONARY EMBOLISM (5) Acute respiratory failure with hypoxia -resolved -appreciate cardiology and pulmonary assistance (6) CHF exacerbation -diastolic dysfunction per cardiology -euvolemic (7) COPD -appreciate pulmonary assistance -stable
--- NOTE | 2016-10-17 12:35 | PN ---
Progress Note (short form) - Note Progress Note: Chief Complaint: biliary pancreatitis History of Present Illness: no cp no sob no leg swelling no palpitations. feels well is ambulating and eating Current Medications Acetaminophen (Tylenol -) 650 mg PO Q6H PRN PRN Reason: FEVER OR PAIN Last Admin: 10/17/16 10:31 Dose: 650 mg Enoxaparin Sodium (Lovenox -) 80 mg SQ BID SHAYNA Last Admin: 10/17/16 10:31 Dose: 80 mg Insulin Aspart (Novolog Vial Sliding Scale -) 0 vial SQ ACHS SHAYNA PRN Reason: Protocol Last Admin: 10/17/16 12:05 Dose: Not Given Ondansetron HCl (Zofran Injection) 4 mg IVPB Q6H PRN PRN Reason: NAUSEA - Objective Vital Signs: Vital Signs - 24 hr 10/16/16 10/16/16 10/16/16 14:41 18:00 21:00 Temperature 98.6 F 98.1 F Pulse Rate 61 58 L Respiratory 18 18 Rate Blood Pressure 133/67 133/59 O2 Sat by Pulse 93 L Oximetry (%) 10/16/16 10/17/16 22:00 06:00 Temperature 98.4 F 98.4 F Pulse Rate 68 56 L Respiratory 20 20 Rate Blood Pressure 145/60 142/69 O2 Sat by Pulse Oximetry (%) Intake & Output 10/15/16 10/16/16 10/17/16 10/18/16 07:59 07:59 07:59 07:59 Intake Total 930 850 790 Balance 930 850 790 Constitutional: Yes: Well Nourished, No Distress, Calm Cardiovascular: Yes: Regular Rate and Rhythm, S1, S2. No: Gallop, Murmur Respiratory: Yes: trace basilar rales (atx?). No: Accessory Muscle Use, Rales, Wheezes Extremities: No: Cold Edema: No Neurological: Yes: Alert, Oriented Psychiatric: No: Agitated Labs: CBC, BMP 10/17/16 06:30 10/17/16 06:30 Assessment/Plan MPI 04/2016: occ pvc's, no ischemic ekg changes. artifact. no ischemia, EF 71% . 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 Echo 03/03 (): nl LVEF; mod-sev RV dilation and hypokinesis; valves unremarkable; RVSP 40-50. abd CT 10/13: patchy consolidation at bilateral bases, minimal effusion (by my review, likely atelectasis) a/p: 86 year old female with htn, niddm, COPD, ibs, chronic lbp, prior PE here with pancreatitis with plan for lap christelle. recurrent biliary pancreatitis: -GI and surgery following, for lap christelle 10/18 Pre-operative clearance - recent negative stress test 04/2016. Echo 04/2016 shows normalization of RV function. Patient with RCRI of 1-2 with advanced age and poor functional status. Has estimated intermediate risk of adonis-operative CV complications. Patient counseled on risk. - Patient currently appears euvolemic. Does not require further diuresis or further CV imaging prior to surgery. - Patient with intermediate troponin elevation, flat trend, nl ckmb, not consistent with acs. - Limit IVF adonis-operatively when possible. I/o, daily standing weights to monitor volume status adonis-operatively. Incentive spirometry. - cont lovenox for now (bridging), resume eliquis post op as soon as safe per surgeon diastolic chf - unclear diagnosis. Patient with h/o development of small pleural effusions on last hospitalization for pancreatitis. Not on standing diuretics as outpatient - currently appears euvolemic. episode of hypoxia 10/13 likely 2/2 atelectasis and underlying pulmonary disease no evidence of pulmonary edema on ct scan. Extensive PEs, dvt with resulting RV strain/systolic dysfunction s/p IVC filter placement: - On eliquis as outpatient - RV function normalized. - adonis-operative AC as above COPD - per pmd/pulm HTN - controlled off meds
--- NOTE | 2016-10-17 13:16 | PN ---
Progress Note (short form) - Note Progress Note: OOB to chair. NAD on RA. Transition made from Eliquis to Lovenox yesterday. She denies fevers, chills, chest pressure, shortness of breath, or diarrhea. Intake & Output 10/14/16 10/15/16 10/16/16 10/17/16 23:59 23:59 23:59 23:59 Intake Total 930 850 790 Balance 930 850 790 Last Vital Signs Temp Pulse Resp BP Pulse Ox 98.4 F 56 L 20 142/69 93 L 10/17/16 06:00 10/17/16 06:00 10/17/16 06:00 10/17/16 06:00 10/16/16 21:00 Active Medications Acetaminophen (Tylenol -) 650 mg PO Q6H PRN PRN Reason: FEVER OR PAIN Last Admin: 10/17/16 10:31 Dose: 650 mg Enoxaparin Sodium (Lovenox -) 80 mg SQ BID SHAYNA Last Admin: 10/17/16 10:31 Dose: 80 mg Insulin Aspart (Novolog Vial Sliding Scale -) 0 vial SQ ACHS [facility] PRN Reason: Protocol Last Admin: 10/17/16 12:05 Dose: Not Given Ondansetron HCl (Zofran Injection) 4 mg IVPB Q6H PRN PRN Reason: NAUSEA Constitutional: Yes: No Distress, Calm Eyes: Yes: Conjunctiva Clear, EOM Intact HENT: Yes: Atraumatic, Normocephalic Neck: Yes: Supple, Trachea Midline Cardiovascular: Yes: Regular Rate and Rhythm Respiratory: Yes: Diminished, On Nasal O2. No: Accessory Muscle Use, Rales, Rhonchi, Stridor, Tachypnea, Wheezes ...Inspection: Yes: WNL ...Clubbing: No Gastrointestinal: Yes: WNL, Normal Bowel Sounds, Soft, Abdomen, Obese, Tenderness. No: Palpable Mass, Pulsatile Mass Musculoskeletal: Yes: WNL Extremities: Yes: WNL Edema: No Peripheral Pulses WNL: Yes Integumentary: Yes: WNL Neurological: Yes: WNL, Alert, Oriented ...Motor Strength: WNL Psychiatric: Yes: WNL, Alert, Oriented Labs: Laboratory Results - last 24 hr 10/16/16 10/16/16 10/17/16 17:10 22:02 05:32 WBC RBC Hgb Hct MCV MCHC RDW Plt Count MPV Neutrophils % Lymphocytes % Monocytes % Eosinophils % Basophils % Sodium Potassium Chloride Carbon Dioxide Anion Gap BUN Creatinine POC Glucometer 112 136 109 Random Glucose Calcium Phosphorus Magnesium Total Amylase Lipase 10/17/16 10/17/16 10/17/16 06:30 06:30 12:04 WBC 4.3 RBC 4.18 Hgb 13.1 Hct 39.1 MCV 93.4 MCHC 33.5 RDW 16.1 H Plt Count 176 MPV 9.5 Neutrophils % 38.1 L Lymphocytes % 39.3 Monocytes % 13.6 H Eosinophils % 8.1 H Basophils % 0.9 Sodium 142 Potassium 3.7 Chloride 101 Carbon Dioxide 32 Anion Gap 9 BUN 15 D Creatinine 0.6 POC Glucometer 132 Random Glucose 118 H Calcium 9.7 Phosphorus 3.6 Magnesium 2.2 Total Amylase 71 Lipase 164 Problem List - Problems (1) Cholelithiasis Code(s): K80.20 - CALCULUS OF GALLBLADDER W/O CHOLECYSTITIS W/O OBSTRUCTION Qualifiers: Cholelithiasis location: gallbladder Cholecystitis presence: without cholecystitis Biliary obstruction: without biliary obstruction Qualified Code(s): K80.20 - Calculus of gallbladder without cholecystitis without obstruction (2) History of pulmonary embolus (PE) Code(s): Z86.711 - PERSONAL HISTORY OF PULMONARY EMBOLISM (3) Pancreatitis Code(s): K85.90 - ACUTE PANCREATITIS WITHOUT NECROSIS OR INFECTION, UNSP Qualifiers: Chronicity: acute Pancreatitis type: biliary Acute pancreatitis complication: no infection or necrosis Qualified Code(s): K85.10 - Biliary acute pancreatitis without necrosis or infection (4) COPD (chronic obstructive pulmonary disease) Code(s): J44.9 - CHRONIC OBSTRUCTIVE PULMONARY DISEASE, UNSPECIFIED (5) Diabetes Code(s): E11.9 - TYPE 2 DIABETES MELLITUS WITHOUT COMPLICATIONS Qualifiers: Diabetes mellitus type: type 2 Diabetes mellitus complication status: without complication Diabetes mellitus prison insulin use: without laborer marine terminal 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 Assessment/Plan Bridge with Lovenox for 48 hours prior to surgery O2 as needed Patient may be at risk for sleep apnea -> should have formal evaluation after D/ C Pain control PO as tolerated There is no Pulmonary contraindication for OR Dr Prado Problem List - Problems (1) Cholelithiasis Code(s): K80.20 - CALCULUS OF GALLBLADDER W/O CHOLECYSTITIS W/O OBSTRUCTION Qualifiers: Cholelithiasis location: gallbladder Cholecystitis presence: without cholecystitis Biliary obstruction: without biliary obstruction Qualified Code(s): K80.20 - Calculus of gallbladder without cholecystitis without obstruction (2) History of pulmonary embolus (PE) Code(s): Z86.711 - PERSONAL HISTORY OF PULMONARY EMBOLISM (3) Pancreatitis Code(s): K85.90 - ACUTE PANCREATITIS WITHOUT NECROSIS OR INFECTION, UNSP Qualifiers: Chronicity: acute Pancreatitis type: biliary Acute pancreatitis complication: no infection or necrosis Qualified Code(s): K85.10 - Biliary acute pancreatitis without necrosis or infection (4) COPD (chronic obstructive pulmonary disease) Code(s): J44.9 - CHRONIC OBSTRUCTIVE PULMONARY DISEASE, UNSPECIFIED (5) Diabetes Code(s): E11.9 - TYPE 2 DIABETES MELLITUS WITHOUT COMPLICATIONS Qualifiers: Diabetes mellitus type: type 2 Diabetes mellitus complication status: without complication Diabetes mellitus laborer marine terminal insulin use: without prison 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
[2016-10-18] MEDS: INSULIN SLIDING SCALE (NOVOLOG) 1 VIAL SQ SCH ×5 (06:46→22:35)
[2016-10-18 07:25] LABS: BASOPHIL 0.8 % (0-2.0); EOSINOPHIL 5.7 % (0-4.5); MCH 30.8 pg (25.7-33.7); MEAN CELL VOLUME 93.3 fl (80-96); MEAN PLT VOLUME 9.6 fl (7.5-11.1); NEUTROPHILS 31.9 % (42.8-82.8); PLATELET COUNT 191 K/MM3 (134-434); RDW 16.3 % (11.6-15.6); WHITE BLOOD COUNT 5.1 K/mm3 (4.0-10.0)
[2016-10-18 07:34] LABS: INR 1.2 (0.82-1.09); PROTHROMBIN TIME (PATIENT) 13.3 SEC (9.98-11.88)
[2016-10-18] MEDS ORDERED: ROCURONIUM BROMIDE 50 MG/5 ML VIAL ONE ×2 (07:37→09:39)
[2016-10-18] MEDS ORDERED: PROPOFOL 20 ML ONE ×2 (07:37→09:17)
[2016-10-18 07:54] LABS: CALCIUM 9.7 mg/dL (8.5-10.1); COCKROFT - GAULT 83.096; CREATININE 0.6 mg/dL (0.55-1.02); MAGNESIUM 2.1 mg/dL (1.8-2.4); PHOSPHOROUS 3.8 mg/dL (2.5-4.9)
[2016-10-18] MEDS ORDERED: DESFLURANE GAS 240 ML BOTTLE IH ONE (09:24)
[2016-10-18] MEDS ORDERED: BUPIVACAINE HCL/PF 0.5% (5MG/ML) 10 ML VIAL ONE (09:39)
[2016-10-18] MEDS ORDERED: NEOSTIGMINE METHYLSULFATE 0.5 MG/ML - 10 ML MDV ONE (09:46)
[2016-10-18] MEDS ORDERED: GLYCOPYRROLATE 0.2 MG/1 ML VIAL ONE (09:46)
[2016-10-18] MEDS ORDERED: BUPIVACAINE HCL/PF (5 MG/ML) 30 ML VIAL IJ ONE (10:07)
--- NOTE | 2016-10-18 10:27 | OP ---
Operative Note - Note: Operative Date: 10/18/16 Pre-Operative Diagnosis: gallstone pancreatitis Operation: laparoscopic cholecystectomy Post-Operative Diagnosis: Same as Pre-op Surgeon: Finesse Holguin Refractory Manager: Tania Robin Anesthesia: General Specimens Removed: gallbladder Estimated Blood Loss (mls): 30 Drains & Tubes with Location: JENNY drain right abdomen Fluid Volume Replaced (mls): 900 Operative Report Dictated: Yes
--- NOTE | 2016-10-18 10:28 | SURG ---
Surgery Digital Media Representative Note Digital Media Representative: Tania Robin PA-C Date of Service: 10/18/16 Diagnosis: gallstone pancreatitis Procedure: laparoscopic cholecystectomy I was present for the entirety of the operative procedure. For further detail, please refer to operative report. Visit type - Case Type Case Type: ED Admission
[2016-10-18] MEDS ORDERED: oxyCODONE HCL 5 MG TABLET PO PRN (10:30)
[2016-10-18] MEDS ORDERED: ONDANSETRON 4 MG/2 ML VIAL IVPB PRN (11:00)
[2016-10-18] MEDS: LACTATED RINGERS SOLUTION 1,000 ML IV SCH (12:18)
[2016-10-18] MEDS ORDERED: morphine CARPU-JECT 4 MG/1 ML DISP.SYRIN IVPUSH PRN (14:53)
[2016-10-18] MEDS ORDERED: PHENOL 177 ML SPRAY BOTTLE MM PRN (15:03)
--- NOTE | 2016-10-18 15:05 | PN ---
Progress Note, Physician Chief Complaint: Ms Farr is s/p surgery. She complains of sore throat secondary to intubation. She is also having some abdominal pain. Denies cp and sob. - Current Medication List Current Medications: Active Medications Acetaminophen (Tylenol -) 650 mg PO Q6H PRN PRN Reason: FEVER OR PAIN Enoxaparin Sodium (Lovenox -) 80 mg SQ BID SHAYNA Fentanyl (Sublimaze Injection -) 50 mcg IVPUSH [id number] PRN PRN Reason: PAIN Stop: 10/21/16 10:30 Lactated Ringer's (Lactated Ringers Solution) 1,000 mls @ 100 mls/hr IV ASDIR [facility] Last Admin: 10/18/16 12:18 Dose: 0 mls Insulin Aspart (Novolog Vial Sliding Scale -) 0 vial SQ ACHS SHAYNA PRN Reason: Protocol Last Admin: 10/18/16 13:12 Dose: Not Given Morphine Sulfate (Morphine Injection -) 4 mg IVPUSH Q6H PRN PRN Reason: PAIN Ondansetron HCl (Zofran Injection) 4 mg IVPB Q6H PRN PRN Reason: NAUSEA Oxycodone HCl (Roxicodone -) 5 mg PO Q4H PRN PRN Reason: PAIN Last Admin: 10/18/16 13:09 Dose: 5 mg Phenol/Menthol (Chloraseptic -) 1 spray MM Q6HPO PRN PRN Reason: SORE THROAT - Objective Vital Signs: Vital Signs Temperature 97.7 F 10/18/16 13:38 Pulse Rate 58 L 10/18/16 13:38 Respiratory Rate 21 10/18/16 13:38 Blood Pressure 145/71 10/18/16 13:38 O2 Sat by Pulse Oximetry (%) 95 10/18/16 13:53 Constitutional: Yes: Well Nourished, No Distress, Calm Cardiovascular: Yes: Regular Rate and Rhythm. No: Gallop, Murmur, Rub Respiratory: Yes: Regular, Cough. No: Rales, Rhonchi, Wheezes Gastrointestinal: Yes: Soft, Hypoactive Bowel Sounds, Tenderness. No: Distention Extremities: Yes: WNL Edema: No Labs: CBC, BMP 10/18/16 06:15 10/18/16 06:15 INR, PTT INR 1.20 (0.82-1.09) H 10/18/16 06:15 Problem List - Problems (1) Pancreatitis Code(s): K85.90 - ACUTE PANCREATITIS WITHOUT NECROSIS OR INFECTION, UNSP Qualifiers: Chronicity: acute Pancreatitis type: biliary Acute pancreatitis complication: no infection or necrosis Qualified Code(s): K85.10 - Biliary acute pancreatitis without necrosis or infection (2) Cholelithiasis Code(s): K80.20 - CALCULUS OF GALLBLADDER W/O CHOLECYSTITIS W/O OBSTRUCTION Qualifiers: Cholelithiasis location: gallbladder Cholecystitis presence: without cholecystitis Biliary obstruction: without biliary obstruction Qualified Code(s): K80.20 - Calculus of gallbladder without cholecystitis without obstruction (3) Diabetes Code(s): E11.9 - TYPE 2 DIABETES MELLITUS WITHOUT COMPLICATIONS Qualifiers: Diabetes mellitus type: type 2 Diabetes mellitus complication status: without complication Diabetes mellitus terminal worker insulin use: without terminal worker use Qualified Code(s): E11.9 - Type 2 diabetes mellitus without complications (4) History of pulmonary embolus (PE) Code(s): Z86.711 - PERSONAL HISTORY OF PULMONARY EMBOLISM (5) Acute respiratory failure with hypoxia Code(s): J96.01 - ACUTE RESPIRATORY FAILURE WITH HYPOXIA (6) COPD (chronic obstructive pulmonary disease) Code(s): J44.9 - CHRONIC OBSTRUCTIVE PULMONARY DISEASE, UNSPECIFIED (7) CHF exacerbation Code(s): I50.9 - HEART FAILURE, UNSPECIFIED Qualifiers: Congestive heart failure type: systolic Qualified Code(s): I50.23 - Acute on chronic systolic (congestive) heart failure Assessment/Plan (1) Pancreatitis Assessment/Plan: -resolved Code(s): K85.90 - ACUTE PANCREATITIS WITHOUT NECROSIS OR INFECTION, UNSP Qualifiers: Chronicity: acute Pancreatitis type: biliary Acute pancreatitis complication: no infection or necrosis Qualified Code(s): K85.10 - Biliary acute pancreatitis without necrosis or infection (2) Cholelithiasis Assessment/Plan: -s/p lap christelle -case d/w Dr Holguin -monitor Code(s): K80.20 - CALCULUS OF GALLBLADDER W/O CHOLECYSTITIS W/O OBSTRUCTION Qualifiers: Cholelithiasis location: gallbladder Cholecystitis presence: without cholecystitis Biliary obstruction: without biliary obstruction Qualified Code(s): K80.20 - Calculus of gallbladder without cholecystitis without obstruction (3) Diabetes Assessment/Plan: -continue SSI Code(s): E11.9 - TYPE 2 DIABETES MELLITUS WITHOUT COMPLICATIONS Qualifiers: Diabetes mellitus type: type 2 Diabetes mellitus complication status: without complication Diabetes mellitus group home insulin use: without terminal worker use Qualified Code(s): E11.9 - Type 2 diabetes mellitus without complications (4) History of pulmonary embolus (PE) Assessment/Plan: -restart anticoagulation when safe from surgical standpoint Code(s): Z86.711 - PERSONAL HISTORY OF PULMONARY EMBOLISM (5) Acute respiratory failure with hypoxia -resolved -appreciate cardiology and pulmonary assistance (6) CHF exacerbation -diastolic dysfunction per cardiology -euvolemic (7) COPD -appreciate pulmonary assistance -stable
--- NOTE | 2016-10-18 15:12 | PN ---
Progress Note (short form) - Note Progress Note: Attending Surgeon PO Check C/O sore throat; voided VSS AF abdo-port sites c/d/i; JENNY sangunous o/w negative IMP:stable post op PLAN: Continue as per orders Finesse Holguin MD FACS
--- NOTE | 2016-10-18 19:40 | PN ---
Progress Note (short form) - Note Progress Note: Chief Complaint: biliary pancreatitis History of Present Illness: no cp no sob no leg swelling no palpitations. s/p lap christelle. + abdominal pain. Current Medications Acetaminophen (Tylenol -) 650 mg PO Q6H PRN PRN Reason: FEVER OR PAIN Enoxaparin Sodium (Lovenox -) 80 mg SQ BID SHAYNA Fentanyl (Sublimaze Injection -) 50 mcg IVPUSH [id number] PRN PRN Reason: PAIN Stop: 10/21/16 10:30 Lactated Ringer's (Lactated Ringers Solution) 1,000 mls @ 100 mls/hr IV ASDIR [facility] Last Admin: 10/18/16 12:18 Dose: 0 mls Insulin Aspart (Novolog Vial Sliding Scale -) 0 vial SQ ACHS SHAYNA PRN Reason: Protocol Last Admin: 10/18/16 17:56 Dose: Not Given Morphine Sulfate (Morphine Injection -) 4 mg IVPUSH Q6H PRN PRN Reason: PAIN Ondansetron HCl (Zofran Injection) 4 mg IVPB Q6H PRN PRN Reason: NAUSEA Oxycodone HCl (Roxicodone -) 5 mg PO Q4H PRN PRN Reason: PAIN Last Admin: 10/18/16 13:09 Dose: 5 mg Phenol/Menthol (Chloraseptic -) 1 spray MM Q6HPO PRN PRN Reason: SORE THROAT Vital Signs - 24 hr 10/17/16 10/17/16 10/18/16 21:00 22:00 06:00 Temperature 98.5 F Pulse Rate 63 66 Respiratory 18 18 20 Rate Blood Pressure 125/57 157/99 O2 Sat by Pulse 92 L Oximetry (%) 10/18/16 10/18/16 10/18/16 10:21 10:35 10:50 Temperature 98.1 F Pulse Rate 75 70 62 Respiratory 20 18 16 Rate Blood Pressure 169/69 171/88 146/66 O2 Sat by Pulse 96 94 L 94 L Oximetry (%) 10/18/16 10/18/16 10/18/16 11:05 11:20 11:35 Temperature Pulse Rate 60 56 L 56 L Respiratory 16 18 16 Rate Blood Pressure 157/88 144/60 135/56 O2 Sat by Pulse 93 L 95 95 Oximetry (%) 10/18/16 10/18/16 10/18/16 11:50 12:05 12:16 Temperature 98.2 F Pulse Rate 52 L 62 55 L Respiratory 16 16 16 Rate Blood Pressure 143/54 142/62 146/57 O2 Sat by Pulse 94 L 95 Oximetry (%) 10/18/16 10/18/16 10/18/16 13:30 13:38 13:53 Temperature 97.7 F 97.7 F Pulse Rate 58 L 58 L Respiratory 21 21 Rate Blood Pressure 145/71 145/71 O2 Sat by Pulse 94 L 95 Oximetry (%) Intake & Output 10/16/16 10/17/16 10/18/16 10/19/16 07:59 07:59 07:59 07:59 Intake Total 850 590 024 1045 Output Total 340 Balance 850 839 697 8768 Constitutional: Yes: Well Nourished, No Distress, Calm Cardiovascular: Yes: Regular Rate and Rhythm, S1, S2. No: Gallop, Murmur Respiratory: Yes: trace basilar rales (atx?). No: Accessory Muscle Use, Rales, Wheezes Extremities: No: Cold Edema: No Neurological: Yes: Alert, Oriented Psychiatric: No: Agitated Labs: CBC, BMP 10/18/16 06:15 10/18/16 06:15 Assessment/Plan MPI 04/2016: occ pvc's, no ischemic ekg changes. artifact. no ischemia, EF 71% . 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 Echo 03/03 (): nl LVEF; mod-sev RV dilation and hypokinesis; valves unremarkable; RVSP 40-50. abd CT 10/13: patchy consolidation at bilateral bases, minimal effusion (by my review, likely atelectasis) a/p: 86 year old female with htn, niddm, COPD, ibs, chronic lbp, prior PE here with pancreatitis with plan for lap christelle. recurrent biliary pancreatitis: -GI and surgery following, for lap christelle 5/3 Pre-operative clearance - recent negative stress test 04/2016. Echo 04/2016 shows normalization of RV function. Patient with RCRI of 1-2 with advanced age and poor functional status. Estimated intermediate risk of adonis-operative CV complications. Patient counseled on risk. - Patient with intermediate troponin elevation, flat trend, nl ckmb, not consistent with acs. - Limit IVF adonis-operatively when possible. I/o, daily standing weights to monitor volume status adonis-operatively. Incentive spirometry. Pain control. - Patient currently appears euvolemic on IVF. NPO. - Resume lovenox or eliquis post op as soon as safe per surgeon diastolic chf - unclear diagnosis. Patient with h/o development of small pleural effusions on last hospitalization for pancreatitis. Not on standing diuretics as outpatient - currently appears euvolemic (see above). episode of hypoxia 10/13 likely 2/2 atelectasis and underlying pulmonary disease no evidence of pulmonary edema on ct scan. Extensive PEs, dvt with resulting RV strain/systolic dysfunction s/p IVC filter placement: - On eliquis as outpatient (see above AC plan) - RV function normalized. - adonis-operative AC as above COPD - per pmd/pulm HTN - controlled off meds
[2016-10-18] MEDS: ACETAMINOPHEN 325 MG TABLET (FP) PO PRN (20:23)
[2016-10-18] MEDS: ENOXAPARIN NA (PORCINE) 80 MG/0.8 ML DISP.SYRIN SQ SCH (22:35)
[2016-10-19] MEDS: ACETAMINOPHEN 325 MG TABLET (FP) PO PRN ×2 (06:52→23:08)
[2016-10-19] MEDS: INSULIN SLIDING SCALE (NOVOLOG) 1 VIAL SQ SCH ×4 (07:16→22:57)
--- NOTE | 2016-10-19 09:02 | PN ---
Progress Note (short form) - Note Progress Note: Anesthesiology Post-op POD#1 s/p laparoscopic cholecystectomy under GA. Pt. awake, feels well, denies pain except for a mild discomfort across epigastric line,c/w insufflation- related pain. Some sore throat present; pt. is still NPO. Otherwise, VSS, no other issues.
[2016-10-19 09:17] LABS: BASOPHIL 0.5 % (0-2.0); EOSINOPHIL 2.4 % (0-4.5); MCH 31.2 pg (25.7-33.7); MCHC 33.3 g/dl (32.0-36.0); MEAN CELL VOLUME 93.6 fl (80-96); MEAN PLT VOLUME 9.3 fl (7.5-11.1); NEUTROPHILS 55.5 % (42.8-82.8); PLATELET COUNT 165 K/MM3 (134-434); WHITE BLOOD COUNT 5.5 K/mm3 (4.0-10.0)
[2016-10-19 09:33] LABS: CALCIUM 8.6 mg/dL (8.5-10.1); COCKROFT - GAULT 99.722; CREATININE 0.5 mg/dL (0.55-1.02); MAGNESIUM 1.8 mg/dL (1.8-2.4); PHOSPHOROUS 3.2 mg/dL (2.5-4.9)
[2016-10-19] MEDS: ENOXAPARIN NA (PORCINE) 80 MG/0.8 ML DISP.SYRIN SQ SCH ×2 (09:38→22:53)
--- NOTE | 2016-10-19 09:41 | PN ---
Progress Note (short form) - Note Progress Note: Surgery- Dr. Holguin Patient seen and examined. Her biggest complaint is a sore throat. She is having some abdominal soreness, but this pain is controlled. She has remained NPO, denies nausea or vomiting. She is urinating without issue. Denies fever or chills. Last Vital Signs Temp Pulse Resp BP Pulse Ox 98.4 F 59 L 20 124/56 95 10/19/16 06:00 10/19/16 06:00 10/19/16 06:00 10/19/16 06:00 10/18/16 21:00 CBC, BMP 10/19/16 08:00 JENNY drain output 85 ml overnight Exam: Gen: NAD, pleasant and cooperative Abd: soft, mild tenderness with palp around port sites and RUQ, port site dressings c/d/i, JENNY drain in place with serosanguineous drainage Problem List - Problems (1) Pancreatitis Assessment/Plan: POD#1 s/p laparoscopic cholecystectomy for gallstone pancreatitis Advance to clear liquid diet Continue JENNY drain pain control with oral pain medication, chloraseptic throat spray DVT prophylaxis Code(s): K85.90 - ACUTE PANCREATITIS WITHOUT NECROSIS OR INFECTION, UNSP Qualifiers: Chronicity: acute Pancreatitis type: biliary Acute pancreatitis complication: no infection or necrosis Qualified Code(s): K85.10 - Biliary acute pancreatitis without necrosis or infection
[2016-10-19] MEDS: LACTATED RINGERS SOLUTION 1,000 ML IV SCH (12:00)
--- NOTE | 2016-10-19 12:15 | PN ---
Progress Note (short form) - Note Progress Note: OOB to chair. Appears slightly uncomfortable. Reports sore throat. which is slightly better than last night. Remains NPO. Abdominal symptoms controlled with pain meds. Using Incentive Spirometer Q1h. Intake & Output 10/16/16 10/17/16 10/18/16 10/19/16 23:59 23:59 23:59 23:59 Intake Total 772 660 2221 1200 Output Total 490 85 Balance 091 268 7390 1115 Last Vital Signs Temp Pulse Resp BP Pulse Ox 98.4 F 81 20 124/56 95 10/19/16 06:00 10/19/16 11:40 10/19/16 06:00 10/19/16 06:00 10/19/16 11:40 Active Medications Acetaminophen (Tylenol -) 650 mg PO Q6H PRN PRN Reason: FEVER OR PAIN Last Admin: 10/19/16 06:52 Dose: 650 mg Enoxaparin Sodium (Lovenox -) 80 mg SQ BID [facility] Last Admin: 10/19/16 09:38 Dose: 80 mg Lactated Ringer's (Lactated Ringers Solution) 1,000 mls @ 100 mls/hr IV ASDIR [facility] Last Admin: 10/18/16 12:18 Dose: 0 mls Insulin Aspart (Novolog Vial Sliding Scale -) 0 vial SQ ACHS SHAYNA PRN Reason: Protocol Last Admin: 10/19/16 07:16 Dose: Not Given Morphine Sulfate (Morphine Injection -) 4 mg IVPUSH Q6H PRN PRN Reason: PAIN Ondansetron HCl (Zofran Injection) 4 mg IVPB Q6H PRN PRN Reason: NAUSEA Oxycodone HCl (Roxicodone -) 5 mg PO Q4H PRN PRN Reason: PAIN Last Admin: 10/18/16 13:09 Dose: 5 mg Phenol/Menthol (Chloraseptic -) 1 spray MM Q6HPO PRN PRN Reason: SORE THROAT Constitutional: Yes: No Distress Eyes: Yes: Conjunctiva Clear, EOM Intact HENT: Yes: Atraumatic, Normocephalic Neck: Yes: Supple, Trachea Midline Cardiovascular: Yes: Regular Rate and Rhythm Respiratory: Yes: Diminished, On Nasal O2. No: Accessory Muscle Use, Rales, Rhonchi, Stridor, Tachypnea, Wheezes ...Inspection: Yes: WNL ...Clubbing: No Gastrointestinal: Yes: WNL, (+) mild, appropriate tenderness, (+) BS. No: Palpable Mass, Pulsatile Mass Musculoskeletal: Yes: WNL Extremities: Yes: WNL Edema: No Peripheral Pulses WNL: Yes Integumentary: Yes: WNL Neurological: Yes: WNL, Alert, Oriented ...Motor Strength: WNL Psychiatric: Yes: WNL, Alert, Oriented Labs: Laboratory Results - last 24 hr 10/18/16 10/18/16 10/18/16 13:09 17:53 21:35 WBC RBC Hgb Hct MCV MCHC RDW Plt Count MPV Neutrophils % Lymphocytes % Monocytes % Eosinophils % Basophils % Sodium Potassium Chloride Carbon Dioxide Anion Gap BUN Creatinine POC Glucometer 122 86 83 Random Glucose Calcium Phosphorus Magnesium 10/19/16 10/19/16 10/19/16 06:50 08:00 08:00 WBC 5.5 RBC 3.91 Hgb 12.2 D Hct 36.6 MCV 93.6 MCHC 33.3 RDW 16.0 H Plt Count 165 MPV 9.3 Neutrophils % 55.5 D Lymphocytes % 28.5 D Monocytes % 13.1 H Eosinophils % 2.4 Basophils % 0.5 Sodium 142 Potassium 4.0 Chloride 101 Carbon Dioxide 35 H Anion Gap 6 L BUN 9 D Creatinine 0.5 L POC Glucometer 91 Random Glucose 92 Calcium 8.6 Phosphorus 3.2 Magnesium 1.8 Problem List - Problems (1) Cholelithiasis Code(s): K80.20 - CALCULUS OF GALLBLADDER W/O CHOLECYSTITIS W/O OBSTRUCTION Qualifiers: Cholelithiasis location: gallbladder Cholecystitis presence: without cholecystitis Biliary obstruction: without biliary obstruction Qualified Code(s): K80.20 - Calculus of gallbladder without cholecystitis without obstruction (2) History of pulmonary embolus (PE) Code(s): Z86.711 - PERSONAL HISTORY OF PULMONARY EMBOLISM (3) Pancreatitis Code(s): K85.90 - ACUTE PANCREATITIS WITHOUT NECROSIS OR INFECTION, UNSP Qualifiers: Chronicity: acute Pancreatitis type: biliary Acute pancreatitis complication: no infection or necrosis Qualified Code(s): K85.10 - Biliary acute pancreatitis without necrosis or infection (4) COPD (chronic obstructive pulmonary disease) Code(s): J44.9 - CHRONIC OBSTRUCTIVE PULMONARY DISEASE, UNSPECIFIED (5) Diabetes Code(s): E11.9 - TYPE 2 DIABETES MELLITUS WITHOUT COMPLICATIONS Qualifiers: Diabetes mellitus type: type 2 Diabetes mellitus complication status: without complication Diabetes mellitus assisted insulin use: without intermodal customer service 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 Assessment/Plan Lovenox BID -> Xarelto when OK with surgery O2 as needed Incentive Spirometry Patient may be at risk for sleep apnea -> should have formal evaluation after D/ C Pain control PO per surgery Dr Prado Problem List - Problems (1) Cholelithiasis Code(s): K80.20 - CALCULUS OF GALLBLADDER W/O CHOLECYSTITIS W/O OBSTRUCTION Qualifiers: Cholelithiasis location: gallbladder Cholecystitis presence: without cholecystitis Biliary obstruction: without biliary obstruction Qualified Code(s): K80.20 - Calculus of gallbladder without cholecystitis without obstruction (2) History of pulmonary embolus (PE) Code(s): Z86.711 - PERSONAL HISTORY OF PULMONARY EMBOLISM (3) Pancreatitis Code(s): K85.90 - ACUTE PANCREATITIS WITHOUT NECROSIS OR INFECTION, UNSP Qualifiers: Chronicity: acute Pancreatitis type: biliary Acute pancreatitis complication: no infection or necrosis Qualified Code(s): K85.10 - Biliary acute pancreatitis without necrosis or infection (4) COPD (chronic obstructive pulmonary disease) Code(s): J44.9 - CHRONIC OBSTRUCTIVE PULMONARY DISEASE, UNSPECIFIED (5) Diabetes Code(s): E11.9 - TYPE 2 DIABETES MELLITUS WITHOUT COMPLICATIONS Qualifiers: Diabetes mellitus type: type 2 Diabetes mellitus complication status: without complication Diabetes mellitus assisted insulin use: without intermodal customer service 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
--- NOTE | 2016-10-19 15:04 | PN ---
Progress Note, Physician Chief Complaint: Ms Farr says she is doing better but is feeling weak. Abdominal pain and throat pain improved. No cp or sob. - Current Medication List Current Medications: Active Medications Acetaminophen (Tylenol -) 650 mg PO Q6H PRN PRN Reason: FEVER OR PAIN Last Admin: 10/19/16 06:52 Dose: 650 mg Enoxaparin Sodium (Lovenox -) 80 mg SQ BID [facility] Last Admin: 10/19/16 09:38 Dose: 80 mg Lactated Ringer's (Lactated Ringers Solution) 1,000 mls @ 100 mls/hr IV ASDIR [facility] Last Admin: 10/18/16 12:18 Dose: 0 mls Insulin Aspart (Novolog Vial Sliding Scale -) 0 vial SQ ACHS [facility] PRN Reason: Protocol Last Admin: 10/19/16 07:16 Dose: Not Given Morphine Sulfate (Morphine Injection -) 4 mg IVPUSH Q6H PRN PRN Reason: PAIN Ondansetron HCl (Zofran Injection) 4 mg IVPB Q6H PRN PRN Reason: NAUSEA Oxycodone HCl (Roxicodone -) 5 mg PO Q4H PRN PRN Reason: PAIN Last Admin: 10/18/16 13:09 Dose: 5 mg Phenol/Menthol (Chloraseptic -) 1 spray MM Q6HPO PRN PRN Reason: SORE THROAT - Objective Vital Signs: Vital Signs Temperature 99.4 F 10/19/16 14:03 Pulse Rate 57 L 10/19/16 14:03 Respiratory Rate 18 10/19/16 14:03 Blood Pressure 130/57 10/19/16 14:03 O2 Sat by Pulse Oximetry (%) 95 10/19/16 11:40 Constitutional: Yes: Well Nourished, No Distress, Calm Cardiovascular: Yes: Regular Rate and Rhythm. No: Gallop, Murmur, Rub Respiratory: Yes: Regular, CTA Bilaterally. No: Rales, Rhonchi, Wheezes Gastrointestinal: Yes: Normal Bowel Sounds, Soft, Tenderness, Other (drain in place). No: Distention Extremities: Yes: WNL Edema: No Labs: CBC, BMP 10/19/16 08:00 10/19/16 08:00 INR, PTT INR 1.20 (0.82-1.09) H 10/18/16 06:15 Problem List - Problems (1) Pancreatitis Code(s): K85.90 - ACUTE PANCREATITIS WITHOUT NECROSIS OR INFECTION, UNSP Qualifiers: Chronicity: acute Pancreatitis type: biliary Acute pancreatitis complication: no infection or necrosis Qualified Code(s): K85.10 - Biliary acute pancreatitis without necrosis or infection (2) Cholelithiasis Code(s): K80.20 - CALCULUS OF GALLBLADDER W/O CHOLECYSTITIS W/O OBSTRUCTION Qualifiers: Cholelithiasis location: gallbladder Cholecystitis presence: without cholecystitis Biliary obstruction: without biliary obstruction Qualified Code(s): K80.20 - Calculus of gallbladder without cholecystitis without obstruction (3) Diabetes Code(s): E11.9 - TYPE 2 DIABETES MELLITUS WITHOUT COMPLICATIONS Qualifiers: Diabetes mellitus type: type 2 Diabetes mellitus complication status: without complication Diabetes mellitus group home insulin use: without predatory animal exterminator use Qualified Code(s): E11.9 - Type 2 diabetes mellitus without complications (4) History of pulmonary embolus (PE) Code(s): Z86.711 - PERSONAL HISTORY OF PULMONARY EMBOLISM (5) Acute respiratory failure with hypoxia Code(s): J96.01 - ACUTE RESPIRATORY FAILURE WITH HYPOXIA (6) COPD (chronic obstructive pulmonary disease) Code(s): J44.9 - CHRONIC OBSTRUCTIVE PULMONARY DISEASE, UNSPECIFIED (7) CHF exacerbation Code(s): I50.9 - HEART FAILURE, UNSPECIFIED Qualifiers: Congestive heart failure type: systolic Qualified Code(s): I50.23 - Acute on chronic systolic (congestive) heart failure Assessment/Plan (1) Pancreatitis Assessment/Plan: -resolved Code(s): K85.90 - ACUTE PANCREATITIS WITHOUT NECROSIS OR INFECTION, UNSP Qualifiers: Chronicity: acute Pancreatitis type: biliary Acute pancreatitis complication: no infection or necrosis Qualified Code(s): K85.10 - Biliary acute pancreatitis without necrosis or infection (2) Cholelithiasis Assessment/Plan: -s/p lap christelle -case d/w Dr Holguin -monitor Code(s): K80.20 - CALCULUS OF GALLBLADDER W/O CHOLECYSTITIS W/O OBSTRUCTION Qualifiers: Cholelithiasis location: gallbladder Cholecystitis presence: without cholecystitis Biliary obstruction: without biliary obstruction Qualified Code(s): K80.20 - Calculus of gallbladder without cholecystitis without obstruction (3) Diabetes Assessment/Plan: -continue SSI Code(s): E11.9 - TYPE 2 DIABETES MELLITUS WITHOUT COMPLICATIONS Qualifiers: Diabetes mellitus type: type 2 Diabetes mellitus complication status: without complication Diabetes mellitus predatory animal exterminator insulin use: without group home use Qualified Code(s): E11.9 - Type 2 diabetes mellitus without complications (4) History of pulmonary embolus (PE) Assessment/Plan: -on lovenox -start NOAC when safe from surgical standpoint Code(s): Z86.711 - PERSONAL HISTORY OF PULMONARY EMBOLISM (5) Acute respiratory failure with hypoxia -resolved -appreciate cardiology and pulmonary assistance (6) CHF exacerbation -diastolic dysfunction per cardiology -euvolemic (7) COPD -appreciate pulmonary assistance -stable
--- NOTE | 2016-10-19 16:14 | PN ---
Progress Note (short form) - Note Progress Note: Chief Complaint: biliary pancreatitis History of Present Illness: no cp no sob no leg swelling no palpitations. s/p lap christelle. + abdominal pain. lovenox restarted Current Medications Acetaminophen (Tylenol -) 650 mg PO Q6H PRN PRN Reason: FEVER OR PAIN Last Admin: 10/19/16 06:52 Dose: 650 mg Enoxaparin Sodium (Lovenox -) 80 mg SQ BID [facility] Last Admin: 10/19/16 09:38 Dose: 80 mg Lactated Ringer's (Lactated Ringers Solution) 1,000 mls @ 100 mls/hr IV ASDIR [facility] Last Admin: 10/19/16 12:00 Dose: 100 mls/hr Insulin Aspart (Novolog Vial Sliding Scale -) 0 vial SQ ACHS [facility] PRN Reason: Protocol Last Admin: 10/19/16 15:47 Dose: Not Given Morphine Sulfate (Morphine Injection -) 4 mg IVPUSH Q6H PRN PRN Reason: PAIN Ondansetron HCl (Zofran Injection) 4 mg IVPB Q6H PRN PRN Reason: NAUSEA Oxycodone HCl (Roxicodone -) 5 mg PO Q4H PRN PRN Reason: PAIN Last Admin: 10/18/16 13:09 Dose: 5 mg Phenol/Menthol (Chloraseptic -) 1 spray MM Q6HPO PRN PRN Reason: SORE THROAT Vital Signs - 24 hr 10/18/16 10/18/16 10/19/16 21:00 22:00 02:00 Temperature 97.6 F 99.0 F Pulse Rate 59 L 61 Respiratory 18 20 Rate Blood Pressure 136/57 110/41 O2 Sat by Pulse 95 Oximetry (%) 10/19/16 10/19/16 10/19/16 06:00 10:00 11:40 Temperature 98.4 F 98.7 F Pulse Rate 59 L 58 L 81 Respiratory 20 18 Rate Blood Pressure 124/56 156/58 O2 Sat by Pulse 95 Oximetry (%) 10/19/16 14:03 Temperature 99.4 F Pulse Rate 57 L Respiratory 18 Rate Blood Pressure 130/57 O2 Sat by Pulse Oximetry (%) Intake & Output 10/17/16 10/18/16 10/19/16 10/20/16 07:59 07:59 07:59 07:59 Intake Total 765 871 0348 Output Total 575 60 Balance 456 957 0514 -60 Constitutional: Yes: Well Nourished, No Distress, Calm Cardiovascular: Yes: Regular Rate and Rhythm, S1, S2. No: Gallop, Murmur Respiratory: Yes: trace basilar rales (atx?). No: Accessory Muscle Use, Rales, Wheezes Extremities: No: Cold Edema: No Neurological: Yes: Alert, Oriented Psychiatric: No: Agitated Labs: CBC, BMP 10/19/16 08:00 10/19/16 08:00 Laboratory Tests 10/19/16 08:00 Magnesium 1.8 Assessment/Plan MPI 04/2016: occ pvc's, no ischemic ekg changes. artifact. no ischemia, EF 71% . 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 Echo 03/03 (): nl LVEF; mod-sev RV dilation and hypokinesis; valves unremarkable; RVSP 40-50. abd CT 10/13: patchy consolidation at bilateral bases, minimal effusion (by my review, likely atelectasis) a/p: 86 year old female with htn, niddm, COPD, ibs, chronic lbp, prior PE here with pancreatitis with plan for lap christelle. recurrent biliary pancreatitis: -GI and surgery following, s/p lap christelle / Pre-operative clearance - recent negative stress test 04/2016. Echo 04/2016 shows normalization of RV function. Patient with RCRI of 1-2 with advanced age and poor functional status. Estimated intermediate risk of adonis-operative CV complications. Patient counseled on risk. - Patient with intermediate troponin elevation, flat trend, nl ckmb, not consistent with acs. - Limit IVF adonis-operatively when possible. I/o, daily standing weights to monitor volume status adonis-operatively. Incentive spirometry. Pain control. - Patient currently appears euvolemic. diet advanced to clears. - Resumed lovenox. Transition to eliquis when safe per surgery. diastolic chf - unclear diagnosis. Patient with h/o development of small pleural effusions on last hospitalization for pancreatitis. Not on standing diuretics as outpatient - currently appears euvolemic (see above). episode of hypoxia 10/13 likely 2/2 atelectasis and underlying pulmonary disease no evidence of pulmonary edema on ct scan. Extensive PEs, dvt with resulting RV strain/systolic dysfunction s/p IVC filter placement: - On eliquis as outpatient (see above AC plan) - RV function normalized. - adonis-operative AC as above COPD - per pmd/pulm HTN - controlled off meds
[2016-10-20] MEDS: INSULIN SLIDING SCALE (NOVOLOG) 1 VIAL SQ SCH ×4 (07:00→22:05)
[2016-10-20 07:54] LABS: BASOPHIL 0.5 % (0-2.0); MCHC 32.9 g/dl (32.0-36.0); MEAN CELL VOLUME 94.3 fl (80-96); MEAN PLT VOLUME 9.8 fl (7.5-11.1); NEUTROPHILS 48.9 % (42.8-82.8); PLATELET COUNT 172 K/MM3 (134-434); RDW 15.5 % (11.6-15.6); WHITE BLOOD COUNT 4.6 K/mm3 (4.0-10.0)
[2016-10-20 08:47] LABS: CALCIUM 8.6 mg/dL (8.5-10.1); MAGNESIUM 1.8 mg/dL (1.8-2.4)
[2016-10-20 08:48] LABS: COCKROFT - GAULT 99.722; CREATININE 0.5 mg/dL (0.55-1.02); PHOSPHOROUS 3.1 mg/dL (2.5-4.9)
--- NOTE | 2016-10-20 09:38 | PN ---
Progress Note (short form) - Note Progress Note: POD#2 Pt states that she is tolerating clears. No nausea or emesis. Passing flatus. Vital Signs Period Temp Pulse Resp BP Sys/Dorado Pulse Ox Last 24 Hr 98.7 F-99.4 F 57-81 18-18 130-156/57-70 93-95 JENNY-150ml bloody GEN: A&0x3, NAD ABD: soft, non-distended, inc tenderness. inc c/d/i with bandaids LE: no calf tenderness/swelling CBC, BMP 10/20/ 06:00 05// 06:00 Problem List - Problems (1) S/P laparoscopic cholecystectomy Assessment/Plan: doing well surgically, adv diet today to diabetic. Patient seen with Dr. Holguin and Jenny will remain for one more day and may begin eliquis tomorrow discontinued IV fluids Code(s): Z90.49 - ACQUIRED ABSENCE OF OTHER SPECIFIED PARTS OF DIGESTIVE TRACT
[2016-10-20] MEDS: ACETAMINOPHEN 325 MG TABLET (FP) PO PRN ×2 (10:19→18:31)
[2016-10-20] MEDS: ENOXAPARIN NA (PORCINE) 80 MG/0.8 ML DISP.SYRIN SQ SCH ×2 (10:22→22:05)
--- NOTE | 2016-10-20 11:57 | OP ---
DATE OF OPERATION: 10/18/2016 PREOPERATIVE DIAGNOSIS: Cholelithiasis, status post recurrent gallstone pancreatitis. POSTOPERATIVE DIAGNOSIS: Cholelithiasis, status post recurrent gallstone pancreatitis. PROCEDURE: Laparoscopic cholecystectomy and lysis of adhesions. SURGEON: Finesse Holguin MD SHAMPOOER: Tania Robin PA-C ANESTHESIA: General. OPERATIVE FINDINGS: There was a flaccid, fluid-filled gallbladder with tiny stones. There were multiple adhesions from previous surgery. The rest of the findings were unremarkable. DESCRIPTION OF PROCEDURE: The patient was placed on the operating table in supine position, and after the induction of general anesthesia, the patients abdomen was prepped with ChloraPrep and draped in sterile fashion. The pneumoperitoneum was established above the umbilicus using a Veress needle. Once 15 mmHg pressure was achieved, a 5-mm port was placed, and the previously noted findings were observed. A subxiphoid 12-mm port was placed, and then, using a combination of blunt, sharp, and electrocautery dissections, adhesions at the umbilicus and the right lateral abdominal wall were taken down without incident. Next, two 5-mm lateral ports were placed, and then, the gallbladder was placed on cephalad and lateral traction, and dissection begun in the triangle of Calot. The peritoneum was opened laterally and medially over the neck of the gallbladder, and the cystic duct identified coursing from the neck of the gallbladder distally to the common bile duct. It was dissected proximally and distally for length, and the artery was similarly identified and dissected. Critical view of safety was taken, and the duct and then, the artery were sequentially divided between large hemoclips, 2 proximally and 2 distally. Hemostasis was check for and noted to be good, and then, the gallbladder was removed from the liver bed in a retrograde fashion using electrocautery. Prior to removal from the edge of the liver, hemostasis was checked for and noted to be good. The gallbladder was then placed in an EndoCatch and brought out through the subxiphoid port. Pneumoperitoneum was reestablished, and copious irrigation carried out using normal saline. A 10-mm Surya-Myers drain was placed in the right hepatorenal fossa and brought out through one of the 5-mm lateral port sites and secured to the skin there with 2-0 silk suture. The drain was connected to bulb suction. Hemostasis was verified again, and then, the pneumoperitoneum was evacuated after all port sites were removed under laparoscopic vision without evidence of bleeding from the port sites. All port sites were infiltrated with 0.5% Marcaine, and the skin edges reapproximated with 4-0 Biosyn in a subcuticular continuous fashion. Steri-Strips and Band-Aid dressings were placed. Dressing was placed around the drain site, and the patient aroused from general anesthesia and transferred to the post-anesthesia care unit in stable condition, awake and alert. ESTIMATED BLOOD LOSS: 50 mL. REPLACEMENTS: Crystalloid. DRAINS: One 10-mm Surya-Myers. SPECIMENS: Gallbladder and contents to Pathology. I, Finesse Holguin, was physically present in the operating room from the time the patient was placed on the operating table until she was transferred to the post-anesthesia care unit in my accompaniment. MD EDIE Woodall/[id number]
--- NOTE | 2016-10-20 12:29 | PN ---
Progress Note, Physician Chief Complaint: Ms Farr says she is feeling weak but improving. Eating a solid diet today and tolerating well. No cp, sob, n/v. - Current Medication List Current Medications: Active Medications Acetaminophen (Tylenol -) 650 mg PO Q6H PRN PRN Reason: FEVER OR PAIN Last Admin: 10/20/16 10:19 Dose: 650 mg Enoxaparin Sodium (Lovenox -) 80 mg SQ BID [facility] Last Admin: 10/20/16 10:22 Dose: 80 mg Insulin Aspart (Novolog Vial Sliding Scale -) 0 vial SQ ACHS [facility] PRN Reason: Protocol Last Admin: 10/19/16 22:57 Dose: Not Given Ondansetron HCl (Zofran Injection) 4 mg IVPB Q6H PRN PRN Reason: NAUSEA Oxycodone HCl (Roxicodone -) 5 mg PO Q4H PRN PRN Reason: PAIN Last Admin: 10/18/16 13:09 Dose: 5 mg Phenol/Menthol (Chloraseptic -) 1 spray MM Q6HPO PRN PRN Reason: SORE THROAT - Objective Vital Signs: Vital Signs Temperature 98.7 F 10/20/16 06:00 Pulse Rate 68 10/20/16 11:14 Respiratory Rate 18 10/20/16 06:00 Blood Pressure 141/59 10/20/16 06:00 O2 Sat by Pulse Oximetry (%) 93 L 10/20/16 11:14 Constitutional: Yes: Well Nourished, No Distress, Calm Cardiovascular: Yes: Regular Rate and Rhythm. No: Gallop, Murmur, Rub Respiratory: Yes: Regular, CTA Bilaterally. No: Rales, Rhonchi, Wheezes Gastrointestinal: Yes: Normal Bowel Sounds, Soft. No: Distention, Tenderness Extremities: Yes: WNL Edema: No Labs: CBC, BMP 10/20/16 06:00 10/20/16 06:00 INR, PTT INR 1.20 (0.82-1.09) H 10/18/16 06:15 Problem List - Problems (1) Pancreatitis Code(s): K85.90 - ACUTE PANCREATITIS WITHOUT NECROSIS OR INFECTION, UNSP Qualifiers: Chronicity: acute Pancreatitis type: biliary Acute pancreatitis complication: no infection or necrosis Qualified Code(s): K85.10 - Biliary acute pancreatitis without necrosis or infection (2) Cholelithiasis Code(s): K80.20 - CALCULUS OF GALLBLADDER W/O CHOLECYSTITIS W/O OBSTRUCTION Qualifiers: Cholelithiasis location: gallbladder Cholecystitis presence: without cholecystitis Biliary obstruction: without biliary obstruction Qualified Code(s): K80.20 - Calculus of gallbladder without cholecystitis without obstruction (3) Diabetes Code(s): E11.9 - TYPE 2 DIABETES MELLITUS WITHOUT COMPLICATIONS Qualifiers: Diabetes mellitus type: type 2 Diabetes mellitus complication status: without complication Diabetes mellitus chcf insulin use: without termite treater use Qualified Code(s): E11.9 - Type 2 diabetes mellitus without complications (4) History of pulmonary embolus (PE) Code(s): Z86.711 - PERSONAL HISTORY OF PULMONARY EMBOLISM (5) Acute respiratory failure with hypoxia Code(s): J96.01 - ACUTE RESPIRATORY FAILURE WITH HYPOXIA (6) COPD (chronic obstructive pulmonary disease) Code(s): J44.9 - CHRONIC OBSTRUCTIVE PULMONARY DISEASE, UNSPECIFIED (7) CHF exacerbation Code(s): I50.9 - HEART FAILURE, UNSPECIFIED Qualifiers: Congestive heart failure type: systolic Qualified Code(s): I50.23 - Acute on chronic systolic (congestive) heart failure Assessment/Plan (1) Pancreatitis Assessment/Plan: -resolved Code(s): K85.90 - ACUTE PANCREATITIS WITHOUT NECROSIS OR INFECTION, UNSP Qualifiers: Chronicity: acute Pancreatitis type: biliary Acute pancreatitis complication: no infection or necrosis Qualified Code(s): K85.10 - Biliary acute pancreatitis without necrosis or infection (2) Cholelithiasis Assessment/Plan: -s/p lap christelle -drain still in place, possible removal tomorrow -surgery following Code(s): K80.20 - CALCULUS OF GALLBLADDER W/O CHOLECYSTITIS W/O OBSTRUCTION Qualifiers: Cholelithiasis location: gallbladder Cholecystitis presence: without cholecystitis Biliary obstruction: without biliary obstruction Qualified Code(s): K80.20 - Calculus of gallbladder without cholecystitis without obstruction (3) Diabetes Assessment/Plan: -continue SSI Code(s): E11.9 - TYPE 2 DIABETES MELLITUS WITHOUT COMPLICATIONS Qualifiers: Diabetes mellitus type: type 2 Diabetes mellitus complication status: without complication Diabetes mellitus termite treater insulin use: without chcf use Qualified Code(s): E11.9 - Type 2 diabetes mellitus without complications (4) History of pulmonary embolus (PE) Assessment/Plan: -on lovenox -can start eliquis tomorrow per surgery note Code(s): Z86.711 - PERSONAL HISTORY OF PULMONARY EMBOLISM (5) Acute respiratory failure with hypoxia -resolved -appreciate cardiology and pulmonary assistance (6) CHF exacerbation -diastolic dysfunction per cardiology -euvolemic (7) COPD -appreciate pulmonary assistance -stable
--- NOTE | 2016-10-20 15:09 | CONSULT ---
Consultation: REQUESTING PROVIDER: CONSULT REQUEST: We have been asked to medically evaluate this patient for ( pulmonology). HISTORY OF PRESENT ILLNESS: case of gall stone induced pancreatitis s/p lap christelle day 2 had soft diet in lunch, after diet developed cramping in abdomen and than had bowel movement. Now denies pain, nausea, vomiting, sob, cheat pain, palpitations. REVIEW OF SYSTEMS: CONSTITUTIONAL: Absent: fever, chills, diaphoresis, CARDIOVASCULAR: Absent: chest pain, syncope, palpitations, RESPIRATORY: Absent: cough, shortness of breath, dyspnea wheezing, stridor, hemoptysis GASTROINTESTINAL: Absent: abdominal pain, abdominal distension, nausea, vomiting, diarrhea, GENITOURINARY: Absent: dysuria, frequency, HEMATOLOGIC/IMMUNOLOGIC: Absent: easy bleeding, easy bruising, NEUROLOGIC: Absent: headache, PHYSICAL EXAMINATION Vital Signs - 24 hr 10/19/16 10/19/16 10/20/16 21:00 22:00 06:00 Temperature 99.4 F 98.7 F Pulse Rate 77 57 L Respiratory 18 18 18 Rate Blood Pressure 138/70 141/59 O2 Sat by Pulse 93 L Oximetry (%) 10/20/16 11:14 Temperature Pulse Rate 68 Respiratory Rate Blood Pressure O2 Sat by Pulse 93 L Oximetry (%) GENERAL: Awake, alert, and fully oriented, in no acute distress. HEAD: Normal with no signs of trauma. EYES: Pupils equal, round and reactive to light EARS, NOSE, THROAT: .dry mucous membranes. LUNGS: diminished, Breath sounds equal, clear to auscultation bilaterally. mild crackels present on right side. HEART: s1s2 normal ABDOMEN:soft, mild tender at site of ports, bs+, no guarding, no rigidity UPPER EXTREMITIES: 2+ pulses, No peripheral edema. LOWER EXTREMITIES: 2+ pulses, warm, well-perfused. No peripheral edema. SKIN: Warm, dry, Laboratory Results - last 24 hr 10/19/16 10/19/16 10/20/16 17:00 22:56 06:00 WBC 4.6 RBC 4.03 Hgb 12.5 Hct 38.0 MCV 94.3 MCHC 32.9 RDW 15.5 Plt Count 172 MPV 9.8 Neutrophils % 48.9 Lymphocytes % 32.7 Monocytes % 12.9 H Eosinophils % 5.0 H D Basophils % 0.5 Sodium Potassium Chloride Carbon Dioxide Anion Gap BUN Creatinine POC Glucometer 92 95 Random Glucose Calcium Phosphorus Magnesium 10/20/16 10/20/16 06:00 11:15 WBC RBC Hgb Hct MCV MCHC RDW Plt Count MPV Neutrophils % Lymphocytes % Monocytes % Eosinophils % Basophils % Sodium 144 Potassium 3.7 Chloride 102 Carbon Dioxide 34 H Anion Gap 8 BUN 7 D Creatinine 0.5 L POC Glucometer 123 Random Glucose 99 Calcium 8.6 Phosphorus 3.1 Magnesium 1.8 Active Medications Generic Name Dose Route Start Last Admin Trade Name Freq PRN Reason Stop Dose Admin Acetaminophen 650 mg 10/18/16 11:00 10/20/16 10:19 Tylenol - PO 650 mg Q6H PRN Administration FEVER OR PAIN Enoxaparin Sodium 80 mg 10/18/16 22:00 10/20/16 10:22 Lovenox - SQ 80 mg BID [facility] Administration Insulin Aspart 0 vial 10/18/16 11:00 10/19/16 22:57 Novolog Vial Sliding Scale - SQ Not Given ACHS [facility] Protocol Ondansetron HCl 4 mg 10/18/16 11:00 Zofran Injection IVPB Q6H PRN NAUSEA Oxycodone HCl 5 mg 10/18/16 10:30 10/18/16 13:09 Roxicodone - PO 5 mg Q4H PRN Administration PAIN Phenol/Menthol 1 spray 10/18/16 15:03 Chloraseptic - MM Q6HPO PRN SORE THROAT ASSESSMENT/PLAN: (1) Cholelithiasis (2) History of pulmonary embolus (PE) (3) Gall stone induce acute Pancreatitis (4) COPD (chronic obstructive pulmonary disease) (5) Diabetes (6) HTN (hypertension) 7 s/p lap christelle day 2 Assessment/Plan on Lovenox BID, change to Xarelto when OK with surgery O2 as needed, on 3L Nasal canula Incentive Spirometry q1h accepting soft diet zofran for nausea Pain control Dispo: We will continue to follow the patient. Thank you for this consultative opportunity. Visit type - Emergency Visit Emergency Visit: Yes ED Registration Date: 10/12/16 Care time: The patient presented to the Emergency Department on the above date and was hospitalized for further evaluation of their emergent condition. - New Patient This patient is new to me today: Yes Date on this admission: 10/20/16 - Critical Care Critical Care patient: No
--- NOTE | 2016-10-20 15:21 | PN ---
Teaching Attending Note Name of Resident: Umang De Paz ATTENDING PHYSICIAN STATEMENT I saw and evaluated the patient. I reviewed the resident's note and discussed the case with the resident. I agree with the resident's findings and plan as documented. Valencia YANEZ MD
--- NOTE | 2016-10-20 16:33 | PN ---
Progress Note (short form) - Note Progress Note: Chief Complaint: biliary pancreatitis History of Present Illness: no cp no sob no leg swelling no palpitations. ambulating, ate regular diet today. Current Medications Acetaminophen (Tylenol -) 650 mg PO Q6H PRN PRN Reason: FEVER OR PAIN Last Admin: 10/20/16 10:19 Dose: 650 mg Enoxaparin Sodium (Lovenox -) 80 mg SQ BID [facility] Last Admin: 10/20/16 10:22 Dose: 80 mg Insulin Aspart (Novolog Vial Sliding Scale -) 0 vial SQ ACHS SH[facility] PRN Reason: Protocol Last Admin: 10/19/16 22:57 Dose: Not Given Ondansetron HCl (Zofran Injection) 4 mg IVPB Q6H PRN PRN Reason: NAUSEA Oxycodone HCl (Roxicodone -) 5 mg PO Q4H PRN PRN Reason: PAIN Last Admin: 10/18/16 13:09 Dose: 5 mg Phenol/Menthol (Chloraseptic -) 1 spray MM Q6HPO PRN PRN Reason: SORE THROAT Vital Signs - 24 hr 10/19/16 10/19/16 10/20/16 21:00 22:00 06:00 Temperature 99.4 F 98.7 F Pulse Rate 77 57 L Respiratory 18 18 18 Rate Blood Pressure 138/70 141/59 O2 Sat by Pulse 93 L Oximetry (%) 10/20/16 10/20/16 11:14 15:21 Temperature 98.6 F Pulse Rate 68 65 Respiratory 18 Rate Blood Pressure 122/56 O2 Sat by Pulse 93 L Oximetry (%) Intake & Output 10/18/16 10/19/16 10/20/16 10/21/16 07:59 07:59 07:59 07:59 Intake Total 520 3100 1600 Output Total 575 150 40 Balance 520 2525 1450 -40 Constitutional: Yes: Well Nourished, No Distress, Calm. lying flat in bed Cardiovascular: Yes: Regular Rate and Rhythm, S1, S2. No: Gallop, Murmur Respiratory: Yes: trace basilar rales (atx?). No: Accessory Muscle Use, Rales, Wheezes Extremities: No: Cold Edema: No Neurological: Yes: Alert, Oriented Psychiatric: No: Agitated Labs: CBC, BMP 10/20/16 06:00 10/20/16 06:00 Assessment/Plan MPI 04/2016: occ pvc's, no ischemic ekg changes. artifact. no ischemia, EF 71% . 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 Echo 03/03 ([facility]): nl LVEF; mod-sev RV dilation and hypokinesis; valves unremarkable; RVSP 40-50. abd CT 10/13: patchy consolidation at bilateral bases, minimal effusion (by my review, likely atelectasis) a/p: 86 year old female with htn, niddm, COPD, ibs, chronic lbp, prior PE here with pancreatitis with plan for lap christelle. recurrent biliary pancreatitis: -GI and surgery following, s/p lap christelle 10/18 Pre-operative clearance - recent negative stress test 04/2016. Echo 04/2016 shows normalization of RV function. Patient with RCRI of 1-2 with advanced age and poor functional status. Estimated intermediate risk of adonis-operative CV complications. Patient counseled on risk. - Patient with intermediate troponin elevation, flat trend, nl ckmb, not consistent with acs. - Limit IVF adonis-operatively when possible. I/o, daily standing weights to monitor volume status adonis-operatively. Incentive spirometry. Pain control. - Patient currently appears euvolemic. diet advanced. - Resumed lovenox. Transition to eliquis when safe per surgery. diastolic chf - unclear diagnosis. Patient with h/o development of small pleural effusions on last hospitalization for pancreatitis. Not on standing diuretics as outpatient - currently appears euvolemic (see above). episode of hypoxia 10/13 likely 2/2 atelectasis and underlying pulmonary disease no evidence of pulmonary edema on ct scan. Extensive PEs, dvt with resulting RV strain/systolic dysfunction s/p IVC filter placement: - On eliquis as outpatient (see above AC plan) - RV function normalized. - adonis-operative AC as above COPD - per pmd/pulm HTN - controlled off meds
[2016-10-21] MEDS: INSULIN SLIDING SCALE (NOVOLOG) 1 VIAL SQ SCH ×4 (06:31→22:39)
[2016-10-21] MEDS ORDERED: INSULIN (NOVOLOG) ASPART 100 UNITS/ML 10ML VIAL ONE ×2 (06:47→22:08)
[2016-10-21 07:40] LABS: BASOPHIL 0.7 % (0-2.0); EOSINOPHIL 5.4 % (0-4.5); MCH 31.3 pg (25.7-33.7); MCHC 33.4 g/dl (32.0-36.0); MEAN CELL VOLUME 93.8 fl (80-96); MEAN PLT VOLUME 9.4 fl (7.5-11.1); NEUTROPHILS 48.4 % (42.8-82.8); PLATELET COUNT 195 K/MM3 (134-434); RDW 16.1 % (11.6-15.6); WHITE BLOOD COUNT 5.1 K/mm3 (4.0-10.0)
[2016-10-21 07:57] LABS: CALCIUM 9.3 mg/dL (8.5-10.1); COCKROFT - GAULT 99.722; CREATININE 0.5 mg/dL (0.55-1.02); MAGNESIUM 1.8 mg/dL (1.8-2.4); PHOSPHOROUS 3.3 mg/dL (2.5-4.9)
[2016-10-21] MEDS: ACETAMINOPHEN 325 MG TABLET (FP) PO PRN ×3 (08:51→23:52)
--- NOTE | 2016-10-21 11:36 | PN ---
Progress Note (short form) - Note Progress Note: Attending Surgeon POD #3 No c/o; tolerating diet; ambulating VSS AF abdomen -soft; port sites c/d/i healing well JENNY in place sero sanguineous; o/w negative. labs/I/O noted IMP: doing well PLAN: Drain will be removed tomorrow; continue present tx. Finesse Holguin MD FACS
[2016-10-21] MEDS ORDERED: PT OWN MED DRAWER 7, Y5N ONE ×2 (11:46→22:12)
[2016-10-21] MEDS: ENOXAPARIN NA (PORCINE) 80 MG/0.8 ML DISP.SYRIN SQ SCH ×2 (11:51→22:33)
--- NOTE | 2016-10-21 12:21 | PN ---
Progress Note, Physician Chief Complaint: Feels better today with no nausea. History of Present Illness: Patient has had 2 admissions recently for GB calculus induced pancreatitis and thgis week had Cholecysectomy. Drain in place and still has serosang. drainage. BGM's stable and patient who had abdominal pain and nausea yesterday has no recurrence today. - Current Medication List Current Medications: Active Medications Acetaminophen (Tylenol -) 650 mg PO Q6H PRN PRN Reason: FEVER OR PAIN Last Admin: 10/21/16 08:51 Dose: 650 mg Enoxaparin Sodium (Lovenox -) 80 mg SQ BID [facility] Last Admin: 10/21/16 11:51 Dose: 80 mg Insulin Aspart (Novolog Vial Sliding Scale -) 0 vial SQ ACHS [facility] PRN Reason: Protocol Last Admin: 10/21/16 06:31 Dose: Not Given Ondansetron HCl (Zofran Injection) 4 mg IVPB Q6H PRN PRN Reason: NAUSEA Phenol/Menthol (Chloraseptic -) 1 spray MM Q6HPO PRN PRN Reason: SORE THROAT - Objective Vital Signs: Vital Signs Temperature 98.4 F 10/21/16 06:00 Pulse Rate 61 10/21/16 10:27 Respiratory Rate 16 10/21/16 06:00 Blood Pressure 133/67 10/21/16 06:00 O2 Sat by Pulse Oximetry (%) 96 10/21/16 10:27 Constitutional: Yes: Calm, Pallor Cardiovascular: Yes: Regular Rate and Rhythm Respiratory: Yes: Diminished. No: Rales Gastrointestinal: Yes: Soft, Tenderness (mild RUQ tenderness; Drain in place RUQ.) Genitourinary: No: Bladder Distention Edema: No Neurological: Yes: Alert, Oriented Labs: CBC, BMP 10/21/16 06:00 10/21/16 06:00 INR, PTT INR 1.20 (0.82-1.09) H 10/18/16 06:15 Problem List - Problems (1) S/P laparoscopic cholecystectomy Assessment/Plan: Patient had surgical Rx this week. Feeling less pain and nausea today. Followed by Surgery. Code(s): Z90.49 - ACQUIRED ABSENCE OF OTHER SPECIFIED PARTS OF DIGESTIVE TRACT (2) CHF exacerbation Assessment/Plan: Seen by Dr. Rader. Code(s): I50.9 - HEART FAILURE, UNSPECIFIED Qualifiers: Congestive heart failure type: systolic Qualified Code(s): I50.23 - Acute on chronic systolic (congestive) heart failure (3) Cholelithiasis Assessment/Plan: Small GB calculi causing Pancreatitis; S/P Surpical Rx. Code(s): K80.20 - CALCULUS OF GALLBLADDER W/O CHOLECYSTITIS W/O OBSTRUCTION Qualifiers: Cholelithiasis location: gallbladder Cholecystitis presence: without cholecystitis Biliary obstruction: without biliary obstruction Qualified Code(s): K80.20 - Calculus of gallbladder without cholecystitis without obstruction (4) Gallstone pancreatitis Assessment/Plan: Much improved after surgery. Code(s): K85.10 - BILIARY ACUTE PANCREATITIS WITHOUT NECROSIS OR INFECTION (5) Diabetes Assessment/Plan: BGM's followed; last value 131. Code(s): E11.9 - TYPE 2 DIABETES MELLITUS WITHOUT COMPLICATIONS Qualifiers: Diabetes mellitus type: type 2 Diabetes mellitus complication status: without complication Diabetes mellitus terminal clerk insulin use: without terminal clerk use Qualified Code(s): E11.9 - Type 2 diabetes mellitus without complications
--- NOTE | 2016-10-21 14:48 | PN ---
Progress Note (short form) - Note Progress Note: PULMONARY APPEARS STABLE OFFERS NO COMPLAINTS NO CHANGE IN EXAM LABS/MEDS/NOTES REVIEWED (1) Cholelithiasis (2) History of pulmonary embolus (PE) (3) Gall stone induce acute Pancreatitis (4) COPD (chronic obstructive pulmonary disease) (5) Diabetes (6) HTN (hypertension) (7) s/p lap christelle day 3 on Lovenox BID, change to Xarelto when OK with surgery O2 as needed, on 3L Nasal canula Incentive Spirometry q1h accepting soft diet zofran for nausea Pain control PLEASE CALL GINI YANEZ MD
[2016-10-22] MEDS: INSULIN SLIDING SCALE (NOVOLOG) 1 VIAL SQ SCH ×4 (06:46→21:52)
[2016-10-22 07:56] LABS: BASOPHIL 0.5 % (0-2.0); EOSINOPHIL 8.4 % (0-4.5); MCH 31.1 pg (25.7-33.7); MCHC 33.1 g/dl (32.0-36.0); MEAN CELL VOLUME 93.8 fl (80-96); MEAN PLT VOLUME 9.2 fl (7.5-11.1); NEUTROPHILS 42.7 % (42.8-82.8); PLATELET COUNT 205 K/MM3 (134-434); RDW 16.2 % (11.6-15.6); WHITE BLOOD COUNT 4.3 K/mm3 (4.0-10.0)
[2016-10-22 08:13] LABS: CALCIUM 8.7 mg/dL (8.5-10.1); COCKROFT - GAULT 83.096; CREATININE 0.6 mg/dL (0.55-1.02)
[2016-10-22] MEDS ORDERED: PT OWN MED DRAWER 7, Y5N ONE ×2 (09:08→21:50)
[2016-10-22] MEDS: ENOXAPARIN NA (PORCINE) 80 MG/0.8 ML DISP.SYRIN SQ SCH ×2 (09:10→21:51)
--- NOTE | 2016-10-22 10:40 | PN ---
Progress Note, Physician Chief Complaint: Feels better with no abdominal pain. History of Present Illness: Patient with Lap cholecystectomy and Acute Pancreatitis X2 exacerbated by Choledocholithisis is improved and walking in the [place] and tolerated her meals with no pain. Still has serosang. drainage from biliary drain.past hx of PE, COPD, Hypertension and DM. Pulmonary MD suggested resuming Xarelto if OK with surgeon but our EMR has Eliquis 5 mg BID as ambulatory mediication. - Current Medication List Current Medications: Active Medications Acetaminophen (Tylenol -) 650 mg PO Q6H PRN PRN Reason: FEVER OR PAIN Last Admin: 10/21/16 23:52 Dose: 650 mg Enoxaparin Sodium (Lovenox -) 80 mg SQ BID SHAYNA Last Admin: 10/22/16 09:10 Dose: 80 mg Insulin Aspart (Novolog Vial Sliding Scale -) 0 vial SQ ACHS SHAYNA PRN Reason: Protocol Last Admin: 10/22/16 06:46 Dose: Not Given Ondansetron HCl (Zofran Injection) 4 mg IVPB Q6H PRN PRN Reason: NAUSEA Phenol/Menthol (Chloraseptic -) 1 spray MM Q6HPO PRN PRN Reason: SORE THROAT - Objective Vital Signs: Vital Signs Temperature 98.1 F 10/22/16 05:22 Pulse Rate 61 10/22/16 09:55 Respiratory Rate 20 10/22/16 05:22 Blood Pressure 131/65 10/22/16 05:22 O2 Sat by Pulse Oximetry (%) 94 L 10/22/16 09:55 Constitutional: Yes: Calm. No: Mild Distress Eyes: Yes: Conjunctiva Clear Cardiovascular: Yes: Regular Rate and Rhythm Respiratory: Yes: Diminished. No: Rales, SOB Gastrointestinal: Yes: Soft, Tenderness (minimal near surgical site; drain in place) Genitourinary: No: Swift Present Edema: No Peripheral Pulses: Left Radial: 0 Neurological: Yes: Alert, Oriented Labs: CBC, BMP 10/22/16 06:00 10/22/16 06:00 INR, PTT INR 1.20 (0.82-1.09) H 10/18/16 06:15 Problem List - Problems (1) History of pulmonary embolus (PE) Assessment/Plan: Should restart NOAC as soon as surgeon permits. Code(s): Z86.711 - PERSONAL HISTORY OF PULMONARY EMBOLISM (2) S/P laparoscopic cholecystectomy Assessment/Plan: Comfortable with diet and not in pain. Code(s): Z90.49 - ACQUIRED ABSENCE OF OTHER SPECIFIED PARTS OF DIGESTIVE TRACT (3) Gallstone pancreatitis Code(s): K85.10 - BILIARY ACUTE PANCREATITIS WITHOUT NECROSIS OR INFECTION (4) Cholelithiasis Assessment/Plan: Ultimate cause of Pancreatitis X2 Code(s): K80.20 - CALCULUS OF GALLBLADDER W/O CHOLECYSTITIS W/O OBSTRUCTION Qualifiers: Cholelithiasis location: gallbladder Cholecystitis presence: without cholecystitis Biliary obstruction: without biliary obstruction Qualified Code(s): K80.20 - Calculus of gallbladder without cholecystitis without obstruction (5) Diabetes Assessment/Plan: [facility]'s 114. Code(s): E11.9 - TYPE 2 DIABETES MELLITUS WITHOUT COMPLICATIONS Qualifiers: Diabetes mellitus type: type 2 Diabetes mellitus complication status: without complication Diabetes mellitus long term care phlebotomist insulin use: without long-term use Qualified Code(s): E11.9 - Type 2 diabetes mellitus without complications (6) CHF exacerbation Assessment/Plan: Not in CHF now. Code(s): I50.9 - HEART FAILURE, UNSPECIFIED Qualifiers: Congestive heart failure type: systolic Qualified Code(s): I50.23 - Acute on chronic systolic (congestive) heart failure
--- NOTE | 2016-10-22 11:04 | PN ---
Progress Note, Physician Chief Complaint: h/o PEs, postop History of Present Illness: no sob, cp, palpit, leg swelling feels well - Current Medication List Current Medications: Active Medications Acetaminophen (Tylenol -) 650 mg PO Q6H PRN PRN Reason: FEVER OR PAIN Last Admin: 10/21/16 23:52 Dose: 650 mg Enoxaparin Sodium (Lovenox -) 80 mg SQ BID SHAYNA Last Admin: 10/22/16 09:10 Dose: 80 mg Insulin Aspart (Novolog Vial Sliding Scale -) 0 vial SQ ACHS SHAYNA PRN Reason: Protocol Last Admin: 10/22/16 06:46 Dose: Not Given Ondansetron HCl (Zofran Injection) 4 mg IVPB Q6H PRN PRN Reason: NAUSEA Phenol/Menthol (Chloraseptic -) 1 spray MM Q6HPO PRN PRN Reason: SORE THROAT - Objective Vital Signs: Vital Signs Temperature 98.1 F 10/22/16 05:22 Pulse Rate 61 10/22/16 09:55 Respiratory Rate 20 10/22/16 05:22 Blood Pressure 131/65 10/22/16 05:22 O2 Sat by Pulse Oximetry (%) 94 L 10/22/16 09:55 Constitutional: Yes: Well Nourished, No Distress, Calm Cardiovascular: Yes: Regular Rate and Rhythm, S1, S2. No: Gallop, Murmur Respiratory: Yes: Regular, CTA Bilaterally. No: Accessory Muscle Use, Rales, Wheezes Extremities: No: Cold Edema: No Neurological: Yes: Alert, Oriented Psychiatric: No: Agitated Labs: CBC, BMP 10/22/16 06:00 10/22/16 06:00 INR, PTT INR 1.20 (0.82-1.09) H 10/18/16 06:15 Assessment/Plan MPI 04/2016: occ pvc's, no ischemic ekg changes. artifact. no ischemia, EF 71% . 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 Echo 03/03 (): nl LVEF; mod-sev RV dilation and hypokinesis; valves unremarkable; RVSP 40-50. abd CT 10/13: patchy consolidation at bilateral bases, minimal effusion (by my review, likely atelectasis) a/p: 86 year old female with htn, niddm, COPD, ibs, chronic lbp, prior PE here with pancreatitis with plan for lap christelle. recurrent biliary pancreatitis, s/p lap christelle: -per surgery note, plan is to remove drain today -she is on eliquis at home (for hypercoagulable disorder with prior PEs)-- resumewhen ok with dr andres (surgeon) diastolic chf - unclear diagnosis. Patient with h/o development of small pleural effusions on last hospitalization for pancreatitis. Not on standing diuretics as outpatient - currently appears euvolemic (see above). episode of hypoxia 10/13 likely 2/2 atelectasis and underlying pulmonary disease no evidence of pulmonary edema on ct scan. Extensive PEs, dvt with resulting RV strain/systolic dysfunction s/p IVC filter placement: - On eliquis as outpatient (see above AC plan) - RV function normalized. - cont lovenox as doing (80 bid)--H/H stable - NOAC to be resumed when ok with surgery (as above) COPD - per pmd/pulm HTN - controlled off meds
--- NOTE | 2016-10-22 11:52 | PN ---
Progress Note (short form) - Note Progress Note: Attending Surgeon POD #4 No c/o VSS AF abdo-no change and unremarkable. JENNY serosanguinous labs noted IMP:doing well PLAN: JENNY drain remeoved; continue present tx. Finesse Holguin MD FACS
[2016-10-22] MEDS: ACETAMINOPHEN 325 MG TABLET (FP) PO PRN ×2 (12:10→21:52)
--- NOTE | 2016-10-22 12:45 | PN ---
Progress Note (short form) - Note Progress Note: PULMONARY POD #4 APPEARS STABLE OFFERS NO COMPLAINTS OOB TO CHAIR WANTS TO GO HOME NO CHANGE IN EXAM LABS/MEDS/NOTES REVIEWED (1) S/P lap cholecystectomy/lysis of adhesions (2) History of pulmonary embolus (PE) (3) Gall stone induce acute Pancreatitis (4) COPD (chronic obstructive pulmonary disease) (5) Diabetes (6) HTN (hypertension) (7) s/p lap chrisetlle day 3 on Lovenox BID, change to Xarelto when OK with surgery O2 as needed, on 3L Nasal canula Incentive Spirometry q1h accepting soft diet zofran for nausea Pain control PLEASE CALL GINI YANEZ MD
[2016-10-23] MEDS: INSULIN SLIDING SCALE (NOVOLOG) 1 VIAL SQ SCH ×4 (06:20→23:00)
--- NOTE | 2016-10-23 10:37 | PN ---
Physical Exam: SUBJECTIVE: Patient seen and examined case of gall stone induced pancreatitis s/p lap christelle sitting comfortably in chair denies chest pain, sob denies pain abdomen OBJECTIVE: Vital Signs Period Temp Pulse Resp BP Sys/Dorado Pulse Ox Last 24 Hr 98.9 F 56-60 20-20 133-139/66-73 94 GENERAL: Awake, alert, and fully oriented, in no acute distress. EARS, NOSE, THROAT: .dry mucous membranes. LUNGS: diminished, Breath sounds equal, clear to auscultation bilaterally. HEART: s1s2 normal ABDOMEN:soft, non tender, bs+, no guarding, no rigidity UPPER EXTREMITIES: 2+ pulses, No peripheral edema. LOWER EXTREMITIES: 2+ pulses, warm, well-perfused. No peripheral edema. SKIN: Warm, dry, Laboratory Results - last 24 hr 10/22/16 10/22/16 10/22/16 12:12 17:42 21:32 POC Glucometer 123 100 96 10/23/16 06:14 POC Glucometer 100 Active Medications Generic Name Dose Route Start Last Admin Trade Name Freq PRN Reason Stop Dose Admin Acetaminophen 650 mg 10/18/16 11:00 10/22/16 21:52 Tylenol - PO 650 mg Q6H PRN Administration FEVER OR PAIN Enoxaparin Sodium 80 mg 10/18/16 22:00 10/22/16 21:51 Lovenox - SQ 80 mg BID SHAYNA Administration Insulin Aspart 0 vial 10/18/16 11:00 10/23/16 06:20 Novolog Vial Sliding Scale - SQ Not Given ACHS SHAYNA Protocol Ondansetron HCl 4 mg 10/18/16 11:00 Zofran Injection IVPB Q6H PRN NAUSEA Phenol/Menthol 1 spray 10/18/16 15:03 Chloraseptic - MM Q6HPO PRN SORE THROAT ASSESSMENT/PLAN: (1) Cholelithiasis (2) History of pulmonary embolus (PE) (3) Gall stone induce acute Pancreatitis (4) COPD (chronic obstructive pulmonary disease) (5) Diabetes (6) HTN (hypertension) (7)s/p lap christelle Assessment/Plan on Lovenox BID, change to Xarelto when OK with surgery O2 as needed Incentive Spirometry q1h on diabetic/ sodium control diet. zofran for nausea Pain control
--- NOTE | 2016-10-23 11:07 | PN ---
Progress Note (short form) - Note Progress Note: PULMONARY Denies shortness of breath or significant cough. No wheezing. No fevers or chills. Ambulated yesterday. Last Vital Signs Temp Pulse Resp BP Pulse Ox 98.9 F 56 L 20 139/73 94 L 10/22/16 14:03 10/23/16 06:00 10/23/16 06:00 10/23/16 06:00 10/22/16 22:07 Gen: NAD in chair Heart: RRR Lung: decreased breath sounds at the bases Abd: soft, nontender Ext: no edema CBC, BMP 10/22/16 06:00 10/22/16 06:00 Active Medications Acetaminophen (Tylenol -) 650 mg PO Q6H PRN PRN Reason: FEVER OR PAIN Last Admin: 10/22/16 21:52 Dose: 650 mg Enoxaparin Sodium (Lovenox -) 80 mg SQ BID SHAYNA Last Admin: 10/22/16 21:51 Dose: 80 mg Insulin Aspart (Novolog Vial Sliding Scale -) 0 vial SQ ACHS SHAYNA PRN Reason: Protocol Last Admin: 10/23/16 06:20 Dose: Not Given Ondansetron HCl (Zofran Injection) 4 mg IVPB Q6H PRN PRN Reason: NAUSEA Phenol/Menthol (Chloraseptic -) 1 spray MM Q6HPO PRN PRN Reason: SORE THROAT A/P Acute Pancreatitis s/p Laparoscopic Cholecystecomty COPD h/o PE HTN DM - resume eliquis 5mg BID when ok with surgery - incentive spirometry - pain control - ambulate
[2016-10-23] MEDS: ACETAMINOPHEN 325 MG TABLET (FP) PO PRN ×2 (11:15→22:59)
[2016-10-23] MEDS: ENOXAPARIN NA (PORCINE) 80 MG/0.8 ML DISP.SYRIN SQ SCH (11:34)
[2016-10-23] MEDS: APIXABAN 5 MG TABLET PO SCH ×2 (12:27→23:00)
--- NOTE | 2016-10-23 12:55 | PN ---
Progress Note, Physician Chief Complaint: Ms Farr says she is feeling better today. Says yesterday she had some pain and nausea but she attributes it to the weather. Saying she is feeling better today. No cp, sob, n/v. - Current Medication List Current Medications: Active Medications Acetaminophen (Tylenol -) 650 mg PO Q6H PRN PRN Reason: FEVER OR PAIN Last Admin: 10/23/16 11:15 Dose: 650 mg Apixaban (Eliquis -) 5 mg PO BID SHAYNA Last Admin: 10/23/16 12:27 Dose: 5 mg Insulin Aspart (Novolog Vial Sliding Scale -) 0 vial SQ ACHS SHAYNA PRN Reason: Protocol Last Admin: 10/23/16 12:27 Dose: Not Given Ondansetron HCl (Zofran Injection) 4 mg IVPB Q6H PRN PRN Reason: NAUSEA Phenol/Menthol (Chloraseptic -) 1 spray MM Q6HPO PRN PRN Reason: SORE THROAT - Objective Vital Signs: Vital Signs Temperature 98.9 F 10/22/16 14:03 Pulse Rate 56 L 10/23/16 06:00 Respiratory Rate 20 10/23/16 06:00 Blood Pressure 139/73 10/23/16 06:00 O2 Sat by Pulse Oximetry (%) 97 10/23/16 09:00 Constitutional: Yes: Well Nourished, No Distress, Calm Cardiovascular: Yes: Regular Rate and Rhythm. No: Gallop, Murmur, Rub Respiratory: Yes: Regular, CTA Bilaterally. No: Rales, Rhonchi, Wheezes Gastrointestinal: Yes: Normal Bowel Sounds, Soft. No: Distention, Tenderness Extremities: Yes: WNL Edema: No Labs: CBC, BMP 10/22/16 06:00 10/22/16 06:00 INR, PTT INR 1.20 (0.82-1.09) H 10/18/16 06:15 Problem List - Problems (1) Pancreatitis Code(s): K85.90 - ACUTE PANCREATITIS WITHOUT NECROSIS OR INFECTION, UNSP Qualifiers: Chronicity: acute Pancreatitis type: biliary Acute pancreatitis complication: no infection or necrosis Qualified Code(s): K85.10 - Biliary acute pancreatitis without necrosis or infection (2) Cholelithiasis Code(s): K80.20 - CALCULUS OF GALLBLADDER W/O CHOLECYSTITIS W/O OBSTRUCTION Qualifiers: Cholelithiasis location: gallbladder Cholecystitis presence: without cholecystitis Biliary obstruction: without biliary obstruction Qualified Code(s): K80.20 - Calculus of gallbladder without cholecystitis without obstruction (3) Diabetes Code(s): E11.9 - TYPE 2 DIABETES MELLITUS WITHOUT COMPLICATIONS Qualifiers: Diabetes mellitus type: type 2 Diabetes mellitus complication status: without complication Diabetes mellitus snf insulin use: without terminal operations supervisor use Qualified Code(s): E11.9 - Type 2 diabetes mellitus without complications (4) History of pulmonary embolus (PE) Code(s): Z86.711 - PERSONAL HISTORY OF PULMONARY EMBOLISM (5) Acute respiratory failure with hypoxia Code(s): J96.01 - ACUTE RESPIRATORY FAILURE WITH HYPOXIA (6) COPD (chronic obstructive pulmonary disease) Code(s): J44.9 - CHRONIC OBSTRUCTIVE PULMONARY DISEASE, UNSPECIFIED (7) CHF exacerbation Code(s): I50.9 - HEART FAILURE, UNSPECIFIED Qualifiers: Congestive heart failure type: systolic Qualified Code(s): I50.23 - Acute on chronic systolic (congestive) heart failure Assessment/Plan (1) Pancreatitis Assessment/Plan: -resolved Code(s): K85.90 - ACUTE PANCREATITIS WITHOUT NECROSIS OR INFECTION, UNSP Qualifiers: Chronicity: acute Pancreatitis type: biliary Acute pancreatitis complication: no infection or necrosis Qualified Code(s): K85.10 - Biliary acute pancreatitis without necrosis or infection (2) Cholelithiasis Assessment/Plan: -s/p lap christelle -improving -tolerating diet Code(s): K80.20 - CALCULUS OF GALLBLADDER W/O CHOLECYSTITIS W/O OBSTRUCTION Qualifiers: Cholelithiasis location: gallbladder Cholecystitis presence: without cholecystitis Biliary obstruction: without biliary obstruction Qualified Code(s): K80.20 - Calculus of gallbladder without cholecystitis without obstruction (3) Diabetes Assessment/Plan: -continue SSI Code(s): E11.9 - TYPE 2 DIABETES MELLITUS WITHOUT COMPLICATIONS Qualifiers: Diabetes mellitus type: type 2 Diabetes mellitus complication status: without complication Diabetes mellitus snf insulin use: without terminal operations supervisor use Qualified Code(s): E11.9 - Type 2 diabetes mellitus without complications (4) History of pulmonary embolus (PE) Assessment/Plan: -start eliquis today Code(s): Z86.711 - PERSONAL HISTORY OF PULMONARY EMBOLISM (5) Acute respiratory failure with hypoxia -resolved -appreciate cardiology and pulmonary assistance (6) CHF exacerbation -diastolic dysfunction per cardiology -euvolemic (7) COPD -appreciate pulmonary assistance -stable Dispo -possible discharge tomorrow
--- NOTE | 2016-10-23 13:19 | PN ---
Progress Note (short form) - Note Progress Note: Attending Surgeon POD #5 No c/o; ambulating and tolerating diet VSS AF abdomen-port sites c/d/i; exam o/w unremarkable IMP: doing well PLAN: Stable to start NOAC and can have OPD f/u. Finesse Holguin MD FACS
--- NOTE | 2016-10-23 16:30 | PN ---
Progress Note (short form) - Note Progress Note: Chief Complaint: h/o PEs, postop History of Present Illness: no sob, cp, palpit, leg swelling feels well. ambulating, eating. eliquis resumed. Current Medications Acetaminophen (Tylenol -) 650 mg PO Q6H PRN PRN Reason: FEVER OR PAIN Last Admin: 10/23/16 11:15 Dose: 650 mg Apixaban (Eliquis -) 5 mg PO BID SHAYNA Last Admin: 10/23/16 12:27 Dose: 5 mg Insulin Aspart (Novolog Vial Sliding Scale -) 0 vial SQ ACHS SHAYNA PRN Reason: Protocol Last Admin: 10/23/16 12:27 Dose: Not Given Ondansetron HCl (Zofran Injection) 4 mg IVPB Q6H PRN PRN Reason: NAUSEA Phenol/Menthol (Chloraseptic -) 1 spray MM Q6HPO PRN PRN Reason: SORE THROAT Vital Signs - 24 hr 10/22/16 10/23/16 10/23/16 22:07 06:00 09:00 Temperature Pulse Rate 56 L Respiratory 20 20 Rate Blood Pressure 139/73 O2 Sat by Pulse 94 L 97 Oximetry (%) 10/23/16 15:18 Temperature 97.7 F Pulse Rate 60 Respiratory 20 Rate Blood Pressure 135/82 O2 Sat by Pulse Oximetry (%) Intake & Output 10/21/16 10/22/16 10/23/16 10/24/16 07:59 07:59 07:59 07:59 Intake Total 840 500 500 500 Output Total 155 120 40 Balance 685 380 460 500 Constitutional: Yes: Well Nourished, No Distress, Calm Cardiovascular: Yes: Regular Rate and Rhythm, S1, S2. No: Gallop, Murmur Respiratory: Yes: trace rales at bases (improved). No: Accessory Muscle Use, Rales, Wheezes Extremities: No: Cold Edema: No Neurological: Yes: Alert, Oriented Psychiatric: No: Agitated Labs: CBC, BMP 10/22/16 06:00 10/22/16 06:00 Assessment/Plan MPI 04/2016: occ pvc's, no ischemic ekg changes. artifact. no ischemia, EF 71% . 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 Echo 03/03 (): nl LVEF; mod-sev RV dilation and hypokinesis; valves unremarkable; RVSP 40-50. abd CT 10/13: patchy consolidation at bilateral bases, minimal effusion (by my review, likely atelectasis) a/p: 86 year old female with htn, niddm, COPD, ibs, chronic lbp, prior PE here with pancreatitis with plan for lap christelle. recurrent biliary pancreatitis, s/p lap christelle: -recovering well. -cleared by surgery to resume eliquis today 10/23 diastolic chf - unclear diagnosis. Patient with h/o development of small pleural effusions on last hospitalization for pancreatitis. Not on standing diuretics as outpatient - currently appears euvolemic (see above). episode of hypoxia 10/13 likely 2/2 atelectasis and underlying pulmonary disease no evidence of pulmonary edema on ct scan. Extensive PEs, dvt with resulting RV strain/systolic dysfunction s/p IVC filter placement: - On eliquis as outpatient (see above AC plan) - RV function normalized. - transitioned from lovenox to eliquis today 10/23. COPD - per pmd/pulm HTN - controlled off meds
[2016-10-24] MEDS: INSULIN SLIDING SCALE (NOVOLOG) 1 VIAL SQ SCH ×2 (06:03→12:20)
[2016-10-24 06:19] VITALS: BP 127/77; PULSE 56; TEMP 98.3
--- NOTE | 2016-10-24 07:53 | DS ---
Physical Examination Vital Signs: Vital Signs Temperature 98.3 F 10/24/16 06:00 Pulse Rate 56 L 10/24/16 06:00 Respiratory Rate 30 H 10/24/16 06:00 Blood Pressure 127/77 10/24/16 06:00 O2 Sat by Pulse Oximetry (%) 97 10/23/16 09:00 Constitutional: Yes: No Distress, Calm Eyes: No: Sclera Icterus Cardiovascular: Yes: Regular Rate and Rhythm Respiratory: Yes: Other (minimal basilar dry rales) Gastrointestinal: Yes: Normal Bowel Sounds, Soft Edema: No Neurological: Yes: Alert, Oriented Labs: CBC, BMP 10/22/16 06:00 10/22/16 06:00 Discharge Summary Reason For Visit: PANCREATITIS Current Active Problems T2DM (type 2 diabetes mellitus) (Chronic) Hospital Course: See daily notes Recurrent episode of "gallstone pancreatitis" treated with elective laparoscopic cholecystectomy. Patient recently restarted on Eliquis. Stable for discharge See instructions as per Dr Holguin Condition: Good - Instructions Diet, Activity, Other Instructions: Dr Holguin Discharge Instructions Dear SUNG SANTOS, Post Operative Instructions Physical activity Resume your normal everyday activity as tolerated no heavy lifting or exercise until seen by your surgeon. You may walk unlimited terrance of and climb stairs. You may resume driving the car when you feel safe and comfortable behind the wheel. Wound care If you have a bandage, leave it on, and keep dry for 48-72 hours. After that time discard the outer bandage. If there are tapes on the skin under the outer bandage, leave them in place. They will peel off in the next 7 to 10 days. Do Not Peel them off. You may shower the day after surgery. If there are tapes present on the skin, you may shower over them. Diet Eat healthy, high-fiber foods. Drink 6 to 8 glasses of liquid each day. This will assist in keeping your bowels are regular. Pain management You may take Tylenol or acetaminophen or Ibuprofen (for example, Motrin, Advil etc.) Any pain prescription medication ordered should be taken as prescribed for moderate to severe pain. Call Dr. Holguin for any of the following: Severe pain not relieved by medication Fever of 101 or higher Excessive bleeding or drainage on dressing Inability to urinate Call the office at [phone] for an appointment in seven days. Referrals: Finesse Holguin MD [Staff Physician] - Durga Mart MD [Primary Care Provider] - Disposition: HOME - Home Medications Comprehensive Discharge Medication List: Ambulatory Orders Apixaban [Eliquis -] 5 mg PO Q12H 02/17/16 Ascorbic Acid [Vitamin C -] 1,000 mg PO DAILY 02/17/16 Cholecalciferol (Vitamin D3) [Vitamin D3] 1,000 unit PO DAILY 02/17/16 Magnesium Chloride [Slow-Mag -] 64 mg PO DAILY 02/17/16 Multivitamin with Minerals [Icaps Plus] 1 each PO DAILY 02/17/16 Acetaminophen [Tylenol .Regular Strength -] 650 mg PO Q4H PRN #0 tablet Metformin HCl 500 mg PO DAILY #30 tablet 08/22/16
[2016-10-24] MEDS ORDERED: PT OWN MED DRAWER 7, Y5N ONE (08:05)
[2016-10-24] MEDS: APIXABAN 5 MG TABLET PO SCH (09:49)
== END 2016-10-24 11:55 | disposition home or self-care (01) | DRG 417 ==
LOC: JER 01:42 → JERBED 09:26 → J5S 10:55 → J7W 10-19 19:15
PROVIDERS: ADMIT Internal Medicine; ATTEND Internal Medicine
PROC: 0DNW4ZZ Release Peritoneum, Percutaneous Endoscopic Approach (ICD-10-PCS; 2016-10-18)
PROC: 0FT44ZZ Resection of Gallbladder, Percutaneous Endoscopic Approach (ICD-10-PCS; principal; 2016-10-18 07:30)
DX: K85.10 Biliary acute pancreatitis without necrosis or infection (principal); J96.01 Acute respiratory failure with hypoxia; I50.32 Chronic diastolic (congestive) heart failure; K80.20 Calculus of gallbladder without cholecystitis without obstruction; I25.10 Atherosclerotic heart disease of native coronary artery without angina pectoris; Z86.711 Personal history of pulmonary embolism; Z79.01 Long term (current) use of anticoagulants; E78.5 Hyperlipidemia, unspecified; J45.909 Unspecified asthma, uncomplicated; J44.9 Chronic obstructive pulmonary disease, unspecified; M54.5 Low back pain; E11.9 Type 2 diabetes mellitus without complications; Z79.84 Long term (current) use of oral hypoglycemic drugs; I11.0 Hypertensive heart disease with heart failure; E66.9 Obesity, unspecified; Z68.31 Body mass index [BMI] 31.0-31.9, adult; M19.90 Unspecified osteoarthritis, unspecified site; K66.0 Peritoneal adhesions (postprocedural) (postinfection)
CPT/HCPCS: 36415; 36600; 71010-TC; 71020-TC; 74178-TC; 74182-TC; 76705-TC; 80048; 80053; 81003; 81015; 82150; 82550; 82803; 83605; 83615; 83690; 83735; 83880; 84100; 84484; 85025; 85610; 86140; 86850; 86900; 86901; 88304-TC; 93005; 93010; 94010; 94760; 97116-GP; 97161-GP; 99285-25; A9576; Q9967

== ENCOUNTER 2019-02-18 12:46 | Emergency (ER) | payer OTHER, MEDICARE ==
[2019-02-18 13:06] VITALS: TEMP 98.2; BMI 28.8
--- NOTE | 2019-02-18 13:14 | PDOC ---
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 She states she was watching TV at home and when she got up to make lunch she felt that her noise was moist and she started to bleed heavily from her nose. She denies any trauma to the nose and she was not picking at her nose. She states she was bleeding so much that it was flowing into her throat and she started to swallow some of it. She has been regurgitating some of the blood since. She feels lightheaded but does not feel nauseous and nervous. She denies any vomiting, chest pain, SOB, abd pain, or other concerns. Medical Hx: DVT, PE, pancreatitis, skin cancer, DM Surgical Hx: cholecystectomy Medications: Metformin 500mg once daily, Elliquis 5mg BID Past History - Past Medical History Allergies/Adverse Reactions: Allergies Allergy/AdvReac Type Severity Reaction Status Date / Time ibuprofen [From Advil] Allergy Mild Hives Verified 02/18/19 12:48 Home Medications: Ambulatory Orders Apixaban [Eliquis -] 5 mg PO Q12H 02/17/16 Ascorbic Acid [Vitamin C -] 1,000 mg PO DAILY 02/17/16 Cholecalciferol (Vitamin D3) [Vitamin D3] 1,000 unit PO DAILY 02/17/16 Magnesium Chloride [Slow-Mag -] 64 mg PO DAILY 02/17/16 Multivitamin with Minerals [Icaps Plus] 1 each PO DAILY 02/17/16 Acetaminophen [Tylenol .Regular Strength -] 650 mg PO Q4H PRN #0 tablet metFORMIN HCL [Metformin HCl] 500 mg PO DAILY #30 tablet 08/22/16 Anemia: No Asthma: Yes Cancer: No Cardiac Disorders: Yes (ASHD, CORONARY ATHEROSCLEROSIS, bilateral PE) CVA: No COPD: No CHF: No Dementia: No Diabetes: Yes GI Disorders: Yes (cololitis,diverticulitis,) Disorders: No HTN: Yes Hypercholesterolemia: Yes Liver Disease: No Seizures: No Thyroid Disease: No Other medical history: DVT PE - Surgical History Abdominal Surgery: Yes Appendectomy: Yes Cardiac Surgery: No Cholecystectomy: No Lung Surgery: No Neurologic Surgery: No Orthopedic Surgery: Yes (R KNEE MENISCUS REPAIR, CORTISONE INJECTION IN L KNEE JUL 2014) - Reproductive History (#): 2 Para: 2 Cervical CA: No Dysfunctional Uterine Bleeding: No Ectopic : No Endometrial CA: No Endometriosis: No Ovarian CA: No PID: No Polycystic Ovaries: No Therapeutic (s) & number: No Tubal Ligation: No Uterine Fibroids: No Oophorectomy: No - Immunization History Immunization Up to Date: No - Suicide/Smoking/Psychosocial Hx Smoking Status: Yes Smoking History: Former smoker Years of Tobacco Use: 30 Have you smoked in the past 12 months: No Number of Cigarettes Smoked Daily: 0 If you are a former smoker, when did you quit?: 1998 Cigars Per Day: 0 Information on smoking cessation initiated: No Hx Alcohol Use: No Drug/Substance Use Hx: No Substance Use Type: None Hx Substance Use Treatment: No Review of Systems - Review of Systems Constitutional: No: Chills, Fever HEENTM: Yes: Nose Bleeding Respiratory: No: Cough, Shortness of Breath Cardiac (ROS): Yes: Lightheadedness. No: Chest Pain ABD/GI: No: Abdominal Distended, Diarrhea, Nausea, Vomiting Musculoskeletal: No: Back Pain Neurological: No: Headache, Numbness Psychiatric: Yes: Other (nervous) *Physical Exam - Vital Signs Last Vital Signs Temp Pulse Resp BP Pulse Ox 98.2 F 75 18 132/75 02/18/19 12:49 02/18/19 12:49 02/18/19 12:49 02/18/19 12:49 - Physical Exam General Appearance: Yes: Mild Distress HEENT: positive: EOMI, Other (dried blood noted in both nares. no active bleeding. ) Neck: positive: Supple Respiratory/Chest: positive: Lungs Clear, Normal Breath Sounds. negative: Crackles, Rales, Rhonchi, Wheezing Gastrointestinal/Abdominal: positive: Normal Bowel Sounds, Soft. 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 Patient complains of some lightheadedness but is feeling better now that her nosebleed has stopped. CBC, CMP, coags ordered. Oxymetazoline nasal spray ordered. Will observe patient and check labs. Spoke with patient's daughter, they are aware patient is in the hospital and in stable condition. 02/18/19 15:44 Patient feeling better, not lightheaded anymore. No active bleeding while in ER. CBC shows no signs of anemia. Patient comfortable to be discharged. *DC/Admit/Observation/Transfer Diagnosis at time of Disposition: Nosebleed - Discharge Dispostion Disposition: HOME Condition at time of disposition: Good Decision to Admit order: No - Referrals Referrals: Durga Mart MD [Primary Care Provider] - - Patient Instructions Printed Discharge Instructions: DI for Nosebleed Additional Instructions: If you having worsening symptoms or other concerns return to the ED. Follow up with your primary care doctor in the next week. - Post Discharge Activity
[2019-02-18] MEDS ORDERED: OXYMETAZOLINE 0.05% NASAL SOLUTION 15 ML BOTTLE NS ONE (13:31)
[2019-02-18 14:28] LABS: BASO % 0.4 % (0-2.0); EOS % 0.9 % (0-4.5); HEMATOCRIT 43.9 % (32.4-45.2); HEMOGLOBIN 14.9 GM/dL (10.7-15.3); MCH 32.5 pg (25.7-33.7); MEAN CELL VOLUME 95.6 fl (80-96); MEAN PLT VOLUME 8.8 fl (7.5-11.1); MONO % 8.3 % (3.8-10.2); NEUT % 71.4 % (42.8-82.8); PLATELET COUNT 193 K/MM3 (134-434); RBC 4.59 M/mm3 (3.60-5.2); RDW 14.3 % (11.6-15.6); WHITE BLOOD COUNT 7.7 K/mm3 (4.0-10.0)
[2019-02-18 14:41] LABS: INR 1.59 (0.83-1.09); PROTHROMBIN TIME (PATIENT) 18.8 SEC (9.7-13.0)
[2019-02-18 14:56] LABS: ALBUMIN 3.8 g/dl (3.4-5.0); BILIRUBIN,TOTAL 0.6 mg/dL (0.2-1); BLOOD UREA NITROGEN 19.1 mg/dL (7-18); CALCIUM 9.9 mg/dL (8.5-10.1); CREATININE 0.6 mg/dL (0.55-1.3); POTASSIUM 4.1 mmol/L (3.5-5.1); TOT PROT 7.2 g/dl (6.4-8.2)
[2019-02-18 15:24] VITALS: BP 120/82; PULSE 82
--- NOTE | 2019-02-18 15:53 | PDOC ---
Documentation entered by Mariola Shanks SCRIBE, acting as scribe for Elizabeth Marrero MD. Elizabeth Marrero MD: This documentation has been prepared by the Rimma le Adrianna, SCRIBE, under my direction and personally reviewed by me in its entirety. I confirm that the documentation accurately reflects all work, treatment, procedures, and medical decision making performed by me. Attending Attestation - Resident Resident Name: Sreedhar Quinteros - ED Attending Attestation I have performed the following: I have examined & evaluated the patient, The case was reviewed & discussed with the resident, I agree w/resident's findings & plan, Exceptions are as noted - HPI HPI: 02/18/19 15:40 Ms. Farr is an 88 yo F who presents with a complaint of epistaxis Pt has a h/o PE and DVT on Elliquis 5mg BID who reports a nasal bleed from the right nare beginning 1 hour ago, lasting 30 minutes Pt denies picking her nose Pt denies nasal trauma air is not dry at home Prior episodes like this (years ago) She was bleeding enough that she began to swallow it and this caused her to regurgitate it She denies any vomiting, chest pain, SOB, abd pain, or headache. - Physicial Exam PE: 02/18/19 15:51 General Appearance: Alert and oriented, no distress HEENT: positive: EOMI, Other (dried blood noted in both nares. no active bleeding. ) Neck: positive: Supple Respiratory/Chest: positive: Lungs Clear, Normal Breath Sounds. Gastrointestinal/Abdominal: positive: Normal Bowel Sounds, Soft, non tender Extremity: positive: Normal Capillary Refill Integumentary: positive: Normal Color, Dry Neurologic: positive: Fully Oriented, Alert, Motor Strength 5/5 - Medical Decision Making 02/18/19 15:52 Epistaxis Appears to be an anterior bleed from Kesselbach's plexus no active bleeding during examination No need for Rapid Rhino Labs sent 02/18/19 15:53 Laboratory Tests 08/21/14 08/21/14 08/21/14 10:50 10:50 10:50 WBC 8.1 D Hgb 15.4 H D Hct 45.5 H Plt Count 213 D INR 1.02 Sodium Potassium Chloride Carbon Dioxide BUN Creatinine Random Glucose Lactic Acid 3.200 H B-Natriuretic Peptide 03/06/15 03/06/15 09/03/19 10:50 10:50 14:15 WBC Hgb Hct Plt Count 193 INR Sodium 137 Potassium 4.0 Chloride 99 Carbon Dioxide 30 BUN 15 D Creatinine 0.9 D Random Glucose 233 H D Lactic Acid B-Natriuretic Peptide 261.16 02/18/19 02/18/19 14:15 14:15 WBC Hgb Hct Plt Count INR 1.59 H Sodium Potassium Chloride Carbon Dioxide BUN 19.1 H Creatinine 0.6 Random Glucose Lactic Acid B-Natriuretic Peptide will discharge to home Will ask pt to follow up with Dr Mart and ENT Clinical impression: Epistaxis, initial presentation
== END 2019-02-18 15:25 | disposition home or self-care (01) ==
LOC: JER 12:46 → SUPCPDRO 12:46 → JER 15:25
PROC: 093K7ZZ Control Bleeding in Nasal Mucosa and Soft Tissue, Via Natural or Artificial Opening (ICD-10-PCS; principal; 2019-02-18)
DX: R04.0 Epistaxis (principal); I25.10 Atherosclerotic heart disease of native coronary artery without angina pectoris; I10 Essential (primary) hypertension; E78.00 Pure hypercholesterolemia, unspecified; E11.9 Type 2 diabetes mellitus without complications; Z79.84 Long term (current) use of oral hypoglycemic drugs; Z86.718 Personal history of other venous thrombosis and embolism; Z86.711 Personal history of pulmonary embolism; Z79.01 Long term (current) use of anticoagulants; Z87.19 Personal history of other diseases of the digestive system
CPT/HCPCS: 30901-25; 36415; 80053; 85025; 85610; 99282-25

== ENCOUNTER 2019-02-18 19:01 | Emergency (ER) | payer OTHER, MEDICARE ==
[2019-02-18 19:21] VITALS: BP 112/71; PULSE 71; TEMP 98; BMI 29.8
--- NOTE | 2019-02-18 19:21 | PDOC ---
Rapid Medical Evaluation Time Seen by Provider: 02/18/19 19:18 Medical Evaluation: Allergies Allergy/AdvReac Type Severity Reaction Status Date / Time ibuprofen [From Advil] Allergy Mild Hives Verified 02/18/19 12:48 02/18/19 19:18 I have performed a brief in-person evaluation of this patient. The patient presents with a chief complaint of: Nosebleed today, was seen here, discharged but nosebleed is not bleeding. She is on Eliquis. Also c/o dizziness , and feeling of generalized weakness. Pertinent physical exam findings: Nosebleed I have ordered the following: CBC, type and screen, PT/INR The patient will proceed to the ED for further evaluation.
--- NOTE | 2019-02-18 20:27 | PDOC ---
History of Present Illness - General Chief Complaint: Nasal Bleeding Stated Complaint: NOSE BLEED Time Seen by Provider: 02/18/19 19:18 Past History - Past Medical History Allergies/Adverse Reactions: Allergies Allergy/AdvReac Type Severity Reaction Status Date / Time ibuprofen [From Advil] Allergy Mild Hives Verified 02/18/19 12:48 Home Medications: Ambulatory Orders Apixaban [Eliquis -] 5 mg PO Q12H 02/17/16 Ascorbic Acid [Vitamin C -] 1,000 mg PO DAILY 02/17/16 Cholecalciferol (Vitamin D3) [Vitamin D3] 1,000 unit PO DAILY 02/17/16 Magnesium Chloride [Slow-Mag -] 64 mg PO DAILY 02/17/16 Multivitamin with Minerals [Icaps Plus] 1 each PO DAILY 02/17/16 Acetaminophen [Tylenol .Regular Strength -] 650 mg PO Q4H PRN #0 tablet metFORMIN HCL [Metformin HCl] 500 mg PO DAILY #30 tablet 08/22/16 Anemia: No Asthma: Yes Cancer: No Cardiac Disorders: Yes (ASHD, CORONARY ATHEROSCLEROSIS, bilateral PE) CVA: No COPD: No CHF: No Dementia: No Diabetes: Yes GI Disorders: Yes (cololitis,diverticulitis,) Disorders: No HTN: Yes Hypercholesterolemia: Yes Liver Disease: No Seizures: No Thyroid Disease: No - Surgical History Abdominal Surgery: Yes Appendectomy: Yes Cardiac Surgery: No Cholecystectomy: No Lung Surgery: No Neurologic Surgery: No Orthopedic Surgery: Yes (R KNEE MENISCUS REPAIR, CORTISONE INJECTION IN L KNEE JUL 2014) - Reproductive History (#): 2 Para: 2 Cervical CA: No Dysfunctional Uterine Bleeding: No Ectopic : No Endometrial CA: No Endometriosis: No Ovarian CA: No PID: No Polycystic Ovaries: No Therapeutic (s) & number: No Tubal Ligation: No Uterine Fibroids: No Oophorectomy: No - Immunization History Immunization Up to Date: No - Suicide/Smoking/Psychosocial Hx Smoking Status: Yes Smoking History: Unknown if ever smoked Years of Tobacco Use: 30 Have you smoked in the past 12 months: No Number of Cigarettes Smoked Daily: 0 If you are a former smoker, when did you quit?: 1999 Cigars Per Day: 0 Information on smoking cessation initiated: No Hx Alcohol Use: No Drug/Substance Use Hx: No Substance Use Type: None Hx Substance Use Treatment: No *Physical Exam - Vital Signs Last Vital Signs Temp Pulse Resp BP Pulse Ox 98.0 F 71 16 112/71 100 02/18/19 19:19 02/18/19 19:19 02/18/19 19:19 02/18/19 19:19 02/18/19 19:19 Medical Decision Making - Medical Decision Making HPI: 88 02/18/19 20:27 *DC/Admit/Observation/Transfer - Referrals Referrals: Durga Mart MD [Primary Care Provider] - - Patient Instructions - Post Discharge Activity
[2019-02-18] MEDS ORDERED: AMOX TR/POT CLAV 875MG/125MG TABLETS (FP) PO ONE (21:04)
--- NOTE | 2019-02-18 21:07 | PDOC ---
Attending Attestation - Resident Resident Name: Sreedhar Quinteros - ED Attending Attestation I have performed the following: I have examined & evaluated the patient, The case was reviewed & discussed with the resident, I agree w/resident's findings & plan, Exceptions are as noted - HPI HPI: 02/18/19 21:25 88 yo female returns for rt nares bleeding.It is her second ED visit today,she wsa initially seen this morning. She denies trauma and denies - Physicial Exam PE: 02/19/19 02:19 head ncat neck supple lungs cta b/l nares blood in rt nares abd nontender neuro axox3 - Medical Decision Making 02/19/19 02:21 rhino rocket placed in rt nares,pt tolerated procedure well steted on augmentin and will follow up with her PCP tomorrow for removal of nasal packing
[2019-02-18] MEDS ORDERED: AMOX TR/POT CLAV 875MG/125MG TABLETS (FP) ONE (21:14)
--- NOTE | 2019-02-18 21:15 | PDOC ---
History of Present Illness - General Chief Complaint: Nasal Bleeding Stated Complaint: NOSE BLEED Time Seen by Provider: 02/18/19 19:18 - History of Present Illness Initial Comments: 88 y/o/f that was here earlier today returning to the ER for recurring nosebleed. Patient states that she started to have a nosebleed within half an hour of returning home after discharge from the ED earlier today. The bleeding was light at first and started to get worse when she got up to move around. The bleeding stopped after the patient returned to the ED and was placed in a room. The bleeding was not as heavy as it was this morning. Patient states her stomach feels a little upset because she was swallowed blood today and she feels a little weak because she has not had much to eat today. She denies any lightheadedness, chest pain, loss of consciousness, or other concerns at this time. She is worried because she lives alone and thinks she will have another bad nosebleed when she returns home. She has not taken her second dose of elliquis for today. Past History - Past Medical History Allergies/Adverse Reactions: Allergies Allergy/AdvReac Type Severity Reaction Status Date / Time ibuprofen [From Advil] Allergy Mild Hives Verified 02/18/19 12:48 Home Medications: Ambulatory Orders Apixaban [Eliquis -] 5 mg PO Q12H 02/17/16 Ascorbic Acid [Vitamin C -] 1,000 mg PO DAILY 02/17/16 Cholecalciferol (Vitamin D3) [Vitamin D3] 1,000 unit PO DAILY 02/17/16 Magnesium Chloride [Slow-Mag -] 64 mg PO DAILY 02/17/16 Multivitamin with Minerals [Icaps Plus] 1 each PO DAILY 02/17/16 Acetaminophen [Tylenol .Regular Strength -] 650 mg PO Q4H PRN #0 tablet metFORMIN HCL [Metformin HCl] 500 mg PO DAILY #30 tablet 08/22/16 Amox-Tr/K Cl [Augmentin - 875Mg Tablet] 1 tab PO BID #6 tablet 02/18/19 Anemia: No Asthma: Yes Cancer: No Cardiac Disorders: Yes (ASHD, CORONARY ATHEROSCLEROSIS, bilateral PE) CVA: No COPD: No CHF: No Dementia: No Diabetes: Yes GI Disorders: Yes (cololitis,diverticulitis,) Disorders: No HTN: Yes Hypercholesterolemia: Yes Liver Disease: No Seizures: No Thyroid Disease: No - Surgical History Abdominal Surgery: Yes Appendectomy: Yes Cardiac Surgery: No Cholecystectomy: No Lung Surgery: No Neurologic Surgery: No Orthopedic Surgery: Yes (R KNEE MENISCUS REPAIR, CORTISONE INJECTION IN L KNEE JUL 2014) - Reproductive History (#): 2 Para: 2 Cervical CA: No Dysfunctional Uterine Bleeding: No Ectopic : No Endometrial CA: No Endometriosis: No Ovarian CA: No PID: No Polycystic Ovaries: No Therapeutic (s) & number: No Tubal Ligation: No Uterine Fibroids: No Oophorectomy: No - Immunization History Immunization Up to Date: No - Suicide/Smoking/Psychosocial Hx Smoking Status: Yes Smoking History: Unknown if ever smoked Years of Tobacco Use: 30 Have you smoked in the past 12 months: No Number of Cigarettes Smoked Daily: 0 If you are a former smoker, when did you quit?: 1998 Cigars Per Day: 0 Information on smoking cessation initiated: No Hx Alcohol Use: No Drug/Substance Use Hx: No Substance Use Type: None Hx Substance Use Treatment: No Review of Systems - Review of Systems Constitutional: Yes: Weakness. No: Diaphoresis HEENTM: Yes: Nose Bleeding Respiratory: No: Cough, Shortness of Breath Cardiac (ROS): No: Chest Pain ABD/GI: Yes: Other (upset stomach). No: Diarrhea, Difficulty Swallowing, Nausea , Vomiting Musculoskeletal: Yes: Joint Pain Integumentary: No: Flushing, Rash Neurological: No: Headache, Numbness *Physical Exam - Vital Signs Last Vital Signs Temp Pulse Resp BP Pulse Ox 98.0 F 71 16 112/71 100 02/18/19 19:19 02/18/19 19:19 02/18/19 19:19 02/18/19 19:19 02/18/19 19:19 - Physical Exam General Appearance: Yes: Appropriately Dressed HEENT: positive: EOMI, Other (scant dried blood noted in the right nares. no active bleeding. no blood seen in left nares. Small amount of blood noted in the posterior pharynx.) Neck: positive: Supple Respiratory/Chest: positive: Lungs Clear, Normal Breath Sounds. negative: Crackles, Rales, Rhonchi Cardiovascular: positive: Regular Rhythm, Regular Rate, S1, S2 Gastrointestinal/Abdominal: positive: Normal Bowel Sounds, Soft Extremity: positive: Normal Capillary Refill Integumentary: positive: Normal Color Neurologic: positive: Fully Oriented, Alert, Motor Strength 5/5 Procedures - Additional Procedures Additional Procedures: other (rhinorocket placed in right nares ) Medical Decision Making - Medical Decision Making 02/18/19 23:15 88 y/o/f that was here earlier today returning to the ER for recurring nosebleed. Patient started to have recurrent bleeding shortly after returning home after discharge. Not as heavy as it was in the morning. Bleeding stopped after patient was placed in a room in ED upon return. No active bleeding noted in either nares on physical exam, small amount of dried blood noted in right nares. Rhinorocket placed in right nares. Patient advised to follow up with PCP within 24 hours to have rhinorocket removed within 24-36 hours. Started on Augmentin for sinus infection prophylaxis, first dose given in ED. Patient's daughter present in ED, states she will make sure patient follows up with PCP tomorrow. *DC/Admit/Observation/Transfer Diagnosis at time of Disposition: Nasal bleeding - Discharge Dispostion Disposition: HOME Condition at time of disposition: Good Decision to Admit order: No - Prescriptions Prescriptions: Amox-Tr/K Cl [Augmentin - 875Mg Tablet] 1 tab PO BID #6 tablet - Referrals Referrals: Durga Mart MD [Primary Care Provider] - - Patient Instructions Printed Discharge Instructions: DI for Nosebleed Additional Instructions: If you have worsening bleeding, lightheadness, loss of consciousness, or other concerns return to the ED. Follow up with your primary care doctor in 24-36 hours. You nasal tamponade should be removed within 24-36 hours, if you have trouble contacting your primary care doctor return here for removal of the nasal tamponade. - Post Discharge Activity
== END 2019-02-18 21:31 | disposition home or self-care (01) ==
LOC: JER 19:01
PROC: 2Y41X5Z Packing of Nasal Region using Packing Material (ICD-10-PCS; principal; 2019-02-18)
DX: R04.0 Epistaxis (principal); Z87.891 Personal history of nicotine dependence; E78.00 Pure hypercholesterolemia, unspecified; I25.10 Atherosclerotic heart disease of native coronary artery without angina pectoris; J45.909 Unspecified asthma, uncomplicated; E11.9 Type 2 diabetes mellitus without complications; I10 Essential (primary) hypertension
CPT/HCPCS: 99281-25

== ENCOUNTER 2020-08-26 02:49 | Emergency (ER) | payer OTHER ==
[2020-08-26 03:20] VITALS: BMI 27.6
[2020-08-26 04:02] LABS: INR 1.34 (0.83-1.09); PROTHROMBIN TIME (PATIENT) 16.1 SEC (9.7-13.0)
[2020-08-26 04:05] LABS: ACTIVATED PTT 25.9 SECONDS (25.2-36.5)
[2020-08-26 04:16] LABS: POTASSIUM 5.3 mmol/L (3.5-5.1)
[2020-08-26 04:18] LABS: CALCIUM 9.9 mg/dL (8.5-10.1)
[2020-08-26 04:19] LABS: ALBUMIN 3.5 g/dl (3.4-5.0)
[2020-08-26 04:22] LABS: CREATININE 0.6 mg/dL (0.55-1.3)
[2020-08-26 04:23] LABS: BILIRUBIN,TOTAL 0.6 mg/dL (0.2-1); TOT PROT 7.2 g/dl (6.4-8.2)
[2020-08-26 04:35] LABS: BASO % 0.6 % (0-2.0); EOS % 3.2 % (0-4.5); HEMATOCRIT 42.8 % (32.4-45.2); HEMOGLOBIN 14.4 GM/dL (10.7-15.3); LYMPH % 37.7 % (8-40); MCH 32.9 pg (25.7-33.7); MCHC 33.7 g/dl (32.0-36.0); MEAN CELL VOLUME 97.6 fl (80-96); MEAN PLT VOLUME 10.2 fl (7.5-11.1); NEUT % 48.5 % (42.8-82.8); PLATELET COUNT 214 K/MM3 (134-434); RBC 4.39 M/mm3 (3.60-5.2); RDW 14.2 % (11.6-15.6); WHITE BLOOD COUNT 5.7 K/mm3 (4.0-10.0)
[2020-08-26 06:43] VITALS: BP 112/62; PULSE 56; TEMP 98.1
== END 2020-08-26 07:25 | disposition home or self-care (01) ==
LOC: JER 02:49
DX: R04.0 Epistaxis (principal)
CPT/HCPCS: 36415; 80053; 85025; 85610; 85730; 99283-25

== ENCOUNTER 2020-08-28 12:20 | Observation (INO) | payer OTHER, MEDICARE ==
[2020-08-28 12:51] VITALS: BMI 27.6
[2020-08-28] MEDS ORDERED: ONDANSETRON 4 MG/2 ML VIAL IVPUSH ONE (13:09)
[2020-08-28] MEDS ORDERED: SODIUM CHLORIDE 0.9% 500 ML INFUS.BAG IV ONE (13:09)
[2020-08-28] MEDS ORDERED: FAMOTIDINE 20 MG/50 ML IVPB 20 MG/50 ML MG IVPB ONE ×2 (13:10→13:23)
[2020-08-28] MEDS ORDERED: ACETAMINOPHEN 1000 MG/100 ML VIAL (NON FORMULARY) IVPB ONE (13:10)
[2020-08-28] MEDS ORDERED: ACETAMINOPHEN INJECTION 100 ML IVPB ONE (13:23)
[2020-08-28] MEDS ORDERED: ONDANSETRON 4 MG/2 ML VIAL ONE (13:23)
[2020-08-28 13:35] LABS: BASO % 0.2 % (0-2.0); HEMATOCRIT 42.1 % (32.4-45.2); HEMOGLOBIN 14.3 GM/dL (10.7-15.3); LYMPH % 16.1 % (8-40); MCH 32.9 pg (25.7-33.7); MCHC 33.9 g/dl (32.0-36.0); MEAN PLT VOLUME 9.9 fl (7.5-11.1); MONO % 7.1 % (3.8-10.2); NEUT % 75.6 % (42.8-82.8); PLATELET COUNT 184 K/MM3 (134-434); RBC 4.34 M/mm3 (3.60-5.2); RDW 14.2 % (11.6-15.6); WHITE BLOOD COUNT 9.5 K/mm3 (4.0-10.0)
[2020-08-28 14:45] LABS: POTASSIUM 4.3 mmol/L (3.5-5.1)
[2020-08-28 14:47] LABS: BASO % 0.3 % (0-2.0); EOS % 0.9 % (0-4.5); HEMATOCRIT 40.8 % (32.4-45.2); HEMOGLOBIN 13.5 GM/dL (10.7-15.3); LYMPH % 19.5 % (8-40); MCH 32.4 pg (25.7-33.7); MCHC 33.1 g/dl (32.0-36.0); MEAN CELL VOLUME 97.9 fl (80-96); MEAN PLT VOLUME 9.5 fl (7.5-11.1); MONO % 8.2 % (3.8-10.2); NEUT % 71.1 % (42.8-82.8); PLATELET COUNT 170 K/MM3 (134-434); RBC 4.16 M/mm3 (3.60-5.2); RDW 14.3 % (11.6-15.6); WHITE BLOOD COUNT 9.3 K/mm3 (4.0-10.0)
[2020-08-28 14:47] LABS: BLOOD UREA NITROGEN 13.9 mg/dL (7-18); CALCIUM 9.5 mg/dL (8.5-10.1)
[2020-08-28 14:48] LABS: ALBUMIN 3.6 g/dl (3.4-5.0); MAGNESIUM 2.1 mg/dL (1.8-2.4)
[2020-08-28 14:51] LABS: CREATININE 0.6 mg/dL (0.55-1.3)
[2020-08-28 14:52] LABS: BILIRUBIN,TOTAL 0.5 mg/dL (0.2-1); TOT PROT 6.8 g/dl (6.4-8.2)
[2020-08-28 15:06] LABS: INR 1.51 (0.83-1.09); PROTHROMBIN TIME (PATIENT) 18.3 SEC (9.7-13.0)
[2020-08-29 10:00] LABS: BASO % 0.4 % (0-2.0); EOS % 3.6 % (0-4.5); HEMATOCRIT 37.9 % (32.4-45.2); HEMOGLOBIN 12.7 GM/dL (10.7-15.3); LYMPH % 34.8 % (8-40); MCH 32.6 pg (25.7-33.7); MCHC 33.6 g/dl (32.0-36.0); MEAN CELL VOLUME 97.2 fl (80-96); MEAN PLT VOLUME 9.5 fl (7.5-11.1); MONO % 10.1 % (3.8-10.2); NEUT % 51.1 % (42.8-82.8); PLATELET COUNT 165 K/MM3 (134-434); RDW 14.4 % (11.6-15.6); WHITE BLOOD COUNT 6.6 K/mm3 (4.0-10.0)
[2020-08-29 11:25] LABS: ALBUMIN 3.1 g/dl (3.4-5.0); CREATININE 0.7 mg/dL (0.55-1.3); PHOSPHOROUS 3.6 mg/dL (2.5-4.9); POTASSIUM 4.4 mmol/L (3.5-5.1)
[2020-08-29] MEDS: ASCORBIC ACID 500 MG TABLET (FP) PO SCH (12:18)
[2020-08-29] MEDS ORDERED: metFORMIN HCL 500 MG TABLET (FP) PO ONE (17:00)
[2020-08-29] MEDS ORDERED: APIXABAN 5 MG TABLET PO SCH (22:00)
[2020-08-30] MEDS: ASCORBIC ACID 500 MG TABLET (FP) PO SCH (10:25)
[2020-08-30] MEDS: APIXABAN 2.5 MG TABLET PO SCH ×2 (10:25→21:27)
[2020-08-30 11:38] LABS: BASO % 0.5 % (0-2.0); EOS % 1.7 % (0-4.5); HEMATOCRIT 39.8 % (32.4-45.2); HEMOGLOBIN 13.2 GM/dL (10.7-15.3); LYMPH % 27.2 % (8-40); MCH 32.5 pg (25.7-33.7); MCHC 33.1 g/dl (32.0-36.0); MEAN CELL VOLUME 98.1 fl (80-96); MEAN PLT VOLUME 9.7 fl (7.5-11.1); MONO % 10.6 % (3.8-10.2); PLATELET COUNT 149 K/MM3 (134-434); RBC 4.05 M/mm3 (3.60-5.2); WHITE BLOOD COUNT 7.1 K/mm3 (4.0-10.0)
[2020-08-30 12:14] LABS: ALBUMIN 3.2 g/dl (3.4-5.0); BILIRUBIN,TOTAL 0.5 mg/dL (0.2-1); BLOOD UREA NITROGEN 13.3 mg/dL (7-18); CALCIUM 9.4 mg/dL (8.5-10.1); CREATININE 0.6 mg/dL (0.55-1.3); POTASSIUM 3.9 mmol/L (3.5-5.1); TOT PROT 6.5 g/dl (6.4-8.2)
[2020-08-30] MEDS ORDERED: metFORMIN HCL 500 MG TABLET (FP) PO SCH (17:00)
[2020-08-30] MEDS: ACETAMINOPHEN 325 MG TABLET (FP) PO PRN (21:26)
[2020-08-31 07:28] LABS: HEMATOCRIT 37.7 % (32.4-45.2); HEMOGLOBIN 12.6 GM/dL (10.7-15.3); MCH 32.5 pg (25.7-33.7); MCHC 33.4 g/dl (32.0-36.0); MEAN CELL VOLUME 97.2 fl (80-96); MEAN PLT VOLUME 9.7 fl (7.5-11.1); PLATELET COUNT 170 K/MM3 (134-434); RBC 3.87 M/mm3 (3.60-5.2); RDW 14.1 % (11.6-15.6); WHITE BLOOD COUNT 5.5 K/mm3 (4.0-10.0)
[2020-08-31 07:48] LABS: POTASSIUM 3.9 mmol/L (3.5-5.1)
[2020-08-31 07:57] LABS: CALCIUM 9.1 mg/dL (8.5-10.1)
[2020-08-31 07:58] LABS: ALBUMIN 2.9 g/dl (3.4-5.0); BLOOD UREA NITROGEN 16.6 mg/dL (7-18)
[2020-08-31 08:00] LABS: CREATININE 0.5 mg/dL (0.55-1.3); PHOSPHOROUS 3.8 mg/dL (2.5-4.9)
[2020-08-31 08:01] LABS: BILIRUBIN,TOTAL 0.5 mg/dL (0.2-1); TOT PROT 5.9 g/dl (6.4-8.2)
[2020-08-31] MEDS ORDERED: ARTIFICIAL TEARS (POLYVINYL ALCOHOL) OPTH DROPS OU PRN (09:46)
[2020-08-31 10:08] VITALS: PULSE 54
[2020-08-31] MEDS: APIXABAN 2.5 MG TABLET PO SCH (10:08)
[2020-08-31] MEDS: ASCORBIC ACID 500 MG TABLET (FP) PO SCH (10:08)
[2020-08-31] MEDS: ACETAMINOPHEN 325 MG TABLET (FP) PO PRN (10:09)
[2020-08-31 15:43] VITALS: BP 127/68; TEMP 97.7
== END 2020-08-31 18:00 | disposition home or self-care (01) ==
LOC: JER 12:20 → JERBED 13:18 → INTOOBSV 13:18 → J6WEST-2 21:44
PROVIDERS: ADMIT Internal Medicine; ATTEND Student in an Organized Health Care Education/Training Program
PROC: 3E0337Z Introduction of Electrolytic and Water Balance Substance into Peripheral Vein, Percutaneous Approach (ICD-10-PCS; principal; 2020-08-28)
PROC: 3E033GC Introduction of Other Therapeutic Substance into Peripheral Vein, Percutaneous Approach (ICD-10-PCS; 2020-08-28)
PROC: 3E033NZ Introduction of Analgesics, Hypnotics, Sedatives into Peripheral Vein, Percutaneous Approach (ICD-10-PCS; 2020-08-28)
DX: K57.92 Diverticulitis of intestine, part unspecified, without perforation or abscess without bleeding (principal); I25.10 Atherosclerotic heart disease of native coronary artery without angina pectoris; J44.9 Chronic obstructive pulmonary disease, unspecified; R09.02 Hypoxemia; R73.03 Prediabetes; M19.90 Unspecified osteoarthritis, unspecified site; Z87.891 Personal history of nicotine dependence; R01.1 Cardiac murmur, unspecified; K85.10 Biliary acute pancreatitis without necrosis or infection; I70.90 Unspecified atherosclerosis; R79.89 Other specified abnormal findings of blood chemistry; M54.5 Low back pain; G89.29 Other chronic pain; I10 Essential (primary) hypertension; K52.9 Noninfective gastroenteritis and colitis, unspecified; Z79.01 Long term (current) use of anticoagulants; R94.31 Abnormal electrocardiogram [ECG] [EKG]; Z86.711 Personal history of pulmonary embolism
CPT/HCPCS: 36415; 71045-TC-FY; 80053; 82550; 82962; 83690; 83735; 84100; 84484; 85025; 85027; 85610; 85730; 93005; 93010; 94761; 96365; 96375; 99285-25; C9803; G0378; J0131; U0003

== ENCOUNTER 2021-01-27 08:02 | Emergency (ER) | payer OTHER, MEDICARE ==
[2021-01-27 08:14] VITALS: BP 126/73; PULSE 69; TEMP 98.4; BMI 26.5
[2021-01-27 08:52] LABS: BASO % 0.8 % (0-2.0); EOS % 3.7 % (0-4.5); HEMATOCRIT 41.5 % (32.4-45.2); HEMOGLOBIN 13.9 GM/dL (10.7-15.3); LYMPH % 28.5 % (8-40); MCH 32.5 pg (25.7-33.7); MCHC 33.5 g/dl (32.0-36.0); MEAN CELL VOLUME 96.9 fl (80-96); MEAN PLT VOLUME 8.9 fl (7.5-11.1); MONO % 9.1 % (3.8-10.2); NEUT % 57.9 % (42.8-82.8); PLATELET COUNT 219 10^3/uL (134-434); RBC 4.28 M/mm3 (3.60-5.2); RDW 14.5 % (11.6-15.6); WHITE BLOOD COUNT 5.4 K/mm3 (4.0-10.0)
[2021-01-27 08:59] LABS: INR 1.17 (0.83-1.09); PROTHROMBIN TIME (PATIENT) 14.1 SEC (9.7-13.0)
[2021-01-27 09:02] LABS: ACTIVATED PTT 30.2 SECONDS (25.2-36.5)
== END 2021-01-27 11:26 | disposition home or self-care (01) ==
LOC: JER 08:02
DX: R04.0 Epistaxis (principal)
CPT/HCPCS: 36415; 82962; 85025; 85610; 85730; 99283-25